=== PATIENT | male | born 1960 | race Caucasian/White ===

== ENCOUNTER → 2017-09-10 14:00 | Outpatient (CLI) | payer OTHER, SELFPAY ==
--- NOTE | 2017-09-10 14:20 | VDLE_ITS ---
Reason For Study: LEG PAIN Procedure LEFT Exam performed in department. GSV is normal. A preliminary report was called and/or faxed CFV is compressible, spontaneous, phasic, to Dr. Frey. competent, and demonstrates normal augmentation. FV is compressible, spontaneous, phasic, competent and demonstrates normal augmentation. POP V is compressible, spontaneous, phasic, competent and demonstrates normal augmentation. T/P Trunk is compressible. PTV is compressible. LT PerV is compressible. Interpretation Summary Deep veins of the left lower extremity are patent and compressible segmentally. There is no evidence of left lower extremity deep vein thrombosis. Valvular competence appears intact within the proximal deep venous system on the left . The left greater saphenous vein appears patent and compressible segmentally. Ordering Physician: Bernard Frey Referring Physician: Bernard Frey Performed By: Suzanna Chen RVT
== END ==
PROVIDERS: Family Provider Family Medicine; PCP Family Medicine; Visit Provider Family Medicine
DX: R25.2 Cramp and spasm (principal)
CPT/HCPCS: 93971

== ENCOUNTER 2017-12-22 08:32 | Emergency (ER) | payer OTHER, SELFPAY ==
[2017-12-22 08:32] VITALS: BP 167/99; PULSE 91; RESP 15; TEMP 36.6; O2SAT 96; BMI 44.9
--- NOTE | 2017-12-22 08:46 | ED.VISSUMM ---
- ER Visit Summary Date of Service: 12/22/17 Chief Complaint: Abdominal pain History of Present Illness: The patient is a 57 M presenting with abdominal pain. He states his abdominal pain has been ongoing for awhile. He states it has been progressively worsening. He now also complains of left flank pain. He has had diarrhea for the past 4 days. He denies blood in his stool. He denies nausea or vomiting. He has urinary frequency. Denies hematuria or dysuria. Denies fever. Denies chest pain or shortness of breath. Physical Examination: Vitals are stable. Patient is afebrile. Alert no acute distress. HEENT exam is unremarkable. Neck is supple. Lungs are clear and equal bilaterally. Heart is regular rate and rhythm. Abdomen is soft right upper quadrant epigastric tenderness with no rebound or guarding Back is nontender Extremities are unremarkable. Skin is warm and dry. Psoriasis Remainder of exam is unremarkable. Emergency Department Course and Treatment: Patient is given morphine, Zofran IV. CBC chemistries unremarkable other than glucose 264. Liver lipase normal. Urinalysis shows glucose, no infection. CT abdomen/pelvis shows hepatic steatosis with hepatomegaly. There appears to be a small amount of layering hyperdense sludge within the gallbladder without acute inflammatory features of the gallbladder wall and without biliary ductal dilatation. No other acute intra-abdominal process is evident. On reevaluation patient is resting comfortably. He is given a prescription for Bentyl. He is advised to follow-up with his primary care physician. Advised return to ED for any worsening complaints. Disposition: Discharge home Impression: Abdominal pain This note was generated with [employer] dictation software. It may contain incorrect words, spelling, and punctuation that were not noted in review of the chart prior to signing ED Disposition - Plan for ED Patient: Chief Complaint: Abd Pain Referrals: Bernard Frey MD [Primary Care Provider] -
[2017-12-22 08:58] LABS: Absolute Lymphocyte Count 1.01 X10^3/ul (0.83-4.51); Absolute Neutrophil Count 4.8 X10^3/uL (2.0-7.7); Basophil# 0.01 X10^3/uL; Basophil% 0.2 % (0-1); Hematocrit 43.2 % (40-54); Hemoglobin 14.9 g/dl (13.0-16.5); Lymphocyte # 1.01 X10^3/ul (4.0); Lymphocyte % 15.7 % (19-41); Mean Corp Hgb Conc 34.5 g/gl (32-36); Mean Corpuscular Hgb 29.4 pg (27.0-32.0); Mean Corpuscular Volume 85.4 fL (80-94); Mean Platelet Vol. 9.1 fl (6.2-12.0); Monocyte# 0.57 X10^3/uL; Monocyte% 8.9 % (0-10); Neutrophil # 4.82 X10^3/uL (2.7-7.7); POSITIVE COUNT NO; POSITIVE DIFFERENTIAL NO; POSITIVE MORPHOLOGY NO; Platelet Count 228 K/mm3 (150-450); RBC Distribution Width CV 13.1 % (11.6-14.6); RBC Distribution Width SD 40.7 fl (35.1-43.9); Red Blood Count 5.06 M/mm3 (4.6-6.2); White Blood Count 6.4 K/mm3 (4.4-11.0)
[2017-12-22 09:11] LABS: ALB/GLOB Ratio 0.9 RATIO (0.9-2.4); AST(SGOT) 15 U/L (15-37); Alanine Aminotransfer ALT/SGPT 29 U/L (16-61); Albumin, Serum 3.7 g/dL (3.2-5.0); Alkaline Phosphatase 78 U/L (45-117); Anion Gap 13 (5-15); BUN 15 mg/dL (7-18); BUN/Creat Ratio 17.2 RATIO (10-20); Calcium,Total 9.2 mg/dL (8.5-10.1); Chloride 101 mmol/L (98-107); Creatinine, Serum 0.87 mg/dL (0.70-1.30); EST Glomerular Filtration Rate 96 mL/min (>60); Est Glom Filt Rate - Afr Amer 116 mL/min (>60); Estimated Creatinine Clearance 94.81 ml/min; Glucose 264 mg/dL (74-106); Lipase 346 U/L (73-393); Protein, Total 7.7 g/dL (6.4-8.2); Sodium Level 138 mmol/L (136-145)
[2017-12-22 09:18] LABS: Bacteria 0 SEEN /hpf (None Seen); Mucous, Urine 0 SEEN /hpf (<or=2+); Red Blood Cells-Urine 0 SEEN /hpf (0-5); Squamous Epithelial Cells - UA 0 SEEN /hpf (0-5); White Blood Cells 0 SEEN /hpf (0-5)
[2017-12-22 09:21] LABS: Color, Urine Yellow (Yellow); Glucose, Dipstick 250 mg/dl (Normal); Ketone-Dipstick Negative (Negative); Leukocyte Esterase-Dipstick Negative /ul (Negative); Nitrite-Dipstick Negative (Negative); Occult Blood-Urine Negative /ul (Negative); Protein-Dipstick Negative (Negative); Urine Bilirubin Dipstick Negative (Negative); Urine Clarity Clear (Clear); Urine Urobilinogen Normal (Normal)
[2017-12-22] MEDS: Morphine 4 MG/ML Syringe IV (09:24)
[2017-12-22] MEDS: Ondansetron 4 MG/2 ML Vial IV (09:24)
--- NOTE | 2017-12-22 11:58 | ED.DEP ---
ED Disposition - Plan for ED Patient: Chief Complaint: Abd Pain Instructions: ED Abdominal Pain Unkn Cause Prescriptions: Dicyclomine HCl [Bentyl] 20 mg PO TIDAC #20 capsule Referrals: Bernard Frey MD [Primary Care Provider] -
[2017-12-22 12:07] VITALS: BP 149/78; PULSE 80; RESP 16
== END 2017-12-22 12:08 | disposition home or self-care (01) ==
PROVIDERS: Emergency Provider Emergency Medicine; Family Provider Family Medicine; PCP Family Medicine
DX: R10.13 Epigastric pain (principal); R10.11 Right upper quadrant pain; I10 Essential (primary) hypertension; E11.9 Type 2 diabetes mellitus without complications; Z79.84 Long term (current) use of oral hypoglycemic drugs; Z79.899 Other long term (current) drug therapy
CPT/HCPCS: 74177; 80053; 81001; 83690; 85025; 96374; 96375; 99283; Q9967; A4216; J2405

== ENCOUNTER → 2017-12-25 15:26 | Outpatient (CLI) | payer OTHER, SELFPAY | PROVIDERS: Family Provider Family Medicine; PCP Family Medicine; Visit Provider Family Medicine | DX: R10.11 Right upper quadrant pain (principal) | CPT/HCPCS: 76705 ==

== ENCOUNTER → 2017-12-26 11:41 | Outpatient (CLI) | payer OTHER, SELFPAY | PROVIDERS: Family Provider Family Medicine; PCP Family Medicine; Visit Provider Surgery | DX: R10.9 Unspecified abdominal pain (principal) | CPT/HCPCS: 78227; A9537 ==

== ENCOUNTER → 2018-03-19 09:50 | Outpatient (CLI) | payer OTHER, SELFPAY ==
[2018-03-19 12:42] LABS: Absolute Lymphocyte Count 1.23 X10^3/ul (0.83-4.51); Absolute Neutrophil Count 4.9 X10^3/uL (2.0-7.7); Basophil# 0.04 X10^3/uL; Basophil% 0.6 % (0-1); Eosinophil# 0.13 X10^3/uL; Eosinophils% 1.9 % (0-5); Hematocrit 42.8 % (40-54); Hemoglobin 14.8 g/dl (13.0-16.5); Lymphocyte # 1.23 X10^3/ul (4.0); Lymphocyte % 17.7 % (19-41); Mean Corp Hgb Conc 34.6 g/gl (32-36); Mean Corpuscular Hgb 29.5 pg (27.0-32.0); Mean Corpuscular Volume 85.4 fL (80-94); Mean Platelet Vol. 10.3 fl (6.2-12.0); Monocyte# 0.58 X10^3/uL; Monocyte% 8.4 % (0-10); Neutrophil # 4.87 X10^3/uL (2.7-7.7); Neutrophil % 70.1 % (47-70); Platelet Count 274 K/mm3 (150-450); RBC Distribution Width CV 13.1 % (11.6-14.6); RBC Distribution Width SD 39.9 fl (35.1-43.9); Red Blood Count 5.01 M/mm3 (4.6-6.2); White Blood Count 6.9 K/mm3 (4.4-11.0)
[2018-03-19 12:43] LABS: POSITIVE COUNT NO; POSITIVE DIFFERENTIAL NO; POSITIVE MORPHOLOGY NO
[2018-03-19 13:38] LABS: AST(SGOT) 11 U/L (15-37); Alanine Aminotransfer ALT/SGPT 32 U/L (16-61); Albumin, Serum 3.5 g/dL (3.2-5.0); Alkaline Phosphatase 85 U/L (45-117); Anion Gap 12 (5-15); BUN 16 mg/dL (7-18); BUN/Creat Ratio 20.1 RATIO (10-20); Bilirubin, Direct < 0.05 mg/dL (0.00-0.30); Calcium,Total 9.4 mg/dL (8.5-10.1); Chloride 101 mmol/L (98-107); EST Glomerular Filtration Rate 106 mL/min (>60); Est Glom Filt Rate - Afr Amer 129 mL/min (>60); Globulin 3.9 g/dL (2.2-4.2); Glucose 241 mg/dL (74-106); Potassium 3.8 mmol/L (3.5-5.1); Protein, Total 7.4 g/dL (6.4-8.2); Sodium Level 138 mmol/L (136-145)
[2018-03-20 06:07] LABS: HEPATITIS B SURFACE AG Negative (Negative)
[2018-03-20 10:29] LABS: Hep B Surface Antibodies Non Reactive (.); Hep C Antibodies 0.1 s/co ratio (0.0-0.9); Hepatitis B Core Ab Total Negative (Negative)
== END ==
PROVIDERS: Family Provider Family Medicine; PCP Family Medicine; Referring Provider Nurse Practitioner Family; Visit Provider Nurse Practitioner Family
DX: L40.0 Psoriasis vulgaris (principal)
CPT/HCPCS: 36415; 80048; 80076; 85025; 86704; 86706; 86803; 87340

== ENCOUNTER 2018-07-14 10:32 | Emergency (ER) | payer OTHER, SELFPAY ==
[2018-07-14 10:34] VITALS: BP 176/85; PULSE 106; RESP 18; TEMP 35.7; O2SAT 96; BMI 45.3
--- NOTE | 2018-07-14 10:54 | EKG12_ITS ---
Test Reason : CP Blood Pressure : / mmHG Vent. Rate : 104 BPM Atrial Rate : 104 BPM P-R Int : 166 ms QRS Dur : 092 ms QT Int : 344 ms P-R-T Axes : 033 033 065 degrees QTc Int : 452 ms Sinus tachycardia Nonspecific T wave abnormality Abnormal ECG Confirmed by NICOLA SHEARER ([id number]), newspaper or periodical editor MIL AJ ([id number]) on 07/17/2018 1:15:37 PM Referred By: SANCHO Confirmed By:NICOLA SHEARER
--- NOTE | 2018-07-14 10:54 | RAD_ITS ---
STUDY: X-RAY CHEST REASON FOR EXAM: Male, 58 years old. 4 day history of chest pain. TECHNIQUE: PA and lateral views of the chest. COMPARISON: None. FINDINGS: EKG electrodes are seen. Minimal degree of increasing markings in the lingular segment of the left upper lobe suggestive of linear atelectasis. There is no demonstrated pleural abnormality. Normal size heart. Normal mediastinum and jeanie. Normal visualized pulmonary arteries. There is atherosclerotic tortuosity of the aortic arch and descending thoracic aorta. There are degenerative changes of the visualized thoracic spine. Normal visualized ribs, clavicles, and shoulders. There is no demonstrated abnormality of the visualized soft tissue structures of the upper abdomen. RAD/Chest PA and Lateral IMPRESSION: Findings suggestive of lingular linear atelectasis. Electronically Signed: Tristin Knowles, at 11:59 EST , Service support ,
[2018-07-14 11:13] VITALS: BP 172/86; PULSE 104; RESP 18; O2SAT 94
[2018-07-14 11:17] LABS: Absolute Lymphocyte Count 1.13 X10^3/ul (0.83-4.51); Absolute Neutrophil Count 4.9 X10^3/uL (2.0-7.7); Basophil# 0.02 X10^3/uL; Basophil% 0.3 % (0-1); Eosinophil# 0.04 X10^3/uL; Eosinophils% 0.6 % (0-5); Hematocrit 43.4 % (40-54); Hemoglobin 14.9 g/dl (13.0-16.5); Lymphocyte # 1.13 X10^3/ul (4.0); Lymphocyte % 16.9 % (19-41); Mean Corp Hgb Conc 34.3 g/gl (32-36); Mean Corpuscular Hgb 29.4 pg (27.0-32.0); Mean Corpuscular Volume 85.6 fL (80-94); Mean Platelet Vol. 9.5 fl (6.2-12.0); Monocyte# 0.56 X10^3/uL; Monocyte% 8.4 % (0-10); Neutrophil # 4.86 X10^3/uL (2.7-7.7); Neutrophil % 72.9 % (47-70); Platelet Count 232 K/mm3 (150-450); RBC Distribution Width CV 13.2 % (11.6-14.6); RBC Distribution Width SD 40.4 fl (35.1-43.9); Red Blood Count 5.07 M/mm3 (4.6-6.2); White Blood Count 6.7 K/mm3 (4.4-11.0)
[2018-07-14 11:18] LABS: POSITIVE COUNT NO; POSITIVE DIFFERENTIAL NO; POSITIVE MORPHOLOGY NO
[2018-07-14 11:42] LABS: Anion Gap 10 (5-15); BUN 18 mg/dL (7-18); BUN/Creat Ratio 16.7 RATIO (10-20); Calcium,Total 8.7 mg/dL (8.5-10.1); Chloride 103 mmol/L (98-107); Creatinine, Serum 1.08 mg/dL (0.70-1.30); EST Glomerular Filtration Rate 75 mL/min (>60); Est Glom Filt Rate - Afr Amer 91 mL/min (>60); Estimated Creatinine Clearance 75.46 ml/min; Glucose 292 mg/dL (74-106); Potassium 3.8 mmol/L (3.5-5.1); Sodium Level 135 mmol/L (136-145)
--- NOTE | 2018-07-14 11:55 | US_ITS ---
STUDY: ABDOMINAL ULTRASOUND - RIGHT UPPER QUADRANT REASON FOR VISIT: Male, 58 years old. Abdominal pain. TECHNIQUE: Ultrasound evaluation of the right upper quadrant was performed with real-time and static brandon-scale imaging. TECHNICAL QUALITY: Adequate. COMPARISON: None. FINDINGS: Liver: The liver is mildly enlarged and measures 18.3 cm. There is increased echogenicity consistent with fatty infiltration. The bile ducts are within normal limits. There is hepatic color flow. The direction of portal flow is hepatopetal. There is no demonstrated mass lesion. Gallbladder: Normal distended gallbladder. The gallbladder wall measures 2.6 mm. There is a negative sonographic Donnelly's sign. There is no pericholecystic fluid. There are no gallstones. Common Bile Duct (C.B.D.): The common bile duct measures 5.4 mm. Pancreas: There is nonvisualization of the pancreas due to overlying bowel gas. Right Kidney: Normal size of the right kidney. The right kidney measures 13.7 cm x 6.0 cm x 6.2 cm. Normal renal cortex. The right cortex measures 2.1 cm. 2 renal cysts are seen. The larger measures 2.2 cm x 1.9 cm x 1.9 cm. There is no right hydronephrosis. US/Gallbladder IMPRESSION: Mildly enlarged liver with fatty infiltration of the liver. Electronically Signed: Tristin Knowles, at 13:44 EST , Service support ,
--- NOTE | 2018-07-14 11:57 | ED.DCSUM_ITS ---
- ER Visit Summary Date of Service: 07/14/18 Chief Complaint: Abnormal EKG History of Present Illness: The patient is a 58 M who has a history of diabetes and hypertension and obesity. Patient states he has noticed for the past 4 days increasing belching and a epigastrium pressure. It is worse with eating. He started some Prilosec and has not helped. He is otherwise asymptomatic here in the emergency department. He went to his primary care physician today was noted on EKG to have nonspecific T wave abnormalities. His last EKG here at the emergency department is from April 2015. He denies any chest pain or shortness of breath. He notes some pain in his epigastrium with deep palpation. Physical Examination: Afebrile vital signs are stable Gen: Well-nourished well-developed obese Head: Normocephalic atraumatic Eyes: Perrl EOMI ENT: TMs clear no rhinorrhea moist mucous membranes Neck: Supple no lymphadenopathy no JVD nontender CVS: Regular rate rhythm no murmurs normal S1-S2 Respiratory: No distress clear to auscultation bilaterally chest nontender Abdomen: Soft mild midline abdominal wall tenderness nondistended normal bowel sounds no masses Back: Nontender Extremity: Nontender no edema Skin: Normal color no rash Neuro: alert orientated ?3 CN II-XII intact normal strength sensation reflexes gait cerebellar Psych: Normal affect normal mood Test Results: EKG demonstrates a sinus tachycardia rate of 104 with nonspecific T wave abnormalities. CBC and a CMP showed a glucose of 292. Troponin negative. Gallbladder ultrasound negative. Chest x-ray negative. Emergency Department Course and Treatment: I think the patient most likely has gastritis versus peptic ulcer disease. I spoke with Dr. Smith who saw him at the office. Placed him on Pepcid and Carafate. Return if worsening or co ncerns. Impression: 1. Gastritis This note was generated with [employer] dictation software. It may contain incorrect words, spelling, and punctuation that were not noted in review of the chart prior to signing ED Disposition - Plan for ED Patient: Disposition: Home or Assisted Living Instructions: ED PUD Vs Gastritis Prescriptions: Famotidine [Pepcid] 20 mg PO BID #28 tab Sucralfate [Carafate] 1 gm PO 4X/DAY #56 tab Referrals: Bernard Frey [Primary Care Provider] - 1 Week
[2018-07-14 13:09] VITALS: BP 120/73; PULSE 95; RESP 28; O2SAT 97
[2018-07-14 14:40] VITALS: BP 164/78; PULSE 94; RESP 12; O2SAT 95
== END 2018-07-14 14:48 | disposition home or self-care (01) ==
PROVIDERS: Emergency Provider Emergency Medicine; Family Provider Family Medicine; PCP Family Medicine
DX: K29.70 Gastritis, unspecified, without bleeding (principal); E66.9 Obesity, unspecified
CPT/HCPCS: 71046; 76705; 80048; 84484; 85025; 93005; 99284; A4216

== ENCOUNTER 2018-07-20 07:06 | Observation (INO) | payer OTHER, SELFPAY ==
[2018-07-20] VITALS (10 sets, daily range): BP systolic 120–185; BP diastolic 73–98; PULSE 83–106; RESP 14–16; TEMP 36.1–36.8; O2SAT 94–96; BMI 45.3; BMI 44.9
--- NOTE | 2018-07-20 07:28 | EKG12_ITS ---
Test Reason : PALPS Blood Pressure : / mmHG Vent. Rate : 090 BPM Atrial Rate : 090 BPM P-R Int : 158 ms QRS Dur : 072 ms QT Int : 372 ms P-R-T Axes : 019 017 040 degrees QTc Int : 455 ms Normal sinus rhythm Normal ECG Confirmed by SHAHAB LENTZ, CAROLINE ([id number]), online content editor JUANI PEREZ ([id number]) on 07/24/2018 9:08:39 AM Referred By: MARCO Confirmed By:CAROLINE GUDINO MD
--- NOTE | 2018-07-20 07:30 | RAD_ITS ---
STUDY: X-RAY CHEST REASON FOR EXAM: Male, 58 years old. Chest pain and palpitations. TECHNIQUE: Single AP portable view of the chest. COMPARISON: CT of the chest dated September 26, 2013. FINDINGS: The lungs are clear and expanded. There is no demonstrated pleural abnormality. Normal size heart. Normal mediastinum and jeanie. Normal visualized pulmonary arteries. Normal visualized aortic arch and descending thoracic aorta. Normal visualized thoracic spine. Normal visualized ribs, clavicles, and shoulders. There is no demonstrated abnormality of the visualized soft tissue structures of the upper abdomen. RAD/Chest 1 View (Portable) IMPRESSION: No radiographic evidence of acute cardiopulmonary disease. Electronically Signed: Kristyn Hardy MD at 8:18 EDT , Service support ,
[2018-07-20] MEDS: 0.9% Normal Saline 1,000 ML 150 ML IV (08:03)
[2018-07-20] MEDS: Aspirin 81 MG TAB.CHEW 324 MG PO (08:03)
[2018-07-20 08:10] LABS: Absolute Lymphocyte Count 1.13 X10^3/ul (0.83-4.51); Absolute Neutrophil Count 5.1 X10^3/uL (2.0-7.7); Basophil# 0.02 X10^3/uL; Basophil% 0.3 % (0-1); Eosinophil# 0.12 X10^3/uL; Eosinophils% 1.7 % (0-5); Hematocrit 44.7 % (40-54); Hemoglobin 15.3 g/dl (13.0-16.5); Lymphocyte # 1.13 X10^3/ul (4.0); Lymphocyte % 16.1 % (19-41); Mean Corp Hgb Conc 34.2 g/gl (32-36); Mean Corpuscular Volume 84.7 fL (80-94); Mean Platelet Vol. 9.6 fl (6.2-12.0); Monocyte# 0.58 X10^3/uL; Monocyte% 8.3 % (0-10); Neutrophil # 5.08 X10^3/uL (2.7-7.7); Neutrophil % 72.5 % (47-70); Platelet Count 260 K/mm3 (150-450); RBC Distribution Width CV 13.1 % (11.6-14.6); RBC Distribution Width SD 40.4 fl (35.1-43.9); Red Blood Count 5.28 M/mm3 (4.6-6.2)
[2018-07-20 08:11] LABS: POSITIVE COUNT NO; POSITIVE DIFFERENTIAL NO; POSITIVE MORPHOLOGY NO
[2018-07-20 08:22] LABS: D-Dimer Quantitative (DVT/PE) 0.28 FEU/ug/m (0.27-0.49)
[2018-07-20 08:30] LABS: AST(SGOT) 16 U/L (15-37); Alanine Aminotransfer ALT/SGPT 30 U/L (16-61); Albumin, Serum 3.7 g/dL (3.2-5.0); Alkaline Phosphatase 83 U/L (45-117); Bilirubin, Direct 0.08 mg/dL (0.00-0.30); Globulin 3.5 g/dL (2.2-4.2); Protein, Total 7.2 g/dL (6.4-8.2)
[2018-07-20 08:36] LABS: Anion Gap 10 (5-15); BUN 14 mg/dL (7-18); BUN/Creat Ratio 15.9 RATIO (10-20); Calcium,Total 8.7 mg/dL (8.5-10.1); Chloride 99 mmol/L (98-107); Creatinine, Serum 0.88 mg/dL (0.70-1.30); EST Glomerular Filtration Rate 95 mL/min (>60); Est Glom Filt Rate - Afr Amer 115 mL/min (>60); Estimated Creatinine Clearance 92.62 ml/min; Glucose 257 mg/dL (74-106); Lipase 232 U/L (73-393); Potassium 3.9 mmol/L (3.5-5.1); Sodium Level 133 mmol/L (136-145)
--- NOTE | 2018-07-20 08:52 | HP.PCM_ITS ---
History of Present Illness Date of Admission: 07/20/18 Chief Complaint: chest tightness, palpitations The patient is a 58 year old M who was admitted with complaint of palpitations which started in the middle of the night. He was woken up by these palpitations and states he noted that his heart rate was initially 104 and then subsequently 106. He had no chest pain or shortness of breath at this time. Patient however states that a few days ago he did have some epigastric pain and came into the ED where he was told it was not due to heart attack was likely due to an ulcer. He still has had persistent discomfort in the epigastric region going into his back. He also admitted to excessive diaphoresis for which she could not find a reason. He denied any fever or chills, diarrhea vomiting. Review of systems otherwise negative. Of note, patient does not have any cardiac history and states he last had a heart cath about 25 years ago and a stress test about 2 years ago but could not see the exact reason why. Initial troponin in the ED was negative and EKG showed no acute ST changes and was in sinus rhythm with ventricular rate of 90. He has been admitted to rule out ACS. [] Past Medical History Past Medical History (Chronic Problems): Chronic Problems (Last Reviewed 01/01/18 @ 08:15 by Minerva Lynch) Hypertension (Chronic) Diabetes mellitus (Chronic) Medical History: Medical History (Last Reviewed 01/01/18 @ 08:15 by Minerva Lynch) Hypertension (Chronic) I10 Diabetes mellitus (Chronic) E11.9 Allergies No Known Allergies Allergy (Verified 07/20/18 07:07) Home Medications: Ambulatory Orders Medication Instructions Recorded Glimepiride [Amaryl] 4 mg PO DAILY 05/25/13 Metformin HCl [Glucophage] 1,000 mg PO BIDCM 05/25/13 linagliptin 5 mg tablet 5 mg PO QAM 01/01/18 valsartan 320 0.5 tab PO BID 01/01/18 mg-hydrochlorothiazide 25 mg tablet Albuterol Sulfate [Proair 90 mcg IH Q4H PRN PRN 07/20/18 Respiclick] Famotidine 20 mg PO BID 07/20/18 Liraglutide [Victoza] 1.8 mg SQ DAILY 07/20/18 Sucralfate 1 gm PO 4X/DAY 07/20/18 Surgical History: Surgical History (Last Updated 01/01/18 @ 08:16 by Minerva Lynch) History of hernia surgery Z98.890, Z87.19 Lives: With Family Smoking Status: Never smoker - *Family History Paternal Family History: Family History (Last Updated 01/01/18 @ 08:16 by Minerva Lynch) Mother Diabetes Father Hypertension History Items: Diabetes Review of Systems Constitutional: Denies: Chills, Fever, Weight Change Eyes: Denies: Blurred vision HEENT: Denies: Head Aches, Sinus Congestion, Sinus Drainage Cardiovascular: Reports: Palpitations. Denies: Chest Pain, Chest Pressure, Chest Tightness, Edema, Heaviness, Light Headedness, Orthopnea, Paroxysmal Noc. Dyspnea, Syncope Respiratory: Denies: Cough, Shortness of Breath, Shortness of breath at rest, Sputum production Gastrointestinal: Denies: Abdominal Pain, Nausea, Vomiting Genitourinary: Denies: Dysuria Musculoskeletal: Denies: Joint Pain, Joint Tenderness Skin: Denies: Rash, Wounds Neurological: Denies: Numbness, Tingling, Focal weakness Psychiatric: Denies: Anxiety, Depression, Homicidal Ideations, Suicidal Ideations Hematologic/ Lymphatic: Denies: Easy Bruising, Easy Bleeding VTE Information - Inpt Only VTE Present on Admission: No VTE Pharm Prophylaxis ordered?: Yes - Physical Exam General: Alert, Oriented x3, Cooperative, No apparent distress HEENT: Atraumatic, PERRLA, EOMI, Normocephalic Oral: Moist Mucosa Neck: Supple, No JVD, Negative Carotid Bruits Lungs: Clear to auscultation, Normal air movement, No rhonchi, No wheeze, No rales Cardiovascular: Regular rate, Regular Rhythm, Normal S1, Normal S2, No murmurs Abdomen: Bowel Sounds Present, Soft, Non Tender, Non-Distended, No Hepato-sp lenomegaly Extremities: No clubbing, No cyanosis, No edema, Capillary Refill Less than 3 Seconds Skin: No rashes, No breakdown Musculoskeletal: No Tenderness to Palpation of Joints or Extremities Lymphatic: No Cervical, Supraclavicular, or Inguinal Adenopathy Neurological: Cranial nerves II-XII grossly intact, Neuro grossly intact, Motor Exam 5/5 strength throughout Psych/Mental Status: Normal Affect, Appropriate, Alert and oriented to time, place, person, mood and affect Vital Signs Temp Pulse Resp BP Pulse Ox 96.9 F L 106 H 15 134/81 H 94 07/20/18 07:09 07/20/18 08:45 07/20/18 08:45 07/20/18 08:45 07/20/18 08:45 Oxygen Delivery Method Room Air Weight: 307 lb 1.663 oz Body Mass Index (BMI) 45.3 Laboratory Tests Past 24 Hrs 07/20/18 07/20/18 07/20/18 07:58 07:58 07:58 WBC 7.0 RBC 5.28 Hgb 15.3 Hct 44.7 MCV 84.7 MCH 29.0 MCHC 34.2 RDW 13.1 RDW Differential 40.4 Plt Count 260 MPV 9.6 Immature Gran % (Auto) 1.100 H Neut % (Auto) 72.5 H Lymph % (Auto) 16.1 L [place] % (Auto) 8.3 Eos % (Auto) 1.7 Baso % (Auto) 0.3 Absolute Neuts (auto) 5.1 Absolute Lymphs (auto) 1.13 Total Counted Not Reportable D-Dimer Quant (PE/DVT) 0.28 Sodium Potassium Chloride Carbon Dioxide Anion Gap BUN Creatinine Estim Creat Clear Calc Est GFR (MDRD) Af Amer Est GFR (MDRD) Non-Af BUN/Creatinine Ratio Glucose Calcium Total Bilirubin 0.40 Direct Bilirubin 0.08 AST 16 ALT 30 Alkaline Phosphatase 83 Troponin I Total Protein 7.2 Albumin 3.7 Globulin 3.5 Lipase 07/20/18 07:58 WBC RBC Hgb Hct MCV MCH MCHC RDW RDW Differential Plt Count MPV Immature Gran % (Auto) Neut % (Auto) Lymph % (Auto) [place] % (Auto) Eos % (Auto) Baso % (Auto) Absolute Neuts (auto) Absolute Lymphs (auto) Total Counted D-Dimer Quant (PE/DVT) Sodium 133 L Potassium 3.9 Chloride 99 Carbon Dioxide 24.0 Anion Gap 10 BUN 14 Creatinine 0.88 Estim Creat Clear Calc 92.62 Est GFR (MDRD) Af Amer 115 Est GFR (MDRD) Non-Af 95 BUN/Creatinine Ratio 15.9 Glucose 257 H Calcium 8.7 Total Bilirubin Direct Bilirubin AST ALT Alkaline Phosphatase Troponin I < 0.015 Total Protein Albumin Globulin Lipase 232 Diagnostic Data Chest X-Ray 07/20/18 07:30 IMPRESSION: No radiographic evidence of acute cardiopulmonary disease. Electronically Signed: Kristyn Hardy MD at 8:18 EDT , Service support , Assessment/Plan All Active Problems (Last Reviewed 01/01/18 @ 08:15 by Minerva Lynch) Abdominal pain (Acute) Diarrhea (Acute) 58-year-old male presenting with rapid heart rate and some antecedent chest pain and chest discomfort. 1. Chest tightness, to rule out ACS * had chest pain and ACS was ruled out a few days ago after he came to the ED * has had persistent mild chest discomfort and tightness, which was associated with palpitations and increased sweating * initial troponin was negative. EKG showed no acute ST changes * admit to PCU with telemetry * cycle troponins * aspirin 81mg daily, SL nitroglycerin prn * for stress test tomorrow if troponins are negative. * 2. Diabetes mellitus: * on glimepiride, linagliptin and metformin. * We will hold metformin. Linagliptin held as it is not on formulary. * Insulin sliding scale. Accu-Cheks AC at bedtime. * 3. Hypertension: on hydrochlorthiazide 12.5mg daily. and losartan 50mg bid. DVT prophylaxis: Lovenox Code Visit OBSV E&M: [id number] Initial observation care L3
--- NOTE | 2018-07-20 09:00 | ED.DCSUM_ITS ---
- ER Visit Summary Date of Service: 07/20/18 Chief Complaint: [Tachycardia] History of Present Illness: The patient is a 58 M [presents the emergency department with complaint of racing heart at started middle night last night x2. Patient woke up feeling like his heart was racing and noted that his heart r ate was about 104 and then a second time was 106. Patient denies any chest pain with that. Patient states that incidentally he was seen in the emergency department about 6 days ago and evaluated for some epigastric discomfort he been having. Patient had initially been seen by his primary care physician who did an EKG in the office that they thought may be abnormal so he was sent to the ER. In the ER he had workup and ultimately was diagnosed with possible gastritis or ulcer and was treated for that. Patient states he still has some mild discomfort in the epigastric region and also some mild discomfort into his back that he rates about a 4 out of 10. Patient had no nausea or vomiting. Is had no fever. He denies any exertional dyspnea. Patient also states that yesterday he was having episodes intermittently of diaphoresis for no reason. He has no cardiac history. His last heart cath was about 25 years ago and his last stress test he believes was approximately 1/2-2 years ago.] Physical Examination: [HEENT-PERRLA, EOMI. Cranial nerves II through XII grossly intact. TMs clear. Mucous membranes moist. No adenopathy. Cardiovascular-regular rate and rhythm without murmur or ectopy Lungs-clear to auscultation, chest wall stable without crepitus or subcu emphysema Abdomen-normoactive bowel sounds, soft, nontender, no rebound or rigidity, no peritoneal signs. Extremities-intact ?4, normal range of motion, normal pulses, atraumatic] Test Results: [EKG obtained arrival shows sinus rhythm with a ventricular rate of 90 bpm with no acute I segment changes. CBC with differential is normal. Chemistries were normal. LFTs were normal. Lipase was 232. D-dimer was normal at 0.28. Troponin was less than 0.015. Chest x-ray is normal.] Emergency Department Course and Treatment: [Patient was given aspirin in the emergency department] Treatment Plan: [Admit for further workup and evaluation as I am concerned symptoms may be related to anginal equivalent.] Disposition: [ admit] Impression: [Anginal equivalent Tachycardia] This note was generated with [employer] dictation software. It may contain incorrect words, spelling, and punctuation that were not noted in review of the chart prior to signing ED Disposition - Plan for ED Patient: Referrals: Bernard Frey MD [Primary Care Provider] -
[2018-07-20 11:21] LABS: Bedside Glucose 209 mg/dL (70-110)
[2018-07-20] MEDS: Insulin Lispro 100 UNIT/ML INSULN.PEN SQ ×3 (11:24→22:03)
--- NOTE | 2018-07-20 11:36 | EKG12_ITS ---
Test Reason : AM EKG Blood Pressure : / mmHG Vent. Rate : 083 BPM Atrial Rate : 083 BPM P-R Int : 158 ms QRS Dur : 098 ms QT Int : 374 ms P-R-T Axes : 034 028 031 degrees QTc Int : 439 ms Normal sinus rhythm Nonspecific T wave abnormality Abnormal ECG When compared with ECG of 20-JUL-2018 11:37, MANUAL COMPARISON REQUIRED, DATA IS UNCONFIRMED Confirmed by SHAHAB LENTZ, CAROLINE ([id number]), school photograph editor JUANI PEREZ ([id number]) on 07/24/2018 9:33:20 AM Referred By: ELIA Confirmed By:CAORLINE GUDINO MD
[2018-07-20 16:26] LABS: Bedside Glucose 215 mg/dL (70-110)
[2018-07-20] MEDS: Losartan Potassium 50 MG Tablet PO (22:02)
[2018-07-20] MEDS: hydroCHLOROthiazide 12.5mg 12.5 MG PO (22:03)
[2018-07-20 22:31] LABS: Bedside Glucose 226 mg/dL (70-110)
[2018-07-21 02:51] VITALS: PULSE 78
[2018-07-21 03:17] VITALS: BP 154/88; PULSE 83; RESP 10; TEMP 36.5; O2SAT 95
[2018-07-21 05:23] VITALS: BP 132/83; PULSE 87; RESP 16; TEMP 36.4; O2SAT 92
[2018-07-21] MEDS: Aspirin 81 MG TAB.CHEW PO (05:29)
--- NOTE | 2018-07-21 05:55 | EKG12_ITS ---
Test Reason : CP ADMIT Blood Pressure : / mmHG Vent. Rate : 087 BPM Atrial Rate : 087 BPM P-R Int : 156 ms QRS Dur : 096 ms QT Int : 364 ms P-R-T Axes : 019 024 043 degrees QTc Int : 438 ms Normal sinus rhythm Nonspecific T wave abnormality Abnormal ECG When compared with ECG of 27-APR-2015 17:18, Nonspecific T wave abnormality, worse in Inferior leads Nonspecific T wave abnormality now evident in Lateral leads Confirmed by SHAHAB LENTZ, CAROLINE ([id number]), fan mail editor JUANI PEREZ ([id number]) on 07/24/2018 9:40:32 AM Referred By: ELIA Confirmed By:CAROLINE GUDINO MD
[2018-07-21 06:04] LABS: Absolute Neutrophil Count 4.2 X10^3/uL (2.0-7.7); Basophil# 0.02 X10^3/uL; Basophil% 0.3 % (0-1); Eosinophil# 0.16 X10^3/uL; Eosinophils% 2.6 % (0-5); Hematocrit 45.1 % (40-54); Hemoglobin 15.5 g/dl (13.0-16.5); Lymphocyte % 19.4 % (19-41); Mean Corp Hgb Conc 34.4 g/gl (32-36); Mean Corpuscular Hgb 29.2 pg (27.0-32.0); Mean Corpuscular Volume 85.1 fL (80-94); Mean Platelet Vol. 9.6 fl (6.2-12.0); Monocyte# 0.55 X10^3/uL; Monocyte% 8.9 % (0-10); Neutrophil # 4.21 X10^3/uL (2.7-7.7); Neutrophil % 67.8 % (47-70); Platelet Count 267 K/mm3 (150-450); RBC Distribution Width CV 13.1 % (11.6-14.6); RBC Distribution Width SD 40.6 fl (35.1-43.9); White Blood Count 6.2 K/mm3 (4.4-11.0)
[2018-07-21 06:29] LABS: Prothrombin Time (Protime)PT. 13.4 SECONDS (11.7-14.9)
[2018-07-21 06:30] LABS: Partial Thromboplast Time 24.4 Seconds (24.1-36.2)
[2018-07-21 06:33] LABS: Anion Gap 12 (5-15); BUN 12 mg/dL (7-18); BUN/Creat Ratio 14.7 RATIO (10-20); Calcium,Total 8.6 mg/dL (8.5-10.1); Chloride 102 mmol/L (98-107); Creatinine, Serum 0.82 mg/dL (0.70-1.30); EST Glomerular Filtration Rate 103 mL/min (>60); Est Glom Filt Rate - Afr Amer 125 mL/min (>60); Estimated Creatinine Clearance 99.39 ml/min; Glucose 263 mg/dL (74-106); Potassium 3.6 mmol/L (3.5-5.1); Sodium Level 138 mmol/L (136-145)
[2018-07-21 06:45] LABS: POSITIVE COUNT NO; POSITIVE DIFFERENTIAL NO; POSITIVE MORPHOLOGY NO
[2018-07-21 09:02] VITALS: PULSE 94
--- NOTE | 2018-07-21 09:02 | STRESSREP ---
Stress Test Report Exercise myocardial perfusion stress test. 58-year-old man with a history of chest pain. Medications: Aspirin, hydrochlorthiazide, Cozaar. Stress protocol: Resting EKG demonstrates normal sinus rhythm with a rate of 82 bpm normal intervals are noted resting blood pressure 146/78 mmHg. The patient exercised according to regular Sandeep protocol for a total duration of 6 minutes and 15 seconds the maximum heart rate attained was 142 bpm which was 87% of maximum predicted heart rate the maximum workload was 7.3 metabolic equivalents. At rest there were no ST or T wave changes noted suggest ischemia peak exercise nonspecific ST-T wave changes were noted with no meet the criteria for ischemia. Resting blood pressure is 146/78 with a peak blood pressure of 220/82 mmHg rate pressure product was 31,000. No clinical angina was noted the test was terminated due to leg fatigue. Myocardial perfusion protocol. 14.9 mCi of technetium 99m sestamibi was injected at rest. The patient exercised according to regular Sandeep protocol for total duration of 6 minutes and 15 seconds. At peak exercise 44.8 mCi of technetium 99m sestamibi was injected stress images were obtained stress and rest images were reconstructed and compared in the short axis vertical long horizontal long axis. Gated images were also obtained Perfusion SPECT analysis: Review of the stress images demonstrate normal uptake of tracer noted in all areas of myocardium except for the inferior wall with reduced perfusion. There is significant GI attenuation artifact and noted no obvious areas of reversibility however are noted to suggest ischemia. No previous infarct is noted. Gated SPECT analysis: The gated ejection fraction is noted to be 76%. Conclusion: Normal exercise myocardial perfusion stress test at a moderate workload. Preserved ejection fraction. Good functional capacity.
[2018-07-21 09:05] VITALS: BP 130/71; PULSE 93; RESP 14; TEMP 36.7; O2SAT 95
[2018-07-21] MEDS: Insulin Lispro 100 UNIT/ML INSULN.PEN SQ (09:06)
[2018-07-21] MEDS: hydroCHLOROthiazide 12.5mg 12.5 MG PO (09:06)
[2018-07-21] MEDS: Glimepiride 4 MG Tablet PO (09:06)
[2018-07-21] MEDS: LINAGLIPTIN 5 MG TABLET PO (09:06)
[2018-07-21] MEDS: Losartan Potassium 50 MG Tablet PO (09:06)
--- NOTE | 2018-07-21 11:08 | DCINST_ITS ---
You will use the following diet at home:: Cardiac Your food should be the consistency of: Regular Your liquids should be the consistency of: Regular/Thin Discharge Activity: Return to Normal Activity Weight Bearing Status: Weight bearing as tolerated Call your doctor if you observe: Shortness of breath, Dizziness, Chest pain, Increased palpitations (irregular heartbeat) Instructions: What Is Angina?, Discharge Instructions: Taking Fast-Acting Nitroglycerin Allergies/Adverse Reactions: Allergies No Known Allergies Allergy (Verified 07/20/18 07:07) Medications to take at Discharge Glimepiride [Amaryl] 4 mg PO DAILY 05/25/13 Metformin HCl [Glucophage] 1,000 mg PO BIDCM 05/25/13 linagliptin 5 mg tablet 5 mg PO QAM 01/01/18 valsartan 320 mg-hydrochlorothiazide 25 mg tablet 0.5 tab PO BID 01/01/18 Albuterol Sulfate [Proair Respiclick] 90 mcg IH Q4H PRN PRN 07/20/18 Famotidine 20 mg PO BID 07/20/18 Liraglutide [Victoza] 1.8 mg SQ DAILY 07/20/18 Sucralfate 1 gm PO 4X/DAY 07/20/18 Aspirin [Aspirin, Baby] 81 mg PO DAILY@0800 #30 tab.chew 07/21/18 Nitroglycerin [Nitrostat] 0.4 mg SUBLINGUAL Q5M PRN #30 tablet 07/21/18 The following prescriptions were given: Aspirin [Aspirin, Baby] 81 mg PO DAILY@0800 #30 tab.chew Nitroglycerin [Nitrostat] 0.4 mg SUBLINGUAL Q5M PRN #30 tablet PRN Reason: Cardiac/Chest Pain Primary Care Physician: Bernard Frey MD [Primary Care Provider] - Please follow up with your Primary Care Physician in: one week Test Results: Test results from this visit will be discussed in further detail at your follow- up appointment, if applicable. 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
--- NOTE | 2018-07-21 11:09 | PCM.DC.SUM ---
Discharge Date and Diagnosis Date of Admission: 07/20/18 Date of Discharge: 07/21/18 - Primary Discharge Diagnosis chest pain - Secondary Discharge Diagnosis Chronic Problems (Last Reviewed 01/01/18 @ 08:15 by Minerva Lynch) Hypertension (Chronic) Diabetes mellitus (Chronic) Hospital Course and Treatment Imaging Results: 07/21/18 05:55 Nuclear Stress Test - Treadmil [NM] AM (NON MEDS) Operations: None Procedures: None Summary of Care Provided: The patient is a 58 year old M who was admitted with complaint of palpitations which started in the middle of the night. He was woken up by these palpitations and states he noted that his heart rate was initially 104 and then subsequently 106. He had no chest pain or shortness of breath at this time. Patient however states that a few days ago he did have some epigastric pain and came into the ED where he was told it was not due to heart attack was likely due to an ulcer. He still has had persistent discomfort in the epigastric region going into his back. He also admitted to excessive diaphoresis for which she could not find a reason. He denied any fever or chills, diarrhea vomiting. Review of systems otherwise negative. Of note, patient had a heart cath about 25 years ago and a stress test about 2 years ago but could not say the exact reason why. Initial troponin in the ED was negative and EKG showed no acute ST changes and was in sinus rhythm with ventricular rate of 90. Was admitted for chest pain and tightness rule out ACS. Troponins x3 were negative. He had a stress test on 07/21/2018 which was negative. Patient remained stable and was discharged home on 07/21/2018. 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 Seen and examined prior to discharge. He had no complaints and felt well. Review of systems otherwise negative. Labs and vitals reviewed. o/e: Vital Signs Height 5 ft 9 in Weight: 303 lb 12.752 oz Weight in Pounds 303.8 lbs Pulse Ox 95 Temperature 98.0 F Pulse Rate 93 Respiratory Rate 14 Blood Pressure 130/71 Blood Pressure Position Sitting General: Alert, Oriented x3, Cooperative, No apparent distress HEENT: Atraumatic, PERRLA, EOMI, Normocephalic Oral: Moist Mucosa Neck: Supple, No JVD, Negative Carotid Bruits Lungs: Clear to auscultation, Normal air movement, No rhonchi, No wheeze, No rales Cardiovascular: Regular rate, Regular Rhythm, Normal S1, Normal S2, No murmurs Abdomen: Bowel Sounds Present, Soft, Non Tender, Non-Distended, No Hepato-splenomegaly Extremities: No clubbing, No cyanosis, No edema, Capillary Refill Less than 3 Seconds Skin: No rashes, No breakdown Musculoskeletal: No Tenderness to Palpation of Joints or Extremities Lymphatic: No Cervical, Supraclavicular, or Inguinal Adenopathy Neurological: Cranial nerves II-XII grossly intact, Neuro grossly intact, Motor Exam 5/5 strength throughout Psych/Mental Status: Normal Affect, Appropriate, Alert and oriented to time, place, person, mood and affect Plan as above. - Physical Exam Vital Signs Temp Pulse Resp BP Pulse Ox 98.0 F 93 14 130/71 H 95 07/21/18 09:05 07/21/18 09:05 07/21/18 09:05 07/21/18 09:05 07/21/18 09:05 Oxygen Delivery Method Room Air Weight: 303 lb 12.752 oz Body Mass Index (BMI) 44.9 Intake and Output for Last 24 Hours 07/19/18 07/20/18 07/21/18 23:59 23:59 23:59 Intake Total 1585 / 1585 30 / 30 Output Total 2 / 2 Balance 1585 / 1585 28 / 28 Laboratory Tests Past 24 Hrs 07/20/18 07/20/18 07/21/18 10:55 14:00 05:25 WBC 6.2 RBC 5.30 Hgb 15.5 Hct 45.1 MCV 85.1 MCH 29.2 MCHC 34.4 RDW 13.1 RDW Differential 40.6 Plt Count 267 MPV 9.6 Immature Gran % (Auto) 1.000 H Neut % (Auto) 67.8 Lymph % (Auto) 19.4 [place] % (Auto) 8.9 Eos % (Auto) 2.6 Baso % (Auto) 0.3 Absolute Neuts (auto) 4.2 Absolute Lymphs (auto) 1.20 Total Counted Not Reportable PT INR APTT Sodium Potassium Chloride Carbon Dioxide Anion Gap BUN Creatinine Estim Creat Clear Calc Est GFR (MDRD) Af Amer Est GFR (MDRD) Non-Af BUN/Creatinine Ratio Glucose Calcium Troponin I < 0.015 < 0.015 07/21/18 07/21/18 05:25 05:25 WBC RBC Hgb Hct MCV MCH MCHC RDW RDW Differential Plt Count MPV Immature Gran % (Auto) Neut % (Auto) Lymph % (Auto) [place] % (Auto) Eos % (Auto) Baso % (Auto) Absolute Neuts (auto) Absolute Lymphs (auto) Total Counted PT 13.4 INR 1.0 APTT 24.4 Sodium 138 Potassium 3.6 Chloride 102 Carbon Dioxide 24.0 Anion Gap 12 BUN 12 Creatinine 0.82 Estim Creat Clear Calc 99.39 Est GFR (MDRD) Af Amer 125 Est GFR (MDRD) Non-Af 103 BUN/Creatinine Ratio 14.7 Glucose 263 H Calcium 8.6 Troponin I POC Glucose 07/20/18 07/20/18 07/20/18 22:00 16:06 11:16 POC Glucose 226 H 215 H 209 H Discharge Diet: Low fat/ Low Cholesterol Discharge Activity: Return to Normal Activity Weight Bearing Status: Weight bearing as tolerated Call your doctor if you observe: Shortness of breath, Dizziness, Chest pain, Increased palpitations (irregular heartbeat) Home Medications: Medications to take at Discharge Glimepiride [Amaryl] 4 mg PO DAILY 05/25/13 Metformin HCl [Glucophage] 1,000 mg PO BIDCM 05/25/13 linagliptin 5 mg tablet 5 mg PO QAM 01/01/18 valsartan 320 mg-hydrochlorothiazide 25 mg tablet 0.5 tab PO BID 01/01/18 Albuterol Sulfate [Proair Respiclick] 90 mcg IH Q4H PRN PRN 07/20/18 Famotidine 20 mg PO BID 07/20/18 Liraglutide [Victoza] 1.8 mg SQ DAILY 07/20/18 Sucralfate 1 gm PO 4X/DAY 07/20/18 Aspirin [Aspirin, Baby] 81 mg PO DAILY@0800 #30 tab.chew 07/21/18 Nitroglycerin [Nitrostat] 0.4 mg SUBLINGUAL Q5M PRN #30 tablet 07/21/18 Following Prescrptions Were Given to Patient: Aspirin [Aspirin, Baby] 81 mg PO DAILY@0800 #30 tab.chew Nitroglycerin [Nitrostat] 0.4 mg SUBLINGUAL Q5M PRN #30 tablet PRN Reason: Cardiac/Chest Pain Primary Care Physician: Bernard Frey MD [Primary Care Provider] - Please follow up with your Primary Care Physician in: one week When: 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
[2018-07-21 15:55] LABS: Bedside Glucose 308 mg/dL (70-110)
== END 2018-07-21 11:08 | disposition home or self-care (01) ==
LOC: ED 08:09 → PCU 09:06
PROVIDERS: Admitting Provider Student in an Organized Health Care Education/Training Program; Emergency Provider Emergency Medicine; Family Provider Family Medicine; PCP Family Medicine; Visit Provider Student in an Organized Health Care Education/Training Program
DX: R07.89 Other chest pain (principal); R00.2 Palpitations; I10 Essential (primary) hypertension; R19.7 Diarrhea, unspecified; E11.9 Type 2 diabetes mellitus without complications; Z79.899 Other long term (current) drug therapy; Z79.84 Long term (current) use of oral hypoglycemic drugs
CPT/HCPCS: 36415; 71045; 78452; 80048; 80076; 82962; 83690; 84484; 85025; 85379; 85610; 85730; 93005; 93017; 96360; 96361; 99218; 99283; A9500; J7030; A4216; G0378

== ENCOUNTER 2018-09-06 23:33 | Emergency (ER) | payer OTHER, SELFPAY ==
[2018-09-06 23:33] VITALS: BMI 45.3
[2018-09-06 23:34] VITALS: BP 170/86; PULSE 95; RESP 18; TEMP 36.9; O2SAT 97; BMI 47.0
[2018-09-06 23:58] VITALS: BP 172/79; PULSE 88; RESP 13; O2SAT 94
--- NOTE | 2018-09-07 00:10 | ED.DCSUM_ITS ---
- ER Visit Summary Date of Service: 09/07/18 Chief Complaint: Vertigo History of Present Illness: The patient is a 58 M who presents with dizziness. He complains of a sensation of the room spinning. This is worse after lying flat when lifting his head. He had a recent URI like illness with congestion and rhinorrhea which has since resolved. No speech difficulty no weakness no paresthesias. He saw his primary care physician looked in his ear and the patient was told he could not really see anything but he was still put on amoxicillin. Patient has no other symptoms such as fevers chest pain shortness of breath. Physical Examination: Blood pressure 172/79 vitals otherwise unremarkable Moist mucous membranes Heart regular rate and rhythm Lungs are clear Abdomen soft Alert and oriented with no focal or lateralizing neurological deficits Tympanic membranes are clear Test Results: Not indicated Emergency Department Course and Treatment: Patient's presentation is consistent with peripheral vertigo. He does not have signs or symptoms to suggest central etiology. He was advised to discontinue the amoxicillin. He was given a dose of meclizine here as well as a prescription for the same and was discharged home. He was advised to follow-up as an outpatient as needed or to return for new or worsening symptoms. Treatment Plan: [] Disposition: Discharge Impression: Peripheral vertigo This note was generated with [employer] dictation software. It may contain incorrect words, spelling, and punctuation that were not noted in review of the chart prior to signing ED Disposition - Plan for ED Patient: Referrals: Bernard Frey MD [Primary Care Provider] -
--- NOTE | 2018-09-07 00:10 | ED.DEP ---
ED Disposition - Plan for ED Patient: Instructions: ED Vertigo Unspecified Prescriptions: Meclizine HCl [Antivert] 25 mg PO 4X/DAY PRN PRN #20 tab PRN Reason: Dizziness Referrals: Bernard Frey MD [Primary Care Provider] -
[2018-09-07] MEDS: Meclizine HCl 25 MG Tablet PO (00:14)
[2018-09-07 00:17] VITALS: BP 162/89; PULSE 78; RESP 16; O2SAT 97
== END 2018-09-07 00:17 | disposition home or self-care (01) ==
PROVIDERS: Emergency Provider Emergency Medicine; Family Provider Family Medicine; PCP Family Medicine
DX: H81.399 Other peripheral vertigo, unspecified ear (principal); E11.9 Type 2 diabetes mellitus without complications; I10 Essential (primary) hypertension; Z79.84 Long term (current) use of oral hypoglycemic drugs; Z79.899 Other long term (current) drug therapy
CPT/HCPCS: 99283

== ENCOUNTER → 2018-11-02 | Outpatient (CLI) | payer OTHER, SELFPAY ==
--- NOTE | 2018-11-02 10:24 | RAD_ITS ---
STUDY: X-RAY - RIGHT SHOULDER REASON FOR EXAM: Male, 58 years old. Right shoulder pain TECHNIQUE: 4 view(s) of the shoulder. COMPARISON: None. FINDINGS: There is mild degenerative arthrosis of the glenohumeral articulation. There is degenerative arthrosis of the acromioclavicular joint without inferior osseous spur formation. Normal acromion. Normal humeral head and visualized proximal humerus. The soft tissue structures are unremarkable. Normal visualized pulmonary apex. RAD/Shoulder min 2 Views IMPRESSION: Degenerative changes without acute findings Electronically Signed: Shon Arredondo DO at 11:27 EDT Tel , Service support ,
--- NOTE | 2018-11-02 10:24 | RAD_ITS ---
STUDY: X-RAY - SOFT TISSUE NECK REASON FOR EXAM: Male, 58 years old. Pain TECHNIQUE: 2 view(s) of the neck were obtained. COMPARISON: None. FINDINGS: Normal visualized nasopharynx, oropharynx, hypopharynx. Normal epiglottis. Normal visualized subglottic tracheal air column. Normal prevertebral soft tissue structures. There are degenerative changes of the cervical spine with cervical spondylosis. The soft tissue structures are unremarkable. RAD/Neck for Soft Tissue IMPRESSION: No acute findings Electronically Signed: Shon Arredondo DO at 11:26 EDT Tel , Service support ,
== END | disposition home or self-care (01) ==
LOC: MTRAD 10:21
PROVIDERS: Family Provider Family Medicine; PCP Family Medicine; Referring Provider Nurse Practitioner Family; Visit Provider Nurse Practitioner Family
DX: M54.2 Cervicalgia (principal); M25.511 Pain in right shoulder
CPT/HCPCS: 70360; 73030

== ENCOUNTER 2019-03-05 23:08 | Emergency (ER) | payer OTHER, SELFPAY ==
[2019-03-05 23:09] VITALS: BP 165/94; PULSE 95; RESP 18; TEMP 36.8; O2SAT 92; BMI 44.3
--- NOTE | 2019-03-05 23:41 | EKG12_ITS ---
Test Reason : BACK PAIN Blood Pressure : / mmHG Vent. Rate : 089 BPM Atrial Rate : 089 BPM P-R Int : 154 ms QRS Dur : 076 ms QT Int : 378 ms P-R-T Axes : 018 019 042 degrees QTc Int : 459 ms Normal sinus rhythm Nonspecific T wave abnormality Abnormal ECG Confirmed by SHAHAB LENTZ, CAROLINE ([id number]), newspaper or periodical editor JUANI PEREZ ([id number]) on 03/09/2019 10:46:06 AM Referred By: IVAN Confirmed By:CAROLINE GUDINO MD
--- NOTE | 2019-03-05 23:41 | ED.VIS.GEN ---
History of Present Illness Chief Complaint: Back Narrative: Patient is a 58-year-old male who presents with back pain. He does have a prior history of some lower back pain but now is complaining of pain radiating up to his upper back and base of his neck. This is all midline. It is worse when changing from a sitting to standing position. 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 No fall no injury. He denies any chest pain or shortness of breath. Symptoms just began today. He is concerned this may be his heart. No lightheadedness or dizziness. Past Medical History - Allergies and Home Meds Allergies/Adverse Reactions: Allergies No Known Allergies Allergy (Verified 03/05/19 23:09) Primary Care Physician: Bernard Frey MD [Primary Care Provider] - Past Medical History: - - Diabetes, hypertension Smoking Status: Former smoker - Family History Paternal Family History: Family History (This Medical Record has been edited. Action required.) Mother Diabetes Father Hypertension Family History: Reports: Diabetes Review of Systems All systems negative except as indicated General: Denies: Fever Cardiovascular: Denies: Chest pain Respiratory: Denies: Dyspnea Gastrointestinal: Denies: Abdominal pain Musculoskeletal: Reports: Neck pain, Back pain Physical Exam Vital Signs/Narrative: Vital Signs Temp Pulse Resp BP Pulse Ox 03/05/19 23:09 98.2 F 95 18 165/94 H 92 Inital Vital Signs reviewed: Yes General: Well nourished, Obese Head: Normocephalic Eyes: EOMI ENT: Moist mucous membranes Neck: Supple Cardiovascular: Regular rate, Regular rhythm, - - 2+ symmetric radial pulses Respiratory: No distress, CTA bilaterally Abdomen: Soft, Nontender, Nondistended Back: - - Reproducible paraspinal lumbar and thoracic tenderness no neck tenderness Extremities: Nontender Skin: Normal color Neurological: Alert Psychological: Normal affect Diagnostic/Tx/Re-eval - Medical Decision Making Patient's history examination is consistent with musculoskeletal back pain. He did request an EKG although I do not believe this is cardiac given lack of chest pain shortness of breath lightheadedness and the fact that his pain is reproducible and positional. EKG shows normal sinus rhythm at a rate of 89 with nonspecific T wave changes, lateral precordial T wave flattening, inversion in V5 V6, unchanged from prior. Patient was advised on signs and symptoms to monitor for although I do believe this is musculoskeletal. He was given a prescription for naproxen and advised on supportive care. All questions answered bedside. Patient discharged. ED Disposition - Plan for ED Patient: Disposition: Home or Assisted Living Diagnosis: Back pain Instructions: BACK AND NECK PAIN, General Prescriptions: Naproxen [Naprosyn] 500 mg PO BID PRN #20 tab Prescription Printed Referrals: Bernard Frey MD [Primary Care Provider] -
[2019-03-06] MEDS: Naproxen 500 MG Tablet PO (00:04)
== END 2019-03-06 00:06 | disposition home or self-care (01) ==
PROVIDERS: Emergency Provider Emergency Medicine; Family Provider Family Medicine; PCP Family Medicine
DX: M54.5 Low back pain (principal); M54.6 Pain in thoracic spine; E11.9 Type 2 diabetes mellitus without complications; I10 Essential (primary) hypertension; E66.9 Obesity, unspecified
CPT/HCPCS: 93005; 99282

== ENCOUNTER 2019-03-21 02:14 | Emergency (ER) | payer OTHER, SELFPAY ==
[2019-03-21 02:15] VITALS: BP 191/83; PULSE 90; RESP 20; TEMP 36.4; O2SAT 98; BMI 44.9
--- NOTE | 2019-03-21 02:26 | CT_ITS ---
STUDY: CT BRAIN WITHOUT CONTRAST REASON FOR EXAM: Male, 58 years old. Neural deficit. RADIATION DOSAGE (If Supplied By Facility): CTDIvol = ( 44.99 ) mGy, DLP = ( 846.73 ) mGycm TECHNIQUE: Transaxial CT imaging of the brain was performed without administration of intravenous contrast material. Individualized dose optimization techniques were used for this CT. COMPARISON: No relevant priors. FINDINGS: Normal soft tissue structures. Normal calvarium. Normal size ventricles and extra-axial spaces for the patient's age. Normal white matter tracts of the cerebral hemispheres. Normal basal ganglia and thalami. Normal brainstem. Normal cerebellum. There is no intracranial hemorrhage. There are no findings of an acute ischemic infarction. Normal visualized paranasal sinuses. CT/Brain/Head without Contrast IMPRESSION: Mild generalized brain atrophy otherwise normal unenhanced CT scan of the brain. Electronically Signed: Rachana Miramontes MD at 3:24 EST , Service support ,
--- NOTE | 2019-03-21 02:26 | EKG12_ITS ---
Test Reason : Blood Pressure : / mmHG Vent. Rate : 090 BPM Atrial Rate : 090 BPM P-R Int : 152 ms QRS Dur : 084 ms QT Int : 380 ms P-R-T Axes : 033 033 056 degrees QTc Int : 464 ms Normal sinus rhythm Nonspecific T wave abnormality Prolonged QT Abnormal ECG Confirmed by SHAHAB LENTZ, CAROLINE ([id number]), medical transcription editor JUANI PEREZ ([id number]) on 03/23/2019 2:13:10 PM Referred By: MR Confirmed By:CAROLINE GUDINO MD
--- NOTE | 2019-03-21 02:26 | RAD_ITS ---
STUDY: X-RAY CHEST REASON FOR EXAM: Male, 58 years old. Dizziness. TECHNIQUE: Single AP portable view of the chest. COMPARISON: 07/20/2018. FINDINGS: The lungs are underexpanded with vascular crowding, otherwise clear. There is no demonstrated pleural abnormality. Normal size heart. Normal mediastinum and jeanie. Normal visualized pulmonary arteries. Normal visualized aortic arch and descending thoracic aorta. There are diffuse degenerative changes of the visualized thoracic spine. There is degenerative osteoarthritis of the bilateral shoulders. There is no demonstrated abnormality of the visualized soft tissue structures of the upper abdomen. RAD/Chest 1 View IMPRESSION: Decreased inspiration with vascular crowding, otherwise no acute process identified. Electronically Signed: Rachana Miramontes MD at 3:12 EST , Service support ,
[2019-03-21 02:40] VITALS: O2SAT 94
[2019-03-21 02:40] LABS: Absolute Lymphocyte Count 1.42 X10^3/uL (0.83-4.51); Absolute Neutrophil Count 4.1 X10^3/uL (2.0-7.7); Basophil# 0.03 X10^3/uL; Basophil% 0.5 % (0-1); Eosinophil# 0.18 X10^3/uL; Eosinophils% 2.9 % (0-5); Hematocrit 42.7 % (40-54); Hemoglobin 14.9 g/dL (13.0-16.5); Lymphocyte # 1.42 X10^3/ul (4.0); Lymphocyte % 22.6 % (19-41); Mean Corp Hgb Conc 34.9 g/dL (32-36); Mean Corpuscular Hgb 29.6 pg (27.0-32.0); Mean Corpuscular Volume 84.9 fL (80-94); Mean Platelet Vol. 9.9 fl (6.2-12.0); Monocyte# 0.51 X10^3/uL; Monocyte% 8.1 % (0-10); NRBC Flagged by Analyzer 0 % (0-5); Neutrophil # 4.07 X10^3/uL (2.7-7.7); Neutrophil % 64.9 % (47-70); POSITIVE MORPHOLOGY YES; Platelet Count 236 K/mm3 (150-450); RBC Distribution Width CV 12.9 % (11.6-14.6); RBC Distribution Width SD 39.3 fl (35.1-43.9); Red Blood Count 5.03 M/mm3 (4.6-6.2); White Blood Count 6.3 K/mm3 (4.4-11.0)
[2019-03-21 02:43] VITALS: BP 175/93; PULSE 87; RESP 16; O2SAT 97
--- NOTE | 2019-03-21 02:44 | ED.RN ---
per dr. lagunas NIH scale to be done Q1H. RN will continue to monitor.
[2019-03-21 02:46] LABS: Differential Indicated SCAN CRITERIA MET
[2019-03-21 02:50] LABS: Partial Thromboplast Time 24.1 Seconds (24.1-36.2); Prothrombin Time (Protime)PT. 12.6 SECONDS (11.7-14.9)
[2019-03-21 02:51] LABS: Bedside Glucose 347 mg/dL (70-110)
[2019-03-21 03:04] LABS: Anion Gap 10 (5-15); BUN 16 mg/dL (7-18); BUN/Creat Ratio 16.2 RATIO (10-20); Calcium,Total 9.1 mg/dL (8.5-10.1); Chloride 102 mmol/L (98-107); Creatinine, Serum 0.99 mg/dL (0.70-1.30); EST Glomerular Filtration Rate 83 mL/min (>60); Est Glom Filt Rate - Afr Amer 100 mL/min (>60); Estimated Creatinine Clearance 82.32 ml/min; Glucose 348 mg/dL (74-106); Potassium 3.6 mmol/L (3.5-5.1); Sodium Level 137 mmol/L (136-145)
[2019-03-21 03:07] VITALS: BP 168/65; PULSE 85; RESP 16; O2SAT 96
--- NOTE | 2019-03-21 03:15 | ED.DCSUM_ITS ---
History of Present Illness Chief Complaint: Dizziness Narrative: Patient presenting for evaluation secondary to dizziness. Patient states that about 2 hours prior to arrival he had a sudden onset of dizziness. He reports that he got up to get out of bed to go to the bathroom and had a sudden onset that the room was spinning in circles. He does state that this sensation is worse with turning his head or change in position, but he also states that it was associated with feelings of a mild headache and tingling in his arms bilaterally. Patient denies any visual changes, or weakness associated with his arms or legs. No speech difficulty. Patient does have an underlying history of hypertension diabetes hyperlipidemia. He denies any prior history of stroke. He does report that he had a prior history of vertigo, but states that this does not really feel consistent with that. He denies any recent head injuries. Review of systems otherwise negative. Past Medical History - Allergies and Home Meds Allergies/Adverse Reactions: Allergies No Known Allergies Allergy (Verified 03/21/19 02:23) Past Medical History: - - Hypertension and diabetes Smoking Status: Never smoker - Family History Paternal Family History: Family History (This Medical Record has been edited. Action required.) Mother Diabetes Father Hypertension Family History: Reports: Diabetes Review of Systems General: Denies: Chills, Fever, Sweats Eyes: Denies: Visual changes - bilaterally ENT: Denies: Rhinorrhea, Sore throat Cardiovascular: Denies: Chest pain Respiratory: Denies: Dyspnea Gastrointestinal: Denies: Abdominal pain, Nausea, Vomiting, Diarrhea, Melena, Hematochezia Genitourinary: Denies: Dysuria, Hematuria, Frequency Musculoskeletal: Denies: Back pain, Extremity Pain Skin: Denies: Rash, Wounds Neurological: Reports: Headache, Numbness - Bilateral arms, - - Vertigo Psych: Denies: Depression Endocrine: Denies: Polyuria Hematologic: Denies: Easy bruising Allergy: Denies: Uticaria Physical Exam Vital Signs/Narrative: Vital Signs Temp Pulse Resp BP Pulse Ox 03/21/19 03:07 85 16 168/65 H 96 03/21/19 02:43 87 16 175/93 H 97 03/21/19 02:40 94 03/21/19 02:15 97.5 F L 90 20 H 191/83 H 98 Inital Vital Signs reviewed: Yes General: Well nourished, Well developed, No Acute Distress Head: Normocephalic, Atraumatic. Negative for: Tenderness - No temporal artery tenderness Eyes: Perrl, EOMI, - - Patient has a disconjugate gaze of the right eye with some mild deviation laterally which she states is at baseline. No inducible nystagmus. Normal cardinal gazes. ENT: Moist mucous membranes, No rhinorrhea, - - No carotid bruits noted Neck: Supple, Nontender Cardiovascular: Regular rate, Regular rhythm, No murmurs Respiratory: No distress, CTA bilaterally, Chest nontender Abdomen: Soft, Nontender, Nondistended, Normal bowel sounds Back: Nontender, Normal Inspection Extremities: Nontender, No edema Skin: Normal color, No rash Neurological: Alert, Oriented x3, Cranial nerves II-XII grossly intact, Normal Strength, Normal Sensation, - - Normal cerebellar testing. Patient has a NIH stroke scale of 0. Dizziness is reproducible with change in position and Washington- Hallpike maneuver, but does not induce nystagmus. Psychological: Normal affect, Normal Mood Diagnostic/Tx/Re-eval Chest X-Ray - ED: 1 View, Read by ED Physician, Read by Radiologist, Normal - EKG Initial EKG Interpretation: - - Sinus rhythm of [address] segments. Nonspecific T wave flattening noted throughout the leads. No evidence of acute ischemia or arrhythmia. - Medical Decision Making Patient presented secondary to dizziness and numbness in his arms bilaterally. Patient's NIH stroke scale was actually 0 upon arrival. His dizziness was reproducible with position change, but was not associated with any sort of reproducible nystagmus. Given that the inability to reproduce any sort of nystagmus with Washington-Hallpike maneuver and the associated numbness in the arms a stroke work-up was obtained. CBC, chemistry, troponin unremarkable. EKG unremarkable. Chest x-ray and CT brain unremarkable by my personal review as well as radiology. Patient has a history of hypertension and diabetes, and abnormal findings I do believe that he requires admission for rule out stroke. Patient will be discussed with the hospitalist. After discussion with the hospitalist they informed me that as we do not have neurology coverage for the next 20 hours, they are unable to admit this patient for rule out stroke work-up at this facility. They requested that I transfer the patient. The patient will be transferred to [place]. ED Disposition - Plan for ED Patient: Disposition: [facility] Diagnosis: Vertigo
[2019-03-21 03:41] VITALS: BP 154/68; PULSE 85; RESP 16; O2SAT 92
--- NOTE | 2019-03-21 03:44 | HP.PCM_ITS ---
History of Present Illness The patient is a 58 year old M [] Past Medical History Past Medical History (Chronic Problems): Chronic Problems (This Medical Record has been edited. Action required.) Hypertension (Chronic) Diabetes mellitus (Chronic) Medical History: Medical History (This Medical Record has been edited. Action required.) Hypertension (Chronic) I10 Diabetes mellitus (Chronic) E11.9 Allergies No Known Allergies Allergy (Verified 03/21/19 02:23) Home Medications: Ambulatory Orders Medication Instructions Recorded Glimepiride [Amaryl] 4 mg PO DAILY 05/25/13 metFORMIN HCl [Glucophage] 1,000 mg PO BIDCM 05/25/13 linagliptin 5 mg tablet 5 mg PO QAM 01/01/18 valsartan 320 0.5 tab PO BID 01/01/18 mg-hydrochlorothiazide 25 mg tablet Liraglutide [Victoza] 1.8 mg SQ DAILY 07/20/18 Naproxen [Naprosyn] 500 mg PO BID PRN #20 tab 03/05/19 Surgical History: Surgical History (This Medical Record has been edited. Action required.) History of hernia surgery Z98.890, Z87.19 Smoking Status: Never smoker - *Family History Paternal Family History: Family History (This Medical Record has been edited. Action required.) Mother Diabetes Father Hypertension History Items: Diabetes - Physical Exam Vitals/I&O's: Vital Signs Temp Pulse Resp BP Pulse Ox 97.5 F L 85 16 154/68 H 92 03/21/19 02:15 03/21/19 03:41 03/21/19 03:41 03/21/19 03:41 03/21/19 03:41 Oxygen Flow Rate (L/min) 2 Oxygen Delivery Method Nasal Cannula Weight: 137.8 kg Body Mass Index (BMI) 44.9 Finger Stick Blood Glucose 347 Laboratory Results 03/21/19 02:03: WBC 6.3, RBC 5.03, Hgb 14.9, Hct 42.7, MCV 84.9, MCH 29.6, MCHC 34.9, RDW Std Deviation 39.3, RDW Coeff of Niko 12.9, Plt Count 236, MPV 9.9, Immature Gran % (Auto) 1.000 H, Neut % (Auto) 64.9, Lymph % (Auto) 22.6, [place] % (Auto) 8.1, Eos % (Auto) 2.9, Baso % (Auto) 0.5, Absolute Neuts (auto) 4.1, Absolute Lymphs (auto) 1.42, Nucleated RBC % 0 03/21/19 02:03: PT 12.6, INR 1.0, APTT 24.1 03/21/19 02:03: Sodium 137, Potassium 3.6, Chloride 102, Carbon Dioxide 25.0, Anion Gap 10, BUN 16, Creatinine 0.99, Estim Creat Clear Calc 82.32, Est GFR (MDRD) Af Amer 100, Est GFR (MDRD) Non-Af 83, BUN/Creatinine Ratio 16.2, Glucose 348 H, Calcium 9.1, Troponin I < 0.015 03/21/19 02:47: POC Glucose 347 H Assessment/Plan All Active Problems (This Medical Record has been edited. Action required.) Abdominal pain (Acute) Diarrhea (Acute)
[2019-03-21 04:14] VITALS: BP 180/81; PULSE 81; RESP 15; O2SAT 97
== END 2019-03-21 05:00 | disposition short-term general hospital (02) ==
PROVIDERS: Emergency Provider Emergency Medicine; Family Provider Family Medicine; PCP Family Medicine
DX: R42 Dizziness and giddiness (principal); I10 Essential (primary) hypertension; E11.9 Type 2 diabetes mellitus without complications; Z79.84 Long term (current) use of oral hypoglycemic drugs; Z79.899 Other long term (current) drug therapy
CPT/HCPCS: 70450; 71045; 80048; 82962; 84484; 85025; 85610; 85730; 93005; 99284; A4216

== ENCOUNTER → 2019-04-12 09:21 | Outpatient (CLI) | payer OTHER, SELFPAY ==
[2019-03-21 02:15] VITALS: BMI 44.9
[2019-04-12 12:49] LABS: Anion Gap 11 (5-15); BUN 22 mg/dL (7-18); BUN/Creat Ratio 15.8 RATIO (10-20); Calcium,Total 9.2 mg/dL (8.5-10.1); Chloride 99 mmol/L (98-107); Cholesterol 196 mg/dL (200); Creatinine, Serum 1.39 mg/dL (0.70-1.30); EST Glomerular Filtration Rate 56 mL/min (>60); Est Glom Filt Rate - Afr Amer 68 mL/min (>60); Glucose 268 mg/dL (74-106); High Density Lipoprotein 29 mg/dL; Potassium 3.4 mmol/L (3.5-5.1); Sodium Level 134 mmol/L (136-145); Triglycerides 682 mg/dL
== END ==
PROVIDERS: Family Provider Family Medicine; PCP Family Medicine; Referring Provider Family Medicine; Visit Provider Family Medicine
DX: E11.65 Type 2 diabetes mellitus with hyperglycemia (principal)
CPT/HCPCS: 36415; 80048; 80061

== ENCOUNTER 2019-06-22 02:48 | Emergency (ER) | payer OTHER, SELFPAY ==
[2019-06-22 02:49] VITALS: BP 151/66; PULSE 106; RESP 18; TEMP 36.4; O2SAT 94; BMI 41.8
--- NOTE | 2019-06-22 03:07 | CT_ITS ---
STUDY: CT ABDOMEN AND PELVIS WITHOUT CONTRAST REASON FOR EXAM: Male, 59 years old. ABD PAIN AND BACK PAIN THAT WOKE HIM FROM SLEEP, HX UMBILICAL HERNIA REPAIR, DIAB, HTN RADIATION DOSAGE (If Supplied By Facility): CTDIvol = ( 23.72 ) mGy, DLP = ( 1829.20 ) mGycm TECHNIQUE: Transaxial images were obtained from the dome of the diaphragm to the symphysis pubis without oral contrast, and without intravenous contrast. Sagittal and coronal images were reconstructed. Individualized dose optimization techniques were used for this CT. COMPARISON: None. FINDINGS: The visualized lung bases are unremarkable. The visualized portions of the heart are within normal limits. Normal liver. Normal gallbladder and extrahepatic biliary system. Normal spleen. Normal pancreas. Normal bilateral adrenal glands. Normal right kidney. Normal left kidney. Normal visualized stomach. Normal small intestine. Normal colon. The appendix is visualized and appears normal. Normal abdominal aorta. Normal inferior vena cava. Normal retroperitoneum. Normal urinary bladder. Normal abdominal wall. There are diffuse degenerative changes of the visualized lumbar spine. CT/Abdomen/Pelvis without Cont IMPRESSION: No acute abnormality of the abdomen and pelvis. Electronically Signed: Danial Perry, at 4:45 EST Tel , Service support ,
--- NOTE | 2019-06-22 03:07 | ED.VIS.GEN ---
History of Present Illness Chief Complaint: Abd Pain Narrative: This patient is a 59-year-old male who presents with abdominal pain. He describes his pain as sharp and rates it as 9 out of 10. His pain initially began about 4 hours ago. It is steady and constant, it does not wax and wane. It does radiate straight through to the back. No fevers. He developed vomiting about 2 to 3 hours ago and has had multiple episodes of nonbloody nonbilious emesis. No diarrhea. He did have a normal bowel movement tonight. He has a history of 2 umbilical hernia repairs. He otherwise is recently recovering from a bronchitis. He last ate about 8 hours ago and ate at a [employer] restaurant. Past Medical History - Allergies and Home Meds Allergies/Adverse Reactions: Allergies No Known Allergies Allergy (Verified 03/21/19 02:23) Primary Care Physician: Bernard Frey MD [Primary Care Provider] - Past Medical History: - - Diabetes, hypertension, hyperlipidemia Smoking Status: Former smoker - Family History Paternal Family History: Family History (This Medical Record has been edited. Action required.) Mother Diabetes Father Hypertension Family History: Reports: Diabetes Review of Systems All systems negative except as indicated General: Denies: Fever Cardiovascular: Denies: Chest pain Respiratory: Denies: Dyspnea Gastrointestinal: Reports: Abdominal pain, Nausea, Vomiting. Denies: Diarrhea Genitourinary: Denies: Dysuria Musculoskeletal: Reports: Back pain Skin: Denies: Rash Neurological: Denies: Headache Hematologic: Denies: Easy bruising Allergy: Denies: Uticaria Physical Exam Vital Signs/Narrative: Vital Signs Temp Pulse Resp BP Pulse Ox 06/22/19 02:49 97.5 F L 106 H 18 151/66 H 94 Inital Vital Signs reviewed: Yes General: Well nourished, Obese Head: Normocephalic Eyes: EOMI ENT: Moist mucous membranes Neck: Supple Cardiovascular: - - Heart is regular tachycardia Respiratory: No distress, CTA bilaterally Abdomen: Soft, Tender, - - Patient has mid epigastric abdominal tenderness, no focal right upper quadrant tenderness, no guarding, no rebound. Negative for: Guarding, Rebound tenderness Extremities: Nontender Skin: Normal color Neurological: Alert Psychological: Normal affect Diagnostic/Tx/Re-eval Impressions Abdomen/Pelvis CT 06/22/19 03:07 IMPRESSION: No acute abnormality of the abdomen and pelvis. Electronically Signed: Danial Perry, at 4:45 EST Tel , Service support , 06/22/19 03:07 Abdomen/Pelvis without Cont [CT] Stat 06/22/19 04:50 Abdomen Limited [US] Stat Laboratory Results 06/22/19 06/22/19 02:55 02:55 WBC 12.9 H RBC 5.55 Hgb 16.2 Hct 47.2 MCV 85.0 MCH 29.2 MCHC 34.3 RDW Std Deviation 39.6 RDW Coeff of Niko 12.9 Plt Count 282 MPV 9.7 Immature Gran % (Auto) 0.700 Neut % (Auto) 88.9 H Lymph % (Auto) 4.6 L [place] % (Auto) 4.4 Eos % (Auto) 1.2 Baso % (Auto) 0.2 Absolute Neuts (auto) 11.5 H Absolute Lymphs (auto) 0.60 L Nucleated RBC % 0 Differential Comment COMMENT Platelet Estimate ADEQUATE RBC Morphology NORM C+C Sodium 135 L Potassium 4.1 Chloride 100 Carbon Dioxide 27.0 Anion Gap 8 BUN 20 H Creatinine 1.06 Estim Creat Clear Calc 80.90 Est GFR (MDRD) Af Amer 92 Est GFR (MDRD) Non-Af 76 BUN/Creatinine Ratio 18.9 Glucose 381 H Calcium 9.1 Total Bilirubin 0.50 AST 17 ALT 38 Alkaline Phosphatase 92 Total Protein 7.6 Albumin 3.7 Globulin 3.9 Albumin/Globulin Ratio 0.9 Lipase 254 - Medical Decision Making Labs notable for glucose 381, white blood cell count 12.9. Normal hepatic function and lipase. EKG shows sinus tachycardia at a rate of 104 with nonspecific T wave abnormalities unchanged from prior. CT of the abdomen and pelvis shows no acute abnormalities. Patient was initially given morphine and Zofran. He continued to vomit. He was then given IV Phenergan. On reevaluation he has had no further vomiting but continued to complain of significant pain. Patient has been reevaluated multiple times. His abdomen has remained soft. On most recent evaluation his abdomen is soft without reproducible tenderness although he continues to complain of pain which he now rates as 7 out of 10. Right upper quadrant ultrasound radiology read pending however on my review the gallbladder wall is normal I did not see pericholecystic fluid. I discussed with the patient on multiple occasions that if he is still having significant pain we should consider hospitalization for further evaluation. The patient is adamant he does not want to be hospitalized stating I will be fine. He states that if symptoms worsen or he develops any new symptoms he will return for reevaluation. I encouraged him to follow-up as an outpatient and advised specific signs and symptoms that should prompt immediate return for reevaluation. Oncoming physician will check the radiology report but unless this shows any acute surgical pathology plan is discharge with outpatient follow-up. ED Disposition - Plan for ED Patient: Disposition: Home or Assisted Living Diagnosis: Abdominal pain Instructions: ABDOMINAL PAIN, Unkown Cause, (Male) Referrals: Bernard Frey MD [Primary Care Provider] -
[2019-06-22] MEDS: 0.9% Normal Saline 1,000 ML 1000 ML IV (03:14)
[2019-06-22] MEDS: Morphine 4 MG/ML Syringe IV (03:15)
[2019-06-22] MEDS: Ondansetron 4 MG/2 ML Vial IV (03:15)
[2019-06-22 03:29] LABS: Absolute Neutrophil Count 11.5 X10^3/uL (2.0-7.7); Basophil# 0.03 X10^3/uL; Basophil% 0.2 % (0-1); Eosinophil# 0.15 X10^3/uL; Eosinophils% 1.2 % (0-5); Hematocrit 47.2 % (40-54); Hemoglobin 16.2 g/dL (13.0-16.5); Lymphocyte % 4.6 % (19-41); Mean Corp Hgb Conc 34.3 g/dL (32-36); Mean Corpuscular Hgb 29.2 pg (27.0-32.0); Mean Platelet Vol. 9.7 fl (6.2-12.0); Monocyte# 0.57 X10^3/uL; Monocyte% 4.4 % (0-10); NRBC Flagged by Analyzer 0 % (0-5); Neutrophil # 11.48 X10^3/uL (2.7-7.7); Neutrophil % 88.9 % (47-70); POSITIVE DIFFERENTIAL YES; Platelet Count 282 K/mm3 (150-450); RBC Distribution Width CV 12.9 % (11.6-14.6); RBC Distribution Width SD 39.6 fl (35.1-43.9); Red Blood Count 5.55 M/mm3 (4.6-6.2); White Blood Count 12.9 K/mm3 (4.4-11.0)
[2019-06-22 03:31] LABS: Differential Indicated SCAN CRITERIA MET
[2019-06-22 03:41] LABS: ALB/GLOB Ratio 0.9 RATIO (0.9-2.4); AST(SGOT) 17 U/L (15-37); Alanine Aminotransfer ALT/SGPT 38 U/L (16-61); Albumin, Serum 3.7 g/dL (3.2-5.0); Alkaline Phosphatase 92 U/L (45-117); Anion Gap 8 (5-15); BUN 20 mg/dL (7-18); BUN/Creat Ratio 18.9 RATIO (10-20); Calcium,Total 9.1 mg/dL (8.5-10.1); Chloride 100 mmol/L (98-107); Creatinine, Serum 1.06 mg/dL (0.70-1.30); EST Glomerular Filtration Rate 76 mL/min (>60); Est Glom Filt Rate - Afr Amer 92 mL/min (>60); Globulin 3.9 g/dL (2.2-4.2); Glucose 381 mg/dL (74-106); Lipase 254 U/L (73-393); Potassium 4.1 mmol/L (3.5-5.1); Protein, Total 7.6 g/dL (6.4-8.2); Sodium Level 135 mmol/L (136-145)
[2019-06-22 03:49] LABS: Platelet Estimate ADEQUATE (ADEQ); Red Cell Morphology NORM C+C NORMAL (NORM C&C)
[2019-06-22] MEDS: proMETHazine 25 MG/ML Syringe 12.5 MG IV (04:22)
[2019-06-22 04:49] VITALS: BP 145/86; PULSE 102; RESP 17; O2SAT 94
--- NOTE | 2019-06-22 04:49 | EKG12_ITS ---
Test Reason : DYSRHYTHMIA Blood Pressure : / mmHG Vent. Rate : 104 BPM Atrial Rate : 104 BPM P-R Int : 154 ms QRS Dur : 076 ms QT Int : 350 ms P-R-T Axes : 025 030 083 degrees QTc Int : 460 ms Sinus tachycardia Nonspecific T wave abnormality Abnormal ECG When compared with ECG of 21-MAR-2019 02:38, Nonspecific T wave abnormality, worse in Lateral leads Confirmed by SERGEI LENTZ, ABDULKADIR ([id number]), video editor JUANI PEREZ ([id number]) on 07/05/2019 2:48:46 PM Referred By: CROW Confirmed By:VASU MAI MD
--- NOTE | 2019-06-22 04:50 | US_ITS ---
STUDY: ABDOMINAL ULTRASOUND - RIGHT UPPER QUADRANT REASON FOR VISIT: Male, 59 years old mid abd pain x 1 day TECHNIQUE: Ultrasound evaluation of the right upper quadrant was performed with real-time and static brandon-scale imaging. TECHNICAL QUALITY: Adequate. COMPARISON: 12/25/2017, CT earlier today FINDINGS: Liver: The liver measures 23.6 cm. There is increased echogenicity consistent with fatty infiltration. The bile ducts are within normal limits. There is hepatic color flow. The direction of portal flow is hepatopetal. 1.2 cm cyst in left lobe of the liver. Gallbladder: Normal distended gallbladder. The gallbladder wall measures 2 mm. There is a negative sonographic Donnelly''s sign. There is no pericholecystic fluid. There is biliary sludge dependent within the gallbladder. Common Bile Duct (C.B.D.): The common bile duct measures 5 mm. Pancreas: Normal size of the head, body and tail of the pancreas. There is normal echogenicity of the pancreas. There is no demonstrated pancreatic mass or cyst. Right Kidney: Normal size of the right kidney. The right kidney measures 13.6 cm. Normal renal cortex. The right cortex measures 2.1 cm. 2 cm cyst lower pole right kidney. There is no right hydronephrosis. US/Abdomen Limited IMPRESSION: 1. Gallbladder sludge. 2. Fatty infiltration of the liver. Electronically Signed: Ritchie Serra MD at 8:26 EST Tel , Service support ,
[2019-06-22 06:00] VITALS: BP 148/86; PULSE 96; RESP 18; O2SAT 95
--- NOTE | 2019-06-22 07:35 | ED.DEP ---
ED Disposition - Plan for ED Patient: Disposition: Home or Assisted Living Diagnosis: Abdominal pain Instructions: ABDOMINAL PAIN, Unkown Cause, (Male) Referrals: Bernard Frey MD [Primary Care Provider] - Claudia Brown MD [STAFF PHYSICIAN] -
[2019-06-22 08:34] VITALS: BP 138/78; PULSE 84; RESP 18; O2SAT 99
== END 2019-06-22 08:35 | disposition home or self-care (01) ==
PROVIDERS: Emergency Medicine; Emergency Provider Emergency Medicine; PCP Family Medicine
DX: R10.9 Unspecified abdominal pain (principal); I10 Essential (primary) hypertension; E11.9 Type 2 diabetes mellitus without complications; E78.5 Hyperlipidemia, unspecified; E66.9 Obesity, unspecified; Z79.4 Long term (current) use of insulin; Z87.891 Personal history of nicotine dependence; Z79.899 Other long term (current) drug therapy
CPT/HCPCS: 74176; 76705; 80053; 83690; 85025; 93005; 96361; 96374; 96375; 99283; J7030; A4216; J2405

== ENCOUNTER → 2019-06-24 07:53 | Outpatient (CLI) | payer OTHER, SELFPAY ==
[2019-06-24 07:51] VITALS: BMI 41.8
== END ==
PROVIDERS: PCP Family Medicine; Referring Provider Surgery; Visit Provider Surgery
DX: E11.9 Type 2 diabetes mellitus without complications (principal)
CPT/HCPCS: 36415; 83036

== ENCOUNTER → 2019-09-03 08:31 | Outpatient (CLI) | payer OTHER, SELFPAY ==
[2019-06-24 07:51] VITALS: BMI 41.8
[2019-09-03 09:56] LABS: Hematocrit 45.4 % (40-54); Hemoglobin 15.2 g/dL (13.0-16.5); Mean Corp Hgb Conc 33.5 g/dL (32-36); Mean Corpuscular Hgb 28.5 pg (27.0-32.0); Mean Platelet Vol. 9.6 fl (6.2-12.0); Platelet Count 282 K/mm3 (150-450); RBC Distribution Width CV 12.8 % (11.6-14.6); RBC Distribution Width SD 39.4 fl (35.1-43.9); Red Blood Count 5.34 M/mm3 (4.6-6.2); White Blood Count 8.1 K/mm3 (4.4-11.0)
[2019-09-03 10:30] LABS: AST(SGOT) 16 U/L (15-37); Alanine Aminotransfer ALT/SGPT 44 U/L (16-61); Alkaline Phosphatase 94 U/L (45-117); Anion Gap 7 (5-15); BUN 15 mg/dL (7-18); BUN/Creat Ratio 18.5 RATIO (10-20); Calcium,Total 9.5 mg/dL (8.5-10.1); Chloride 101 mmol/L (98-107); Creatinine, Serum 0.81 mg/dL (0.70-1.30); EST Glomerular Filtration Rate 104 mL/min (>60); Est Glom Filt Rate - Afr Amer 126 mL/min (>60); Glucose 208 mg/dL (74-106); Potassium 3.9 mmol/L (3.5-5.1); Sodium Level 135 mmol/L (136-145)
[2019-09-06 03:06] LABS: HEPATITIS B SURFACE AG Negative (Negative); Hepatitis A AB, Total Negative (Negative); Hepatitis A IgM Antibody Negative (Negative); Hepatitis B Core AB IgM Negative (Negative); Hepatitis B Core Ab Total Negative (Negative); Hepatitis C Ab <0.1 s/co ratio (0.0-0.9); QNTFERON TB Mitogen Value > 10.00 IU/mL (.); QNTFERON TB Nil Value 0.01 IU/mL (.); QNTFERON TB1+ Ag Value 0.01 IU/mL (.); QNTFERON TB2+ Ag Value 0.01 IU/mL (.)
[2019-09-06 14:02] LABS: Hep B Surface Antibodies Non Reactive (.); QNTIFERON TB Positive Criteria Negative (Negative)
== END ==
PROVIDERS: PCP Family Medicine; Referring Provider Physician Assistant; Visit Provider Physician Assistant
DX: L40.0 Psoriasis vulgaris (principal); Z79.899 Other long term (current) drug therapy
CPT/HCPCS: 36415; 80053; 85027; 86480; 86704; 86705; 86706; 86708; 86709; 86803; 87340

== ENCOUNTER → 2019-09-24 10:41 | Outpatient (CLI) | payer OTHER, SELFPAY ==
[2019-09-24 09:55] VITALS: BMI 43.0
--- NOTE | 2019-09-24 11:12 | RAD_ITS ---
STUDY: X-RAY - ABDOMEN/PELVIS REASON FOR EXAM: Male, 59 years old. PRE-OP, EVALUATION OF MESH TECHNIQUE: AP supine and upright views of the abdomen and pelvis. COMPARISON: None. FINDINGS: Normal visualized lung bases. There is a moderate amount of colonic fecal material. There is no demonstrated free abdominal air. The visualized liver, spleen and kidneys are grossly normal in size and morphology. Metallic sutures from placement of a mesh are seen in the mid abdomen. Calcified right-sided phleboliths. Moderate amount of fecal material is seen in the colon. There are degenerative changes of the visualized lumbar spine. RAD/Abd Inc Decub and/or Erect IMPRESSION: Status post mesh repair involving the mid abdomen. Electronically Signed: Tristin Knowles, at 12:45 EDT , Service support ,
== END ==
PROVIDERS: PCP Family Medicine; Referring Provider Surgery; Visit Provider Surgery
DX: Z01.818 Encounter for other preprocedural examination (principal)
CPT/HCPCS: 74019

== ENCOUNTER 2019-10-11 07:16 | Day surgery (SDC) | payer OTHER, SELFPAY ==
[2019-06-24 07:51] VITALS: BMI 41.8
[2019-09-24 09:55] VITALS: BMI 43.0
--- NOTE | 2019-09-24 10:47 | HP_ITS ---
Intake Vital Signs 09/24/19 Height 5 ft 9 in 09/24/19 Weight: 291 lb 09/24/19 BMI 43.0 09/24/19 BP 147/77 H 09/24/19 Blood Pressure Location Rt brachial 09/24/19 Position Sitting 09/24/19 Respiration 18 09/24/19 Pulse 85 09/24/19 Pulse Source Monitor 09/24/19 Temp 98.9 F 09/24/19 Temp Source Temporal 09/24/19 Pulse Oximetry (%) 97 09/24/19 Oxygen Delivery Method room air 09/24/19 BMI 41.8 Intake Visit Reasons: update h&p lap brian 09-29 Chief Complaint: brian Allergies No Known Allergies Allergy (Verified 09/24/19 09:59) Medications Glimepiride [Amaryl] 4 mg PO DAILY 05/25/13 [History Confirmed 09/24/19] metFORMIN HCl [Glucophage] 1,000 mg PO BIDCM 05/25/13 [History Confirmed 09/24/19] linagliptin 5 mg tablet 5 mg PO QAM 01/01/18 [History Confirmed 09/24/19] Liraglutide [Victoza] 1.8 mg SQ DAILY 07/20/18 [History Confirmed 09/24/19] Naproxen [Naprosyn] 500 mg PO BID PRN #20 tab 03/05/19 [Rx Confirmed 09/24/19] Insulin Glargine,Hum.rec.anlog [Lantus] 24 unit SQ QHS 06/22/19 [History Confirmed 09/24/19] rosuvastatin 10 mg tablet 10 mg PO DAILY 06/24/19 [History Confirmed 09/24/19] Amlodipine [Norvasc] 10 mg PO DAILY 09/23/19 [History Confirmed 09/24/19] Hydrochlorothiazide [Hctz] 12.5 mg PO BID 09/23/19 [History Confirmed 09/24/19] Omeprazole [Prilosec] 20 mg PO DAILY 09/23/19 [History Confirmed 09/24/19] Ustekinumab [Stelara] 90 mg SQ UD 09/23/19 [History Confirmed 09/24/19] Valsartan [Diovan] 160 mg PO BID 09/23/19 [History Confirmed 09/24/19] PFS Medical History (Updated 06/24/19 @ 09:05 by Marisabel Martinez) Psoriasis (Acute) Chronic cholecystitis (Chronic) Hyperlipidemia (Acute) Biliary dyskinesia (Acute) Sleep apnea (Acute) Hypertension (Chronic) Diabetes mellitus (Chronic) Surgical History (Updated 06/24/19 @ 07:33 by Marisabel Martinez) History of nasal septoplasty (Acute) History of colonoscopy (Acute) History of umbilical hernia (Acute) History of hernia surgery (Acute) Family History Mother Diabetes Father Hypertension Social History (Updated 09/24/19 @ 10:[address] Siva Armijo MD) Smoking Status: Former smoker alcohol intake: never substance use type: does not use HPI HPI HPI: ADRIENNE XIE, is a 59 M who presents to the office today for HPI HPI Surgical H&P: Yes HPI: ADRIENNE XIE, is a 59 M who presents to the office today for ongoing surgical consultation regarding repetitive problems with epigastric right upper quadrant pain and suspected gallbladder dysfunction. My previous notes reflect the following. It is of additional note that the patient was seen at the [facility] emergency room June 2019. He was complaining of right upper quadrant pain. The pain improved with IV morphine. However he was in sinus tachycardia and had an abnormal EKG. The ER note suggested referral to cardiology but the patient claims he was never instructed upon that. The patient has been seen by his primary care physician Dr. Bernard Frey on September 03, 2019. The patient had lost a slight amount of weight though his BMI is currently 44.76 with a body weight of 294 pounds. His hemoglobin A1c had improved to 9.1. It was felt that from those aspects he was cleared from surgery. He claims that approximately 3 weeks ago he had his Stelara injection for his psoriasis. He is skin at the belt line suprapubic area has improved. He is also using a topical lotion. HPI: ADRIENNE XIE, is a 59 M who presents to the office today for surgical consultation regarding episode of abdominal pain and suspected gallbladder disease. The patient is referred from the emergency room [facility] where he was seen on June 22, 2019. The patient is referred by Dr. Villatoro a written copy of my surgical consult recommendations will return to Dr. Villatoro. Patient presented there with acute dispute severe right upper quadrant pain. Gallbladder also showed gallbladder sludge and fatty liver. A CT scan showed no acute problems. Patient's white blood cell count was 12.9 with a hemoglobin 16 hematocrit 47 and a platelet count of 282,000 with 88% neutrophils. BUN 20 creatinine 1.06. Glucose was elevated at 381. Liver panel was normal. The patient states the pain currently is resolved. He had had Ethiopian food prior to the episode. He states that he had a cardiac stress test within the past year. Previously July 14, 2018 again through the emergency room he had a gallbladder ultrasound showing a fatty liver at that time. It is of note that I obtained on him December 26, 2017 a hepatobiliary scan. His ejection fraction at that point was 19%. Because of his medical comorbidities at that point we elected not to proceed with surgery. Unfortunately patient is morbidly obese with a body weight of 300 pounds. He is diabetic and to his knowledge his most recent hemoglobin A1c was 11. By his report Dr. Bernard Frey just recently initiated him on insulin therapy 2 months ago. As noted he is glucose in the emergency room was 381. The patient has had an umbilical hernia repair followed up by a much more extensive laparoscopic ventral incisional hernia repair. I assisted him with this. We do not currently have records of that report. The patient has significant psoriasis particularly in the low abdomen at the waist level that appears very aggravated and irritated. I now have records of a exercise myocardial perfusion stress test that was performed for the patient on July 21, [address] Galileo Garcia. There were no signs of ischemia. Ejection fraction 76%. Moderate workload. March 21, 2019 twelve-lead EKG performed at the [facility] showed normal sinus rhythm with nonspecific T wave abnormality prolonged QT and was interpreted by Dr. Galileo Garcia as an abnormal EKG. We will recommend review. I now have records from October 06, 2008. I performed a laparoscopic ventral incisional herniorrhaphy with a 15 x 19 cm piece of DualMesh. At that time he was 48 and had a symptomatic incisional hernia at the site of previous repaired umbilical hernia. Parachuting corner sutures of 2-0 Prolene were placed. A helical tacker was used at 1 cm intervals to secure the mesh. A drain had been left as well. He had no postoperative complication. Could consider abdominal x-ray or fluoroscopy to guide port placement if felt to be indicated. I would anticipate likely initial access right upper quadrant utilizing a Visiport technique Siva Armijo M.D., F.A.C.S 59-year-old gentleman. I believe that his episode presentation emergency room is consistent with biliary colic, chronic cholecystitis, the possibility of small gallstones within the sludge cannot be excluded. I do believe that he otherwise would be a candidate for a laparoscopic cholecystectomy however there are many challenges currently. The patient states that within the past year and [facility] he had a cardiac stress test. We need to obtain records of that test. On the patient's emergency room visit his glucose was 381 and he states that his most recent hemoglobin A1c was 11. That would preclude us from proceeding. The patient is morbidly obese. He has had a previous laparoscopic ventral hernia repair. This was performed by myself. I would like to obtain operative records from that event. The patient has active aggravated psoriasis of his low abdominal wall. I have recommended to him that that be addressed by dermatology as it is placing him at increased risk for operative wound infection. I have mostly stressed to him that glucose management at the moment is absolutely critical and mandatory. I believe that although he is at 6 higher operative risk that clearly he would be at lesser risk electively then emergently. I have suggested to him that if he were to present with an acute cholecystitis that he might otherwise at that point be a candidate for percutaneous drainage rather than attempt at resection. He has had an opportunity to ask and have questions answered. We will try to arrange appointments with Dr. Frey and Dr. Rascon as soon as possible to maximize his medical care. We will obtain records regarding his stress test and surgery. He will then return for further discussion. CC Dr. Bernard Frey and Dr. Laura Rascon and Dr. Thomas Armijo M.D., F.A.C.S. Exam Const General: cooperative, comfortable, no acute distress Nutritional Appearance: obese morbidly obese Orientation: alert, awake, oriented x3 HENMT Head: normal to inspection Eyes General: appearance normal, both eyes and all related structures Resp Effort & Inspection: normal respiratory effort Auscultation: clear to auscultation bilaterally Cardio Rate: regular rate Rhythm: regular rhythm GI Palpation: soft, no hepatosplenomegaly Auscultation: normal bowel sounds Other: Notably overweight, I am not able to detect the puncture sites to identify where the mesh is secured. No focal tenderness. Erythema noted suprapubically but improved from previous visit Musc Cervical Spine: normal cervical lordosis Neuro Cognition: normal cognition Extrem Other: Nonpitting bilateral extremity edema Psych Affect: normal affect Assessment & Plan Problems 1. Chronic cholecystitis K81.1 Plan I plan to get abdominal x-ray to see where the securing tacks are regarding his abdominal DualMesh. In great detail I discussed with him technique, benefit, risk of alternatives for laparoscopic cholecystectomy. No guarantees of success been offered. He is aware that additional port sites that may be required. He is aware that conversion to an open technique may be required. He is aware that lysis of adhesions may be required. He is aware of the increased risk with the COVID pandemic and I explained to him that the [facility] administration have suggested a low current incidence. There is some question as to whether he is actually cleared for cardiology to proceed with general anesthesia. He does have an abnormal EKG in the. We will confirm with Dr. Galileo Garcia. He is aware that we will make all attempts to achieve this as an outpatient. I anticipate scheduling morning procedure. He is encouraged to continue to proceed with glucose management and weight loss. Having him just slightly further out will further facilitate the fact that he had his Stelara injection which was given on September 02, [address] Abiodun garcia, Debbie Muñoz PA-C I am anticipating port site access high in the right upper quadrant. I am anticipating possible additional port sites. I will utilize abdominal x-ray to help guide selection. Lysis of adhesions may be required. I appreciate the ongoing opportunity of assisting with her surgical care Cc: Dr. Bernard Frey and Dr. Galileo Armijo M.D., F.A.C.S. Coding Level of Care Code Off vis,est,level 3 Diagnoses Chronic cholecystitis K81.1 09/24/19 1047 <Electronically signed by Siva remy MD> Date _ Siva Armijo MD
[2019-10-11] VITALS (9 sets, daily range): BP systolic 103–145; BP diastolic 42–77; PULSE 68–88; RESP 16–18; TEMP 36.1–36.5; O2SAT 88–98; BMI 42.7
--- NOTE | 2019-10-11 07:26 | HP.PCM_ITS ---
Problem List (1) Biliary dyskinesia Status: Acute History and Physical Date of Admission: 10/11/19 Intake Visit Reasons: update h&p lap brian 5- Chief Complaint: brian Allergies No Known Allergies Allergy (Verified 09/24/19 09:59) Medications Glimepiride [Amaryl] 4 mg PO DAILY 05/25/13 [History Confirmed 09/24/19] metFORMIN HCl [Glucophage] 1,000 mg PO BIDCM 05/25/13 [History Confirmed 09/24/19] linagliptin 5 mg tablet 5 mg PO QAM 01/01/18 [History Confirmed 09/24/19] Liraglutide [Victoza] 1.8 mg SQ DAILY 07/20/18 [History Confirmed 09/24/19] Naproxen [Naprosyn] 500 mg PO BID PRN #20 tab 03/05/19 [Rx Confirmed 09/24/19] Insulin Glargine,Hum.rec.anlog [Lantus] 24 unit SQ QHS 06/22/19 [History Confirmed 09/24/19] rosuvastatin 10 mg tablet 10 mg PO DAILY 06/24/19 [History Confirmed 09/24/19] Amlodipine [Norvasc] 10 mg PO DAILY 09/23/19 [History Confirmed 09/24/19] Hydrochlorothiazide [Hctz] 12.5 mg PO BID 09/23/19 [History Confirmed 09/24/19] Omeprazole [Prilosec] 20 mg PO DAILY 09/23/19 [History Confirmed 09/24/19] Ustekinumab [Stelara] 90 mg SQ UD 09/23/19 [History Confirmed 09/24/19] Valsartan [Diovan] 160 mg PO BID 09/23/19 [History Confirmed 09/24/19] [facility] Medical History (Updated 06/24/19 @ 09:05 by Marisabel Martinez) Psoriasis (Acute) Chronic cholecystitis (Chronic) Hyperlipidemia (Acute) Biliary dyskinesia (Acute) Sleep apnea (Acute) Hypertension (Chronic) Diabetes mellitus (Chronic) Surgical History (Updated 06/24/19 @ 07:33 by Marisabel Martinez) History of nasal septoplasty (Acute) History of colonoscopy (Acute) History of umbilical hernia (Acute) History of hernia surgery (Acute) Family History Mother Diabetes Father Hypertension Social History (Updated 09/24/19 @ 10:[address] Siva Armijo MD) Smoking Status: Former smoker alcohol intake: never substance use type: does not use HPI HPI HPI: ADRIENNE XIE is a 59 M who presents to the office today for HPI HPI Surgical H&P: Yes HPI: ADRIENNE XIE is a 59 M who presents to the office today for ongoing surgical consultation regarding repetitive problems with epigastric right upper quadrant pain and suspected gallbladder dysfunction. My previous notes reflect the following. It is of additional note that the patient was seen at the [facility] emergency room June 2019. He was complaining of right upper quadrant pain. The pain improved with IV morphine. However he was in sinus tachycardia and had an abnormal EKG. The ER note suggested referral to cardiology but the patient claims he was never instructed upon that. The patient has been seen by his primary care physician Dr. Bernard Frey on September 03, 2019. The patient had lost a slight amount of weight though his BMI is currently 44.76 with a body weight of 294 pounds. His hemoglobin A1c had improved to 9.1. It was felt that from those aspects he was cleared from surgery. He claims that approximately 3 weeks ago he had his Stelara injection for his psoriasis. He is skin at the belt line suprapubic area has improved. He is also using a topical lotion. HPI: ADRIENNE XIE, is a 59 M who presents to the office today for surgical consultation regarding episode of abdominal pain and suspected gallbladder disease. The patient is referred from the emergency room [facility] where he was seen on June 22, 2019. The patient is referred by Dr. Villatoro a written copy of my surgical consult recommendations will return to Dr. Villatoro. Patient presented there with acute dispute severe right upper quadrant pain. Gallbladder also showed gallbladder sludge and fatty liver. A CT scan showed no acute problems. Patient's white blood cell count was 12.9 with a hemoglobin 16 hematocrit 47 and a platelet count of 282,000 with 88% neutrophils. BUN 20 creatinine 1.06. Glucose was elevated at 381. Liver panel was normal. The patient states the pain currently is resolved. He had had Lebanese food prior to the episode. He states that he had a cardiac stress test within the past year. Previously July 14, 2018 again through the emergency room he had a gallbladder ultrasound showing a fatty liver at that time. It is of note that I obtained on him December 26, 2017 a hepatobiliary scan. His ejection fraction at that point was 19%. Because of his medical comorbidities at that point we elected not to proceed with surgery. Unfortunately patient is morbidly obese with a body weight of 300 pounds. He is diabetic and to his knowledge his most recent hemoglobin A1c was 11. By his report Dr. Bernard Frey just recently initiated him on insulin therapy 2 months ago. As noted he is glucose in the emergency room was 381. The patient has had an umbilical hernia repair followed up by a much more extensive laparoscopic ventral incisional hernia repair. I assisted him with this. We do not currently have records of that report. The patient has significant psoriasis particularly in the low abdomen at the waist level that appears very aggravated and irritated. I now have records of a exercise myocardial perfusion stress test that was performed for the patient on July 21, [address] Galileo Garcia. There were no signs of ischemia. Ejection fraction 76%. Moderate workload. March 21, 2019 twelve-lead EKG performed at the [facility] showed normal sinus rhythm with nonspecific T wave abnormality prolonged QT and was interpreted by Dr. Galileo Garcia as an abnormal EKG. We will recommend review. I now have records from October 06, 2008. I performed a laparoscopic ventral incisional herniorrhaphy with a 15 x 19 cm piece of DualMesh. At that time he was 48 and had a symptomatic incisional hernia at the site of previous repaired umbilical hernia. Parachuting corner sutures of 2-0 Prolene were placed. A helical tacker was used at 1 cm intervals to secure the mesh. A drain had been left as well. He had no postoperative complication. Could consider abdominal x-ray or fluoroscopy to guide port placement if felt to be indicated. I would anticipate likely initial access right upper quadrant utilizing a Visiport technique Siva Armijo M.D., F.A.C.S 59-year-old gentleman. I believe that his episode presentation emergency room is consistent with biliary colic, chronic cholecystitis, the possibility of small gallstones within the sludge cannot be excluded. I do believe that he otherwise would be a candidate for a laparoscopic cholecystectomy however there are many challenges currently. The patient states that within the past year and [facility] he had a cardiac stress test. We need to obtain records of that test. On the patient's emergency room visit his glucose was 381 and he states that his most recent hemoglobin A1c was 11. That would preclude us from proceeding. The patient is morbidly obese. He has had a previous laparoscopic ventral hernia repair. This was performed by myself. I would like to obtain operative records from that event. The patient has active aggravated psoriasis of his low abdominal wall. I have r ecommended to him that that be addressed by dermatology as it is placing him at increased risk for operative wound infection. I have mostly stressed to him that glucose management at the moment is ab solutely critical and mandatory. I believe that although he is at 6 higher operative risk that clearly he would be at lesser risk electively then emergently. I have suggested to him that if he were to present with an acute cholecystitis that he might otherwise at that point be a candidate for percutaneous drainage rather than attempt at resection. He has had an opportunity to ask and have questions answered. We will try to arrange appointments with Dr. Frey and Dr. Rascon as soon as possible to maximize his medical care. We will obtain records regarding his stress test and surgery. He will then return for further discussion. CC Dr. Bernard Frey and Dr. Laura Rascon and Dr. Thomas Armijo M.D., F.A.C.S. Exam Const General: cooperative, comfortable, no acute distress Nutritional Appearance: obese morbidly obese Orientation: alert, awake, oriented x3 HENMT Head: normal to inspection Eyes General: appearance normal, both eyes and all related structures Resp Effort & Inspection: normal respiratory effort Auscultation: clear to auscultation bilaterally Cardio Rate: regular rate Rhythm: regular rhythm GI Palpation: soft, no hepatosplenomegaly Auscultation: normal bowel sounds Other: Notably overweight, I am not able to detect the puncture sites to identify where the mesh is secured. No focal tenderness. Erythema noted suprapubically but improved from previous visit Musc Cervical Spine: normal cervical lordosis Neuro Cognition: normal cognition Extrem Other: Nonpitting bilateral extremity edema Psych Affect: normal affect Assessment & Plan Problems 1. Chronic cholecystitis K81.1 Plan I plan to get abdominal x-ray to see where the securing tacks are regarding his abdominal DualMesh. In great detail I discussed with him technique, benefit, risk of alternatives for laparoscopic cholecystectomy. No guarantees of success been offered. He is aware that additional port sites that may be required. He is aware that conversion to an open technique may be required. He is aware that lysis of adhesions may be required. He is aware of the increased risk with the COVID pandemic and I explained to him that [facility] have suggested a low current incidence. There is some question as to whether he is actually cleared for cardiology to proceed with general anesthesia. He does have an abnormal EKG in the. We will confirm with Dr. Galileo Garcia. He is aware that we will make all attempts to achieve this as an outpatient. I anticipate scheduling morning procedure. He is encouraged to continue to proceed with glucose management and weight loss. Having him just slightly further out will further facilitate the fact that he had his Stelara injection which was given on September 02, [address] Abiodun garcia, Debbie Muñoz PA-C I am anticipating port site access high in the right upper quadrant. I am anticipating possible additional port sites. I will utilize abdominal x-ray to help guide selection. Lysis of adhesions may be required. I appreciate the ongoing opportunity of assisting with her surgical care Cc: Dr. Bernard Frey and Dr. Galileo Armijo M.D., F.A.C.S. Coding Level of Care Code Off vis,est,level 3 Diagnoses Chronic cholecystitis K81.1 09/24/19 1047 <Electronically signed by Siva remy MD> Date _ Siva rAmijo MD I have re-examined the patient. There are no clinical changes since date of exam. Procedure Criteria Procedure Type: Elective COVID Risk Discussion: The surgeon/proceduralist and patient have discussed in detail the risk of exposure to and/or potential harm posed by the COVID-19 virus with having a surgery/procedure at this time versus the risk of delaying the surgery/procedure. It is not possible to know either the risk of delaying the surgery or procedure or chance of getting an infection with perfect accuracy, but a joint decision was made between the patient and the surgeon/proceduralist to proceed at this time with the scheduled surgery/procedure as indicated on the consent form.
--- NOTE | 2019-10-11 07:27 | DCINST_ITS ---
Discharge Diet: Light diet - advance as tolerated - if you have questions about your diet instructions, please talk to you doctor. Discharge Activity: May Not Drive - for 3-5 days or while taking narcotic pain medicine. May shower in (days): 1 Lifting Restrictions: 10 pounds Call your doctor if your incision/area has: Continuous Slow Oozing, Sudden Increased Bleeding, Increased Pain/ Swelling, Increased Redness, Foul Smelling Discharge Call your doctor if you observe: Fever of 101 or Higher Suture Line Care: Avoid Pulling/Pushing, Avoid Pinching/Bending Additional Dressing/Incision Instructions:: Change or remove dressing in 4 days. Leave steri-strips in place for 1 week. Allergies/Adverse Reactions: Allergies meloxicam Allergy (Intermediate, Verified 10/01/19 13:15) Unknown moxifloxacin [From Avelox] Allergy (Intermediate, Verified 10/01/19 13:15) dizziness prednisone Allergy (Intermediate, Verified 10/01/19 13:15) fast heart rate sitagliptin [From Januvia] Allergy (Intermediate, Verified 10/01/19 13:15) lightheadedness Medications to take at Discharge Glimepiride [Amaryl] 4 mg PO DAILY 05/25/13 metFORMIN HCl [Glucophage] 1,000 mg PO BIDCM 05/25/13 linagliptin 5 mg tablet 5 mg PO QAM 01/01/18 Liraglutide [Victoza] 1.8 mg SQ DAILY 07/20/18 Naproxen [Naprosyn] 500 mg PO BID PRN #20 tab 03/05/19 Insulin Glargine,Hum.rec.anlog [Lantus] 24 unit SQ QHS 06/22/19 rosuvastatin 10 mg tablet 10 mg PO DAILY 06/24/19 Amlodipine [Norvasc] 10 mg PO DAILY 09/23/19 Hydrochlorothiazide [Hctz] 12.5 mg PO BID 09/23/19 Omeprazole [Prilosec] 20 mg PO DAILY 09/23/19 Ustekinumab [Stelara] 90 mg SQ UD 09/23/19 Valsartan [Diovan] 160 mg PO BID 09/23/19 Primary Care Physician: Bernard Frey MD [Primary Care Provider] - Test Results: Test results from this visit will be discussed in further detail at your follow- up appointment, if applicable. Please Follow Up With: Siva Armijo MD - [phone] When: Call to make an appointment to be seen in about 10 days.
--- NOTE | 2019-10-11 07:43 | EKG12_ITS ---
Test Reason : PREOP Blood Pressure : / mmHG Vent. Rate : 081 BPM Atrial Rate : 081 BPM P-R Int : 156 ms QRS Dur : 096 ms QT Int : 390 ms P-R-T Axes : 019 030 039 degrees QTc Int : 453 ms Normal sinus rhythm Nonspecific T wave abnormality Abnormal ECG When compared with ECG of 22-JUN-2019 05:13, Nonspecific T wave abnormality, improved in Anterolateral leads Confirmed by SHAHAB LENTZ, CAROLINE ([id number]), greeting card editor GAVIOTA SAENZ ([id number]) on 10/12/2019 2:01:04 PM Referred By: Siva Armijo Confirmed By:CAROLINE GUDINO MD
[2019-10-11] MEDS: Lactated Ringers 1,000 ML 100 ML IV ×2 (08:05→11:05)
--- NOTE | 2019-10-11 09:35 | GALL_PTH ---
PATIENT: ADRIENNE XIE LOC: [facility] [place] U#:[id number] AGE/SX: 59/M ROOM: RE10/11/[address]: Dr. Siva Armijo MD : 1960 BED: DIS: 10/11/2019 SPEC #: [id number] RECD: 10/11/19 13:18 STATUS: SHERLEY REGin #: [id number] BEBETO: 10/11/19 09:[address]: Siva Armijo DEPT: SURGICAL PATHOLOGY RECD BY: Ervin Murray ENTERED: 10/12/19 09:34 SP TYPE: RAY LAMBERT DR: Dr. Bernard Frey MD Tissues: Gallbladder, NOS Procedures: Surgery Specimen Level III HEADER OPERATION: Laparoscopic cholecystectomy with IOC PRE-OP DIAGNOSIS: Chronic cholecystitis TISSUE SUBMITTED: Gallbladder MICROSCOPIC DIAGNOSIS Gallbladder, cholecystectomy: Chronic cholecystitis. AM:aspen 10/13/19 MICROSCOPIC DESCRIPTION Slides are reviewed. GROSS DESCRIPTION Received is one container labeled with the patient's name and designated gallbladder. The specimen consists of a gallbladder measuring 9.5 x 4 x 3 cm. The external surface is smooth and glistening. Focally, it is granular, hemorrhagic and contains cautery artifact. The lumen of the gallbladder contains yellow-green mucoid bile. No stones are identified in the container or in the gallbladder. The mucosa is bile-stained and without any mass lesions. The gallbladder wall averages 0.2 cm in thickness and is free of mass lesions. Hand Almond Blancher sections of the gallbladder and the cystic duct at margin of resection are submitted in one cassette. / AM:aspen 10/12/19 TC:3 CPT: 36444
--- NOTE | 2019-10-11 09:35 | RAD_ITS ---
STUDY: INTRAOPERATIVE CHOLANGIOGRAM. REASON FOR EXAM: Male, 59 years old. Lap brian w/oic FLUOROSCOPY TIME (if supplied): ( 31.3 seconds ) minutes/seconds. A single loop consisting of 223 images was obtained. TECHNIQUE: Intraoperative Cholangiogram was performed by the surgeon. Imaging was submitted. COMPARISON: None. FINDINGS: The intrahepatic biliary ducts are unremarkable. The common bile duct is not dilated. No intraluminal filling defect is seen. There is free flow of contrast into the duodenum. RAD/Cholangiogram/ O R,Initial IMPRESSION: Unremarkable intraoperative cholangiogram. Electronically Signed: Tristin Knowles, at 12:33 EDT , Service support ,
[2019-10-11 10:00] LABS: Bedside Glucose 203 mg/dL (70-110)
--- NOTE | 2019-10-11 10:47 | OP.PCM_ITS ---
Problem List (1) Biliary dyskinesia Status: Acute Report of Operation Date of Procedure: 10/11/19 Pre-Operative Diagnosis: Biliary dyskinesia Post-Operative Diagnosis: Same Surgery/Procedure Performed:: Laparoscopic cholecystectomy with cholangiograms Description of Surgical Findings:: Timeout and informed consent was obtained. 59-year-old gentleman was taken to the operating place upon the table underwent general endotracheal intubation and anesthesia. Ancef 3 g were given intravenously preoperatively. The abdomen sterilely prepped and draped. 0.5% Marcaine was used as a local anesthetic. Throughout the procedure total 30 cc was used. Skin sites were pre- anesthetized. I selected a space midclavicular line right subcostal and used a 5 mm Visiport technique to gain clean access. The abdomen was insufflated with CO2 to a pressure of 12 mmHg pressure. The 5 Hardy trocar was nicely inserted inspection revealed adhesions of omentum to the mesh in the periumbilical area. I did not grossly see any evidence of bowel involvement. With direct visualization I placed a 10 mm port superior to that adhesion location another 5 mm port in the epigastric area and additional 1 I placed right upper quadrant laterally. Patient severely obese. Fatty liver. The gallbladder was extraordinarily fatty. We utilized the Gallbladder as leverage lifted up and then tediously performed blunt dissection at the infundibular area. This was challenging secondary to the amount of fibrofatty tissue encasing the gallbladder. Eventually this was dissected free secured the cystic artery with a hemo-lock clip prior to transecting it. Was able to get that critical view. Then placed a hemo-lock clip on the cystic duct and made a small incision and inserted the cholangiogram catheter through a 14-gauge Angiocath. Fluoroscopic control cholangiograms were obtained demonstrating normal ductal anatomy with a long cystic duct free flow into the small bowel. The cholangiogram cath was removed and 2 hemo-lock clips were placed on the cystic duct stump prior to transecting it. The gallbladder was then tediously dissected free from the liver bed with electrocautery. Complete hemostasis was intact and further assured with hemo-lock clips were needed. Gallbladder was placed in a retrieval bag. The liver bed area was inspected this was somewhat challenging as the liver could now not be efficiently we lifted due to its enlargement and weight and steatosis. Did not see any evidence of bleeding. There was no evidence of any bile leakage. The right upper quadrant was irrigated and aspirated free. The abdomen was allowed to deflate through an antiviral valve. Trochars were removed. The fascia for the 10 mm port was closed in 2 layers with simple sutures of 0 Nurolon. Skin edges approximated with interrupted 4 Monocryl subdermal stitches. Steri-Strips Telfa OpSite dressings applied. Sponge and instrument and needle counts were reported to the surgeon to be correct. Blood loss minimal. Specimens gallbladder. Drains none. Blood loss minimal. Siva Armijo M.D., F.A.C.S. Type of Anesthesia:: General Anesthesiologist: Will Rodriguez
[2019-10-11] MEDS: Bupivacaine Mpf 0.5% 30 ML VIAL (10:52)
== END 2019-10-11 13:43 | disposition home or self-care (01) ==
LOC: SDC 07:18 → AC 07:18
PROVIDERS: PCP Family Medicine; Referring Provider Surgery; Visit Provider Surgery
PROC: (CPT 47610; principal; 2019-10-11 09:15)
DX: K81.1 Chronic cholecystitis (principal); E78.5 Hyperlipidemia, unspecified; L40.9 Psoriasis, unspecified; I10 Essential (primary) hypertension; G47.30 Sleep apnea, unspecified; E11.9 Type 2 diabetes mellitus without complications; Z79.4 Long term (current) use of insulin; Z79.1 Long term (current) use of non-steroidal anti-inflammatories (NSAID); Z79.899 Other long term (current) drug therapy; Z87.891 Personal history of nicotine dependence; E66.01 Morbid (severe) obesity due to excess calories; Z68.41 Body mass index [BMI] 40.0-44.9, adult; K76.0 Fatty (change of) liver, not elsewhere classified; R94.31 Abnormal electrocardiogram [ECG] [EKG]; Z11.59 Encounter for screening for other viral diseases
CPT/HCPCS: 47563; 74300; 76000; 82962; 87635; 88304; 93005; G2023; J7120; J2405; U0004

== ENCOUNTER 2020-04-17 07:06 | Emergency (ER) | payer OTHER, SELFPAY ==
[2019-10-20 13:35] VITALS: BMI 44.9
[2020-04-17 07:07] VITALS: BP 172/92; PULSE 97; RESP 20; TEMP 36.4; O2SAT 98; BMI 43.9
--- NOTE | 2020-04-17 07:16 | RAD_ITS ---
STUDY: X-RAY CHEST REASON FOR EXAM: Male, 59 years old. COUGH, BODY ACHES, CHILLS ,DIARRHEA TECHNIQUE: AP COMPARISON: None. FINDINGS: EKG leads project over the chest. The lungs are clear and expanded. There is no demonstrated pleural abnormality. Normal size heart. Normal mediastinum and jeanie. Normal visualized pulmonary arteries. Normal visualized aortic arch and descending thoracic aorta. No acute bony process. There is no demonstrated abnormality of the visualized soft tissue structures of the upper abdomen. RAD/Chest 1 View (Portable) IMPRESSION: Stable, nonacute portable x-ray examination of the chest. Electronically Signed: Chepe Gilman MD (Brooks) at 8:04 EST , Service support ,
--- NOTE | 2020-04-17 07:17 | ED.VIS.GEN ---
History of Present Illness Chief Complaint: Cough Informant: Patient Onset: Days Context: Gradual Onset Timing: Continuous Current Severity: Moderate Maximum Severity: Moderate Narrative: Patient is a 59-year-old male with medical history significant for insulin-dependent diabetes and hypertension who presents to the emergency department with Covid type symptoms. Patient states his symptoms began on Friday. He states he had some chills and generalized malaise. He states he has had profuse watery diarrhea. He is not noticed any blood. He had a scant cough, but denies any shortness of breath. He has not had a documented fever. 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 He states that there is been a high rate of Covid infections and they do not wear masks. He denies any specific pain. He denies orthopnea. He states he is otherwise been in his normal state of health. Prior similar symptoms: No Recent Illness/Hospitalization: No Past Medical History - Allergies and Home Meds Allergies/Adverse Reactions: Allergies meloxicam Allergy (Intermediate, Verified 04/17/20 07:10) Unknown moxifloxacin [From Avelox] Allergy (Intermediate, Verified 04/17/20 07:10) dizziness prednisone Allergy (Intermediate, Verified 04/17/20 07:10) fast heart rate sitagliptin [From Januvia] Allergy (Intermediate, Verified 04/17/20 07:10) lightheadedness Primary Care Physician: Bernard Frey MD [Primary Care Provider] - Prior records reviewed: Yes Past Medical History: - - Insulin-dependent diabetes, hypertension Surgical History: noncontributory Smoking Status: Never smoker - Family History Paternal Family History: Family History (Last Reviewed 10/20/19 @ 13:36 by Marisabel Martinez) Father Hypertension Family History: Reports: Diabetes Review of Systems General: Denies: Chills, Fever, Sweats Eyes: Denies: Visual changes - bilaterally, Diplopia ENT: Denies: Rhinorrhea, Sore throat Cardiovascular: Denies: Chest pain, Palpitations Respiratory: Reports: Cough. Denies: Dyspnea, Dyspnea on exertion Gastrointestinal: Reports: Diarrhea. Denies: Abdominal pain, Nausea, Vomiting, Melena, Hematochezia Genitourinary: Denies: Dysuria, Hematuria, Frequency Musculoskeletal: Denies: Back pain, Extremity Pain Skin: Denies: Rash, Wounds Neurological: Denies: Headache, Weakness, Numbness Physical Exam Vital Signs/Narrative: Vital Signs Temp Pulse Resp BP Pulse Ox 04/17/20 07:07 97.6 F L 97 20 H 172/92 H 98 Inital Vital Signs reviewed: Yes General: Well nourished, Well developed, No Acute Distress Head: Normocephalic, Atraumatic Eyes: Perrl, EOMI ENT: Moist mucous membranes, No rhinorrhea Neck: Supple, Nontender Cardiovascular: Regular rate, Regular rhythm, No murmurs Respiratory: No distress, CTA bilaterally, Chest nontender Abdomen: Soft, Nontender, Nondistended, Normal bowel sounds Back: Nontender, Normal Inspection Extremities: Nontender, No edema Skin: Normal color, No rash Neurological: Alert, Oriented x3, Cranial nerves II-XII grossly intact, Normal Strength, Normal Sensation Psychological: Normal affect, Normal Mood Diagnostic/Tx/Re-eval Clinical Impression(s) from Imaging Studies Chest X-Ray 04/17/20 07:16 IMPRESSION: Stable, nonacute portable x-ray examination of the chest. Electronically Signed: Chepe Gilman MD (Brooks) at 8:04 EST , Service support , Abnormal Lab Results 04/17/20 04/17/20 07:32 07:32 WBC 7.2 RBC 5.28 Hgb 15.4 Hct 44.8 MCV 84.8 MCH 29.2 MCHC 34.4 RDW Std Deviation 39.4 RDW Coeff of Niko 12.9 Plt Count 232 MPV 9.3 Immature Gran % (Auto) 0.800 Neut % (Auto) 75.8 H Lymph % (Auto) 14.6 L Mcdonald % (Auto) 7.8 Eos % (Auto) 0.6 Baso % (Auto) 0.4 Absolute Neuts (auto) 5.4 Absolute Lymphs (auto) 1.05 Nucleated RBC % 0 Sodium 138 Potassium 3.9 Chloride 104 Carbon Dioxide 27.0 Anion Gap 7 BUN 13 Creatinine 0.85 Estim Creat Clear Calc 94.73 Est GFR (MDRD) Af Amer 119 Est GFR (MDRD) Non-Af 98 BUN/Creatinine Ratio 15.3 Glucose 227 H Calcium 9.4 - Medical Decision Making The patient presents with symptoms of COVID-19 with questionable exposure. He is not hypoxic, tachycardic, or tachypneic. He has had no significant shortness of breath. Metabolic work-up was pursued as he is an insulin-dependent diabetic. Labs are relatively unremarkable. Patient was given small amount of fluids. His x-ray shows no significant infiltrative process. Covid antigen was obtained was negative. At this point, the patient was reassured. I do not suspect a dangerous process. His symptoms are very mild, even if this is a false negative. I do feel that he is safe for outpatient follow-up. Impression 1. Viral illness ED Disposition - Plan for ED Patient: Instructions: ED Viral Syndrome (Adult) Referrals: Bernard Frey MD [Primary Care Provider] -
[2020-04-17 07:38] LABS: Absolute Lymphocyte Count 1.05 X10^3/uL (0.83-4.51); Absolute Neutrophil Count 5.4 X10^3/uL (2.0-7.7); Basophil# 0.03 X10^3/uL; Basophil% 0.4 % (0-1); Eosinophil# 0.04 X10^3/uL; Eosinophils% 0.6 % (0-5); Hematocrit 44.8 % (40-54); Hemoglobin 15.4 g/dL (13.0-16.5); Lymphocyte # 1.05 X10^3/ul (4.0); Lymphocyte % 14.6 % (19-41); Mean Corp Hgb Conc 34.4 g/dL (32-36); Mean Corpuscular Hgb 29.2 pg (27.0-32.0); Mean Corpuscular Volume 84.8 fL (80-94); Mean Platelet Vol. 9.3 fl (6.2-12.0); Monocyte# 0.56 X10^3/uL; Monocyte% 7.8 % (0-10); NRBC Flagged by Analyzer 0 % (0-5); Neutrophil # 5.43 X10^3/uL (2.7-7.7); Neutrophil % 75.8 % (47-70); Platelet Count 232 K/mm3 (150-450); RBC Distribution Width CV 12.9 % (11.6-14.6); RBC Distribution Width SD 39.4 fl (35.1-43.9); Red Blood Count 5.28 M/mm3 (4.6-6.2); White Blood Count 7.2 K/mm3 (4.4-11.0)
[2020-04-17 07:44] VITALS: O2SAT 97
[2020-04-17 07:50] LABS: Anion Gap 7 (5-15); BUN 13 mg/dL (7-18); BUN/Creat Ratio 15.3 RATIO (10-20); Calcium,Total 9.4 mg/dL (8.5-10.1); Chloride 104 mmol/L (98-107); Creatinine, Serum 0.85 mg/dL (0.70-1.30); EST Glomerular Filtration Rate 98 mL/min (>60); Est Glom Filt Rate - Afr Amer 119 mL/min (>60); Estimated Creatinine Clearance 94.73 ml/min; Glucose 227 mg/dL (74-106); Potassium 3.9 mmol/L (3.5-5.1); Sodium Level 138 mmol/L (136-145)
[2020-04-17 08:23] VITALS: BP 150/80; PULSE 85; RESP 11; O2SAT 95
== END 2020-04-17 08:28 | disposition home or self-care (01) ==
LOC: ED 08:21
PROVIDERS: Emergency Provider Emergency Medicine; PCP Family Medicine
DX: B34.9 Viral infection, unspecified (principal); E11.9 Type 2 diabetes mellitus without complications; I10 Essential (primary) hypertension; Z79.4 Long term (current) use of insulin
CPT/HCPCS: 71045; 80048; 85025; 87426; 99284; J7030

== ENCOUNTER 2020-05-05 17:00 | Emergency (ER) | payer OTHER, SELFPAY ==
[2020-05-05 17:01] VITALS: BP 152/71; PULSE 114; RESP 16; TEMP 36.3; O2SAT 98; BMI 44.6
--- NOTE | 2020-05-05 17:15 | EKG12_ITS ---
Test Reason : Blood Pressure : / mmHG Vent. Rate : 084 BPM Atrial Rate : 084 BPM P-R Int : 158 ms QRS Dur : 084 ms QT Int : 370 ms P-R-T Axes : 022 021 037 degrees QTc Int : 437 ms Normal sinus rhythm Nonspecific T wave abnormality Abnormal ECG Confirmed by SERGEI LENTZ, ABDULKADIR ([id number]), online content editor JUANI PEREZ ([id number]) on 05/11/2020 10:02:54 AM Referred By: GUDELIA Confirmed By:VASU MAI MD
--- NOTE | 2020-05-05 17:19 | RAD_ITS ---
STUDY: X-RAY CHEST REASON FOR EXAM: Male, 59 years old. Chest pain TECHNIQUE: AP portable upright view of the chest on 2 images. COMPARISON: Portable AP upright chest x-ray on 2 [id number]/17/2020 FINDINGS: The lungs are incompletely expanded, with mild crowding in the lung bases. There is no demonstrated pleural abnormality. Normal size heart. Normal mediastinum and jeanie. Normal visualized pulmonary arteries. Normal visualized aortic arch and descending thoracic aorta. There are grossly stable degenerative changes of the visualized thoracic spine. Normal visualized ribs, clavicles, and shoulders. There is no demonstrated abnormality of the visualized soft tissue structures of the upper abdomen. RAD/Chest 1 View (Portable) IMPRESSION: No acute cardiopulmonary disease. Electronically Signed: Alfonso Groves MD at 17:56 EST , Service support ,
--- NOTE | 2020-05-05 17:19 | ED.DCSUM_ITS ---
History of Present Illness Chief Complaint: Back Informant: Patient Onset: Yesterday Current Severity: Mild Maximum Severity: Moderate Narrative: She presents with neck and upper back pain. Patient states he has developed neck pain yesterday. He thought he could take some [id number] medications and sent in a hot tub for a while but has not had improvement. Today the pain moved down into the upper back as well. Has been using some pain patches without improvement. He noted some slight tingling in the fingertips of his left hand. He denies anterior chest pain. He states he recently followed up with his cardiology office in [place] and they noted a change in his EKG. He is scheduled for a stress test in early May. He was advised if he develops any pain he should seek treatment immediately. - Past Medical History (1) Diabetes mellitus Status: Chronic (2) Essential hypertension Status: Chronic (3) Hyperlipidemia Status: Chronic Past Medical History - Allergies and Home Meds Allergies/Adverse Reactions: Allergies meloxicam Allergy (Intermediate, Verified 05/05/20 17:01) Unknown moxifloxacin [From Avelox] Allergy (Intermediate, Verified 05/05/20 17:01) dizziness prednisone Allergy (Intermediate, Verified 05/05/20 17:01) fast heart rate sitagliptin [From Januvia] Allergy (Intermediate, Verified 05/05/20 17:01) lightheadedness Primary Care Physician: Bernard Frey MD [Primary Care Provider] - Surgical History: noncontributory Smoking Status: Former smoker - Family History Paternal Family History: Family History (Last Reviewed 10/20/19 @ 13:36 by Marisabel Martinez) Father Hypertension Family History: Reports: Diabetes Review of Systems General: Denies: Chills, Fever Eyes: Denies: Visual changes - bilaterally ENT: Denies: Bilateral ear pain Cardiovascular: Denies: Chest pain Respiratory: Denies: Dyspnea, Cough Gastrointestinal: Denies: Abdominal pain, Vomiting, Diarrhea Musculoskeletal: Reports: Neck pain, Back pain Neurological: Reports: Parasthesia. Denies: Headache, Weakness Hematologic: Denies: Easy bruising, Easy bleeding Allergy: Denies: Uticaria Physical Exam Vital Signs/Narrative: Vital Signs Temp Pulse Resp BP Pulse Ox 05/05/20 17:01 97.4 F L 114 H 16 152/71 H 98 Inital Vital Signs reviewed: Yes General: Well nourished, Well developed Head: Normocephalic ENT: Moist mucous membranes Neck: Supple Cardiovascular: Regular rate, Regular rhythm Respiratory: No distress, CTA bilaterally Abdomen: Soft, Nontender Back: - - Tenderness in the cervical and upper thoracic paraspinal muscles. No overlying skin changes. Extremities: Nontender Skin: Normal color Neurological: Alert, Oriented x3, Normal Strength, Normal Sensation Psychological: Normal affect Diagnostic/Tx/Re-eval Impressions Chest X-Ray 05/05/20 17:19 IMPRESSION: No acute cardiopulmonary disease. Electronically Signed: Alfonso Groves MD at 17:56 EST , Service support , 05/05/20 17:19 Chest 1 View (Portable) [RAD] Stat Laboratory Results 05/05/20 05/05/20 17:39 17:39 WBC 6.7 RBC 4.99 Hgb 14.3 Hct 41.9 MCV 84.0 MCH 28.7 MCHC 34.1 RDW Std Deviation 38.5 RDW Coeff of Niko 12.6 Plt Count 230 MPV 9.3 Immature Gran % (Auto) 1.100 H Neut % (Auto) 67.4 Lymph % (Auto) 21.9 [place] % (Auto) 8.6 Eos % (Auto) 0.5 Baso % (Auto) 0.5 Absolute Neuts (auto) 4.5 Absolute Lymphs (auto) 1.46 Nucleated RBC % 0 Sodium 138 Potassium 3.8 Chloride 106 Carbon Dioxide 26.0 Anion Gap 6 BUN 21 H Creatinine 0.87 Estim Creat Clear Calc 92.55 Est GFR (MDRD) Af Amer 116 Est GFR (MDRD) Non-Af 96 BUN/Creatinine Ratio 24.2 H Glucose 187 H Calcium 8.8 Troponin I < 0.015 - EKG Initial EKG Interpretation: Sinus Rhythm - Sinus at 84. Nonspecific lateral T wave flattening. No acute ST change. - Medical Decision Making Patient was given 1 tab of [place] and a dose of Flexeril as I suspect he has musculoskeletal pain in his neck and back. In light of his recent reported EKG changes cardiac work-up is pursued. EKG only shows nonspecific lateral ST flattening. No ST change. Troponin is less than 0.015. Portable chest x-ray per my interpretation reveals chronic changes with no focal infiltrate. ED Disposition - Plan for ED Patient: Disposition: Home or Assisted Living Diagnosis: Musculoskeletal neck pain Instructions: ED Neck Pain Prescriptions: cycloBENZAPRine HCl [Flexeril] 10 mg PO BID PRN PRN #10 tablet PRN Reason: Muscle Spasm Hydrocodone Bitart/Apap 5-325 [[place] 5MG-325MG] 1 tablet PO Q6H PRN PRN 3 Days #10 tablet PRN Reason: Pain Referrals: Bernard Frey MD [Primary Care Provider] - 5-7 Days
[2020-05-05] MEDS: cycloBENZAPRine HCl 10 MG Tablet PO (17:36)
[2020-05-05] MEDS: HYDROcodone Bitartrate/Apap 5/325 Tablet PO (17:36)
[2020-05-05 17:47] LABS: Absolute Lymphocyte Count 1.46 X10^3/uL (0.83-4.51); Absolute Neutrophil Count 4.5 X10^3/uL (2.0-7.7); Basophil# 0.03 X10^3/uL; Basophil% 0.5 % (0-1); Eosinophil# 0.03 X10^3/uL; Eosinophils% 0.5 % (0-5); Hematocrit 41.9 % (40-54); Hemoglobin 14.3 g/dL (13.0-16.5); Lymphocyte # 1.46 X10^3/ul (4.0); Lymphocyte % 21.9 % (19-41); Mean Corp Hgb Conc 34.1 g/dL (32-36); Mean Corpuscular Hgb 28.7 pg (27.0-32.0); Mean Platelet Vol. 9.3 fl (6.2-12.0); Monocyte# 0.57 X10^3/uL; Monocyte% 8.6 % (0-10); NRBC Flagged by Analyzer 0 % (0-5); Neutrophil % 67.4 % (47-70); Platelet Count 230 K/mm3 (150-450); RBC Distribution Width CV 12.6 % (11.6-14.6); RBC Distribution Width SD 38.5 fl (35.1-43.9); Red Blood Count 4.99 M/mm3 (4.6-6.2); White Blood Count 6.7 K/mm3 (4.4-11.0)
[2020-05-05 18:05] LABS: Anion Gap 6 (5-15); BUN 21 mg/dL (7-18); BUN/Creat Ratio 24.2 RATIO (10-20); Calcium,Total 8.8 mg/dL (8.5-10.1); Chloride 106 mmol/L (98-107); Creatinine, Serum 0.87 mg/dL (0.70-1.30); EST Glomerular Filtration Rate 96 mL/min (>60); Est Glom Filt Rate - Afr Amer 116 mL/min (>60); Estimated Creatinine Clearance 92.55 ml/min; Glucose 187 mg/dL (74-106); Potassium 3.8 mmol/L (3.5-5.1); Sodium Level 138 mmol/L (136-145)
[2020-05-05 19:06] VITALS: BP 146/76; PULSE 78; RESP 18; O2SAT 98
== END 2020-05-05 19:06 | disposition home or self-care (01) ==
PROVIDERS: Emergency Provider Emergency Medicine; PCP Family Medicine
DX: M54.2 Cervicalgia (principal); Z87.891 Personal history of nicotine dependence
CPT/HCPCS: 71045; 80048; 84484; 85025; 93005; 99283; A4216

== ENCOUNTER 2020-07-16 22:12 | Emergency (ER) | payer OTHER, SELFPAY ==
[2020-07-16 22:12] VITALS: BP 138/76; PULSE 98; RESP 15; TEMP 36.4; O2SAT 95; BMI 46.5
--- NOTE | 2020-07-16 22:31 | ED.VISSUMM ---
- ER Visit Summary Date of Service: 07/16/20 Chief Complaint: Nausea, vomiting and diarrhea. History of Present Illness: The patient is a 60 M history of diabetes and hypertension. Prior cholecystectomy. Patient states for the last 3 days since Friday has had nausea, vomiting diarrhea along with body aches. He denies any fever or chills. He denies any shortness of breath or cough. He denies any dysuria. Only mild abdominal cramping. Physical Examination: Middle-aged male no acute distress vital signs stable afebrile. H EENT exam unremarkable. Moist mucous membranes. Neck nontender. Lungs clear to auscultation. Heart regular rhythm no murmur rate about 95. Abdomen obese but nontender. Normal bowel sounds no peritoneal signs. No localizing tenderness. Right upper and right lower quadrants are unremarkable. No hernia or mass. No obstruction. Patient moving all 4 extremities. Neurovascular intact. Back nontender. Neurologically is awake and alert with no focal motor deficits. Test Results: CBC normal white count of 7. Hemoglobin 14. No bands. Chemistries unremarkable gap at 9. Normal BUN and creatinine. Glucose is elevated to 37. Liver enzymes normal. COVID-19 rapid antigen test was negative. Repeat exam patient is doing well. IV fluids are almost finished. Patient requested I do a rectal exam to check for blood. There was loose limited brown stool. No melena. No gross blood. No masses. Nontender. He and I discussed all his test results. His exam, history and tests are consistent with a viral gastroenteritis. Emergency Department Course and Treatment: Patient with what appears to be a viral syndrome very well could be viral gastroenteritis. He will be Covid tested and IV fluids along with screening labs. Currently did need anything for nausea. Treatment Plan: Imodium and/or Kaopectate for his diarrhea. Zofran as needed for nausea. Plenty of fluids and rest. Follow-up if not improving. Disposition: Discharge Impression: Acute nausea, vomiting and diarrhea secondary to viral gastroenteritis This note was generated with [employer] dictation software. It may contain incorrect words, spelling, and punctuation that were not noted in review of the chart prior to signing ED Disposition - Plan for ED Patient: Disposition: Home or Assisted Living Instructions: ED Gastroenteritis, Viral (Adult) Prescriptions: Ondansetron [Zofran Odt] 4 mg PO Q8H PRN PRN #7 tab PRN Reason: Nausea Prescription Printed Referrals: Bernard Frey MD [Primary Care Provider] - 3-5 Days if not improving Additional Instructions: Plenty of fluids and rest. Kaopectate and/or Imodium for the diarrhea. Zofran as needed for the nausea. If should improve over the next 48 hours if not follow-up with your doctor for repeat evaluation.
[2020-07-16] MEDS: 0.9% Normal Saline 1,000 ML 1000 ML IV (22:45)
[2020-07-16 22:47] LABS: Absolute Lymphocyte Count 0.92 X10^3/uL (0.83-4.51); Absolute Neutrophil Count 5.4 X10^3/uL (2.0-7.7); Basophil# 0.02 X10^3/uL; Basophil% 0.3 % (0-1); Eosinophil# 0.01 X10^3/uL; Eosinophils% 0.1 % (0-5); Hematocrit 44.6 % (40-54); Hemoglobin 14.9 g/dL (13.0-16.5); Lymphocyte # 0.92 X10^3/ul (4.0); Lymphocyte % 12.8 % (19-41); Mean Corp Hgb Conc 33.4 g/dL (32-36); Mean Corpuscular Hgb 28.3 pg (27.0-32.0); Mean Corpuscular Volume 84.8 fL (80-94); Mean Platelet Vol. 9.2 fl (6.2-12.0); Monocyte# 0.81 X10^3/uL; Monocyte% 11.3 % (0-10); NRBC Flagged by Analyzer 0 % (0-5); Neutrophil # 5.39 X10^3/uL (2.7-7.7); Neutrophil % 74.9 % (47-70); Platelet Count 249 K/mm3 (150-450); RBC Distribution Width CV 12.9 % (11.6-14.6); RBC Distribution Width SD 39.8 fl (35.1-43.9); Red Blood Count 5.26 M/mm3 (4.6-6.2); White Blood Count 7.2 K/mm3 (4.4-11.0)
[2020-07-16 23:06] LABS: AST(SGOT) 15 U/L (15-37); Alanine Aminotransfer ALT/SGPT 37 U/L (16-61); Albumin, Serum 3.5 g/dL (3.2-5.0); Alkaline Phosphatase 103 U/L (45-117); Anion Gap 9 (5-15); BUN 15 mg/dL (7-18); BUN/Creat Ratio 16.1 RATIO (10-20); Calcium,Total 8.7 mg/dL (8.5-10.1); Chloride 103 mmol/L (98-107); Creatinine, Serum 0.93 mg/dL (0.70-1.30); EST Glomerular Filtration Rate 88 mL/min (>60); Est Glom Filt Rate - Afr Amer 107 mL/min (>60); Estimated Creatinine Clearance 85.52 ml/min; Globulin 3.5 g/dL (2.2-4.2); Glucose 237 mg/dL (74-106); Potassium 3.7 mmol/L (3.5-5.1); Sodium Level 138 mmol/L (136-145)
--- NOTE | 2020-07-16 23:50 | ED.DEP ---
ED Disposition - Plan for ED Patient: Disposition: Home or Assisted Living Instructions: ED Gastroenteritis, Viral (Adult) Prescriptions: Ondansetron [Zofran Odt] 4 mg PO Q8H PRN PRN #7 tab PRN Reason: Nausea Prescription Printed Referrals: Bernard Frey MD [Primary Care Provider] - 3-5 Days if not improving Additional Instructions: Plenty of fluids and rest. Kaopectate and/or Imodium for the diarrhea. Zofran as needed for the nausea. If should improve over the next 48 hours if not follow-up with your doctor for repeat evaluation.
[2020-07-17 00:10] VITALS: BP 146/67; PULSE 95; RESP 16; O2SAT 95
== END 2020-07-17 00:11 | disposition home or self-care (01) ==
PROVIDERS: Emergency Provider Emergency Medicine; PCP Family Medicine
DX: A08.4 Viral intestinal infection, unspecified (principal); Z90.49 Acquired absence of other specified parts of digestive tract
CPT/HCPCS: 80053; 85025; 87426; 99283; J7030; A4216

== ENCOUNTER 2020-07-18 14:32 | Emergency (ER) | payer OTHER, SELFPAY ==
[2020-07-18 14:33] VITALS: BP 152/87; PULSE 92; RESP 16; TEMP 36.7; O2SAT 95; BMI 46.5
--- NOTE | 2020-07-18 15:11 | ED.VISSUMM ---
- ER Visit Summary Date of Service: 07/18/20 Chief Complaint: Dark stool History of Present Illness: The patient is a 60 M history of prior GI bleeds x2 prior polypectomy but not recently. Prior diabetes and hypertension. Patient was actually seen here on Friday night for gastroenteritis. He said his nausea vomiting and diarrhea since resolved but he is concerned because he thinks his stool is a little darker. He says not black. He is on no blood thinners. He denies any other complaints and says he is actually feeling better. Physical Examination: Older male no acute distress vital signs stable afebrile. H EENT exam unremarkable. Lungs clear to auscultation bilaterally. Heart regular rhythm no murmur. Abdomen obese but soft nontender normal bowel sounds no peritoneal signs. Patient moving all 4 extremities. No edema. Neurologically awake and alert with no focal motor deficits. Rectal exam brown stool no gross blood. No mass. Normal tone. No melena. Test Results: H&H was 14.5 and 42 and his baseline hemoglobin is around 14. Emergency Department Course and Treatment: Per patient request he wants me to check his blood count. Treatment Plan: Exam patient is doing well at 5:14 PM. He is comfortable being discharged home with outpatient follow-up. Disposition: Discharge Impression: Dark stool rule out GI bleed Stool change most likely secondary to use of Kaopectate Status Post recent gastroenteritis This note was generated with [employer] dictation software. It may contain incorrect words, spelling, and punctuation that were not noted in review of the chart prior to signing ED Disposition - Plan for ED Patient: Referrals: Bernard Frey MD [Primary Care Provider] -
[2020-07-18 15:41] LABS: Hematocrit 42.3 % (40-54); Hemoglobin 14.5 g/dL (13.0-16.5)
--- NOTE | 2020-07-18 17:19 | ED.DEP ---
ED Disposition - Plan for ED Patient: Disposition: Home or Assisted Living Referrals: Bernard Frey MD [Primary Care Provider] - 1 Week if not improving Additional Instructions: Your labs today were unremarkable as was your exam. Most likely the stool changes from the Kaopectate. Follow-up with his doctor if not improving they can do Hemoccult studies of your stool to rule out bleeding and/or recheck your blood count.
[2020-07-18 17:27] VITALS: BP 138/79; PULSE 84; RESP 20; O2SAT 97
--- NOTE | 2020-07-18 17:27 | ED.RN ---
THIS NURSE REVIEWED D/C INSTRUCTIONS WITH PT. PT VERBALIZED UNDERSTANDING OF INSTRUCTIONS. IV D/C. IV CATHETER INTACT. PT TOLERATED WELL. PT DENIES FURTHER NEEDS OR QUESTIONS AT THIS TIME
== END 2020-07-18 17:28 | disposition home or self-care (01) ==
PROVIDERS: Emergency Provider Emergency Medicine; PCP Family Medicine
DX: K52.9 Noninfective gastroenteritis and colitis, unspecified (principal)
CPT/HCPCS: 85014; 85018; 99283

== ENCOUNTER → 2020-11-23 15:10 | Outpatient (CLI) | payer OTHER, SELFPAY ==
[2020-11-23 12:20] VITALS: BMI 44.9
== END ==
PROVIDERS: PCP Family Medicine; Referring Provider Physician Assistant; Visit Provider Physician Assistant
DX: L03.312 Cellulitis of back [any part except buttock and flank] (principal)
CPT/HCPCS: 87070; 87205

== ENCOUNTER 2020-12-14 22:51 | Emergency (ER) | payer OTHER, SELFPAY ==
[2020-11-23 12:20] VITALS: BMI 44.9
[2020-12-14 22:53] VITALS: BP 170/92; PULSE 97; RESP 16; TEMP 36.6; O2SAT 96; BMI 45.8
--- NOTE | 2020-12-14 23:12 | EKG12_ITS ---
Test Reason : DYSRHYTHMIA Blood Pressure : / mmHG Vent. Rate : 091 BPM Atrial Rate : 091 BPM P-R Int : 154 ms QRS Dur : 086 ms QT Int : 358 ms P-R-T Axes : 034 029 054 degrees QTc Int : 440 ms Normal sinus rhythm Nonspecific T wave abnormality Abnormal ECG Confirmed by PATRICIA LENTZ, RIVAS ([id number]), desk editor JUANI PEREZ ([id number]) on 12/18/2020 10:05:20 AM Referred By: Confirmed By:RIVAS GOMEZ MD
--- NOTE | 2020-12-14 23:12 | RAD_ITS ---
STUDY: X-RAY - CERVICAL SPINE REASON FOR EXAM: Male, 60 years old. neck pain TECHNIQUE: 5 view(s) of the cervical spine were obtained. COMPARISON: None FINDINGS: Normal anterior atlantoaxial articulation. Normal odontoid process. Normal cervical lordosis. Normal vertebral bodies and endplates. Normal disc space heights. Normal visualized intervertebral neuroforamina. The soft tissue structures are unremarkable. RAD/Cerv Spine 2 or 3 Views IMPRESSION: Normal x-ray examination of the visualized cervical spine. Electronically Signed: Shon Arredondo DO at 0:19 EDT Tel , Service support ,
--- NOTE | 2020-12-14 23:13 | EDS_ITS ---
HPI History of Present Illness Chief Complaint: Other, Pain/Inj Informant: patient Narrative Narrative: 60-year-old male presents with left-sided neck and shoulder pain. Symptoms been present for the past week. He notes it radiates down the arm and causes tingling in the fingers. 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 He states that rubbing the arm seems to make the pain worse. He went to a chiropractor had some soft tissue done. He states that that would help for about 6 to 8 hours but then come back. Tonight he was laying in bed and began to hurt more he started to sweat. Denies any chest pain with this. No jaw pain. No headache. No recent trauma or injury. No pain with movement of the neck [facility] Medical History Abnormal EKG Biliary dyskinesia Cellulitis of lower back Chronic cholecystitis Diabetes mellitus Essential hypertension Hyperlipidemia Preop cardiovascular exam Psoriasis Sleep apnea Home Medications glimepiride 4 mg PO DAILY 05/25/13 [History Last Taken 04/15/16 06:30] metformin 1,000 mg PO BIDCM 05/25/13 [History Last Taken 04/15/16 17:30] linagliptin 5 mg tablet 5 mg PO QAM 01/01/18 [History Last Taken Unknown] liraglutide 1.8 mg SQ DAILY 07/20/18 [History Last Taken Unknown] naproxen 500 mg PO BID PRN #20 tab 03/05/19 [Rx Last Taken Unknown] insulin glargine 35 unit SQ QHS 06/22/19 [History Last Taken 10/10/19 22:00] rosuvastatin 10 mg tablet 10 mg PO DAILY 06/24/19 [History Last Taken Unknown] amlodipine 10 mg PO DAILY 09/23/19 [History Last Taken 10/10/19 22:00] hydrochlorothiazide 12.5 mg PO BID 09/23/19 [History Last Taken Unknown] omeprazole 20 mg PO DAILY 09/23/19 [History Last Taken 10/10/19 22:00] ustekinumab 90 mg SQ UD 09/23/19 [History Last Taken 09/03/19] valsartan 160 mg PO BID 09/23/19 [History Last Taken 10/10/19 22:00] Allergy/AdvReac Type Severity Reaction Status Date / Time meloxicam Allergy Intermediate Unknown Verified 12/14/20 22:53 moxifloxacin [From Avelox] Allergy Intermediate dizziness Verified 12/14/20 22:53 prednisone Allergy Intermediate fast heart Verified 12/14/20 22:53 rate sitagliptin [From Januvia] Allergy Intermediate lightheaded Verified 12/14/20 22:53 ness Family History Father Hypertension Surgical History History of cholecystectomy (~10/2019) History of colonoscopy History of hernia surgery History of nasal septoplasty History of umbilical hernia Social History Smoking Status: Never smoker Smokeless tobacco user: snuff alcohol intake: never substance use type: does not use caffeine: Yes Type: carbonated beverages ROS ROS ED Constitutional Constitutional ED: Denies chills or weight loss Eyes Eyes: Denies change in vision or diplopia ENT ENT ED: Denies ear pain, rhinorrhea or sore throat Cardiovascular Cardiovascular: Denies chest pain, orthopnea, palpitations or racing heartbeat Respiratory/Chest Respiratory/Chest: Denies cough, dyspnea or orthopnea Gastrointestinal Gastrointestinal: Denies abdominal pain, diarrhea, nausea or vomiting Genitourinary Genitourinary ED: Denies dysuria, hematuria or urinary frequency Musculoskeletal Musculoskeletal: Reports neck pain and other Details: See history of present illness ; Denies arthralgias or myalgias Integumentary Denies abscess or rash Neurologic Neurologic: Reports paresthesias; Denies headache(s) or weakness Psychiatric Psychiatric: Denies anxiety, depression, suicidal ideation or suicidal thoughts Endocrine Endocrinology: Denies polydipsia, polyphagia or polyuria Allergic/Immunologic Allergic/Immunologic ED: Denies mouth swelling, tongue swelling or urticaria EXAM Physical Exam Const Vital Signs: 12/14/20 22:53 12/14/20 23:21 Temperature 98 F Temperature Source Temporal Pulse Rate 97 Respiratory Rate 16 Respiratory Effort Normal Non-Labored Respiratory Pattern Normal Blood Pressure 170/92 H Blood Pressure Mean 118 Pulse Ox 96 Oxygen Delivery Method Room Air Positive well nourished, well developed and obese General Appearance ED: well developed Nutritional Appearance: obese HEENT Reports normocephalic, head/scalp atraumatic and moist mucous membranes Eyes PERRL and EOMs intact bilaterally Neck no lymphadenopathy, supple and no JVD Resp normal respiratory effort and clear to auscultation bilaterally Cardio regular rate, regular rhythm and no murmurs GI normal to inspection, nondistended, normoactive bowel sounds and non-tender Palpation: soft Back/Spine no CVA tenderness and normal ROM Extremity normal to inspection General Extremety ED: Negative for edema General Extremity: Negative for edema Neuro oriented x3, CN's II-XII intact bilaterally and no sensory deficits noted Sensorium / Orientation: alert Motor Exam: strength 5/5 throughout Psych mental status grossly normal Mood & Affect: Negative for depressed or tearful Skin no rashes or lesions noted and no wounds MDM MDM MDM Narrative Medical decision making narrative: EKG is a normal sinus rhythm. Troponin negative. BNP negative. White count 7.9 hemoglobin 14. Cervical spine x-rays are negative. I do not think that this is cardiac in nature. I think that this is most likely to be a cervical radiculopathy. Would recommend follow-up with primary care for possible MRI. Lab Data Attestation: I reviewed the patient's lab results. Labs: Laboratory Results - last 24 hr 12/14/20 12/14/20 23:20 23:20 WBC 7.9 RBC 4.87 Hgb 14.0 Hct 41.9 MCV 86.0 MCH 28.7 MCHC 33.4 RDW Std Deviation 41.0 RDW Coeff of Niko 13.2 Plt Count 266 MPV 9.4 Immature Gran % (Auto) 1.800 H Neut % (Auto) 73.0 H Lymph % (Auto) 17.0 L Summers % (Auto) 7.9 Eos % (Auto) 0.0 Baso % (Auto) 0.3 Absolute Neuts (auto) 5.8 Absolute Lymphs (auto) 1.34 Nucleated RBC % 0 Sodium 137 Potassium 4.0 Chloride 102 Carbon Dioxide 26.0 Anion Gap 9 BUN 22 H Creatinine 1.03 Estim Creat Clear Calc 77.22 Est GFR (MDRD) Af Amer 95 Est GFR (MDRD) Non-Af 78 BUN/Creatinine Ratio 21.4 H Glucose 368 H Calcium 9.1 Troponin I High Sens 4.4 Radiography Diagnostic Testing: Radiology Impression Cervical Spine X-Ray 12/14/20 23:12 IMPRESSION: Normal x-ray examination of the visualized cervical spine. Electronically Signed: Shon Arredondo DO at 0:19 EDT Tel , Service support , EKG Initial EKG: Attestation: I personally reviewed and interpreted this EKG as follows: Comments: EKG shows a normal sinus rhythm at a rate of 91 without concerning features of ACS or ectopy. Discharge Plan Triage Chief Complaint: Other, Pain/Inj ED Provider: Marcel Carolina Dx/Rx/DC Orders Clinical Impression: Cervical radiculopathy Instructions: Radiculopathy Cervical Prescriptions: No Action linagliptin [Tradjenta] 5 mg tablet 5 mg PO QAM RF: 0 rosuvastatin 10 mg tablet 10 mg PO DAILY RF: 0 metformin 1,000 MG tablet 1,000 mg PO BIDCM RF: 0 glimepiride 4 MG tablet 4 mg PO DAILY RF: 0 liraglutide 0.6 MG/0.1 ML pen injector 1.8 mg SQ DAILY RF: 0 naproxen 500 MG tablet 500 mg PO BID PRN Qty: 20 RF: 0 insulin glargine 100 UNIT/ML solution 35 unit SQ QHS RF: 0 amlodipine 10 MG tablet 10 mg PO DAILY RF: 0 omeprazole 20 MG capsule 20 mg PO DAILY RF: 0 hydrochlorothiazide 25 MG tablet 12.5 mg PO BID RF: 0 valsartan 160 MG tablet 160 mg PO BID RF: 0 ustekinumab 90 MG/ML syringe 90 mg SQ UD RF: 0 Primary Care Provider: Bernard Frey Referrals: Bernard Frey MD [Primary Care Provider] - As soon as possible Disposition Disposition: Home, Self Care
[2020-12-14 23:53] LABS: Anion Gap 9 (5-15); BUN 22 mg/dL (7-18); BUN/Creat Ratio 21.4 RATIO (10-20); Calcium,Total 9.1 mg/dL (8.5-10.1); Chloride 102 mmol/L (98-107); Creatinine, Serum 1.03 mg/dL (0.70-1.30); EST Glomerular Filtration Rate 78 mL/min (>60); Est Glom Filt Rate - Afr Amer 95 mL/min (>60); Estimated Creatinine Clearance 77.22 ml/min; Glucose 368 mg/dL (74-106); Sodium Level 137 mmol/L (136-145); Troponin-I HS 4.4 pg/mL (3.0-78.5)
[2020-12-14 23:58] LABS: Absolute Lymphocyte Count 1.34 X10^3/uL (0.83-4.51); Absolute Neutrophil Count 5.8 X10^3/uL (2.0-7.7); Basophil# 0.02 X10^3/uL; Basophil% 0.3 % (0-1); Hematocrit 41.9 % (40-54); Lymphocyte # 1.34 X10^3/ul (0.83-4.51); Mean Corp Hgb Conc 33.4 g/dL (32-36); Mean Corpuscular Hgb 28.7 pg (27.0-32.0); Mean Platelet Vol. 9.4 fl (6.2-12.0); Monocyte# 0.62 X10^3/uL; Monocyte% 7.9 % (0-10); NRBC Flagged by Analyzer 0 % (0-5); Neutrophil # 5.77 X10^3/uL (2.7-7.7); Platelet Count 266 K/mm3 (150-450); RBC Distribution Width CV 13.2 % (11.6-14.6); Red Blood Count 4.87 M/mm3 (4.6-6.2); White Blood Count 7.9 K/mm3 (4.4-11.0)
[2020-12-15 00:55] VITALS: BP 148/81; PULSE 75; RESP 18; O2SAT 99
== END 2020-12-15 00:55 | disposition home or self-care (01) ==
PROVIDERS: Emergency Provider Emergency Medicine; PCP Family Medicine
DX: M54.12 Radiculopathy, cervical region (principal); E66.9 Obesity, unspecified; I10 Essential (primary) hypertension; E11.9 Type 2 diabetes mellitus without complications; E78.5 Hyperlipidemia, unspecified; Z79.4 Long term (current) use of insulin; Z79.899 Other long term (current) drug therapy
CPT/HCPCS: 72040; 80048; 84484; 85025; 93005; 99285; A4216

== ENCOUNTER 2021-01-09 17:51 | Emergency (ER) | payer OTHER, SELFPAY ==
[2021-01-09 17:52] VITALS: BP 166/84; PULSE 80; RESP 18; TEMP 36.1; O2SAT 97; BMI 45.8
--- NOTE | 2021-01-09 18:56 | EX.ED.DYSGE1 ---
HPI History of Present Illness Chief Complaint: General Illness Narrative Narrative: Patient presenting with mild body aches and chills. He states he has a minor cough. He denies chest pain or shortness of breath. Patient has not had fever, change in taste or smell. He was vaccinated for COVID-19 previously. 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 Patient states he is leaving for out of town in the next couple of days and wants to be tested to make sure he does not have Covid before he sees his family. [facility] Medical History Abnormal EKG Biliary dyskinesia Cellulitis of lower back Chronic cholecystitis Diabetes mellitus Essential hypertension Hyperlipidemia Preop cardiovascular exam Psoriasis Sleep apnea Home Medications glimepiride 4 mg PO DAILY 05/25/13 [History Last Taken 04/15/16 06:30] metformin 1,000 mg PO BIDCM 05/25/13 [History Last Taken 04/15/16 17:30] linagliptin 5 mg tablet 5 mg PO QAM 01/01/18 [History Last Taken Unknown] liraglutide 1.8 mg SQ DAILY 07/20/18 [History Last Taken Unknown] naproxen 500 mg PO BID PRN #20 tab 03/05/19 [Rx Last Taken Unknown] insulin glargine 35 unit SQ QHS 06/22/19 [History Last Taken 10/10/19 22:00] rosuvastatin 10 mg tablet 10 mg PO DAILY 06/24/19 [History Last Taken Unknown] amlodipine 10 mg PO DAILY 09/23/19 [History Last Taken 10/10/19 22:00] hydrochlorothiazide 12.5 mg PO BID 09/23/19 [History Last Taken Unknown] omeprazole 20 mg PO DAILY 09/23/19 [History Last Taken 10/10/19 22:00] ustekinumab 90 mg SQ UD 09/23/19 [History Last Taken 09/03/19] valsartan 160 mg PO BID 09/23/19 [History Last Taken 10/10/19 22:00] Allergy/AdvReac Type Severity Reaction Status Date / Time meloxicam Allergy Intermediate Unknown Verified 01/09/21 17:51 moxifloxacin [From Avelox] Allergy Intermediate dizziness Verified 01/09/21 17:51 prednisone Allergy Intermediate fast heart Verified 01/09/21 17:51 rate sitagliptin [From Januvia] Allergy Intermediate lightheaded Verified 01/09/21 17:51 ness Family History Father Hypertension Surgical History History of cholecystectomy (~10/2019) History of colonoscopy History of hernia surgery History of nasal septoplasty History of umbilical hernia Social History Smoking Status: Never smoker Smokeless tobacco user: snuff alcohol intake: never substance use type: does not use caffeine: Yes Type: carbonated beverages ROS ROS ED Constitutional Constitutional ED: Denies chills or fever(s) Eyes Eyes: Denies blurry vision or diplopia ENT ENT ED: Denies rhinorrhea or sore throat Cardiovascular Cardiovascular: Denies chest pain, palpitations or racing heartbeat Respiratory/Chest Respiratory/Chest: Reports cough; Denies dyspnea, dyspnea on exertion or sputum Gastrointestinal Gastrointestinal: Denies abdominal pain, constipation, diarrhea, nausea or vomiting Genitourinary Genitourinary ED: Denies dysuria or hematuria Musculoskeletal Musculoskeletal: Reports myalgias; Denies arthralgias Integumentary Denies Abrasions or rash Neurologic Neurologic: Denies headache(s) or weakness EXAM Physical Exam Const Vital Signs: 01/09/21 17:52 01/09/21 18:03 01/09/21 19:51 Temperature 96.9 F L Temperature Source Temporal Pulse Rate 80 80 Respiratory Rate 18 18 Respiratory Effort Normal Respiratory Pattern Normal Blood Pressure 166/84 H 177/83 H Blood Pressure Mean 111 114 Pulse Ox 97 94 Oxygen Delivery Method Room Air Room Air Positive well nourished General Appearance ED: NAD HEENT Reports moist mucous membranes Negative for trauma Eyes PERRL and EOMs intact bilaterally Resp normal respiratory effort and clear to auscultation bilaterally Cardio regular rate and regular rhythm Extremity normal to inspection Neuro oriented x3, CN's II-XII intact bilaterally and no sensory deficits noted Sensorium / Orientation: alert Motor Exam: strength 5/5 throughout Psych mental status grossly normal Skin no rashes or lesions noted and no wounds MDM MDM MDM Narrative Medical decision making narrative: Patient presenting with mild body aches and a mild cough concern for COVID-19 although he has been vaccinated. He has not been exposed anybody that is ill that he knows of. I obtained a chest x-ray which shows no acute cardiopulmonary process. Covid 19 testing is negative. Patient does not have any symptoms of shortness of breath or chest pain I do not believe he needs lab work or further imaging. He is given return precautions. Patient is discharged home in stable condition. Impression: 1. Viral syndrome Lab Data Attestation: I reviewed the patient's lab results. Labs: Laboratory Results - last 24 hr 01/09/21 19:03 COVID-19 ([facility]) Negative Radiography Diagnostic Testing: Radiology Impression Chest X-Ray 01/09/21 19:08 IMPRESSION: No acute cardiopulmonary disease or interval change Electronically Signed: Janes Crandall DO at 19:52 EDT Tel [phone], Service support , Discharge Plan Triage Chief Complaint: General Illness ED Provider: Kris Allen Dx/Rx/DC Orders Instructions: ED Viral Syndrome (Adult) Prescriptions: No Action linagliptin [Tradjenta] 5 mg tablet 5 mg PO QAM RF: 0 rosuvastatin 10 mg tablet 10 mg PO DAILY RF: 0 metformin 1,000 MG tablet 1,000 mg PO BIDCM RF: 0 glimepiride 4 MG tablet 4 mg PO DAILY RF: 0 liraglutide 0.6 MG/0.1 ML pen injector 1.8 mg SQ DAILY RF: 0 naproxen 500 MG tablet 500 mg PO BID PRN Qty: 20 RF: 0 insulin glargine 100 UNIT/ML solution 35 unit SQ QHS RF: 0 amlodipine 10 MG tablet 10 mg PO DAILY RF: 0 omeprazole 20 MG capsule 20 mg PO DAILY RF: 0 hydrochlorothiazide 25 MG tablet 12.5 mg PO BID RF: 0 valsartan 160 MG tablet 160 mg PO BID RF: 0 ustekinumab 90 MG/ML syringe 90 mg SQ UD RF: 0 Primary Care Provider: Bernard Frey Referrals: Bernard Frey MD [Primary Care Provider] - Disposition Disposition: Home, Self Care Discharge Date/Time: 01/09/21 20:27
--- NOTE | 2021-01-09 19:08 | RAD_ITS ---
STUDY: X-RAY CHEST REASON FOR EXAM: Male, 60 years old. Cough. TECHNIQUE: Single AP portable view of the chest. COMPARISON: 04/30/2020 FINDINGS: Underexpanded. There is chronic interstitial changes without new infiltrate or mass. There is no demonstrated pleural abnormality. Normal size heart. Normal mediastinum and jeanie. Normal visualized pulmonary arteries. Normal visualized aortic arch and descending thoracic aorta. There is a levoscoliosis of the thoracic spine. Normal visualized ribs, clavicles, and shoulders. There is no demonstrated abnormality of the visualized soft tissue structures of the upper abdomen. RAD/Chest 1 View (Portable) IMPRESSION: No acute cardiopulmonary disease or interval change Electronically Signed: Janes Crandall DO at 19:52 EDT Tel [phone], Service support ,
[2021-01-09 19:51] VITALS: BP 177/83; PULSE 80; RESP 18; O2SAT 94
[2021-01-09 20:12] LABS: Probe Check PASS; Specimen Processing Control PASS
== END 2021-01-09 20:27 | disposition home or self-care (01) ==
PROVIDERS: Emergency Provider Student in an Organized Health Care Education/Training Program; PCP Family Medicine
DX: B34.9 Viral infection, unspecified (principal); I10 Essential (primary) hypertension; E78.5 Hyperlipidemia, unspecified; E11.9 Type 2 diabetes mellitus without complications; Z79.4 Long term (current) use of insulin; Z79.899 Other long term (current) drug therapy
CPT/HCPCS: 71045; 87635; 99282; U0005; U0003

== ENCOUNTER → 2021-02-13 08:25 | Outpatient (CLI) | payer OTHER, SELFPAY ==
[2021-02-13 08:33] LABS: Bacteria 0 SEEN /hpf (None Seen); Mucous, Urine 0 SEEN /hpf (<or=2+); Red Blood Cells-Urine 0 SEEN /hpf (0-5); Squamous Epithelial Cells - UA 0 SEEN /hpf (0-5); White Blood Cells 0 SEEN /hpf (0-5)
[2021-02-13 09:56] LABS: Color, Urine Yellow (Yellow); Glucose, Dipstick Normal (Normal); Ketone-Dipstick Negative (Negative); Leukocyte Esterase-Dipstick Negative /ul (Negative); Nitrite-Dipstick Negative (Negative); Occult Blood-Urine Negative /ul (Negative); Protein-Dipstick 30 mg/dl (Negative); Urine Bilirubin Dipstick Negative (Negative); Urine Clarity Clear (Clear); Urine Urobilinogen Normal (Normal)
[2021-02-13 10:39] LABS: Anion Gap 10 (5-15); BUN 15 mg/dL (7-18); BUN/Creat Ratio 18.3 RATIO (10-20); Calcium,Total 9.7 mg/dL (8.5-10.1); Chloride 101 mmol/L (98-107); Cholesterol 103 mg/dL (200); Creatinine, Serum 0.82 mg/dL (0.70-1.30); EST Glomerular Filtration Rate 102 mL/min (>60); Est Glom Filt Rate - Afr Amer 123 mL/min (>60); Glucose 187 mg/dL (74-106); High Density Lipoprotein 33 mg/dL; Potassium 3.8 mmol/L (3.5-5.1); Sodium Level 138 mmol/L (136-145); Triglycerides 188 mg/dL; Very Low Density Lipoprotein 38 mg/dL (5-40)
[2021-02-13 10:40] LABS: Hemoglobin A1c 9.2 % (3.8-5.6)
== END ==
PROVIDERS: PCP Family Medicine; Referring Provider Family Medicine; Visit Provider Family Medicine
DX: I10 Essential (primary) hypertension (principal); E11.9 Type 2 diabetes mellitus without complications
CPT/HCPCS: 36415; 80048; 80061; 81001; 83036

== ENCOUNTER 2021-08-02 20:37 | Emergency (ER) | payer OTHER, SELFPAY ==
[2021-08-02 20:38] VITALS: BP 177/86; PULSE 88; RESP 14; TEMP 35.7; O2SAT 96; BMI 45.3
--- NOTE | 2021-08-02 20:43 | EKG12_ITS ---
Test Reason : WEAKNESS Blood Pressure : / mmHG Vent. Rate : 085 BPM Atrial Rate : 085 BPM P-R Int : 160 ms QRS Dur : 084 ms QT Int : 388 ms P-R-T Axes : 036 048 065 degrees QTc Int : 461 ms Normal sinus rhythm Nonspecific T wave abnormality Prolonged QT Abnormal ECG Confirmed by SHAHAB LENTZ, CAROLINE ([id number]), book or script editor JUANI PEREZ ([id number]) on 08/06/2021 10:38:13 AM Referred By: Confirmed By:CAROLINE GUDINO MD
--- NOTE | 2021-08-02 20:50 | EX.ED.DYSGE1 ---
HPI History of Present Illness Chief Complaint: General Illness Informant: patient Onset/Context/Timing Onset: Days Context: Gradual Onset Timing: Continuous Current Severity: Mild Maximum Severity: Mild Narrative Narrative: 61-year-old male history of diabetes, hypertension, sleep apnea. States Friday night he was wearing his CPAP when he woke up and had anxiety. He said since that time he just felt fatigued. He has had some intermittent diarrhea which is not uncommon. He denies any melena. He denies any headache. He denies any fever or chills. No chest pain. No shortness of breath. No dysuria. States his blood sugar today rate 139. Just states he does not feel well. Prior similar symptoms: No Recent Illness/Hospitalization: No PFSH PFSH Medical History Abnormal EKG Biliary dyskinesia Cellulitis of lower back Chronic cholecystitis Diabetes mellitus Essential hypertension Hyperlipidemia Preop cardiovascular exam Psoriasis Sleep apnea Home Medications glimepiride 4 mg PO DAILY 05/25/13 [History Last Taken 04/15/16 06:30] metformin 1,000 mg PO BIDCM 05/25/13 [History Last Taken 04/15/16 17:30] linagliptin 5 mg tablet 5 mg PO QAM 01/01/18 [History Last Taken Unknown] liraglutide 1.8 mg SQ DAILY 07/20/18 [History Last Taken Unknown] insulin glargine 35 unit SQ QHS 06/22/19 [History Last Taken 10/10/19 22:00] rosuvastatin 10 mg tablet 10 mg PO DAILY 06/24/19 [History Last Taken Unknown] amlodipine 10 mg PO DAILY 09/23/19 [History Last Taken 10/10/19 22:00] hydrochlorothiazide 12.5 mg PO BID 09/23/19 [History Last Taken Unknown] omeprazole 20 mg PO DAILY 09/23/19 [History Last Taken 10/10/19 22:00] ustekinumab 90 mg SQ UD 09/23/19 [History Last Taken 09/03/19] valsartan 160 mg PO BID 09/23/19 [History Last Taken 10/10/19 22:00] Allergy/AdvReac Type Severity Reaction Status Date / Time meloxicam Allergy Intermediate Unknown Verified 08/02/21 20:38 moxifloxacin [From Avelox] Allergy Intermediate dizziness Verified 08/02/21 20:38 prednisone Allergy Intermediate fast heart Verified 08/02/21 20:38 rate sitagliptin [From Januvia] Allergy Intermediate lightheaded Verified 08/02/21 20:38 ness Family History Father Hypertension Surgical History History of cholecystectomy (~10/2019) History of colonoscopy History of hernia surgery History of nasal septoplasty History of umbilical hernia Social History Smoking Status: Never smoker Smokeless tobacco user: snuff alcohol intake: never substance use type: does not use caffeine: Yes Type: carbonated beverages ROS ROS ED ROS Narrative Fatigue. Review of Systems ROS Unobtainable: Denies due to encephalopathy Constitutional Constitutional ED: Denies fever(s) Eyes Eyes: Denies change in vision ENT ENT ED: Denies ear pain Cardiovascular Cardiovascular: Denies chest pain Respiratory/Chest Respiratory/Chest: Denies cough, dyspnea or sputum Gastrointestinal Gastrointestinal: Reports diarrhea; Denies abdominal pain, constipation, melena, nausea or vomiting Genitourinary Genitourinary ED: Denies dysuria Musculoskeletal Musculoskeletal: Denies myalgias Integumentary Denies rash Neurologic Neurologic: Denies headache(s) Psychiatric Psychiatric: Denies depression Endocrine Endocrinology: Denies polyuria Allergic/Immunologic Allergic/Immunologic ED: Denies urticaria EXAM Physical Exam Narrative Exam Narrative: 61-year-old male no acute distress. Vital signs stable afebrile. Pulse ox 96% on room air no signs hypoxia. He does not look septic or toxic. He walked to the bathroom and back without any difficulty. HEENT exam unremarkable. Posterior pharynx normal. No erythema or exudate. Moist mucous membranes. Neck nontender no lymphadenopathy. Lungs clear to auscultation bilaterally. Heart regular rate and rhythm rate about 90 no murmur. Abdomen morbidly obese but soft nontender normal bowel sounds no peritoneal signs. Moving all 4 extremities. 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 Dorsi plantarflexion intact. Fingertip to nose within normal limits. He can lift either leg without difficulty. He walked without any difficulty. Neurologic exam normal.. No gross focal motor deficits. No facial droop. Normal speech. Exam benign. Const Vital Signs: 08/02/21 20:38 Temperature 96.2 F L Temperature Source Temporal Pulse Rate 88 Respiratory Rate 14 Blood Pressure 177/86 H Blood Pressure Mean 116 Pulse Ox 96 Oxygen Delivery Method Room Air Positive well nourished, well developed and obese; Negative for cachectic, contractures or unkempt General Appearance ED: well developed and NAD; Negative for unkempt, cachectic, contractures, cyanotic or diaphoretic Nutritional Appearance: obese; Negative for cachectic HEENT Reports moist mucous membranes tenderness; Negative for trauma Eyes PERRL and EOMs intact bilaterally General Eye ED: Negative for pale conjunctiva or scleral icterus Neck no lymphadenopathy, supple and no JVD General: Negative for tenderness Chest Wall inspection of chest normal Resp normal respiratory effort and clear to auscultation bilaterally Auscultation: Negative for rales, rhonchi or wheezes Cardio regular rate, regular rhythm, S1 normal heart sound, S2 normal heart sound and no murmurs GI normal to inspection, nondistended, normoactive bowel sounds, non-tender, non-distended and no masses Auscultation: normoactive bowel sounds Palpation: soft; Negative for tender, guarding or rebound tenderness present Back/Spine no CVA tenderness General Back: Negative for CVA tenderness Cervical Spine: Negative for cervical spine tenderness Thoracic Spine / Upper Back: Negative for thoracic spinal tenderness Extremity normal to inspection General Extremety ED: Negative for edema or tenderness General Extremity: Negative for edema Neuro oriented x3 Sensorium / Orientation: alert; Negative for orientation impaired, lethargic or stuporous Motor Exam: strength 5/5 throughout Psych mental status grossly normal Appearance: Negative for unkempt Attitude: No agitated Mood & Affect: Negative for depressed or tearful Skin no rashes or lesions noted and no wounds MDM MDM MDM Narrative Medical decision making narrative: 61-year-old male history of diabetes hypertension and sleep apnea. Just feeling generally fatigued. Exam benign. Vital signs are stable. Screening labs are being obtained. Clinically looks well. 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 Clinically I do not think so but I did order a mono test for him. Lab Data Attestation: I reviewed the patient's lab results. Rhythm Strip Rhythm Strip: Sinus Rhythm Rate: 85 Ectopy: None EKG Initial EKG: Attestation: I personally reviewed and interpreted this EKG as follows: Interpretation: Sinus Rhythm and No Acute Injury Pattern Comments: Normal sinus rhythm rate of 85. No acute signs of MN nor ischemia. Discharge Plan Triage Chief Complaint: General Illness ED Provider: Migue Luna Dx/Rx/DC Orders Prescriptions: No Action linagliptin [Tradjenta] 5 mg tablet 5 mg PO QAM RF: 0 rosuvastatin 10 mg tablet 10 mg PO DAILY RF: 0 metformin 1,000 MG tablet 1,000 mg PO BIDCM RF: 0 glimepiride 4 MG tablet 4 mg PO DAILY RF: 0 liraglutide 0.6 MG/0.1 ML pen injector 1.8 mg SQ DAILY RF: 0 insulin glargine 100 UNIT/ML solution 35 unit SQ QHS RF: 0 amlodipine 10 MG tablet 10 mg PO DAILY RF: 0 omeprazole 20 MG capsule 20 mg PO DAILY RF: 0 hydrochlorothiazide 25 MG tablet 12.5 mg PO BID RF: 0 valsartan 160 MG tablet 160 mg PO BID RF: 0 ustekinumab 90 MG/ML syringe 90 mg SQ UD RF: 0 Primary Care Provider: Bernard Frey
[2021-08-02 21:02] VITALS: RESP 16
[2021-08-02 21:04] LABS: Bacteria 0 SEEN /hpf (None Seen); Mucous, Urine 0 SEEN /hpf (<or=2+); Red Blood Cells-Urine 0 SEEN /hpf (0-5); White Blood Cells 0 SEEN /hpf (0-5)
[2021-08-02 21:05] LABS: Absolute Neutrophil Count 5.6 X10^3/uL (2.0-7.7); Basophil# 0.03 X10^3/uL; Basophil% 0.4 % (0-1); Eosinophil# 0.02 X10^3/uL; Eosinophils% 0.3 % (0-5); Hemoglobin 14.6 g/dL (13.0-16.5); Lymphocyte % 20.3 % (19-41); Mean Corp Hgb Conc 35.6 g/dL (32-36); Mean Corpuscular Hgb 29.7 pg (27.0-32.0); Mean Corpuscular Volume 83.3 fL (80-94); Mean Platelet Vol. 9.3 fl (6.2-12.0); Monocyte# 0.63 X10^3/uL; NRBC Flagged by Analyzer 0 % (0-5); Neutrophil # 5.57 X10^3/uL (2.7-7.7); Neutrophil % 70.4 % (47-70); Platelet Count 258 K/mm3 (150-450); RBC Distribution Width CV 13.2 % (11.6-14.6); RBC Distribution Width SD 39.5 fl (35.1-43.9); Red Blood Count 4.92 M/mm3 (4.6-6.2); White Blood Count 7.9 K/mm3 (4.4-11.0)
[2021-08-02 21:06] LABS: Color, Urine Yellow (Yellow); Glucose, Dipstick 100 mg/dl (Normal); Ketone-Dipstick Negative (Negative); Leukocyte Esterase-Dipstick Negative /ul (Negative); Nitrite-Dipstick Negative (Negative); Occult Blood-Urine Negative /ul (Negative); Protein-Dipstick 15 mg/dl (Negative); Specific Gravity, Urine 1.015 (1.002-1.030); Urine Bilirubin Dipstick Negative (Negative); Urine Clarity Sl. Cloudy (Clear); Urine Urobilinogen Normal (Normal)
[2021-08-02 21:18] LABS: Anion Gap 6 (5-15); BUN 13 mg/dL (7-18); BUN/Creat Ratio 13.6 RATIO (10-20); Calcium,Total 9.4 mg/dL (8.5-10.1); Chloride 102 mmol/L (98-107); Creatinine, Serum 0.96 mg/dL (0.70-1.30); EST Glomerular Filtration Rate 85 mL/min (>60); Est Glom Filt Rate - Afr Amer 103 mL/min (>60); Estimated Creatinine Clearance 81.83 ml/min; Glucose 234 mg/dL (74-106); Potassium 3.9 mmol/L (3.5-5.1); Sodium Level 137 mmol/L (136-145)
[2021-08-02 21:24] LABS: Squamous Epithelial Cells - UA 0-5 SEEN /hpf (0-5)
[2021-08-02 21:29] LABS: Internal QC Validated? YES +Cl - CLEAR BKGD; Monotest Negative (Negative)
--- NOTE | 2021-08-02 21:30 | EX.ED.DYSGE1 ---
HPI History of Present Illness Chief Complaint: General Illness Informant: patient [facility] Medical History Abnormal EKG Biliary dyskinesia Cellulitis of lower back Chronic cholecystitis Diabetes mellitus Essential hypertension Hyperlipidemia Preop cardiovascular exam Psoriasis Sleep apnea Home Medications glimepiride 4 mg PO DAILY 05/25/13 [History Last Taken 04/15/16 06:30] metformin 1,000 mg PO BIDCM 05/25/13 [History Last Taken 04/15/16 17:30] linagliptin 5 mg tablet 5 mg PO QAM 01/01/18 [History Last Taken Unknown] liraglutide 1.8 mg SQ DAILY 07/20/18 [History Last Taken Unknown] insulin glargine 35 unit SQ QHS 06/22/19 [History Last Taken 10/10/19 22:00] rosuvastatin 10 mg tablet 10 mg PO DAILY 06/24/19 [History Last Taken Unknown] amlodipine 10 mg PO DAILY 09/23/19 [History Last Taken 10/10/19 22:00] hydrochlorothiazide 12.5 mg PO BID 09/23/19 [History Last Taken Unknown] omeprazole 20 mg PO DAILY 09/23/19 [History Last Taken 10/10/19 22:00] ustekinumab 90 mg SQ UD 09/23/19 [History Last Taken 09/03/19] valsartan 160 mg PO BID 09/23/19 [History Last Taken 10/10/19 22:00] Allergy/AdvReac Type Severity Reaction Status Date / Time meloxicam Allergy Intermediate Unknown Verified 08/02/21 20:38 moxifloxacin [From Avelox] Allergy Intermediate dizziness Verified 08/02/21 20:38 prednisone Allergy Intermediate fast heart Verified 08/02/21 20:38 rate sitagliptin [From Januvia] Allergy Intermediate lightheaded Verified 08/02/21 20:38 ness Family History Father Hypertension Surgical History History of cholecystectomy (~10/2019) History of colonoscopy History of hernia surgery History of nasal septoplasty History of umbilical hernia Social History Smoking Status: Never smoker Smokeless tobacco user: snuff alcohol intake: never substance use type: does not use caffeine: Yes Type: carbonated beverages EXAM Physical Exam Const Vital Signs: 08/02/21 20:38 08/02/21 21:02 Temperature 96.2 F L Temperature Source Temporal Pulse Rate 88 Respiratory Rate 14 16 Blood Pressure 177/86 H Blood Pressure Mean 116 Pulse Ox 96 Oxygen Delivery Method Room Air [facility] Lab Data Labs: Laboratory Results - last 24 hr 08/02/21 08/02/21 08/02/21 20:52 21:00 21:00 WBC 7.9 RBC 4.92 Hgb 14.6 Hct 41.0 MCV 83.3 MCH 29.7 MCHC 35.6 RDW Std Deviation 39.5 RDW Coeff of Niko 13.2 Plt Count 258 MPV 9.3 Immature Gran % (Auto) 0.600 Neut % (Auto) 70.4 H Lymph % (Auto) 20.3 [place] % (Auto) 8.0 Eos % (Auto) 0.3 Baso % (Auto) 0.4 Absolute Neuts (auto) 5.6 Absolute Lymphs (auto) 1.60 Nucleated RBC % 0 Sodium 137 Potassium 3.9 Chloride 102 Carbon Dioxide 29.0 Anion Gap 6 BUN 13 Creatinine 0.96 Estim Creat Clear Calc 81.83 Est GFR (MDRD) Af Amer 103 Est GFR (MDRD) Non-Af 85 BUN/Creatinine Ratio 13.6 Glucose 234 H Calcium 9.4 Urine Color Yellow Urine Clarity Sl. Cloudy Urine pH 6.0 Ur Specific [place] 1.015 Urine Protein 15 H Urine Glucose (UA) 100 H Urine Ketones Negative Urine Occult Blood Negative Urine Nitrite Negative Urine Bilirubin Negative Urine Urobilinogen Normal Ur Leukocyte Esterase Negative Urine RBC 0 SEEN Urine WBC 0 SEEN Ur Squamous Epith Cells 0-5 SEEN Urine Bacteria 0 SEEN Urine Mucus 0 SEEN Monoscreen 08/02/21 21:00 WBC RBC Hgb Hct MCV MCH MCHC RDW Std Deviation RDW Coeff of Niko Plt Count MPV Immature Gran % (Auto) Neut % (Auto) Lymph % (Auto) [place] % (Auto) Eos % (Auto) Baso % (Auto) Absolute Neuts (auto) Absolute Lymphs (auto) Nucleated RBC % Sodium Potassium Chloride Carbon Dioxide Anion Gap BUN Creatinine Estim Creat Clear Calc Est GFR (MDRD) Af Amer Est GFR (MDRD) Non-Af BUN/Creatinine Ratio Glucose Calcium Urine Color Urine Clarity Urine pH Ur Specific [place] Urine Protein Urine Glucose (UA) Urine Ketones Urine Occult Blood Urine Nitrite Urine Bilirubin Urine Urobilinogen Ur Leukocyte Esterase Urine RBC Urine WBC Ur Squamous Epith Cells Urine Bacteria Urine Mucus Monoscreen Negative Rhythm Strip Rhythm Strip: Sinus Rhythm Rate: 85 Ectopy: None Discharge Plan Triage Chief Complaint: General Illness ED Provider: Migue Luna Dx/Rx/DC Orders Prescriptions: No Action linagliptin [Tradjenta] 5 mg tablet 5 mg PO QAM RF: 0 rosuvastatin 10 mg tablet 10 mg PO DAILY RF: 0 metformin 1,000 MG tablet 1,000 mg PO BIDCM RF: 0 glimepiride 4 MG tablet 4 mg PO DAILY RF: 0 liraglutide 0.6 MG/0.1 ML pen injector 1.8 mg SQ DAILY RF: 0 insulin glargine 100 UNIT/ML solution 35 unit SQ QHS RF: 0 amlodipine 10 MG tablet 10 mg PO DAILY RF: 0 omeprazole 20 MG capsule 20 mg PO DAILY RF: 0 hydrochlorothiazide 25 MG tablet 12.5 mg PO BID RF: 0 valsartan 160 MG tablet 160 mg PO BID RF: 0 ustekinumab 90 MG/ML syringe 90 mg SQ UD RF: 0 Primary Care Provider: Bernard Frey
[2021-08-02 21:53] VITALS: BP 141/70; PULSE 79; RESP 16
== END 2021-08-02 21:53 | disposition home or self-care (01) ==
PROVIDERS: Emergency Provider Emergency Medicine; PCP Family Medicine; Visit Provider Emergency Medicine
DX: R53.83 Other fatigue (principal); E11.9 Type 2 diabetes mellitus without complications; Z79.4 Long term (current) use of insulin; E78.5 Hyperlipidemia, unspecified; I10 Essential (primary) hypertension; G47.30 Sleep apnea, unspecified; E66.9 Obesity, unspecified; Z99.89 Dependence on other enabling machines and devices; Z79.899 Other long term (current) drug therapy
CPT/HCPCS: 80048; 81001; 85025; 86308; 93005; 99282; A4216

== ENCOUNTER 2021-08-06 10:36 | Outpatient (CLI) | payer OTHER, SELFPAY ==
[2021-08-06 15:38] LABS: Vitamin D,25 Hydroxy 22.4 ng/mL
[2021-08-06 15:44] LABS: Thyroid Stim Hormone (TSH) 1.26 uIU/mL (0.358-3.74)
== END 2021-08-06 23:59 | disposition home or self-care (01) ==
LOC: MTLAB 10:37
PROVIDERS: PCP Family Medicine; Referring Provider Family Medicine; Visit Provider Family Medicine
DX: R53.83 Other fatigue (principal)
CPT/HCPCS: 36415; 82306; 84403; 84443

== ENCOUNTER 2021-08-22 11:21 | Outpatient (CLI) | payer OTHER, SELFPAY | END 2021-08-22 23:59 | disposition home or self-care (01) | PROVIDERS: PCP Family Medicine; Referring Provider Family Medicine; Visit Provider Family Medicine | DX: R79.89 Other specified abnormal findings of blood chemistry (principal) | CPT/HCPCS: 84403 ==

== ENCOUNTER → 2021-12-31 | Outpatient (CLI) | payer OTHER, SELFPAY ==
[2021-12-31 15:06] LABS: Absolute Lymphocyte Count 1.13 X10^3/uL (0.83-4.51); Absolute Neutrophil Count 4.8 X10^3/uL (2.0-7.7); Basophil# 0.04 X10^3/uL; Basophil% 0.6 % (0-1); Eosinophil# 0.18 X10^3/uL; Eosinophils% 2.7 % (0-5); Hematocrit 43.6 % (40-54); Hemoglobin 14.9 g/dL (13.0-16.5); Lymphocyte # 1.13 X10^3/ul (0.83-4.51); Lymphocyte % 16.7 % (19-41); Mean Corp Hgb Conc 34.2 g/dL (32-36); Mean Corpuscular Hgb 28.6 pg (27.0-32.0); Mean Corpuscular Volume 83.7 fL (80-94); Mean Platelet Vol. 10.3 fl (6.2-12.0); Monocyte# 0.56 X10^3/uL; Monocyte% 8.3 % (0-10); NRBC Flagged by Analyzer 0 % (0-5); Neutrophil # 4.78 X10^3/uL (2.7-7.7); Neutrophil % 70.8 % (47-70); Platelet Count 258 K/mm3 (150-450); RBC Distribution Width CV 13.4 % (11.6-14.6); RBC Distribution Width SD 40.6 fl (35.1-43.9); Red Blood Count 5.21 M/mm3 (4.6-6.2); White Blood Count 6.8 K/mm3 (4.4-11.0)
[2021-12-31 15:26] LABS: AST(SGOT) 22 U/L (15-37); Alanine Aminotransfer ALT/SGPT 48 U/L (16-61); Albumin, Serum 3.6 g/dL (3.2-5.0); Alkaline Phosphatase 91 U/L (45-117); Anion Gap 8 (5-15); BUN 20 mg/dL (7-18); BUN/Creat Ratio 20.9 RATIO (10-20); Calcium,Total 9.6 mg/dL (8.5-10.1); Chloride 100 mmol/L (98-107); Creatinine, Serum 0.96 mg/dL (0.70-1.30); EST Glomerular Filtration Rate 85 mL/min (>60); Est Glom Filt Rate - Afr Amer 103 mL/min (>60); Globulin 3.6 g/dL (2.2-4.2); Glucose 274 mg/dL (74-106); Potassium 3.5 mmol/L (3.5-5.1); Protein, Total 7.2 g/dL (6.4-8.2); Sodium Level 136 mmol/L (136-145)
[2022-01-01 09:52] LABS: Hepatitis B Surface Antibody Non-Reactive; Hepatitis B Surface Antigen Non-Reactive (Nonreactive); Hepatitis C Antibody Non-Reactive (Nonreactive)
[2022-01-03 19:06] LABS: QNTFERON TB Mitogen Value > 10.00 IU/mL (.); QNTFERON TB Nil Value 0 IU/mL (.); QNTFERON TB1+ Ag Value 0.02 IU/mL (.); QNTFERON TB2+ Ag Value 0.01 IU/mL (.)
[2022-01-04 17:53] LABS: Hepatitis B Core Ab Total Negative (Negative); QNTIFERON TB Positive Criteria Negative (Negative)
== END | disposition home or self-care (01) ==
PROVIDERS: PCP Family Medicine; Referring Provider Physician Assistant Medical; Visit Provider Physician Assistant Medical
DX: L40.0 Psoriasis vulgaris (principal); E11.9 Type 2 diabetes mellitus without complications; Z79.899 Other long term (current) drug therapy
CPT/HCPCS: 36415; 80048; 80076; 85025; 86480; 86704; 86706; 86803; 87340

== ENCOUNTER → 2022-01-10 | Outpatient (CLI) | payer OTHER, SELFPAY ==
[2022-01-19 17:07] LABS: Testosterone, Free 8.59 ng/dL (5.00-21.00)
[2022-01-20 11:45] LABS: Testosterone, % Free 4.05 % (1.50-4.20); Testosterone, Total 212 ng/dL (264-916)
== END | disposition home or self-care (01) ==
LOC: MTLAB 09:17
PROVIDERS: PCP Family Medicine; Referring Provider Family Medicine; Visit Provider Family Medicine
DX: E29.1 Testicular hypofunction (principal)
CPT/HCPCS: 36415; 84402; 84403

== ENCOUNTER → 2022-01-30 | Outpatient (CLI) | payer OTHER, SELFPAY ==
--- NOTE | 2022-01-30 12:46 | RAD_ITS ---
EXAM: XR PELVIS, 1 OR 2 VIEWS CLINICAL INDICATION: FALL WITH INJURY TECHNIQUE: Frontal view of the pelvis. This report was created using [employer] report generation technology. COMPARISON: None. FINDINGS: BONES/JOINTS: Mild degenerative changes of the hips. No displaced fracture. No destructive or sclerotic lesions. Note that overlapping bowel shadows may however obscure fine detail. Sacroiliac joints are unremarkable. No widening of the pubic symphysis. SOFT TISSUES: Unremarkable. No soft tissue swelling or gas. RAD/Pelvis 1 or 2 Views IMPRESSION: No acute findings in the pelvis. Electronically Signed: Aravind Smith MD at 23:13 EDT ,
--- NOTE | 2022-01-30 12:55 | RAD_ITS ---
EXAM: XR SACRUM AND COCCYX, 2 OR MORE VIEWS CLINICAL INDICATION: FALL WITH INJURY TECHNIQUE: Frontal and lateral views of the sacrum and coccyx. This report was created using [employer] report generation technology. COMPARISON: None. FINDINGS: SACRUM/COCCYX: Unremarkable. No displaced fracture. No destructive or sclerotic lesions. Note that overlapping bowel shadows may however obscure fine detail in the frontal view. Sacroiliac joints are unremarkable. SOFT TISSUES: Unremarkable. No soft tissue swelling or gas. RAD/Sacrum-Coccyx min 2 Views IMPRESSION: Unremarkable sacro-coccygeal spine. Electronically Signed: Aravind Smith MD at 23:03 EDT ,
== END | disposition home or self-care (01) ==
LOC: MTRAD 12:45
PROVIDERS: PCP Family Medicine; Referring Provider Family Medicine; Visit Provider Family Medicine
DX: M16.0 Bilateral primary osteoarthritis of hip (principal)
CPT/HCPCS: 72170; 72220

== ENCOUNTER → 2022-02-21 | Outpatient (CLI) | payer OTHER, SELFPAY ==
--- NOTE | 2022-02-21 08:52 | CDU_ITS ---
Reason For Study: AMAUROSIS FUGAX Rt. Velocities/BP Lt. Velocities/BP Prox CCA 107.2/20.0 cm/sec. Prox CCA 116.2/21.2 cm/sec. Mid CCA 92.5/17.6 cm/sec. Mid CCA 108.9/19.4 cm/sec. Dist CCA 97.4/17.6 cm/sec. Dist CCA 86.9/15.7 cm/sec. Prox ICA 63.4/11.8 cm/sec. Prox ICA 81.5/13.9 cm/sec. Mid ICA 69.5/23.2 cm/sec. Mid ICA 76.5/22.6 cm/sec. Dist ICA 65.8/19.5 cm/sec. Dist ICA 61.1/19.1 cm/sec. Rt. ICA/CCA = 0.8. Lt. ICA/CCA = 0.7. Prox ECA 94.1/9.3 cm/sec. Prox ECA 119.8/17.5 cm/sec. Rt. Vert. 35.6/6.9 cm/sec. Lt. Vert. 55.6/13.8 cm/sec. Right Extracranial There is intimal thickening but no significant atherosclerotic plaque noted in the right common carotid artery. There is heterogeneous, irregular atherosclerotic plaque noted in the right internal carotid artery. There is intimal thickening but no significant atherosclerotic plaque noted in the right external carotid artery. Antegrade flow is noted in the right vertebral artery. Left Extracranial There is intimal thickening but no significant atherosclerotic plaque noted in the left common carotid artery. There is heterogeneous, irregular atherosclerotic plaque noted in the left internal carotid artery. There is intimal thickening but no significant atherosclerotic plaque noted in the left external carotid artery. Antegrade flow is noted in the left vertebral artery. Procedure Carotid Duplex 15150. This is a Carotid Duplex examination using B-mode, color flow and specral Doppler. The exam was diagnostic. VL/Carotid Duplex Ultrasound Interpretation Summary Mild (<50%) stenosis right extracranial internal carotid. Mild (<50%) stenosis left extracranial internal carotid. Patent and antegrade vertebrals bilaterally. Ordering Physician: Ervin Miller Referring Physician: Bernard Frey Performed By: Ismael Barahona RVT
== END | disposition home or self-care (01) ==
LOC: CVS 08:42
PROVIDERS: PCP Family Medicine; Visit Provider Ophthalmology
DX: G45.3 Amaurosis fugax (principal)
CPT/HCPCS: 93880

== ENCOUNTER → 2022-08-07 | Outpatient (CLI) | payer OTHER, SELFPAY ==
[2022-08-07 11:06] LABS: Hemoglobin A1c 9.3 % (3.8-5.6)
[2022-08-07 11:27] LABS: Anion Gap 5 (5-15); BUN 18 mg/dL (7-18); BUN/Creat Ratio 22.1 RATIO (10-20); Calcium,Total 9.4 mg/dL (8.5-10.1); Chloride 104 mmol/L (98-107); Cholesterol 107 mg/dL (200); Creatinine, Serum 0.81 mg/dL (0.70-1.30); EST Glomerular Filtration Rate 102 mL/min (>60); Est Glom Filt Rate - Afr Amer 124 mL/min (>60); Glucose 206 mg/dL (74-106); High Density Lipoprotein 33 mg/dL; Potassium 3.8 mmol/L (3.5-5.1); Sodium Level 137 mmol/L (136-145); Triglycerides 152 mg/dL; Very Low Density Lipoprotein 30 mg/dL (5-40)
== END | disposition home or self-care (01) ==
PROVIDERS: PCP Family Medicine; Referring Provider Family Medicine; Visit Provider Family Medicine
DX: E29.1 Testicular hypofunction (principal); E11.9 Type 2 diabetes mellitus without complications
CPT/HCPCS: 36415; 80048; 80061; 83036; 84403

== ENCOUNTER 2022-08-12 10:56 | Emergency (ER) | payer OTHER, SELFPAY ==
[2022-08-12 10:56] VITALS: BP 185/77; PULSE 80; RESP 18; TEMP 36.6; O2SAT 97; BMI 42.5
--- NOTE | 2022-08-12 11:13 | EX.ED.DYSGE1 ---
HPI History of Present Illness Chief Complaint: Abd Pain Informant: patient Narrative Narrative: Patient presents secondary to right lower quadrant abdominal pain. He states that his skin is sensitive with light touch. He gives himself 4 insulin shots a day. He does not believe he broke a needle off in the skin but that is a concern of his. He saw his PCP last week who did not know anything but did give him a topical anti-inflammatory cream. He states he has had no improvement in his symptoms since starting that. [facility] Medical History Abnormal EKG Biliary dyskinesia Cellulitis of lower back Chronic cholecystitis Diabetes mellitus Essential hypertension Hyperlipidemia Preop cardiovascular exam Psoriasis Sleep apnea Home Medications glimepiride 4 mg tablet 4 mg PO DAILY DIABETES 05/25/13 [History Last Taken 04/15/16 06:30] metformin 1,000 mg tablet 1,000 mg PO BIDCM 05/25/13 [History Last Taken 04/15/16 17:30] linagliptin 5 mg tablet (Tradjenta) 5 mg PO QAM DIABETES 01/01/18 [History Last Taken Unknown] liraglutide 0.6 mg/0.1 mL (18 mg/3 mL) subcutaneous pen injector 1.8 mg SQ DAILY DIABETES 07/20/18 [History Last Taken Unknown] insulin glargine 100 unit/mL subcutaneous solution 35 unit SQ QHS 06/22/19 [History Last Taken 10/10/19 22:00] rosuvastatin 10 mg tablet 10 mg PO DAILY 06/24/19 [History Last Taken Unknown] amlodipine 10 mg tablet 10 mg PO DAILY 09/23/19 [History Last Taken 10/10/19 22:00] hydrochlorothiazide 25 mg tablet 12.5 mg PO BID 09/23/19 [History Last Taken Unknown] omeprazole 20 mg capsule,delayed release 20 mg PO DAILY 09/23/19 [History Last Taken 10/10/19 22:00] ustekinumab 90 mg/mL subcutaneous syringe 90 mg SQ UD 09/23/19 [History Last Taken 09/03/19] valsartan 160 mg tablet 160 mg PO BID 09/23/19 [History Last Taken 10/10/19 22:00] Allergy/AdvReac Type Severity Reaction Status Date / Time meloxicam Allergy Intermediate Unknown Verified 08/12/22 10:58 moxifloxacin [From Avelox] Allergy Intermediate dizziness Verified 08/12/22 10:58 prednisone Allergy Intermediate fast heart Verified 08/12/22 10:58 rate sitagliptin [From Januvia] Allergy Intermediate lightheaded Verified 08/12/22 10:58 ness Family History Father Hypertension Surgical History History of cholecystectomy (~10/2019) History of colonoscopy History of hernia surgery History of nasal septoplasty History of umbilical hernia Social History Smoking Status: Never smoker Smokeless tobacco user: snuff alcohol intake: never substance use type: does not use caffeine: Yes Type: carbonated beverages ROS ROS ED Constitutional Constitutional ED: Denies chills or fever(s) Eyes Eyes: Denies change in vision or discharge from eye(s) ENT ENT ED: Denies discharge from eye(s), rhinorrhea or sore throat Cardiovascular Cardiovascular: Denies chest pain or palpitations Respiratory/Chest Respiratory/Chest: Denies cough or dyspnea Gastrointestinal Gastrointestinal: Reports abdominal pain; Denies diarrhea, nausea or vomiting Genitourinary Genitourinary ED: Denies dysuria Musculoskeletal Musculoskeletal: Denies back pain or extremity pain Integumentary Denies Abrasions or rash Neurologic Neurologic: Denies headache(s) or weakness Allergic/Immunologic Allergic/Immunologic ED: Denies lip swelling or urticaria EXAM Physical Exam Const Vital Signs: 08/12/22 10:56 Temperature 97.8 F Temperature Source Temporal Pulse Rate 80 Respiratory Rate 18 Blood Pressure 185/77 H Blood Pressure Mean 113 Pulse Ox 97 Oxygen Delivery Method Room Air Positive well nourished and well developed General Appearance ED: well developed HEENT Reports normocephalic and head/scalp atraumatic Eyes PERRL and EOMs intact bilaterally Neck supple Chest Wall inspection of chest normal and palpation of chest normal Resp normal respiratory effort and clear to auscultation bilaterally Cardio regular rate and regular rhythm GI GI Narrative: Old appearing ecchymosis noted to the right lower quadrant that is very faint. No palpable masses or hernias. No tenderness with deep palpation. Palpation: soft Extremity normal to inspection Neuro oriented x3 and no sensory deficits noted Sensorium / Orientation: alert Motor Exam: strength 5/5 throughout Psych mental status grossly normal MDM MDM MDM Narrative Medical decision making narrative: Abdominal x-ray obtained as patient was concern for possible retained insulin needle. He does not remember breaking off any needles. Radiography Diagnostic Testing: Clinical Impression(s) from Imaging Studies KUB X-Ray 08/12/22 11:30 IMPRESSION: No acute abnormality. No abnormal radiopaque foreign body. Electronically Signed: Carlos Luong, at 11:51 EDT , Treatment and Re-Evaluation :: Abdominal x-ray per my interpretation was chronic changes with no radiopaque foreign body noted. Test results are discussed with the patient. He is reassured with this. My suspicion is that he has a degree of neuropathy given his diabetes and frequent injections to this area. He states he has not injected to the right lower quadrant in the last week. He will continue anti-inflammatories. If not improved over the next couple weeks I suggested follow-up with his PCP for possible gabapentin or Lyrica if that would be appropriate. Discharge Plan Triage Chief Complaint: Abd Pain ED Provider: Cinthya Salter Dx/Rx/DC Orders Clinical Impression: Abdominal wall pain, Neuropathy Instructions: Diabetic Neuropathy Prescriptions: No Action linagliptin [Tradjenta] 5 mg tablet 5 mg PO QAM rosuvastatin 10 mg tablet 10 mg PO DAILY metformin 1,000 MG tablet 1,000 mg PO BIDCM Label Comments: Diabetes glimepiride 4 MG tablet 4 mg PO DAILY Label Comments: Diabetes liraglutide 0.6 MG/0.1 ML pen injector 1.8 mg SQ DAILY Label Comments: INJECT 1.8MG SUBCUTANEOUSLY DAILY FOR DIABETES insulin glargine 100 UNIT/ML solution 35 unit SQ QHS amlodipine 10 MG tablet 10 mg PO DAILY omeprazole 20 MG capsule 20 mg PO DAILY hydrochlorothiazide 25 MG tablet 12.5 mg PO BID valsartan 160 MG tablet 160 mg PO BID ustekinumab 90 MG/ML syringe 90 mg SQ UD Primary Care Provider: Bernard Frey Referrals: Frey,Bernard, MD [Primary Care Provider] - 10-14 Days if not better Disposition Disposition: Home, Self Care
--- NOTE | 2022-08-12 11:30 | RAD_ITS ---
STUDY: X-RAY - ABDOMEN/PELVIS REASON FOR EXAM: Male, 62 years old. Right lower quadrant pain. Broken insulin needle. TECHNIQUE: Single AP view of the abdomen / pelvis on 3 images. COMPARISON: None. FINDINGS: Normal visualized lung bases. Normal bowel gas pattern. There is no demonstrated free abdominal air. The visualized liver, spleen and kidneys are grossly normal in size and morphology. Phleboliths. Postsurgical changes in the abdomen. Normal visualized osseous structures. RAD/Abdomen Single View IMPRESSION: No acute abnormality. No abnormal radiopaque foreign body. Electronically Signed: Carlos Luong, at 11:51 EDT ,
== END 2022-08-12 12:51 | disposition home or self-care (01) ==
PROVIDERS: Emergency Provider Emergency Medicine; PCP Family Medicine; Visit Provider Emergency Medicine
DX: R10.31 Right lower quadrant pain (principal); E11.40 Type 2 diabetes mellitus with diabetic neuropathy, unspecified
CPT/HCPCS: 74018; 99282

== ENCOUNTER 2022-08-22 17:01 | Emergency (ER) | payer OTHER, SELFPAY ==
[2022-08-22 17:02] VITALS: BP 166/91; PULSE 83; RESP 18; TEMP 36; O2SAT 96; BMI 42.3
--- NOTE | 2022-08-22 17:25 | CT_ITS ---
STUDY: CT ABDOMEN AND PELVIS WITH CONTRAST REASON FOR EXAM: Male, 62 years old. RLQ pain RADIATION DOSAGE (If Supplied By Facility): CTDIvol = ( 26.55 ) mGy, DLP = ( 1470.97 ) mGycm TECHNIQUE: Transaxial images were obtained from the dome of the diaphragm to the symphysis pubis without oral contrast. IV 100mL Isovue-370 was administered. Sagittal and coronal images were reconstructed. Individualized dose optimization techniques were used for this CT. COMPARISON: June 22, 2019. FINDINGS: The visualized lung bases are unremarkable. The visualized portions of the heart are within normal limits. Up to 11 mm cysts in the liver. Nonvisualization of the gallbladder. No significant dilatation of the extrahepatic biliary system. Normal spleen. Normal pancreas. Normal bilateral adrenal glands. 2.2 cm cyst in the right kidney. Up to 1.1 cm cysts in the left kidney. Normal visualized stomach. Normal small intestine. Normal colon. The appendix is visualized and appears normal. Calcified abdominal aorta. Normal inferior vena cava. Normal retroperitoneum. Normal urinary bladder. Fatty density in the inguinal canals. Prior hernia surgery of the abdominal wall. Degenerative vertebral changes. CT/Abdomen/Pelvis W IV Cont ONLY IMPRESSION: Bilateral renal cysts. Hepatic cysts. Fatty density in the inguinal canals. Electronically Signed: Faustino Hopkins DO at 18:55 EDT ,
--- NOTE | 2022-08-22 17:25 | ED.VIS.GI ---
HPI HPI - GI History of Present Illness Chief Complaint: Abd Pain Informant: patient Narrative Narrative: 4 weeks persistent right lower quadrant burning sensation however symptoms worse here in the last few days. Seen a week ago had x-rays to rule out foreign body due to injections there. However since then more intense pain deeper. History of ventral hernia repair x2 cholecystectomy by Dr. Armijo in the past. Intermittent diarrhea no recent antibiotics. Denies fever chills or sweats. He started insulin 3 months ago. He seen dermatology 2 weeks ago started Humira injections due to psoriasis. Denies urinary symptoms. Denies nausea or vomiting. Prior similar symptoms: No PFSH PFSH Medical History Abnormal EKG Biliary dyskinesia Cellulitis of lower back Chronic cholecystitis Diabetes mellitus Essential hypertension Hyperlipidemia Preop cardiovascular exam Psoriasis Sleep apnea Home Medications glimepiride 4 mg tablet 4 mg PO DAILY DIABETES 05/25/13 [History Last Taken 04/15/16 06:30] metformin 1,000 mg tablet 1,000 mg PO BIDCM 05/25/13 [History Last Taken 04/15/16 17:30] linagliptin 5 mg tablet (Tradjenta) 5 mg PO QAM DIABETES 01/01/18 [History Last Taken Unknown] liraglutide 0.6 mg/0.1 mL (18 mg/3 mL) subcutaneous pen injector 1.8 mg SQ DAILY DIABETES 07/20/18 [History Last Taken Unknown] insulin glargine 100 unit/mL subcutaneous solution 35 unit SQ QHS 06/22/19 [History Last Taken 10/10/19 22:00] rosuvastatin 10 mg tablet 10 mg PO DAILY 06/24/19 [History Last Taken Unknown] amlodipine 10 mg tablet 10 mg PO DAILY 09/23/19 [History Last Taken 10/10/19 22:00] hydrochlorothiazide 25 mg tablet 12.5 mg PO BID 09/23/19 [History Last Taken Unknown] omeprazole 20 mg capsule,delayed release 20 mg PO DAILY 09/23/19 [History Last Taken 10/10/19 22:00] ustekinumab 90 mg/mL subcutaneous syringe 90 mg SQ UD 09/23/19 [History Last Taken 09/03/19] valsartan 160 mg tablet 160 mg PO BID 09/23/19 [History Last Taken 10/10/19 22:00] Allergy/AdvReac Type Severity Reaction Status Date / Time meloxicam Allergy Intermediate Unknown Verified 08/22/22 17:02 moxifloxacin [From Avelox] Allergy Intermediate dizziness Verified 08/22/22 17:02 prednisone Allergy Intermediate fast heart Verified 08/22/22 17:02 rate sitagliptin [From Januvia] Allergy Intermediate lightheaded Verified 08/22/22 17:02 ness Family History Father Hypertension Surgical History History of cholecystectomy (~10/2019) History of colonoscopy History of hernia surgery History of nasal septoplasty History of umbilical hernia Social History Smoking Status: Never smoker Smokeless tobacco user: snuff alcohol intake: never substance use type: does not use caffeine: Yes Type: carbonated beverages ROS ROS ED Constitutional Constitutional ED: Denies chills, fever(s) or sweats Eyes Eyes: Denies change in vision ENT ENT ED: Denies dysphagia or sore throat Cardiovascular Cardiovascular: Denies chest pain, leg edema, palpitations or racing heartbeat Respiratory/Chest Respiratory/Chest: Denies cough, dyspnea or dyspnea on exertion Gastrointestinal Gastrointestinal: Reports abdominal pain and diarrhea; Denies nausea or vomiting Genitourinary Genitourinary ED: Denies dysuria, hematuria or urinary frequency Musculoskeletal Musculoskeletal: Denies back pain, extremity pain or neck pain Integumentary Denies rash or wounds Neurologic Neurologic: Denies headache(s), paresthesias or weakness EXAM Physical Exam Const Vital Signs: 08/22/22 17:02 Temperature 96.8 F L Temperature Source Temporal Pulse Rate 83 Respiratory Rate 18 Blood Pressure 166/91 H Blood Pressure Mean 116 Pulse Ox 96 Oxygen Delivery Method Room Air Positive well nourished and well developed General Appearance ED: well developed and NAD HEENT Reports moist mucous membranes normocephalic and atraumatic Eyes PERRL, EOMs intact bilaterally and conjunctivae normal General Eye ED: Yes normal appearance of both eyes Neck no lymphadenopathy and supple General: Negative for tenderness Chest Wall Chest: Negative for tenderness Resp normal respiratory effort and normal air movement Effort and Inspection: symmetric chest movement; Negative for respiratory distress Cardio regular rate, regular rhythm and no murmurs Peripheral Pulses: pulses 2+ throughout GI normal to inspection, nondistended, normoactive bowel sounds GI Narrative: Tender deep palpation right lower quadrant, negative Rovsing's. Palpation: Negative for guarding or rebound tenderness present Back/Spine no CVA tenderness and no thoracic nor lumbar tenderness Extremity normal to inspection General Extremety ED: Negative for edema or tenderness General Extremity: Negative for edema Neuro oriented x3 and no sensory deficits noted Sensorium / Orientation: awake and alert Skin no rashes or lesions noted and no wounds MDM MDM MDM Narrative Medical decision making narrative: Interventions / MDM: Differential diagnosis: appendicitis, abscess, colitis Diagnosis considered but do not suspect: C. difficile however no recent antibiotics. My EKG interpretation: N/A Imaging independently reviewed and interpreted by myself: CT abdomen pelvis IV contrast: Normal appendix, per radiology incidental liver cyst, renal cysts. Absent gallbladder. External documents reviewed: N/A Test considered but not ordered:N/A ED course: Patient tender deep palpation there is no rash. Pain in right lower quadrant. He declines pain medicines given fluids abdominal labs able no known lipase of 113 slight elevated however denies any recent vomiting. He has had diarrhea, clinically consistent with panic-itis. He had no risk factors. There urine negative. CT scan negative for any acute findings for his symptoms. He states he has known renal cysts, discussed liver cyst with the patient. He will continue fluids with his diarrhea. Use Tylenol as needed he will follow-up with his PCP. Additional reported colonoscopy 7 weeks ago with polypectomy. Re-evaluation: stable Disposition discussed with patient/family/significant other: Patient Case discussed with consulting clinician: N/A Lab Data Attestation: I reviewed the patient's lab results. Labs: Laboratory Results - last 24 hr 08/22/22 08/22/22 08/22/22 17:36 17:40 17:40 WBC 7.3 RBC 5.20 Hgb 14.9 Hct 43.8 MCV 84.2 MCH 28.7 MCHC 34.0 RDW Std Deviation 39.3 RDW Coeff of Niko 12.9 Plt Count 242 MPV 9.4 Neut % (Auto) Not Reportable Absolute Neuts (auto) 5.3 Absolute Lymphs (auto) 1.17 Total Counted 100 Neutrophils % (Manual) 72 H Lymphocytes % (Manual) 16 L Monocytes % (Manual) 5 Eosinophils % (Manual) 6 H Basophils % (Manual) 1 Platelet Estimate ADEQUATE RBC Morphology NORM C+C Sodium 138 Potassium 3.6 Chloride 106 Carbon Dioxide 27.0 Anion Gap 5 BUN 19 H Creatinine 0.81 Estim Creat Clear Calc 95.77 Est GFR (MDRD) Af Amer 125 Est GFR (MDRD) Non-Af 103 BUN/Creatinine Ratio 23.5 H Glucose 158 H Calcium 9.4 Total Bilirubin 0.40 AST 18 ALT 45 Alkaline Phosphatase 81 Total Protein 7.1 Albumin 3.5 Globulin 3.6 Albumin/Globulin Ratio 1.0 Lipase 113 H Urine Color Yellow Urine Clarity Clear Urine pH 5.0 Ur Specific [place] 1.020 Urine Protein 100 H Urine Glucose (UA) 250 H Urine Ketones Negative Urine Occult Blood Negative Urine Nitrite Negative Urine Bilirubin Negative Urine Urobilinogen Normal Ur Leukocyte Esterase Negative Urine RBC 0 SEEN Urine WBC 0 SEEN Ur Squamous Epith Cells 0 SEEN Urine Bacteria 0 SEEN Urine Mucus 0 SEEN Radiography Diagnostic Testing: Clinical Impression(s) from Imaging Studies Abdomen/Pelvis CT 08/22/22 17:25 IMPRESSION: Bilateral renal cysts. Hepatic cysts. Fatty density in the inguinal canals. Electronically Signed: Faustino Hopkins DO at 18:55 EDT Reading Location ID and State: [facility] / [place] Tel [phone], Service support , Discharge Plan Triage Chief Complaint: Abd Pain Other Complaint: Diarrhea ED Provider: Sandip Paulino Dx/Rx/DC Orders Clinical Impression: Abdominal pain, Diarrhea, Renal cyst, Liver cyst Instructions: Abdominal Pain Prescriptions: No Action linagliptin [Tradjenta] 5 mg tablet 5 mg PO QAM rosuvastatin 10 mg tablet 10 mg PO DAILY metformin 1,000 MG tablet 1,000 mg PO BIDCM Label Comments: Diabetes glimepiride 4 MG tablet 4 mg PO DAILY Label Comments: Diabetes liraglutide 0.6 MG/0.1 ML pen injector 1.8 mg SQ DAILY Label Comments: INJECT 1.8MG SUBCUTANEOUSLY DAILY FOR DIABETES insulin glargine 100 UNIT/ML solution 35 unit SQ QHS amlodipine 10 MG tablet 10 mg PO DAILY omeprazole 20 MG capsule 20 mg PO DAILY hydrochlorothiazide 25 MG tablet 12.5 mg PO BID valsartan 160 MG tablet 160 mg PO BID ustekinumab 90 MG/ML syringe 90 mg SQ UD Primary Care Provider: Bernard Frey Referrals: Bernard Frey MD [Primary Care Provider] - 3-5 Days if not improving Activity Restrictions/Additional Instructions: CT scan normal appendix no abscess. Incidental liver cyst incidental renal cyst. Continue oral fluids for hydration. Follow-up with your doctor. Return if worsening symptoms. Disposition Disposition: Home, Self Care Discharge Date/Time: 08/22/22 20:30
[2022-08-22] MEDS: 0.9% Normal Saline 1,000 ML 1000 ML IV (17:37)
[2022-08-22 17:46] LABS: Bacteria 0 SEEN /hpf (None Seen); Mucous, Urine 0 SEEN /hpf (<or=2+); Red Blood Cells-Urine 0 SEEN /hpf (0-5); Squamous Epithelial Cells - UA 0 SEEN /hpf (0-5); White Blood Cells 0 SEEN /hpf (0-5)
[2022-08-22 17:47] LABS: Hematocrit 43.8 % (40-54); Hemoglobin 14.9 g/dL (13.0-16.5); Mean Corpuscular Hgb 28.7 pg (27.0-32.0); Mean Corpuscular Volume 84.2 fL (80-94); Mean Platelet Vol. 9.4 fl (6.2-12.0); POSITIVE MORPHOLOGY YES; Platelet Count 242 K/mm3 (150-450); RBC Distribution Width CV 12.9 % (11.6-14.6); RBC Distribution Width SD 39.3 fl (35.1-43.9); White Blood Count 7.3 K/mm3 (4.4-11.0)
[2022-08-22 17:53] LABS: Color, Urine Yellow (Yellow); Glucose, Dipstick 250 mg/dl (Normal); Ketone-Dipstick Negative (Negative); Leukocyte Esterase-Dipstick Negative /ul (Negative); Nitrite-Dipstick Negative (Negative); Occult Blood-Urine Negative /ul (Negative); Protein-Dipstick 100 mg/dl (Negative); Urine Bilirubin Dipstick Negative (Negative); Urine Clarity Clear (Clear); Urine Urobilinogen Normal (Normal)
[2022-08-22 18:12] LABS: Differential Indicated MANUAL DIFF
[2022-08-22 18:16] LABS: AST(SGOT) 18 U/L (15-37); Alanine Aminotransfer ALT/SGPT 45 U/L (16-61); Albumin, Serum 3.5 g/dL (3.2-5.0); Alkaline Phosphatase 81 U/L (45-117); Anion Gap 5 (5-15); BUN 19 mg/dL (7-18); BUN/Creat Ratio 23.5 RATIO (10-20); Basophil 1 % (0-1); Calcium,Total 9.4 mg/dL (8.5-10.1); Chloride 106 mmol/L (98-107); Creatinine, Serum 0.81 mg/dL (0.70-1.30); EST Glomerular Filtration Rate 103 mL/min (>60); Eosinophil 6 % (0-5); Est Glom Filt Rate - Afr Amer 125 mL/min (>60); Estimated Creatinine Clearance 95.77 ml/min; Globulin 3.6 g/dL (2.2-4.2); Glucose 158 mg/dL (74-106); Lipase 113 U/L (13-75); Lymphocyte 16 % (19-41); Monocyte 5 % (0-10); Neutrophil-Segmented 72 % (47-70); Potassium 3.6 mmol/L (3.5-5.1); Protein, Total 7.1 g/dL (6.4-8.2); Sodium Level 138 mmol/L (136-145); Total Cells Counted 100 (MANUAL DIFF)
[2022-08-22 18:17] LABS: Absolute Lymphocyte Count 1.17 X10^3/uL (0.83-4.51); Absolute Neutrophil Count 5.3 X10^3/uL (2.0-7.7); Lymphocyte # 5.28 X10^3/ul (0.83-4.51); Monocyte# 1.17 X10^3/uL
[2022-08-22 18:18] LABS: Platelet Estimate ADEQUATE (ADEQ); Red Cell Morphology NORM C+C NORMAL (NORM C&C)
== END 2022-08-22 20:30 | disposition home or self-care (01) ==
PROVIDERS: Emergency Provider Emergency Medicine; PCP Family Medicine; Visit Provider Emergency Medicine
DX: R10.31 Right lower quadrant pain (principal); E11.9 Type 2 diabetes mellitus without complications; Z79.4 Long term (current) use of insulin; R19.7 Diarrhea, unspecified; K76.89 Other specified diseases of liver; N28.1 Cyst of kidney, acquired; I10 Essential (primary) hypertension; E78.5 Hyperlipidemia, unspecified; G47.30 Sleep apnea, unspecified; Z79.899 Other long term (current) drug therapy; Z79.84 Long term (current) use of oral hypoglycemic drugs
CPT/HCPCS: 74177; 80053; 81001; 83690; 85025; 96360; 96361; 99283; J7030; Q9967; A4216

== ENCOUNTER 2022-09-07 16:29 | Emergency (ER) | payer OTHER, SELFPAY ==
[2022-09-07 16:30] VITALS: BP 180/78; PULSE 83; RESP 17; TEMP 36.5; O2SAT 99; BMI 42.9
--- NOTE | 2022-09-07 16:54 | EDS_ITS ---
[facility] <NICHOLAS Johnston - Last Filed: 09/07/22 17:03> History of Present Illness Chief Complaint: Abd Pain Narrative Narrative: Patient is a 62-year-old male with history of obesity, atrial fibrillation, diabetes, psoriasis who is on a biologic medication presents emergency department for ongoing issues with burning to the right lower quadrant of his abdomen is now radiating to his back. Patient has been seen by the emergency department 2 other times as well as dermatology as well as PCP. He has tried cream, other medications in the emergency department have not helped. He states that the pain is now from his umbilicus all the way to his back. He denies any bowel changes, denies any fever or chills. Denies any rash. Denies any other injury. [facility] <NICHOLAS Johnston - Last Filed: 09/07/22 17:03> [facility] Medical History Abnormal EKG Biliary dyskinesia Cellulitis of lower back Chronic cholecystitis Diabetes mellitus Essential hypertension Hyperlipidemia Preop cardiovascular exam Psoriasis Sleep apnea Home Medications glimepiride 4 mg tablet 4 mg PO DAILY DIABETES 05/25/13 [History Last Taken 04/15/16 06:30] metformin 1,000 mg tablet 1,000 mg PO BIDCM 05/25/13 [History Last Taken 04/15/16 17:30] linagliptin 5 mg tablet (Tradjenta) 5 mg PO QAM DIABETES 01/01/18 [History Last Taken Unknown] liraglutide 0.6 mg/0.1 mL (18 mg/3 mL) subcutaneous pen injector 1.8 mg SQ DAILY DIABETES 07/20/18 [History Last Taken Unknown] insulin glargine 100 unit/mL subcutaneous solution 35 unit SQ QHS 06/22/19 [History Last Taken 10/10/19 22:00] rosuvastatin 10 mg tablet 10 mg PO DAILY 06/24/19 [History Last Taken Unknown] amlodipine 10 mg tablet 10 mg PO DAILY 09/23/19 [History Last Taken 10/10/19 22:00] hydrochlorothiazide 25 mg tablet 12.5 mg PO BID 09/23/19 [History Last Taken Unknown] omeprazole 20 mg capsule,delayed release 20 mg PO DAILY 09/23/19 [History Last Taken 10/10/19 22:00] ustekinumab 90 mg/mL subcutaneous syringe 90 mg SQ UD 09/23/19 [History Last Taken 09/03/19] valsartan 160 mg tablet 160 mg PO BID 09/23/19 [History Last Taken 10/10/19 22:00] gabapentin 300 mg capsule 300 mg PO TID 30 days #89 caps 09/07/22 [Rx Last Taken Unknown] Allergy/AdvReac Type Severity Reaction Status Date / Time meloxicam Allergy Intermediate Unknown Verified 09/07/22 16:31 moxifloxacin [From Avelox] Allergy Intermediate dizziness Verified 09/07/22 16:31 prednisone Allergy Intermediate fast heart Verified 09/07/22 16:31 rate sitagliptin [From Januvia] Allergy Intermediate lightheaded Verified 09/07/22 16:31 ness Family History Father Hypertension Surgical History History of cholecystectomy (~10/2019) History of colonoscopy History of hernia surgery History of nasal septoplasty History of umbilical hernia Social History Smoking Status: Never smoker Smokeless tobacco user: snuff alcohol intake: never substance use type: does not use caffeine: Yes Type: carbonated beverages ROS <NICHOLAS Johnston - Last Filed: 09/07/22 17:03> ZACK DIXON Narrative Constitutional: Negative for fever, chills, weight loss, weakness Eyes: Negative for vision loss, vision change, double vision ENT: Negative for any sore throat, ear pain, congestion Cardiovascular: Negative for any chest pain, tightness, palpitations Respiratory: Negative for any cough, sputum production, hemoptysis, dyspnea, dyspnea on exertion, orthopnea Gastrointestinal: Negative for any nausea, vomiting, diarrhea, constipation, blood in stool, blood in vomit. Positive for abdominal burning on the umbilicus around to the back. : Negative for any urinary frequency, dysuria, retention, blood in urine Muscle skeletal: Negative for any muscle joint pain, stiffness, myalgias, arthralgias, neck pain, back pain Neurological: Negative for any headache, syncope, numbness or tingling, dizziness Skin: Negative for any rashes, lumps, itching, abrasions, lacerations Psychiatric: Negative for any depression, anxiety, stress, suicidal ideation, homicidal ideation Hematologic: Negative for any easy bruising, excessive bruising, easy bleeding Allergies: Negative for any eczema, hives, rash EXAM <NICHOLAS Johnston - Last Filed: 09/07/22 17:03> Physical Exam Narrative Exam Narrative: Vital signs reviewed. HEET: Head normocephalic atraumatic, TMs clear bilaterally. Posterior pharynx is clear, moist mucous membranes. Nares clear bilaterally. Neck: Supple with no lymphadenopathy or tenderness. No signs of meningismus, negative jolt sign. Cardiac: Regular rate and rhythm no murmurs gallops or rubs, equal peripheral pulses bilaterally. Respiratory: Lungs clear to auscultation bilaterally. No chest tenderness. Abdomen: Soft, nondistended. No abdominal bruit or pulsatile masses. No hepatosplenomegaly. Patient has tenderness on the umbilicus to the right flank. His lungs are in line. There is no discoloration, no rash. Patient does have 2 chronic hernias. Active bowel sounds in all quadrants. Patient has pain which is gentle touch, does not change with an deep palpation. Extremities: No peripheral edema, no signs of gross trauma or deformity. Active full range of motion of all extremities. Neuro: Cranial nerves II through XII intact, no focal neurological deficits. Skin: Clean dry and intact with no rash, purpura, petechiae, vesicles or pustules. Backs/flank: No CVA tenderness, no midline spinal tenderness, no deformity. Psych: Normal mood and affect. No SI, HI or acute psychosis. Const Vital Signs: 09/07/22 16:30 Temperature 97.7 F L Temperature Source Temporal Pulse Rate 83 Respiratory Rate 17 Blood Pressure 180/78 H Blood Pressure Mean 112 Pulse Ox 99 Oxygen Delivery Method Room Air <Dr. Jhon Barton MD - Last Filed: 09/07/22 17:31> Physical Exam Const Vital Signs: 09/07/22 16:30 Temperature 97.7 F L Temperature Source Temporal Pulse Rate 83 Respiratory Rate 17 Blood Pressure 180/78 H Blood Pressure Mean 112 Pulse Ox 99 Oxygen Delivery Method Room Air MDM <NICHOLAS Johnston - Last Filed: 09/07/22 17:03> [facility] Treatment and Re-Evaluation :: Patient appears generally well, patient appears nontoxic, vital signs are stable. Patient presents to the emergency department with ongoing pain to the right lower quadrant with abdominal wall the last 5 weeks. Patient's physical examination is not consistent with any appendicitis, bowel obstruction, shingles. Patient's physical examination was grossly unremarkable. Patient does state to have burning sensation with touch. After looking at the multiple visits, from the ER, PCP. Patient could possibly have radicular pain coming from his thoracic spine. Specifically T10. This does wrap around to the umbilicus. This does explain the burning sensation. At this time, the patient is already had blood work, CT scans, you believe that any of that is necessary to repeat. The patient be placed on gabapentin, he will be given one 300 mg tab today, he will then be given 2 tabs tomorrow, and then he will start 3 times a day. He is happy with the plan of care, he was told to return for any worsening belly pain, fever chills nausea vomiting. Patient also follow-up with his PCP. All questions answered, patient stable for discharge. <Dr. Jhon Barton MD - Last Filed: 09/07/22 17:31> [facility] Treatment and Re-Evaluation Comments:: Seen and evaluated independently and in conjunction with nurse practitioner. Agree with notes above unless documented otherwise. This patient has had significant work-up for intra-abdominal pathology that has been negative, his counts were normal and I do not think he needs to have repeated blood work. He complains of burning sensation in a dermatomal distribution of T10 on the right only, and states to me it hurts to touch my T- shirt to this area. The reason is unknown but this is consistent with a right T10 radiculopathy. His exam is consistent with this as well, with burning sensation with superficial palpation of the skin in this distribution, without any midline bony tenderness in his back, or rash, nor symptoms or findings on the contralateral side. An MRI would be the next reasonable imaging test since he has had symptoms for over a month. Furthermore, it appears the patient has a history of a cervical radiculopathy, making it more likely to have issues in other levels. As above I do not think we need radiography emergently today because he had a CT scan that included this area and there were no fractures or signs of metastases/cancer, etc. in the bones. Close a patient follow-up advised along with gabapentin to try to see if that helps his pain. I also advised topical capsaicin if he wants quicker relief but I do not think narcotics are the answer and he is in agreement. Discharge Plan Triage Chief Complaint: Abd Pain ED Midlevel Provider: Bernard Argueta ED Provider: Jhon Barton Dx/Rx/DC Orders Clinical Impression: Thoracic radiculopathy Prescriptions: New gabapentin 300 mg capsule 300 mg PO TID 30 Days Qty: 89 0RF Rx Instructions: 1 cap po BID on day #1, then 1 cap po TID No Action linagliptin [Tradjenta] 5 mg tablet 5 mg PO QAM rosuvastatin 10 mg tablet 10 mg PO DAILY metformin 1,000 MG tablet 1,000 mg PO BIDCM Label Comments: Diabetes glimepiride 4 MG tablet 4 mg PO DAILY Label Comments: Diabetes liraglutide 0.6 MG/0.1 ML pen injector 1.8 mg SQ DAILY Label Comments: INJECT 1.8MG SUBCUTANEOUSLY DAILY FOR DIABETES insulin glargine 100 UNIT/ML solution 35 unit SQ QHS amlodipine 10 MG tablet 10 mg PO DAILY omeprazole 20 MG capsule 20 mg PO DAILY hydrochlorothiazide 25 MG tablet 12.5 mg PO BID valsartan 160 MG tablet 160 mg PO BID ustekinumab 90 MG/ML syringe 90 mg SQ UD Primary Care Provider: Bernard Frey Referrals: Bernard Frey MD [Primary Care Provider] - (next week - call for appt) Disposition Disposition: Home, Self Care
[2022-09-07] MEDS: Gabapentin 600 MG Tablet 300 MG PO (17:32)
== END 2022-09-07 17:36 | disposition home or self-care (01) ==
PROVIDERS: Emergency Provider Emergency Medicine; PCP Family Medicine; Visit Provider Emergency Medicine
DX: M54.14 Radiculopathy, thoracic region (principal); G47.30 Sleep apnea, unspecified
CPT/HCPCS: 99283

== ENCOUNTER → 2022-09-21 | Outpatient (CLI) | payer OTHER, SELFPAY ==
--- NOTE | 2022-09-21 07:01 | MRI_ITS ---
HISTORY: RLQ and umbilicus pain radiating to back. TECHNIQUE: Multiplanar and multisequence MR images of the thoracic spine were obtained without intravenous contrast. 177 images. COMPARISON: CTA chest 09/27/2013. FINDINGS: VERTEBRAE: Chronic mild T4 compression fracture. Other vertebral body heights maintained. Mild degenerative bone marrow endplate changes. ALIGNMENT: No significant anterior or posterior subluxation. SPINAL CORD: Thoracic cord within normal limits in signal and morphology. Conus medullaris within normal limits in morphology and position at T12. No gross epidural collection or intradural extramedullary mass. INTERVERTEBRAL DISCS: Minimal disc bulges and facet arthropathy without significant central canal stenosis or foraminal narrowing. Degenerative osteophytes at multiple levels. SOFT TISSUES: No paraspinal fluid collection. MRI/Spine Thoracic (Routine) IMPRESSION: Unchanged height of chronic mild T4 compression fracture. Very mild degenerative changes without significant thoracic spinal canal stenosis. Electronically Signed: Elke Gutierrez MD at 9:16 EDT ,
== END | disposition home or self-care (01) ==
LOC: MRI 07:00
PROVIDERS: PCP Family Medicine; Referring Provider Family Medicine; Visit Provider Family Medicine
DX: M54.10 Radiculopathy, site unspecified (principal)
CPT/HCPCS: 72146

== ENCOUNTER → 2022-11-19 | Outpatient (CLI) | payer OTHER, SELFPAY ==
[2022-11-21 12:09] LABS: Hepatitis B Core Ab Total Negative (Negative); QNTFERON TB Mitogen Value > 10.00 IU/mL (.); QNTFERON TB Nil Value 0 IU/mL (.); QNTFERON TB1+ Ag Value 0 IU/mL (.); QNTFERON TB2+ Ag Value 0 IU/mL (.); QNTIFERON TB Positive Criteria Negative (Negative)
== END | disposition home or self-care (01) ==
LOC: MTLAB 08:33
PROVIDERS: PCP Family Medicine; Referring Provider Physician Assistant Medical; Visit Provider Physician Assistant Medical
DX: L40.0 Psoriasis vulgaris (principal); L81.4 Other melanin hyperpigmentation; Z79.899 Other long term (current) drug therapy
CPT/HCPCS: 36415; 86480; 86704

== ENCOUNTER → 2022-11-25 | Outpatient (CLI) | payer OTHER, SELFPAY ==
[2022-11-25 10:28] LABS: Hemoglobin A1c 8.3 % (3.8-5.6)
[2022-11-25 10:40] LABS: Vitamin B12 318 pg/mL (211-911); Vitamin D,25 Hydroxy 39.2 ng/mL
[2022-11-25 10:47] LABS: T4 Total, Thyroxin 8.7 ug/dL (4.5-12.1)
[2022-11-25 19:45] LABS: Microalbumin:Creatinine Ratio 223.7 mg/g CRE (<30 mg/g CRE)
[2022-11-25 20:06] LABS: AST(SGOT) 13 U/L (15-37); Alanine Aminotransfer ALT/SGPT 36 U/L (16-61); Albumin, Serum 3.6 g/dL (3.2-5.0); Alkaline Phosphatase 88 U/L (45-117); Anion Gap 8 (5-15); BUN 17 mg/dL (7-18); Calcium,Total 9.3 mg/dL (8.5-10.1); Chloride 107 mmol/L (98-107); EST Glomerular Filtration Rate 92 mL/min (>60); Est Glom Filt Rate - Afr Amer 111 mL/min (>60); Globulin 3.5 g/dL (2.2-4.2); Glucose 176 mg/dL (74-106); Potassium 4.2 mmol/L (3.5-5.1); Protein, Total 7.1 g/dL (6.4-8.2); Sodium Level 141 mmol/L (136-145); T4 Free Direct 0.88 ng/dL (0.76-1.46); Thyroid Stim Hormone (TSH) 1.36 uIU/mL (0.358-3.74)
== END | disposition home or self-care (01) ==
LOC: MTLAB 07:00
PROVIDERS: PCP Family Medicine; Referring Provider Internal Medicine Endocrinology, Diabetes & Metabolism; Visit Provider Internal Medicine Endocrinology, Diabetes & Metabolism
DX: E11.65 Type 2 diabetes mellitus with hyperglycemia (principal); I10 Essential (primary) hypertension; E78.2 Mixed hyperlipidemia; Z79.899 Other long term (current) drug therapy
CPT/HCPCS: 36415; 80053; 82043; 82306; 82570; 82607; 83036; 84156; 84436; 84439; 84443

== ENCOUNTER 2023-02-16 17:14 | Emergency (ER) | payer OTHER, SELFPAY ==
[2023-02-16 17:15] VITALS: BP 189/76; PULSE 80; RESP 14; TEMP 36.1; O2SAT 98; BMI 42.8
--- NOTE | 2023-02-16 17:25 | EDS_ITS ---
HPI History of Present Illness Chief Complaint: Back Narrative Narrative: Patient presents with right thoracic back pain for 3 days. Unknown mechanism of injury. Worse when he moves and turns. No chest pain or shortness of breath. He has no radicular symptoms [facility] Medical History Abnormal EKG Biliary dyskinesia Cellulitis of lower back Chronic cholecystitis Diabetes mellitus Essential hypertension Hyperlipidemia Preop cardiovascular exam Psoriasis Sleep apnea Home Medications glimepiride 4 mg tablet 4 mg PO DAILY DIABETES 05/25/13 [History Last Taken 04/15/16 06:30] metformin 1,000 mg tablet 1,000 mg PO BIDCM 05/25/13 [History Last Taken 04/15/16 17:30] linagliptin 5 mg tablet (Tradjenta) 5 mg PO QAM DIABETES 01/01/18 [History Last Taken Unknown] liraglutide 0.6 mg/0.1 mL (18 mg/3 mL) subcutaneous pen injector 1.8 mg SQ DAILY DIABETES 07/20/18 [History Last Taken Unknown] insulin glargine 100 unit/mL subcutaneous solution 35 unit SQ QHS 06/22/19 [History Last Taken 10/10/19 22:00] rosuvastatin 10 mg tablet 10 mg PO DAILY 06/24/19 [History Last Taken Unknown] amlodipine 10 mg tablet 10 mg PO DAILY 09/23/19 [History Last Taken 10/10/19 22:00] hydrochlorothiazide 25 mg tablet 12.5 mg PO BID 09/23/19 [History Last Taken Unknown] omeprazole 20 mg capsule,delayed release 20 mg PO DAILY 09/23/19 [History Last Taken 10/10/19 22:00] ustekinumab 90 mg/mL subcutaneous syringe 90 mg SQ UD 09/23/19 [History Last Taken 09/03/19] valsartan 160 mg tablet 160 mg PO BID 09/23/19 [History Last Taken 10/10/19 22:00] gabapentin 300 mg capsule 300 mg PO TID 30 days #89 caps 09/07/22 [Rx Last Taken Unknown] naproxen 500 mg tablet (Naprosyn) 500 mg PO BID PRN pain #20 tabs 02/16/23 [Rx Last Taken Unknown] tizanidine 4 mg tablet 4 mg PO BID PRN muscle spasticity #10 tabs 02/16/23 [Rx Last Taken Unknown] Allergy/AdvReac Type Severity Reaction Status Date / Time meloxicam Allergy Intermediate Unknown Verified 02/16/23 17:16 moxifloxacin [From Avelox] Allergy Intermediate dizziness Verified 02/16/23 17:16 prednisone Allergy Intermediate fast heart Verified 02/16/23 17:16 rate sitagliptin [From Januvia] Allergy Intermediate lightheaded Verified 02/16/23 17:16 ness Family History Father Hypertension Surgical History History of cholecystectomy (~10/2019) History of colonoscopy History of hernia surgery History of nasal septoplasty History of umbilical hernia Social History Smoking Status: Never smoker Smokeless tobacco user: snuff alcohol intake: never substance use type: does not use caffeine: Yes Type: carbonated beverages ROS ROS ED ROS Narrative General: No fever Neck: No neck pain Cardiovascular: No chest pain Respiratory: No shortness of breath or cough Gastrointestinal: No abdominal pain, nausea vomiting or diarrhea Musculoskeletal: Back pain as in HPI Skin: No rash Neurological: Ocular symptoms, no weakness or paresthesia EXAM Physical Exam Narrative Exam Narrative: Physical exam General: Appears relatively comfortable. Head: Normocephalic, Atraumatic ENT: Moist mucous membranes Neck: Supple, Nontender, No lymphadenopathy Cardiovascular: Regular rate, Regular rhythm Respiratory: No distress, CTA bilaterally Abdomen: Soft, Nontender, Nondistended Back: Patient has trapezius tenderness on the right, mid thoracic region. There is 1 large trigger point and muscle spasm in that region. As I press on that region he feels the pain, although when I have him stretch and quick massage seems to somewhat improved the pain only transiently. Extremities: Nontender, No edema Skin: Normal color, No rash, no vesicular rash Const Vital Signs: 02/16/23 17:15 Temperature 97.0 F L Temperature Source Temporal Pulse Rate 80 Respiratory Rate 14 Blood Pressure 189/76 H Blood Pressure Mean 113 Pulse Ox 98 Oxygen Delivery Method Room Air MDM MDM MDM Narrative Medical decision making narrative: Is a thoracic strain, level his pain is reproducible and I feel a trigger point. I do believe an x-ray is needed. There is no radicular symptoms. There is no fever chills chest pain or shortness of breath. Patient be treated with muscle accidents, NSAIDs. Otherwise I will discharge him with reassurance. I spent some time teaching him some exercises. Discharge Plan Triage Chief Complaint: Back ED Provider: Bernard Pandey Dx/Rx/DC Orders Clinical Impression: Acute thoracic myofascial strain Instructions: Treating?Strains and Sprains, ED Thoracic Spine Strain Prescriptions: New tizanidine 4 mg tablet 4 mg PO BID PRN (Reason: muscle spasticity) Qty: 10 0RF naproxen [Naprosyn] 500 mg tablet 500 mg PO BID PRN (Reason: pain) Qty: 20 0RF No Action linagliptin [Tradjenta] 5 mg tablet 5 mg PO QAM rosuvastatin 10 mg tablet 10 mg PO DAILY metformin 1,000 MG tablet 1,000 mg PO BIDCM Patient Comments: Diabetes glimepiride 4 MG tablet 4 mg PO DAILY Patient Comments: Diabetes liraglutide 0.6 MG/0.1 ML pen injector 1.8 mg SQ DAILY Patient Comments: INJECT 1.8MG SUBCUTANEOUSLY DAILY FOR DIABETES insulin glargine 100 UNIT/ML solution 35 unit SQ QHS amlodipine 10 MG tablet 10 mg PO DAILY omeprazole 20 MG capsule 20 mg PO DAILY hydrochlorothiazide 25 MG tablet 12.5 mg PO BID valsartan 160 MG tablet 160 mg PO BID ustekinumab 90 MG/ML syringe 90 mg SQ UD gabapentin 300 mg capsule 300 mg PO TID 30 Days Qty: 89 0RF Rx Instructions: 1 cap po BID on day #1, then 1 cap po TID Primary Care Provider: Bernard Frey Referrals: Bernard Frey MD [Primary Care Provider] - 3-5 Days Disposition Disposition: Home, Self Care
[2023-02-16 17:30] VITALS: PULSE 80; RESP 14
== END 2023-02-16 18:08 | disposition home or self-care (01) ==
PROVIDERS: Emergency Provider Emergency Medicine; PCP Family Medicine; Visit Provider Emergency Medicine
DX: S29.019A Strain of muscle and tendon of unspecified wall of thorax, initial encounter (principal); G47.30 Sleep apnea, unspecified; X58.XXXA Exposure to other specified factors, initial encounter
CPT/HCPCS: 99282

== ENCOUNTER 2023-03-05 11:00 | Outpatient (RCR) | payer OTHER, SELFPAY ==
--- NOTE | 2023-01-20 08:58 | HP.PTEVAL_ITS ---
Patient's Visit Information Visit Information Visit Information: ADRIENNE XIE is a 62 year old M referred to Physical Therapy by Dr. Bernard Frey MD with a diagnosis of Left Leg Weakness and Balance. Date of Evaluation: 01/20/23 Physical Therapist: Inessa Hui DPT Visit Plan Frequency: 2x /Week Duration: 4 Weeks Plan: Focus on LE and core strength/stabilization and proprioception- functional mobility of recip stairs and ambulation HEP Given IE: Standing Knee Flexion Stretch, Hamstring Stretch, SLS, Mini Squat, Hip Extn, Hip Abd Subjective Subjective: Patient reports that he is tired of walking like a duck and has no strength in his legs. He has pain on the inside of his legs from walking and if he walks to far he has pain in the hips. His daughter got two weekends ago and he watched the video and it was a give away that it was time for him to get in and get something started. The left leg bothers him the most. 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 Left leg has poor flexibility- If he does any walking to try to get exercise in- more than 1/2 lap on the track he has pain in the belt line on the left side- as soon as he stops walking the pain stops. Its more a dull and achy throbbing pain. He is not able to do stairs without feeling like he is going to fall- he does the stairs one at a time. Balance- does not use an AD. The last fall was close to a year ago- he fell getting up into the house- now he has a rail to get into the house. He is a diabetic but just had his apt and he has good circulation. He does have neuropathy which is more twitching. There are times when he has no pain at all. 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 Not as much of an issue on uneven surfaces but he is more cautious on slopes and stairs. Had an MRI on his thoracic spine which showed OA but none on his lumbar/hip/knees. He has had injections left knee- but its been a few years since his last one. PMHx/Meds: no change since ED visit in August 2022 Objective Objective: Posture: FH, RS- can correct but does not maintain- pt is overweight Stairs: asc- non recip with bilateral HR- can do recip but has increase use of UE- desc sideways non recip due to decreased flexion in the left knee. HR/TR: able but reports increased difficulty with TR on the left Balance: 3 sec on right- unable to SLS on left without UE A Reflex: WFL to patellar reflex Palpation: not tender to touch throughout knee or hip ROM: Left knee: 15-85 degrees Strength: Core: poor, Left: Hip: 4-/5 throughout, Knee: Left Ext: 43 Left Flexion: 26, Ankle: 4+/5 Right: Hip: 4/5, Knee: Right Extn: 75 Right Flexion: 39, Ankle: 4+/5 Flex: HS: severe, Gastroc: severe Edema: none noted Balance/Special Test Scores CATSIB Score (Max score 120 seconds): 50 Lower Extremity Functional Score: 27 Goals Goal 1:: Patient will be I with HEP and progression Goal Time Frame: 4-6 Weeks Goal 2:: Patient will asc/desc 8 stairs recip with 2 HR Goal Time Frame: 4-6 Weeks Goal 3:: Patient will ambulate >300 feet with a normalized gait pattern Goal Time Frame: 4-6 Weeks Goal 4:: Patient will report 80% improvement Goal Time Frame: 4-6 Weeks Rehabilitation Potential Physical Therapy Diagnosis: Patient presents with hypomobility- he has decreased LE and core strength/stabilization, flex, proprioception and muscular endurance leading to abnormal gait pattern and decreased ability to perform ADL's. Rehabilitation Potential: Good Anticipated Interventions Patient/Client Instruction: Educate patient on: Benefits of Fitness Program Therapeutic Exercise to Include: Strength training, Endurance training, Balance training, Coordination, Agility training, Body mechanics, Postural training, Flexibilty training, Gait and locomotor training, Neuromotor development, Dynamic Lumbar Stabilization and Scapular Strength/Stabilization For the Purpose of:: To improve muscle performance and motor function Text: Thank you for the opportunity to evaluate your patient. For Medicare and Medicare HMO plans, please review the plan of care and approve it. It will need to be FAXED BACK to us at [phone] for Medicare purposes. For Medicare only, by signing this I certify the plan of care. Please let me know if there are questions or concerns regarding this plan of care. Physician Signature: Date:
--- NOTE | 2023-05-08 08:42 | HP.PT.NRP ---
Patient Information Patient Information: ADRIENNE XIE was seen in my office for initial evaluation on 01/20/23. The following Plan of Care was established for this patient: POC Established Initial Frequency: 2x /Week Initial Duration: 4 Weeks Anticipated Interventions Patient/Client Instruction: Educate patient on: Benefits of Fitness Program Therapeutic Exercise to Include: Strength training, Endurance training, Balance training, Coordination, Agility training, Body mechanics, Postural training, Flexibilty training, Gait and locomotor training, Neuromotor development, Dynamic Lumbar Stabilization and Scapular Strength/Stabilization For the Purpose of:: To improve muscle performance and motor function Last Seen Last Seen: This patient was last seen in our office . Pertinent comments regarding their Physical therapy will appear below: Patient has completed his POC and is appropriate to be d/c At this point I will be discontinuing this patient from physical therapy. I would be happy to see this patient again in the future if found appropriate by the physician. Thank you! Inessa Hui, DPT Balance/Gait/Functional tests Balance/Special Test Scores CATSIB Score (Max score 120 seconds): 50 Lower Extremity Functional Score: 27
== END 2023-03-05 19:00 | disposition home or self-care (01) ==
LOC: PT 11:00
PROVIDERS: PCP Family Medicine; Referring Provider Family Medicine; Visit Provider Family Medicine
DX: R29.898 Other symptoms and signs involving the musculoskeletal system (principal)
CPT/HCPCS: 97110; 97162; 97530

== ENCOUNTER 2023-03-17 10:59 | Emergency (ER) | payer OTHER, SELFPAY ==
[2023-03-17 11:00] VITALS: BP 174/77; PULSE 79; RESP 14; TEMP 36.4; O2SAT 97; BMI 46.3
--- NOTE | 2023-03-17 11:30 | RAD_ITS ---
STUDY: X-RAY - LUMBAR SPINE REASON FOR EXAM: Male, 62 years old. BACK PAIN TECHNIQUE: 3 view(s) of the lumbar spine were obtained. COMPARISON: Comparison is made with prior study of June 06, 2015. FINDINGS: Normal lumbar lordosis. There is no substantial scoliosis. There is a normal alignment of the vertebrae. There is multilevel endplate spondylosis of the lumbar vertebrae. Mild disc space narrowing at the L5-S1 level. Facet joint osteoarthritis. There is a mild degree of atherosclerotic calcification of the abdominal aorta without a demonstrated aneurysm. RAD/Lumbar Spine 2 or 3 Views IMPRESSION: Degenerative changes of the spine, as detailed above. Electronically Signed: Tristin Knowles MD at 12:22 EST ,
--- NOTE | 2023-03-17 11:30 | RAD_ITS ---
STUDY: X-RAY - THORACIC SPINE REASON FOR EXAM: Male, 62 years old. BACK PAIN TECHNIQUE: 3 view(s) of the thoracic spine were obtained. COMPARISON: None. FINDINGS: Normal kyphosis of the thoracic spine. There is no substantial scoliosis. There is multilevel endplate spondylosis of the thoracic vertebrae. There is multilevel disc space narrowing of the thoracic spine. The soft tissue structures are unremarkable. RAD/Thoracic Spine 3 Views IMPRESSION: Multilevel disc space narrowing and spondylosis. Electronically Signed: Tristin Knowles MD at 12:22 EST ,
[2023-03-17 11:31] LABS: Erythrocyte Sedimentation Rate 17 mm/hr (0-20)
[2023-03-17 11:35] LABS: Absolute Lymphocyte Count 1.37 X10^3/uL (0.83-4.51); Absolute Neutrophil Count 5.1 X10^3/uL (2.0-7.7); Basophil# 0.05 X10^3/uL; Basophil% 0.7 % (0-1); Eosinophil# 0.01 X10^3/uL; Eosinophils% 0.1 % (0-5); Hematocrit 41.3 % (40-54); Hemoglobin 13.7 g/dL (13.0-16.5); Lymphocyte # 1.37 X10^3/ul (0.83-4.51); Lymphocyte % 19.3 % (19-41); Mean Corp Hgb Conc 33.2 g/dL (32-36); Mean Corpuscular Hgb 28.4 pg (27.0-32.0); Mean Corpuscular Volume 85.5 fL (80-94); Mean Platelet Vol. 9.5 fl (6.2-12.0); Monocyte# 0.55 X10^3/uL; Monocyte% 7.8 % (0-10); NRBC Flagged by Analyzer 0 % (0-5); Neutrophil # 5.07 X10^3/uL (2.7-7.7); Neutrophil % 71.5 % (47-70); Platelet Count 265 K/mm3 (150-450); RBC Distribution Width CV 13.3 % (11.6-14.6); RBC Distribution Width SD 41.1 fl (35.1-43.9); Red Blood Count 4.83 M/mm3 (4.6-6.2); White Blood Count 7.1 K/mm3 (4.4-11.0)
[2023-03-17 11:39] LABS: Anion Gap 8 (5-15); BUN 20 mg/dL (7-18); BUN/Creat Ratio 21.6 RATIO (10-20); Calcium,Total 8.9 mg/dL (8.5-10.1); Chloride 104 mmol/L (98-107); Creatinine, Serum 0.93 mg/dL (0.70-1.30); EST Glomerular Filtration Rate 88 mL/min (>60); Est Glom Filt Rate - Afr Amer 106 mL/min (>60); Estimated Creatinine Clearance 83.41 ml/min; Glucose 255 mg/dL (74-106); Potassium 3.9 mmol/L (3.5-5.1); Sodium Level 138 mmol/L (136-145)
--- NOTE | 2023-03-17 12:25 | EX.ED.GENINJ ---
HPI <MICHAEL Slater - Last Filed: 03/17/23 13:08> History of Present Illness Chief Complaint: Back Narrative Narrative: Today due to right-sided mid to lower back pain that he has had for the past month. 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 He denies any injury to his back, bowel/bladder incontinence, saddle paresthesia, and urinary symptoms. He reports that he was evaluated here in the emergency department a few weeks ago and was given naproxen with no relief of his symptoms. He has not seen his PCP for this. He did go to the chiropractor once with minimal relief of his symptoms. [facility] <MICHAEL Slater - Last Filed: 03/17/23 13:08> [facility] Medical History Abnormal EKG Biliary dyskinesia Cellulitis of lower back Chronic cholecystitis Diabetes mellitus Essential hypertension Hyperlipidemia Preop cardiovascular exam Psoriasis Sleep apnea Home Medications glimepiride 4 mg tablet 4 mg PO DAILY DIABETES 05/25/13 [History Last Taken 04/15/16 06:30] metformin 1,000 mg tablet 1,000 mg PO BIDCM 05/25/13 [History Last Taken 04/15/16 17:30] linagliptin 5 mg tablet (Tradjenta) 5 mg PO QAM DIABETES 01/01/18 [History Last Taken Unknown] liraglutide 0.6 mg/0.1 mL (18 mg/3 mL) subcutaneous pen injector 1.8 mg SQ DAILY DIABETES 07/20/18 [History Last Taken Unknown] insulin glargine 100 unit/mL subcutaneous solution 35 unit SQ QHS 06/22/19 [History Last Taken 10/10/19 22:00] rosuvastatin 10 mg tablet 10 mg PO DAILY 06/24/19 [History Last Taken Unknown] amlodipine 10 mg tablet 10 mg PO DAILY 09/23/19 [History Last Taken 10/10/19 22:00] hydrochlorothiazide 25 mg tablet 12.5 mg PO BID 09/23/19 [History Last Taken Unknown] omeprazole 20 mg capsule,delayed release 20 mg PO DAILY 09/23/19 [History Last Taken 10/10/19 22:00] ustekinumab 90 mg/mL subcutaneous syringe 90 mg SQ UD 09/23/19 [History Last Taken 09/03/19] valsartan 160 mg tablet 160 mg PO BID 09/23/19 [History Last Taken 10/10/19 22:00] gabapentin 300 mg capsule 300 mg PO TID 30 days #89 caps 09/07/22 [Rx Last Taken Unknown] naproxen 500 mg tablet (Naprosyn) 500 mg PO BID PRN pain #20 tabs 02/16/23 [Rx Last Taken Unknown] tizanidine 4 mg tablet 4 mg PO BID PRN muscle spasticity #10 tabs 02/16/23 [Rx Last Taken Unknown] Allergy/AdvReac Type Severity Reaction Status Date / Time meloxicam Allergy Intermediate Unknown Verified 03/17/23 11:01 moxifloxacin [From Avelox] Allergy Intermediate dizziness Verified 03/17/23 11:01 prednisone Allergy Intermediate fast heart Verified 03/17/23 11:01 rate sitagliptin [From Januvia] Allergy Intermediate lightheaded Verified 03/17/23 11:01 ness Family History Father Hypertension Surgical History History of cholecystectomy (~10/2019) History of colonoscopy History of hernia surgery History of nasal septoplasty History of umbilical hernia Social History Smoking Status: Never smoker Smokeless tobacco user: snuff alcohol intake: never substance use type: does not use caffeine: Yes Type: carbonated beverages ROS <MICHAEL Slater - Last Filed: 03/17/23 13:08> ROS ED Constitutional Constitutional ED: Denies chills or fever(s) Cardiovascular Cardiovascular: Denies chest pain Respiratory/Chest Respiratory/Chest: Denies cough or dyspnea Gastrointestinal Gastrointestinal: Denies abdominal pain, nausea or vomiting Genitourinary Genitourinary ED: Denies dysuria, hematuria or urinary urgency Musculoskeletal Musculoskeletal: Reports back pain Integumentary Denies rash Neurologic Neurologic: Denies paresthesias or weakness EXAM <MICHAEL Slater - Last Filed: 03/17/23 13:08> Physical Exam Const Vital Signs: 03/17/23 11:00 Temperature 97.5 F L Temperature Source Temporal Pulse Rate 79 Respiratory Rate 14 Blood Pressure 174/77 H Blood Pressure Mean 109 Pulse Ox 97 Oxygen Delivery Method Room Air Positive well nourished, well developed and no apparent distress General Appearance ED: well developed HEENT Reports normocephalic and head/scalp atraumatic Mouth ED: Yes moist mucous membranes normal Eyes PERRL and EOMs intact bilaterally Neck full ROM and supple Chest Wall inspection of chest normal Resp normal respiratory effort and clear to auscultation bilaterally Cardio regular rate and regular rhythm GI soft to palpation, non-tender, non-distended and no masses Back/Spine normal ROM and normal to inspection Extremity normal to inspection and full ROM Neuro oriented x3, CN's II-XII intact bilaterally, moves all extremities, no focal motor deficits and no sensory deficits noted Neuro Narrative: Intact L2- S1 sensation. Patient is able to walk on heels and toes. Strength 5 out of 5 upper and lower extremities. Sensorium / Orientation: awake and alert Motor Exam: strength 5/5 throughout Deep Tendon Reflexes: Rt Patellar (L4): 2+, Lt Patellar (L4): 2+, Rt Ankle (S1): 2+ and Lt Ankle (S1): 2+ Deep Tendon Reflexes Back: Rt Patellar (L4): 2+, Lt Patellar (L4): 2+, Rt Ankle (S1): 2+ and Lt Ankle (S1): 2+ Psych mental status grossly normal and thought process normal Skin no rashes or lesions noted and no wounds <Dr. Galo Rodriguez MD - Last Filed: 03/17/23 16:53> Physical Exam Const Vital Signs: 03/17/23 11:00 Temperature 97.5 F L Temperature Source Temporal Pulse Rate 79 Respiratory Rate 14 Blood Pressure 174/77 H Blood Pressure Mean 109 Pulse Ox 97 Oxygen Delivery Method Room Air [facility] <MICHAEL Slater - Last Filed: 03/17/23 13:08> [facility] Narrative Medical decision making narrative: Patient presenting today with pain that is generalized to his right mid and lower back that he has had for the past month. He was seen here on 02/16/2023 and was discharged with naproxen which she reports gave him very little relief. He denies any injury to his back, there are no symptoms of cauda equina syndrome or spinal abscess. Patient's pain does appear to be muscular in nature and is reproducible with palpation to the right paraspinal muscles in the thoracic and lumbar spine. Patient is requesting x-rays of his back, these will be obtained. Given the duration of his symptoms, labs were obtained as well as inflammatory markers. Labs overall are unremarkable aside from being hyperglycemic, BUN 20. X-rays do show degenerative changes to the thoracic and lumbar spine. I have encouraged him to follow-up with his PCP and to continue taking Tylenol and ibuprofen for his pain as needed. He will be discharged home in stable condition and is comfortable with plan. Lab Data Attestation: I reviewed the patient's lab results. Labs: Laboratory Results - last 24 hr 03/17/23 11:20 WBC 7.1 RBC 4.83 Hgb 13.7 Hct 41.3 MCV 85.5 MCH 28.4 MCHC 33.2 RDW Std Deviation 41.1 RDW Coeff of Niko 13.3 Plt Count 265 MPV 9.5 Immature Gran % (Auto) 0.600 Neut % (Auto) 71.5 H Lymph % (Auto) 19.3 Archer % (Auto) 7.8 Eos % (Auto) 0.1 Baso % (Auto) 0.7 Absolute Neuts (auto) 5.1 Absolute Lymphs (auto) 1.37 Nucleated RBC % 0 ESR 17 Sodium 138 Potassium 3.9 Chloride 104 Carbon Dioxide 26.0 Anion Gap 8 BUN 20 H Creatinine 0.93 Estim Creat Clear Calc 83.41 Est GFR (MDRD) Af Amer 106 Est GFR (MDRD) Non-Af 88 BUN/Creatinine Ratio 21.6 H Glucose 255 H Calcium 8.9 Radiography X-Ray: Read by ED Physician and Read by Radiologist Diagnostic Testing: Clinical Impression(s) from Imaging Studies Lumbar Spine X-Ray 03/17/23 11:30 IMPRESSION: Degenerative changes of the spine, as detailed above. Electronically Signed: Tristin Knowles MD at 12:22 EST , Thoracic Spine X-Ray 03/17/23 11:30 IMPRESSION: Multilevel disc space narrowing and spondylosis. Electronically Signed: Tristin Knowles MD at 12:22 EST , <Dr. Galo Rodriguez MD - Last Filed: 03/17/23 16:53> [facility] Narrative Medical decision making narrative: Patient presenting today with pain that is generalized to his right mid and lower back that he has had for the past month. He was seen here on 02/16/2023 and was discharged with naproxen which she reports gave him very little relief. He denies any injury to his back, there are no symptoms of cauda equina syndrome or spinal abscess. Patient's pain does appear to be muscular in nature and is reproducible with palpation to the right paraspinal muscles in the thoracic and lumbar spine. Patient is requesting x-rays of his back, these will be obtained. Given the duration of his symptoms, labs were obtained as well as inflammatory markers. Labs overall are unremarkable aside from being hyperglycemic, BUN 20. X-rays do show degenerative changes to the thoracic and lumbar spine. I have encouraged him to follow-up with his PCP and to continue taking Tylenol and ibuprofen for his pain as needed. He will be discharged home in stable condition and is comfortable with plan. I have personally performed a face to face assessment of the patient and have reviewed the DEON Note. I performed a substantive portion of the visit including all aspects of the following. My vines findings include: History is remarkable for greater than 1 month of atraumatic low back pain. Patient has no history of cancer, weight loss. He denies night sweats. There is no history of trauma. He denies bowel bladder dysfunction. No saddle paresthesia or anesthesia. Denies radicular pain. Nuys foot drop. Denies buckling of his knees going up or down steps. He did denies any recent dental procedure or any type of procedure. He has not noted any skin lesions. Exam is remarkable for the patient being uncomfortable. He does not have central tenderness to percussion or palpation. His pain is mainly on the left paralumbar region. Movement does exacerbate his pain i.e. flexion, extension or bending to the right or left. Gait was observed and normal. He is able to walk on heels and toes. He is able to perform 1 legged squat. EHLs intact. L3-S1 dermatome is intact. Patella and ankle reflex are 2+. DP and PT pulse are palpable. Medical Decision Making since people were waiting in the waiting room triage nurse asked if any blood work could be done. Since patient had atraumatic pain greater than age of 51 x-ray was obtained to evaluate for any lytic or or blastic lesions or degenerative changes. Also to rule out pathologic fracture. Blood work was obtained to assess for anemia, elevated alkaline phosphatase, elevated calcium, elevated sed rate. Other additions or changes: Patient's work-up is negative. His history and physical is consistent with muscular low back pain. Was discharged with pain medicine. Lab Data Lab results narrative: Documented in the narrative. See CT is normal. ESR is no more and BMP is remarkable glucose of 255 with a normal CO2 and anion gap. Labs: Laboratory Results - last 24 hr 03/17/23 11:20 WBC 7.1 RBC 4.83 Hgb 13.7 Hct 41.3 MCV 85.5 MCH 28.4 MCHC 33.2 RDW Std Deviation 41.1 RDW Coeff of Niko 13.3 Plt Count 265 MPV 9.5 Immature Gran % (Auto) 0.600 Neut % (Auto) 71.5 H Lymph % (Auto) 19.3 Archer % (Auto) 7.8 Eos % (Auto) 0.1 Baso % (Auto) 0.7 Absolute Neuts (auto) 5.1 Absolute Lymphs (auto) 1.37 Nucleated RBC % 0 ESR 17 Sodium 138 Potassium 3.9 Chloride 104 Carbon Dioxide 26.0 Anion Gap 8 BUN 20 H Creatinine 0.93 Estim Creat Clear Calc 83.41 Est GFR (MDRD) Af Amer 106 Est GFR (MDRD) Non-Af 88 BUN/Creatinine Ratio 21.6 H Glucose 255 H Calcium 8.9 Radiography Diagnostic Testing: Clinical Impression(s) from Imaging Studies Lumbar Spine X-Ray 03/17/23 11:30 IMPRESSION: Degenerative changes of the spine, as detailed above. Electronically Signed: Tristin Knowles MD at 12:22 EST , Thoracic Spine X-Ray 03/17/23 11:30 IMPRESSION: Multilevel disc space narrowing and spondylosis. Electronically Signed: Tristin Knowles MD at 12:22 EST , Discharge Plan Triage Chief Complaint: Back ED Midlevel Provider: Malini Fatima ED Provider: Galo Rodriguez Dx/Rx/DC Orders Clinical Impression: Thoracic back pain, Lumbar back pain Instructions: Back Exercises: Arm Reach, ED Back Care Tips Prescriptions: No Action linagliptin [Tradjenta] 5 mg tablet 5 mg PO QAM rosuvastatin 10 mg tablet 10 mg PO DAILY metformin 1,000 MG tablet 1,000 mg PO BIDCM Patient Comments: Diabetes glimepiride 4 MG tablet 4 mg PO DAILY Patient Comments: Diabetes liraglutide 0.6 MG/0.1 ML pen injector 1.8 mg SQ DAILY Patient Comments: INJECT 1.8MG SUBCUTANEOUSLY DAILY FOR DIABETES insulin glargine 100 UNIT/ML solution 35 unit SQ QHS amlodipine 10 MG tablet 10 mg PO DAILY omeprazole 20 MG capsule 20 mg PO DAILY hydrochlorothiazide 25 MG tablet 12.5 mg PO BID valsartan 160 MG tablet 160 mg PO BID ustekinumab 90 MG/ML syringe 90 mg SQ UD gabapentin 300 mg capsule 300 mg PO TID 30 Days Qty: 89 0RF Rx Instructions: 1 cap po BID on day #1, then 1 cap po TID tizanidine 4 mg tablet 4 mg PO BID PRN (Reason: muscle spasticity) Qty: 10 0RF naproxen [Naprosyn] 500 mg tablet 500 mg PO BID PRN (Reason: pain) Qty: 20 0RF Primary Care Provider: Bernard Frey Referrals: Bernard Frey MD [Primary Care Provider] - 5-7 Days Activity Restrictions/Additional Instructions: Please follow-up with your PCP and return for any worsening of your symptoms. Disposition Disposition: Home, Self Care Discharge Date/Time: 03/17/23 12:15
== END 2023-03-17 12:15 | disposition home or self-care (01) ==
PROVIDERS: Emergency Provider Emergency Medicine; PCP Family Medicine; Visit Provider Emergency Medicine
DX: M54.6 Pain in thoracic spine (principal); M54.50 Low back pain, unspecified; G47.30 Sleep apnea, unspecified
CPT/HCPCS: 72072; 72100; 80048; 85025; 85652; 99282; A4216

== ENCOUNTER 2023-03-21 06:32 | Emergency (ER) | payer OTHER, SELFPAY ==
[2023-03-21 06:33] VITALS: BP 185/72; PULSE 87; RESP 16; TEMP 36.6; O2SAT 99; BMI 46.2
--- NOTE | 2023-03-21 07:00 | EDS_ITS ---
HPI History of Present Illness Chief Complaint: Lower Extremity Injury Informant: patient Narrative Narrative: Patient presents for pain in his left knee, anterior-medial aspect. Denies any injury. He states it is been bothering him for 2 to 3 days and getting worse. Denies any fevers, chills, systemic symptoms. States he has had pains/problems with the left knee in the past, never the right when always the left he has had several cortisone shots in the past but it has been a year or 2. He states he is concerned about a blood clot but he does not have pain anywhere else including the calf, thigh, no new swelling although he does have some chronic edema in his ankles that is unchanged. No chest pain or shortness of breath or history of blood clots. 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 Putting weight on his left lower extremity significantly makes the left knee pain worse, as does bending it. [facility] Medical History Abnormal EKG Biliary dyskinesia Cellulitis of lower back Chronic cholecystitis Diabetes mellitus Essential hypertension Hyperlipidemia Preop cardiovascular exam Psoriasis Sleep apnea Home Medications metformin 1,000 mg tablet 500 mg PO BIDCM 05/25/13 [History Last Taken 04/15/16 17:30] linagliptin 5 mg tablet (Tradjenta) 5 mg PO QAM DIABETES 01/01/18 [History Last Taken Unknown] rosuvastatin 10 mg tablet 10 mg PO DAILY 06/24/19 [History Last Taken Unknown] amlodipine 10 mg tablet 10 mg PO DAILY 09/23/19 [History Last Taken 10/10/19 22:00] hydrochlorothiazide 25 mg tablet 12.5 mg PO BID 09/23/19 [History Last Taken Unknown] valsartan 160 mg tablet 160 mg PO BID 09/23/19 [History Last Taken 10/10/19 22:00] gabapentin 300 mg capsule 300 mg PO TID 30 days #89 caps 09/07/22 [Rx Last Taken Unknown] naproxen 500 mg tablet (Naprosyn) 500 mg PO BID PRN pain #20 tabs 02/16/23 [Rx Last Taken Unknown] carvedilol 6.25 mg tablet 6.25 mg PO Q12H 03/21/23 [History Last Taken Unknown] dulaglutide 0.75 mg/0.5 mL subcutaneous pen injector (Trulicity) 0.75 mg subcut .WEEKLY 03/21/23 [History Last Taken Unknown] insulin glargine 100 unit/mL (3 mL) subcutaneous pen (Lantus Solostar U-100 Insulin) 45 unit subcut QHS 03/21/23 [History Last Taken Unknown] insulin lispro 100 unit/mL subcutaneous pen (Humalog KwikPen (U-100) Insulin) 25 unit subcut TID 03/21/23 [History Last Taken Unknown] latanoprost 0.005 % eye drops 1 drp ophthalmic (eye) QHS 03/21/23 [History Last Taken Unknown] prednisone 20 mg tablet 20 mg PO DAILY #7 TABLETS 03/21/23 [Rx Last Taken Unknown] testosterone cypionate 200 mg/mL intramuscular oil (Depo-Testosterone) 200 mg IM .EVERY 2 WEEKS 03/21/23 [History Last Taken Unknown] timolol maleate 0.5 % eye drops 1 drp ophthalmic (eye) Q12H 03/21/23 [History Last Taken Unknown] Allergy/AdvReac Type Severity Reaction Status Date / Time meloxicam Allergy Intermediate Unknown Verified 03/21/23 06:36 moxifloxacin [From Avelox] Allergy Intermediate dizziness Verified 03/21/23 06:36 prednisone Allergy Intermediate fast heart Verified 03/21/23 06:36 rate sitagliptin [From Januvia] Allergy Intermediate lightheaded Verified 03/21/23 06:36 ness Family History Father Hypertension Surgical History History of cholecystectomy (~10/2019) History of colonoscopy History of hernia surgery History of nasal septoplasty History of umbilical hernia Social History Smoking Status: Never smoker Smokeless tobacco user: snuff alcohol intake: never substance use type: does not use caffeine: Yes Type: carbonated beverages ROS ROS ED Constitutional Constitutional ED: Denies chills or fever(s) Musculoskeletal Musculoskeletal: Reports extremity pain; Denies neck pain Integumentary Denies Abrasions, rash or wounds Neurologic Neurologic: Denies paresthesias or weakness EXAM Physical Exam Const Vital Signs: 03/21/23 06:33 03/21/23 06:33 Temperature 97.8 F 97.8 F Temperature Source Temporal Temporal Pulse Rate 87 87 Respiratory Rate 16 16 Blood Pressure 185/72 H 185/72 H Blood Pressure Mean 109 109 Pulse Ox 99 99 Oxygen Delivery Method Room Air Room Air Positive well nourished, well developed and obese General Appearance ED: well developed and NAD Nutritional Appearance: obese Neck full ROM and supple Back/Spine normal ROM and normal to inspection Extremity Extremity Narrative: Mild edema both ankles fairly symmetric. No bilateral calf tenderness. Left knee: Can straighten without issue. No palpable effusion, no excessive warmth, no erythema, no swelling compared with the contralateral knee. He is tender mainly at the joint line on the right side. He indicates some pain anteromedially just superior to the patella, but he does not have a particularly tender plica band nor patella ligament or tendon. There is no other areas of bony tenderness. All ligaments are intact and stable with short endpoints on stressing, when attempting to stress the lateral collateral ligament, he complains of significant pain at the medial aspect. Anterior and posterior drawer signs are negative, within the limits of the exam is when he bends he is limited due to pain. He does have excellent short arc range of motion without any apparent discomfort. Neuro oriented x3, no focal motor deficits and no sensory deficits noted Sensorium / Orientation: alert Psych mental status grossly normal and thought process normal Skin no wounds Rashes: no rashes MDM MDM MDM Narrative Medical decision making narrative: I reassured the patient I do not think this is DVT. I think this is pain in the joint of the medial compartment of his left knee. I obtained x-rays of the left knee 4 views of my interpretation negative for anything acute, but it does show significant medial compartment arthritis, which I think explains his pain. I do recommend following up with [facility]. In the meantime we discussed options. He opted for an Castro wrap, and I offered a prescription for prednisone, he said that if he cannot get in to orthopedics in a reasonable amount of time then he would fill and take the prednisone. I will prescribe him lower dose seen for a week so that he is less likely to develop side effects and he was comfortable with that plan. Discharge Plan Triage Chief Complaint: Lower Extremity Injury ED Provider: Jhon Batron Dx/Rx/DC Orders Clinical Impression: Osteoarthritis of left knee Instructions: ED Osteoarthritis Prescriptions: New prednisone 20 mg tablet 20 mg PO DAILY Qty: 7 0RF No Action linagliptin [Tradjenta] 5 mg tablet 5 mg PO QAM rosuvastatin 10 mg tablet 10 mg PO DAILY metformin 1,000 MG tablet 500 mg PO BIDCM Patient Comments: Diabetes amlodipine 10 MG tablet 10 mg PO DAILY hydrochlorothiazide 25 MG tablet 12.5 mg PO BID valsartan 160 MG tablet 160 mg PO BID gabapentin 300 mg capsule 300 mg PO TID 30 Days Qty: 89 0RF Rx Instructions: 1 cap po BID on day #1, then 1 cap po TID naproxen [Naprosyn] 500 mg tablet 500 mg PO BID PRN (Reason: pain) Qty: 20 0RF Trulicity 0.75 mg/0.5 mL pen injector 0.75 mg SUBCUT .WEEKLY Patient Comments: INJECCT 0.75MG (0.5ML)CSUBCUTANEOUSLY ONCE ATWEEK insulin glargine [Lantus Solostar U-100 Insulin] 100 unit/mL (3 mL) insulin pen 45 unit SUBCUT QHS Patient Comments: INJECT 44 UNITSYSUBCUTANEOUSLY ONCE DAILY carvedilol 6.25 mg tablet 6.25 mg PO Q12H Patient Comments: TAKE 1 AND 1/2 TABLETS BYCMOUTH 2 TIMES A DAY latanoprost 0.005 % drops 1 drp ophthalmic (eye) QHS Patient Comments: Instill 1 drop into bothCeyes once a day testosterone cypionate [Depo-Testosterone] 200 mg/mL oil 200 mg IM .EVERY 2 WEEKS Patient Comments: inject 1 milliliter intramuscularly every 2 weeks timolol maleate 0.5 % drops 1 drp ophthalmic (eye) Q12H Patient Comments: Instill 1 drop in righteeye twice a day insulin lispro [Humalog KwikPen Insulin] 100 unit/mL insulin pen 25 unit subcut TID Primary Care Provider: Bernard Frey Referrals: Eladio Smyth DO [Med Staff - Active Staff] - As soon as possible (Or other available [facility] provider) Bernard Frey MD [Primary Care Provider] - Activity Restrictions/Additional Instructions: If you can get by without using the prednisone, tried to do so because it would likely increase your blood sugars as well. If you do use the prednisone, be aware of higher blood sugars, so check them more often than usual quick acting insulin to compensate. Disposition Disposition: Home, Self Care
--- NOTE | 2023-03-21 07:00 | RAD_ITS ---
STUDY: X-RAY - LEFT KNEE REASON FOR EXAM: Male, 62 years old. Medial left knee pain. No evidence of trauma. TECHNIQUE: 4 view(s) of the knee. COMPARISON: None. FINDINGS: Normal visualized distal femur. Normal visualized proximal tibia and fibula. Normal proximal tibiofibular articulation. There is severe degenerative arthrosis of the medial femorotibial compartment with severe joint space narrowing. Normal lateral femorotibial compartment. There is severe degenerative arthrosis of the patellofemoral articulation. Bipartite patella. Small joint effusion. RAD/Knee 4 or More Views IMPRESSION: Degenerative arthrosis. Small joint effusion. Bipartite patella. Electronically Signed: Tristin Knowles MD at 8:11 EST ,
== END 2023-03-21 08:08 | disposition home or self-care (01) ==
PROVIDERS: Emergency Provider Emergency Medicine; PCP Family Medicine; Visit Provider Emergency Medicine
DX: M17.12 Unilateral primary osteoarthritis, left knee (principal); E11.9 Type 2 diabetes mellitus without complications; Z79.4 Long term (current) use of insulin; I10 Essential (primary) hypertension; E78.5 Hyperlipidemia, unspecified; G47.30 Sleep apnea, unspecified; E66.9 Obesity, unspecified; Z79.899 Other long term (current) drug therapy; Z79.84 Long term (current) use of oral hypoglycemic drugs
CPT/HCPCS: 73564; 99282

== ENCOUNTER → 2023-05-30 | Outpatient (CLI) | payer OTHER, SELFPAY ==
--- OUTSIDE RECORDS SUMMARY | 2023-05-30 08:35 | XMS RPT_ITS | CCD ---
Author Name Unknown Address [address] [place] [address] [address] [place] [address] Organization [facility] Care Team Providers Care Supervisor [employer] [place] Name Role Phone VITA, LAUREL Savage Attending Unavailable VITA, LAUREL Savage Primary Care Unavailable VITA, LAUREL Savage Admitting Unavailable VITA, LAUREL Savage Attending Unavailable VITA, LAUREL Savage Primary Care Unavailable VITA, LAUREL Savage Admitting Unavailable MIRELLA LENTZ, DR RIVAS Shane Primary Care Physician MIRELLA, RIVAS Shane Primary Care Unavailable VIJAYA HARTLEY Attending Ania QIU MD, DR ADAMSON Attending Lorrie VU MD, DR RIVAS Shane Primary Care Lorrie BARKLEY MD, LAUREL Rajput Attending Ania VU MD, DR RIVAS Shane Primary Care Lorrie GUAJARDO MD, SOHAN Savage Attending Unavail akhil VU MD, DR RIVAS Shane Primary Care Lorrie SANTANA MD, CHESTER Liomn Attending Ania VU MD, DR RIVAS Shane Primary Care Unavailtatyana MITCHELL APRN-GUT SNATCHER, JOVON Attending Ezra Waldrop MD, DR RIVAS Shane Primary Care Lorrie savage Allergies Allergy Classification Reported Allergen(s) Allergy Type Date of Onset Reaction(s) Facility (1 source) moxifloxacin; Translations: [MOXIFLOXACIN] Drug Allergy 08-21-2012 [facility] Rep[facility] Medications Current Medications Medication Drug Class(es) Dates Sig (Normalized) Sig (Original) 3 ML insulin glargine-yfgn 100 UNT/ML Pen Injector [Semglee] (5 sources) Start: 03-26-2022 Semglee (Prefilled Pen) 100 units/mL subcutaneous solution 0 Refill(s) Start Date: 03/26/22 Status: Ordered amLODIPine 10 mg oral tablet (6 sources) Dihydropyridine Calcium Channel Chayo Start: 04-27-2020 amLODIPine 10 mg oral tablet Dose : 10 mg = 1 tab(s), Oral, qDay, 0 Refill(s) Start Date: 04/27/20 Status: Ordered carvedilol 25 mg oral tablet (6 sources) alpha-Adrenergic Chayo, beta-Adrenergic Chayo Start: 05-08-2023 carvedilol 25 mg oral tablet Dose : 25 mg = 1 tab(s), Oral, BID, Please disregard 12.5 dose, # 180 tab(s), 1 Refill(s), Pharmacy: [facility], 175.3, cm, 04/22/23 20:15:00 EST, Height, kg, 04/22/23 20:15:00 EST, Dosing Weight Start Date: 05/08/23 Status: Ordered Problems Active Problems Problem Classification Problem Date Documented Date Episodic/Chronic Diabetes mellitus without complication (6 sources) Diabetes mellitus 01-06-2015 Chronic Disorders of lipid metabolism (6 sources) Mixed hyperlipidemia 04-27-2020 Chronic Essential hypertension (6 sources) Hypertensive disorder 01-06-2015 Chronic Residual codes; unclassified (6 sources) Obstructive sleep apnea syndrome 04-27-2020 Chronic Residual codes; unclassified (6 sources) History of repair of umbilical hernia 01-06-2015 Episodic Spondylosis; intervertebral disc disorders; other back problems (2 sources) Low back pain; Translations: [Low back pain, unspecified] Onset: 04-03-2023 Episodic Past or Other Problems Problem Classification Problem Date Documented Da te Episodic/Chronic Other screening for suspected conditions (not mental disorders or infectious disease) (2 sources) Encounter for screening for malignant neoplasm of colon; Translations: [Encounter for screening for malignant neoplasm of colon] Onset: 07-22-2022 Episodic Results Test Name Value Interpretation Reference Range Facil ity Vital Signs Date Time Vital Sign Value Performing Clinician Janei deepak 05-25-2023 10:00-0500 Diastolic Blood Pressure Non-Invasive 74 mm[Hg] LAUREL BARKLEY MD [facility] 05-25-2023 10:00-0500 Heart rate 74 /min LAUREL BARKLEY MD [facility] 05-25-2023 10:00-0500 Systolic Blood Pressure Non-Invasive 168 mm[Hg] LAUREL BARKLEY MD [facility] 05-25-2023 08:35-0500 Body temperature 98.42 [degF] LAUREL BARKLEY MD [facility] 05-25-2023 08:35-0500 Body weight 136.4 kg LAUREL BARKLEY MD [facility] 05-25-2023 08:35-0500 Diastolic Blood Pressure Non-Invasive 79 mm[Hg] LAUREL BARKLEY MD [facility] 05-25-2023 08:35-0500 Heart rate 77 /min LAUREL BARKLEY MD [facility] 05-25-2023 08:35-0500 Respiratory rate 18 /min LAUREL BARKLEY MD [facility] 05-25-2023 08:35-0500 Systolic Blood Pressure Non-Invasive 173 mm[Hg] LAUREL BARKLEY MD [facility] 04-22-2023 20:15-0500 Blood Pressure Location CHESTER SANTANA MD [facility] 04-22-2023 20:15-0500 Blood Pressure Method CHESTER SANTANA MD [facility] 04-22-2023 20:15-0500 Body height 175.3 cm CHESTER SANTANA MD [facility] 04-22-2023 20:15-0500 Body temperature 97.88 [degF] CHESTER SANTANA MD [facility] 04-22-2023 20:15-0500 Body weight 136.4 kg CHESTER SANTANA MD [facility] 04-22-2023 20:15-0500 Diastolic Blood Pressure Non-Invasive 73 mm[Hg] CHESTER SANTANA MD [facility] 04-22-2023 20:15-0500 Heart rate 83 /min CHESTER SANTANA MD [facility] 04-22-2023 20:15-0500 Respiratory rate 16 /min CHESTER SANTANA MD [facility] 04-22-2023 20:15-0500 Systolic Blood Pressure Non-Invasive 147 mm[Hg] CHESTER SANTANA MD [facility] 04-03-2023 10:04-0500 Body temperature 98.06 [degF] SOHAN GUAJARDO MD [facility] 04-03-2023 10:04-0500 Body weight 143.7 kg SOHAN GUAJARDO MD [facility] 04-03-2023 10:04-0500 Diastolic Blood Pressure Non-Invasive 76 mm[Hg] SOHAN GUAJARDO MD [facility] 04-03-2023 10:04-0500 Heart rate 77 /min SOHAN GUAJARDO MD [facility] 04-03-2023 10:04-0500 Respiratory rate 18 /min SOHAN GUAJARDO MD [facility] 04-03-2023 10:04-0500 Systolic Blood Pressure Non-Invasive 169 mm[Hg] SOHAN GUAJARDO MD [facility] 07-22-2022 10:53-0400 Diastolic Blood Pressure Non-Invasive [address] SNOW QIU MD [facility] 07-22-2022 10:53-0400 Heart rate 67 /min DR SNOW QIU MD [facility] 07-22-2022 10:53-0400 Systolic Blood Pressure Non-Invasive [address] SNOW QIU MD [facility] 07-22-2022 10:43-0400 Diastolic Blood Pressure Non-Invasive [address] SNOW QIU MD [facility] 07-22-2022 10:43-0400 Heart rate 82 /min DR SNOW QIU MD [facility] 07-22-2022 10:43-0400 Systolic Blood Pressure Non-Invasive [address] SNOW QIU MD [facility] 07-22-2022 10:38-0400 Diastolic Blood Pressure Non-Invasive [address] SNOW QIU MD [facility] 07-22-2022 10:38-0400 Heart rate 67 /min DR SNOW QIU MD [facility] 07-22-2022 10:38-0400 Systolic Blood Pressure Non-Invasive [address] SNOW QIU MD [facility] 07-22-2022 10:31-0400 Body temperature 97.52 [degF] DR SNOW QIU MD [facility] 07-22-2022 10:31-0400 Respiratory rate 16 /min DR SNOW QIU MD [facility] 07-22-2022 10:25-0400 Respiratory Rate - Anes 13 br/min DR SNOW QIU MD [facility] 07-22-2022 10:20-0400 Respiratory Rate - Anes 12 br/min DR SNOW QIU MD [facility] 07-22-2022 10:15-0400 Respiratory Rate - Anes 13 br/min DR SNOW QIU MD [facility] 07-22-2022 08:10-0400 Body height 175.[address] SNOW QIU MD [facility] 07-22-2022 08:10-0400 Body weight 127.[address] SNOW QIU MD [facility] 07-22-2022 08:10-0400 Heart rate 73 /min DR SNOW QIU MD [facility] 07-22-2022 08:10-0400 Respiratory rate 16 /min DR SNOW QIU MD [facility] Encounters Encounter Date Encounter Type Care Provider Facility Start: 05-25-2023 End: 05-25-2023 Emergency department patient visit LAUREL BARKLEY MD Facility:[facility] Start: 05-25-2023 End: 05-25-2023 Emergency department patient visit LAUREL BARKLEY MD [facility] Start: 04-22-2023 End: 04-22-2023 Emergency department patient visit CHESTER SANTANA MD Facility:[facility] Start: 04-22-2023 End: 04-22-2023 Emergency department patient visit CHESTER SANTANA MD [facility] Start: 04-03-2023 End: 04-03-2023 Emergency department patient visit SOHAN GUAJARDO MD Facility:[facility] Start: 04-03-2023 End: 04-03-2023 Emergency department patient visit SOHAN GUAJARDO MD [facility] Start: 07-22-2022 End: 07-22-[address] SNOW QIU MD Facility:[facility] Start: 07-22-2022 End: 07-22-[address] SNOW QIU MD [facility] Start: 06-13-2022 End: 06-14-2022 ambulatory JOVON MITCHELL RECRUITER MANAGER-GUT SNATCHER Facility:[facility] Start: 06-13-2022 End: 06-13-2022 Patient encounter procedure JOVON MITCHELL RECRUITER MANAGER-GUT SNATCHER [facility] Start: 05-22-2022 End: 05-22-2022 ambulatory RIVAS VU Facility:[facility] Start: 12-19-2021 End: 12-19-2021 Patient encounter procedure JOVON MITCHELL RECRUITER MANAGER-GUT SNATCHER [facility] Start: 08-14-2020 End: 08-14-2020 Patient encounter procedure [facility] Start: 07-24-2020 End: 07-24-2020 Patient encounter procedure [facility] Procedures Date Procedure Procedure Detail Performing Clinician Cholecystectomy DR SNOW JONES MD Colonoscopy DR SNOW CRUMP MD Hernia of abdominal cavity (disorder) JOVON MITCHELL RECRUITER MANAGER-GUT SNATCHER Nose - repair or plastic operation JOVON MITCHELL RECRUITER MANAGER-GUT SNATCHER Immunizations Immunization Date Immunization Notes Care Provider Fa cili 03-22-2019 influenza, injectabl e, quadrivalent, preservative free JOVON MITCHELL RECRUITER MANAGER-GUT SNATCHER [facility] Payers Date Payer Category Payer Unknown [id number] 2022 Private Health Insurance [id number] 1960 Unknown [id number] 2.16.84 [id number] 1960 Unknown [id number] 2.16.84 [id number] 1960 Unknown [id number] 2.16.8 [id number] 1960 Unknown [id number] 2.16.8 [id number] 1961 Unknown [id number] 2.16.8 [id number] 1961 Unknown [id number] 2.16.8 [id number] 1960 Unknown [id number] 2.16.8 [id number] Unknown [id number] Social History Date Type Detail Facility Start: 03-21-2019 End: 05-25-2023 Tobacco smoking status Never smoked tobacco (finding) [facility] Sex Assigned At Sex [facility] Functional Status Date Assessment Result Facility 05-25-2023 Functional Status Standard Safet y ID band on, Call device within reach, Bed in low position, Wheels locked, Upper/Half-Length side-rails up, Bedside Cart Locked, Safety level maintained [facility] 04-22-2023 Functional Status Assistive Device None A [facility] 04-03-2023 Functional Status Independent [facility] 04-03-2023 Functional Status Standard Safet y ID band on, Call device within reach, Bed in low position, Wheels locked, Phone within reach [facility] 07-22-2022 Functional Status Sleeping [facility] 07-22-2022 Functional Status Maintained [facility] Mental Status Date Assessment Result Facility 05-25-2023 Mental Status Orientation Oriented x 4 [facility] 04-22-2023 Mental Status Orientation Oriented x 4 [facility] 04-03-2023 Mental Status Orientation Oriented x 4 [facility] 04-03-2023 Mental Status [facility] 07-22-2022 Mental Status Oriented x 4 [facility] 07-22-2022 Mental Status [facility] Clinical Notes 05-22-2022 to 05-25-2023 Note Date & Type Note Facility 05-25-2023 Hospital Discharg e instructions Patient Education 05/25/2023 10:19:59 Abdominal Pain Abdominal Pain Abdominal pain is pain in the stomach or belly area. Everyone has this pain from time to time. In many cases it goes away on its own. But abdominal pain can sometimes be due to a serious problem, such as appendicitis. So it s important to know when to get help. Causes of abdominal pain There are many possible causes of abdominal pain. Common causes in adults include: Constipation, diarrhea, or gas Stomach acid flowing back up into the esophagus (acid reflux or heartburn) Severe acid reflux, called GERD (gastroesophageal reflux disease) A sore in the lining of the stomach or small intestine (peptic ulcer) Inflammation of the gallbladder, liver, or pancreas Gallstones or kidney stones Appendicitis Intestinal blockage An internal organ pushing through a muscle or other tissue (hernia) Urinary tract infections In women, menstrual cramps, fibroids, ovarian cysts, pelvic inflammatory disease, or endometriosis Inflammation or infection of the intestines, including Crohn's disease and ulcerative colitis Irritable bowel syndrome Diagnosing the cause of abdominal pain Your healthcare provider will give you a physical exam help find the cause of your pain. If needed, you will have tests. Belly pain has many possible causes. So it can be hard to find the reason for your pain. Giving details about your pain can help. Tell your provider where and when you feel the pain, and what makes it better or worse. Also let your provider know if you have other symptoms such as: Fever Tiredness Upset stomach (nausea) Vomiting Changes in bathroom habits Blood in the stool or black, tarry stool Weight loss that you can't explain (involuntary weight loss?) Also report any family history of stomach or intestinal problems, or cancers. Tell your provider about all your alcohol use and drug use. Tell your provider about all medicines you use, including herbs, vitamins, and supplements. Treating abdominal pain Some causes of pain need emergency medical treatment right away. These include appendicitis or a bowel blockage. Other problems can be treated with rest, fluids, or medicines. Your healthcare provider can give you specific instructions for treatment or self-care based on what is causing your pain. If you have vomiting or diarrhea, sip water or other clear fluids. When you are ready to eat solid foods again, start with small amounts of oxzv-ds-dbbkjl, low-fat foods. These include apple sauce, toast, or crackers. When to get medical care Call 911 or go to the hospital right away if you: Can t pass stool and are vomiting Are vomiting blood or have bloody diarrhea or black, tarry diarrhea Have chest, neck, or shoulder pain Feel like you might pass out Have pain in your shoulder blades with nausea Have sudden, severe belly pain Have new, severe pain unlike any you have felt before Have a belly that is rigid, hard, and hurts to touch Call your healthcare provider if you have: Pain for more than 5 days Bloating for more than 2 days Diarrhea for more than 5 days A fever of 100.4 F (38 C) or higher, or as directed by your healthcare provider Pain that gets worse Weight loss for no reason Continued lack of appetite Blood in your stool How to prevent abdominal pain Here are some tips to help prevent abdominal pain: Eat smaller amounts of food at each meal. Don't eat greasy, fried, or other high-fat foods. Don't eat foods that give you gas. Exercise regularly. Drink plenty of fluids. To help prevent GERD symptoms: Quit smoking. Reduce alcohol and foods that increase stomach acid. Don't use aspirin or twka-ejb-iqagxrt pain and fever medicines, if possible. This includes nonsteroidal anti-inflammatory drugs (NSAIDs). Lose excess weight. Finish eating at least 2 hours before you go to bed or lie down. Raise the head of your bed. [id number] [employer] [address] [place] [address], [place] [address]. All rights reserved. This information is not intended as a substitute for professional medical care. Always follow your healthcare professional's instructions. Follow Up Care 05/25/2023 08:33:55 With:RIVAS VU MD Address: [address] [place] [address] [place] [phone] When:2-4 days [facility] 05[facility]25[facility]2023 Emergency department Discharge summary Discharge Instructions Thank you for allowing [facility] to assist you with your healthcare needs. The following is important discharge information regarding your hospital visit. Diagnosis from Today's Visit Groin pain What to Do Next Instructions from Your Care Team No qualifying data available. Post Acute Orders No qualifying data available. You Need to Schedule the Following Appointments Follow Up with RIVAS VU MD When Within 2-4 days Where: [address] [place] [address] [phone] Allergies NKA Medications Please ask your primary doctor or pharmacist before taking any other medication not listed, including over the counter drugs, herbal medications, vitamins and or supplements as they may interact with your home medications. What How Much When Instructions Last Dose New dicyclomine (Bentyl use dicyclomine ) 20 Milligram by mouth Four (4) times a day Printed Prescription Unchanged amLODIPine (amLODIPine 10 mg oral tablet) 1 tab(s) by mouth Once a day Unchanged carvedilol (carvedilol 25 mg oral tablet) 1 tab(s) by mouth Two (2) times a day Please disregard 12.5 dose Unchanged hydrochlorothiazide-valsartan (hydrochlorothiazide-valsartan 12.5 mg-160 mg oral tablet) 1 tab(s) by mouth Two (2) times a day Unchanged insulin glargine (Lantus) Subcutaneous Once a day Unchanged insulin glargine (Semglee (Prefilled Pen) 100 units/ mL subcutaneous solution) Unchanged insulin lispro (HumaLOG) (HumaLOG 100 units/ mL injectable solution VIAL) Subcutaneous Unchanged metFORMIN (MetFORMIN (Eqv-Glucophage XR) 500 mg oral tablet, EXTENDED RELEASE) 1 tab(s) by mouth Once a day Unchanged rosuvastatin (rosuvastatin 10 mg oral capsule) 1 cap by mouth Once a day Please take this list to your next doctor s visit. Bring all medications you take, including over the counter medications, herbals and other supplements with you to your doctor s visit. Patients and families are reminded to discard old lists and to update any records with all medication providers or retail pharmacies. Education Materials Abdominal Pain Abdominal pain is pain in the stomach or belly area. Everyone has this pain from time to time. In many cases it goes away on its own. But abdominal pain can sometimes be due to a serious problem, such as appendicitis. So it s important to know when to get help. Causes of abdominal pain There are many possible causes of abdominal pain. Common causes in adults include: Constipation, diarrhea, or gas Stomach acid flowing back up into the esophagus (acid reflux or heartburn) Severe acid reflux, called GERD (gastroesophageal reflux disease) A sore in the lining of the stomach or small intestine (peptic ulcer) Inflammation of the gallbladder, liver, or pancreas Gallstones or kidney stones Appendicitis Intestinal blockage An internal organ pushing through a muscle or other tissue (hernia) Urinary tract infections In women, menstrual cramps, fibroids, ovarian cysts, pelvic inflammatory disease, or endometriosis Inflammation or infection of the intestines, including Crohn's disease and ulcerative colitis Irritable bowel syndrome Diagnosing the cause of abdominal pain Your healthcare provider will give you a physical exam help find the cause of your pain. If needed, you will have tests. Belly pain has many possible causes. So it can be hard to find the reason for your pain. Giving details about your pain can help. Tell your provider where and when you feel the pain, and what makes it better or worse. Also let your provider know if you have other symptoms such as: Fever Tiredness Upset stomach (nausea) Vomiting Changes in bathroom habits Blood in the stool or black, tarry stool Weight loss that you can't explain (involuntary weight loss?) Also report any family history of stomach or intestinal problems, or cancers. Tell your provider about all your alcohol use and drug use. Tell your provider about all medicines you use, including herbs, vitamins, and supplements. Treating abdominal pain Some causes of pain need emergency medical treatment right away. These include appendicitis or a bowel blockage. Other problems can be treated with rest, fluids, or medicines. Your healthcare provider can give you specific instructions for treatment or self-care based on what is causing your pain. If you have vomiting or diarrhea, sip water or other clear fluids. When you are ready to eat solid foods again, start with small amounts of lqdu-vy-grfivp, low-fat foods. These include apple sauce, toast, or crackers. When to get medical care Call 911 or go to the hospital right away if you: Can t pass stool and are vomiting Are vomiting blood or have bloody diarrhea or black, tarry diarrhea Have chest, neck, or shoulder pain Feel like you might pass out Have pain in your shoulder blades with nausea Have sudden, severe belly pain Have new, severe pain unlike any you have felt before Have a belly that is rigid, hard, and hurts to touch Call your healthcare provider if you have: Pain for more than 5 days Bloating for more than 2 days Diarrhea for more than 5 days A fever of 100.4 F (38 C) or higher, or as directed by your healthcare provider Pain that gets worse Weight loss for no reason Continued lack of appetite Blood in your stool How to prevent abdominal pain Here are some tips to help prevent abdominal pain: Eat smaller amounts of food at each meal. Don't eat greasy, fried, or other high-fat foods. Don't eat foods that give you gas. Exercise regularly. Drink plenty of fluids. To help prevent GERD symptoms: Quit smoking. Reduce alcohol and foods that increase stomach acid. Don't use aspirin or ogpc-sbh-vmxsats pain and fever medicines, if possible. This includes nonsteroidal anti-inflammatory drugs (NSAIDs). Lose excess weight. Finish eating at least 2 hours before you go to bed or lie down. Raise the head of your bed. [id number] [employer] [address] [place] [address], [place] [address]. All rights reserved. This information is not intended as a substitute for professional medical care. Always follow your healthcare professional's instructions. Additional Information VACCINATE! IT SAVES LIVES! Members of the community who have not yet received the COVID-19 vaccine and would like to receive it can visit one of [facility] vaccine clinics. There are many vaccine clinic locations within the [facility]. For locations and available times, please visit [email or web address] It is important to note that some COVID mobile vaccine clinics are held outdoors and may be canceled in rainy or stormy conditions. To learn more about pediatric vaccinations (ages 5-11), we invite you to visit the [facility] webpage. [email or web address] [email or web address]-[email or web address] [email or web address] To learn more about the COVID-19 vaccine, we invite you to visit the CDC website for a list of frequently asked questions. https://www.cdc.gov/coronavirus/ 2019-ncov/vaccines/faq.html [facility] Patient Portal Access Instructions: Stay connected with your healthcare team and access your personal medical information anytime with the [facility] Patient Portal. If you would like a full copy of your medical records please contact the [facility] Medical Records Department Friday through Friday between 8a.m. and 4:30p.m. Please follow the directions below to access the portal: 1.Access the email account you provided upon registration to the [facility].2.Look for an invitation email from [facility].3.Open the email and access the invitation link: Accept Invitation to [facility]4.Fill in the required lee to create your account. Sign into [email or web address] with your username and password that you created in the above steps to stay up to date. You can then view a summary of results, a summary of your visits, and the ability to download your summaries to your computer or send the information securely to a physician. Remember that your healthcare information is confidential, so carefully consider who you will allow to register on the [facility] Patient Portal for access to your information. You can also access the [facility] Patient Portal on the [employer]. Simply click on Health Records under Health Data and then click on the [employer] logo. HOW TO SAFELY DISPOSE OF PRESCRIPTION MEDICATIONS Please use one of the following methods to safely dispose of your unused medications. 1.Use a drug disposal kit: the drug disposal pouch allows you to safely discard your old and unused drugs. Ask your nurse to give you one when you are discharged.2.Visit a local take-back location: Many local pharmacies and police departments have programs that collect old and unwanted prescription drugs. Call your local pharmacy or go to http://bit.FreeCharge/1P2Nr1z to find one close to you.3.Make use of household items: Use cat litter or old coffee grounds to dispose medications if other options are not available. Mix your drugs with these household products, seal them in an airtight container and throw it into the garbage. Call [facility]: [phone] to be sure your drugs can be disposed of in this way. Some medicines may require a different approach.4.Never flush your medications down the toilet. IF YOU HAVE BEEN PRESCRIBED AN OPIOIDS FOR PAIN If you have been prescribed an opioid (such as hydrocodone, oxycodone or morphine), it is critical to understand the possible side effects and risks of opioid pain medications. Even when taken as directed, opioids can have several side effects including: Tolerance, meaning you might need to take more of a medication for the same pain relief. Nausea, vomiting and/or constipation. Sleepiness, dizziness, dry mouth, confusion, depression or itching. Physical dependence, meaning you have withdrawal symptoms when a medication is stopped ? this can develop within a few days. KNOW YOUR RESPONSIBILITIES It is important to know exactly how much and how often to take the opioid pain medications you are prescribed. Never take opioids in higher amounts or more often than prescribed. Do not combine opioids with alcohol or other drugs that cause drowsiness, such as benzodiazepines, also known as benzos, including diazepam and alprazolam, muscle relaxants or sleep aids. Never sell or share prescription opioids. This is illegal. Store opioids in a secure place and out of reach of others (including children, family, friends and visitors). The last page(s) of this document has been signed and retained as a CHART COPY Signatures Patient Education Materials Abdominal Pain Medication Leaflets My discharge plan and instructions have been reviewed and explained to me and IFINA MITCHELL A understand my current condition and have read and understand these discharge instructions. I have received a written copy of the plan/instructions. If I have questions, I am aware that I should contact my doctor. 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 01-14-2024 Note ORIGINAL EXAMINATION: CT OF THE ABDOMEN AND PELVIS WITH CONTRAST05/25/2023 9:42 am TECHNIQUE: CT of the abdomen and pelvis was performed with the administration of intravenous contrast. Multiplanar reformatted images are provided for review. Automated exposure control, iterative reconstruction, and/or weight based adjustment of the mA/kV was utilized to reduce the radiation dose to as low as reasonably achievable. COMPARISON: None HISTORY: ORDERING SYSTEM PROVIDED HISTORY: Reason for Exam: pain FINDINGS: Mild scarring/fibrosis seen in the lower lungs. The heart size is normal. Coronary artery calcifications seen. A small cyst measuring approximately 1 cm is seen in the left hepatic lobe. A similar subcentimeter cysts seen in the posterior right hepatic lobe, unchanged. The pancreas and adrenal glands appear unremarkable. No splenic lesions seen. The gallbladder is absent. The kidneys enhance symmetrically. No hydronephrosis. A cyst noted in the anterior right kidney measuring 1 Hounsfield unit on image 67. The large and small bowel demonstrate no obstruction. The appendix is normal. No free intraperitoneal fluid or gas is identified. The aorta is normal in caliber. There is mild atherosclerosis of the larger arteries. There is no lymphadenopathy. Small fat containing inguinal hernias noted. Prostate gland is borderline in size. No filling defects seen in the urinary bladder. There is no fracture or aggressive osseous lesion. Degenerative changes are present in the spine. Mild anterolisthesis seen of L4 on L5. Chronic deformity seen of the anterior left 8th rib. Surgical changes noted in the abdominal wall. IMPRESSION: No inflammatory changes. Incidental findings, as above Interpreted by: Lan Waggoner MD Preliminary Report By: Lan Waggoner MD Electronically signed By Lan Waggoner MD Dictated Date: 05/25/2023 9:47:40 AM Prelim Date: 05/25/2023 9:53:33 AM Sign Date: 05/25/2023 9:53:33 AM Ordering Provider: [facility] 04-22-2023 Hospital Discharg e instructions Patient Education 04/22/2023 21:41:20 Back Pain (Acute or Chronic) Back Pain (Acute or Chronic) Back pain is one of the most common problems. The good news is that most people feel better in 1 to 2 weeks, and most of the rest in 1 to 2 months. Most people can remain active. People who have pain describe it differently not everyone is the same. The pain can be sharp, stabbing, shooting, aching, cramping or burning. Movement, standing, bending, lifting, sitting, or walking may worsen pain. It can be localized to one spot or area, or it can be more generalized. It can spread or radiate upwards, to the front, or go down your arms or legs (sciatica). It can cause muscle spasm. Most of the time, mechanical problems with the muscles or spine cause the pain. Mechanical problems are usually caused by an injury to the muscles or ligaments. While illness can cause back pain, it is usually not caused by a serious illness. Mechanical problems include: Physical activity such as sports, exercise, work, or normal activity Overexertion, lifting, pushing, pulling incorrectly or too aggressively Sudden twisting, bending, or stretching from an accident, or accidental movement Poor posture Stretching or moving wrong, without noticing pain at the time Poor coordination, lack of regular exercise (check with your doctor about this) Spinal disc disease or arthritis Stress Pain can also be related to , or illness like appendicitis, bladder or kidney infections, pelvic infections, and many other things. Acute back pain usually gets better in 1 to 2 weeks. Back pain related to disk disease, arthritis in the spinal joints or spinal stenosis (narrowing of the spinal canal) can become chronic and last for months or years. Unless you had a physical injury (for example, a car accident or fall) X-rays are usually not needed for the initial evaluation of back pain. If pain continues and does not respond to medical treatment, X-rays and other tests may be needed. Home care Try these home care recommendations: When in bed, try to find a position of comfort. A firm mattress is best. Try lying flat on your back with pillows under your knees. You can also try lying on your side with your knees bent up towards your chest and a pillow between your knees. At first, do not try to stretch out the sore spots. If there is a strain, it is not like the good soreness you get after exercising without an injury. In this case, stretching may make it worse. Don't sit for long periods, as in a long car ride or during other travel. This puts more stress on the lower back than standing or walking. During the first 24 to 72 hours after an acute injury or flare up of chronic back pain, apply an ice pack to the painful area for 20 minutes and then remove it for 20 minutes. Do this over a period of 60 to 90 minutes or several times a day. This will reduce swelling and pain. Wrap the ice pack in a thin towel or plastic to protect your skin. You can start with ice, then switch to heat. Heat (hot shower, hot bath, or heating pad) reduces pain and works well for muscle spasms. Heat can be applied to the painful area for 20 minutes then remove it for 20 minutes. Do this over a period of 60 to 90 minutes or several times a day. Do not sleep on a heating pad. It can lead to skin alvarenga or tissue damage. You can alternate ice and heat therapy. Talk with your doctor about the best treatment for your back pain. Therapeutic massage can help relax the back muscles without stretching them. Be aware of safe lifting methods and do not lift anything without stretching first. Medicines Talk to your doctor before using medicine, especially if you have other medical problems or are taking other medicines. You may use kfsg-yky-bkholrw medicine as directed on the bottle to control pain, unless another pain medicine was prescribed. If you have chronic conditions like diabetes, liver or kidney disease, stomach ulcers, or gastrointestinal bleeding, or are taking blood thinners, talk to your doctor before taking any medicine. Be careful if you are given a prescription medicines, narcotics, or medicine for muscle spasms. They can cause drowsiness, affect your coordination, reflexes, and judgement. Do not drive or operate heavy machinery. Follow-up care Follow up with your healthcare provider, or as advised. A radiologist will review any X-rays that were taken. Your provide will notify you of any new findings that may affect your care. Call 911 Call 911 if any of the following occur: Trouble breathing Confusion Very drowsy or trouble awakening Fainting or loss of consciousness Rapid or very slow heart rate Loss of bowel or bladder control When to seek medical advice Call your healthcare provider right away if any of these occur: Pain becomes worse or spreads to your legs Weakness or numbness in one or both legs Numbness in the groin or genital area [id number] [employer] [address] [place] [address], [place] [address]. All rights reserved. This information is not intended as a substitute for professional medical care. Always follow your healthcare professional's instructions. Follow Up Care 04/22/2023 20:12:12 With:RIVAS VU MD Address: [address] [place] [address] [phone] When:2-4 days [facility] 04-22-2023 Note Discharge Instructions Thank you for allowing [facility] to assist you with your healthcare needs. The following is important discharge information regarding your hospital visit. Diagnosis from Today's Visit Back pain Back pain Flank pain What to Do Next Instructions from Your Care Team No qualifying data available. Post Acute Orders No qualifying data available. You Need to Schedule the Following Appointments Follow Up with RIVAS VU MD When Within 2-4 days Where: [facility] [place] [address] [phone] Allergies NKA Medications Please ask your primary doctor or pharmacist before taking any other medication not listed, including over the counter drugs, herbal medications, vitamins and or supplements as they may interact with your home medications. What How Much When Instructions Last Dose Unchanged amLODIPine (amLODIPine 10 mg oral tablet) 1 tab(s) by mouth Once a day Unchanged carvedilol (carvedilol 6.25 mg oral tablet) 1.5 tab(s) by mouth Two (2) times a day Unchanged hydrochlorothiazide-valsartan (hydrochlorothiazide-valsartan 12.5 mg-160 mg oral tablet) 1 tab(s) by mouth Two (2) times a day Unchanged insulin glargine (Lantus) Subcutaneous Once a day Unchanged insulin glargine (Semglee (Prefilled Pen) 100 units/ mL subcutaneous solution) Unchanged insulin lispro (HumaLOG) (HumaLOG 100 units/ mL injectable solution VIAL) Subcutaneous Unchanged metFORMIN (MetFORMIN (Eqv-Glucophage XR) 500 mg oral tablet, EXTENDED RELEASE) 1 tab(s) by mouth Once a day Unchanged rosuvastatin (rosuvastatin 10 mg oral capsule) 1 cap by mouth Once a day Please take this list to your next doctor s visit. Bring all medications you take, including over the counter medications, herbals and other supplements with you to your doctor s visit. Patients and families are reminded to discard old lists and to update any records with all medication providers or retail pharmacies. Education Materials Back Pain (Acute or Chronic) Back pain is one of the most common problems. The good news is that most people feel better in 1 to 2 weeks, and most of the rest in 1 to 2 months. Most people can remain active. People who have pain describe it differently not everyone is the same. The pain can be sharp, stabbing, shooting, aching, cramping or burning. Movement, standing, bending, lifting, sitting, or walking may worsen pain. It can be localized to one spot or area, or it can be more generalized. It can spread or radiate upwards, to the front, or go down your arms or legs (sciatica). It can cause muscle spasm. Most of the time, mechanical problems with the muscles or spine cause the pain. Mechanical problems are usually caused by an injury to the muscles or ligaments. While illness can cause back pain, it is usually not caused by a serious illness. Mechanical problems include: Physical activity such as sports, exercise, work, or normal activity Overexertion, lifting, pushing, pulling incorrectly or too aggressively Sudden twisting, bending, or stretching from an accident, or accidental movement Poor posture Stretching or moving wrong, without noticing pain at the time Poor coordination, lack of regular exercise (check with your doctor about this) Spinal disc disease or arthritis Stress Pain can also be related to , or illness like appendicitis, bladder or kidney infections, pelvic infections, and many other things. Acute back pain usually gets better in 1 to 2 weeks. Back pain related to disk disease, arthritis in the spinal joints or spinal stenosis (narrowing of the spinal canal) can become chronic and last for months or years. Unless you had a physical injury (for example, a car accident or fall) X-rays are usually not needed for the initial evaluation of back pain. If pain continues and does not respond to medical treatment, X-rays and other tests may be needed. Home care Try these home care recommendations: When in bed, try to find a position of comfort. A firm mattress is best. Try lying flat on your back with pillows under your knees. You can also try lying on your side with your knees bent up towards your chest and a pillow between your knees. At first, do not try to stretch out the sore spots. If there is a strain, it is not like the good soreness you get after exercising without an injury. In this case, stretching may make it worse. Don't sit for long periods, as in a long car ride or during other travel. This puts more stress on the lower back than standing or walking. During the first 24 to 72 hours after an acute injury or flare up of chronic back pain, apply an ice pack to the painful area for 20 minutes and then remove it for 20 minutes. Do this over a period of 60 to 90 minutes or several times a day. This will reduce swelling and pain. Wrap the ice pack in a thin towel or plastic to protect your skin. You can start with ice, then switch to heat. Heat (hot shower, hot bath, or heating pad) reduces pain and works well for muscle spasms. Heat can be applied to the painful area for 20 minutes then remove it for 20 minutes. Do this over a period of 60 to 90 minutes or several times a day. Do not sleep on a heating pad. It can lead to skin alvarenga or tissue damage. You can alternate ice and heat therapy. Talk with your doctor about the best treatment for your back pain. Therapeutic massage can help relax the back muscles without stretching them. Be aware of safe lifting methods and do not lift anything without stretching first. Medicines Talk to your doctor before using medicine, especially if you have other medical problems or are taking other medicines. You may use pazh-ege-whuqkzf medicine as directed on the bottle to control pain, unless another pain medicine was prescribed. If you have chronic conditions like diabetes, liver or kidney disease, stomach ulcers, or gastrointestinal bleeding, or are taking blood thinners, talk to your doctor before taking any medicine. Be careful if you are given a prescription medicines, narcotics, or medicine for muscle spasms. They can cause drowsiness, affect your coordination, reflexes, and judgement. Do not drive or operate heavy machinery. Follow-up care Follow up with your healthcare provider, or as advised. A radiologist will review any X-rays that were taken. Your provide will notify you of any new findings that may affect your care. Call 911 Call 911 if any of the following occur: Trouble breathing Confusion Very drowsy or trouble awakening Fainting or loss of consciousness Rapid or very slow heart rate Loss of bowel or bladder control When to seek medical advice Call your healthcare provider right away if any of these occur: Pain becomes worse or spreads to your legs Weakness or numbness in one or both legs Numbness in the groin or genital area [id number] [employer] [address] [place] [address], [place] [address]. All rights reserved. This information is not intended as a substitute for professional medical care. Always follow your healthcare professional's instructions. Additional Information VACCINATE! IT SAVES LIVES! Members of the community who have not yet received the COVID-19 vaccine and would like to receive it can visit one of [facility] vaccine clinics. There are many vaccine clinic locations within the [facility]. For locations and available times, please visit [email or web address] It is important to note that some COVID mobile vaccine clinics are held outdoors and may be canceled in rainy or stormy conditions. To learn more about pediatric vaccinations (ages 5-11), we invite you to visit the [facility] webpage. [email or web address] [email or web address] To learn more about the COVID-19 vaccine, we invite you to visit the CDC website for a list of frequently asked questions. https://www.cdc.gov/coronavirus/ 2019-ncov/vaccines/faq.html [facility] Patient Portal Access Instructions: Stay connected with your healthcare team and access your personal medical information anytime with the [facility] Patient Portal. If you would like a full copy of your medical records please contact the [facility] Medical Records Department Friday through Friday between 8a.m. and 4:30p.m. Please follow the directions below to access the portal: 1.Access the email account you provided upon registration to the hospital.2.Look for an invitation email from [facility].3.Open the email and access the invitation link: Accept Invitation to [facility].Fill in the required lee to create your account. Sign into [email or web address] with your username and password that you created in the above steps to stay up to date. You can then view a summary of results, a summary of your visits, and the ability to download your summaries to your computer or send the information securely to a physician. Remember that your healthcare information is confidential, so carefully consider who you will allow to register on the [employer] Patient Portal for access to your information. You can also access the [facility] Patient Portal on the [employer]. Simply click on Health Records under Health Data and then click on the [employer] logo. HOW TO SAFELY DISPOSE OF PRESCRIPTION MEDICATIONS Please use one of the following methods to safely dispose of your unused medications. 1.Use a drug disposal kit: the drug disposal pouch allows you to safely discard your old and unused drugs. Ask your nurse to give you one when you are discharged.2.Visit a local take-back location: Many local pharmacies and police departments have programs that collect old and unwanted prescription drugs. Call your local pharmacy or go to http://Kiwi [employer]rate.FreeCharge/8O3Kc3v to find one close to you.3.Make use of household items: Use cat litter or old coffee grounds to dispose medications if other options are not available. Mix your drugs with these household products, seal them in an airtight container and throw it into the garbage. Call [facility]: [phone] to be sure your drugs can be disposed of in this way. Some medicines may require a different approach.4.Never flush your medications down the toilet. IF YOU HAVE BEEN PRESCRIBED AN OPIOIDS FOR PAIN If you have been prescribed an opioid (such as hydrocodone, oxycodone or morphine), it is critical to understand the possible side effects and risks of opioid pain medications. Even when taken as directed, opioids can have several side effects including: Tolerance, meaning you might need to take more of a medication for the same pain relief. Nausea, vomiting and/or constipation. Sleepiness, dizziness, dry mouth, confusion, depression or itching. Physical dependence, meaning you have withdrawal symptoms when a medication is stopped ? this can develop within a few days. KNOW YOUR RESPONSIBILITIES It is important to know exactly how much and how often to take the opioid pain medications you are prescribed. Never take opioids in higher amounts or more often than prescribed. Do not combine opioids with alcohol or other drugs that cause drowsiness, such as benzodiazepines, also known as benzos, including diazepam and alprazolam, muscle relaxants or sleep aids. Never sell or share prescription opioids. This is illegal. Store opioids in a secure place and out of reach of others (including children, family, friends and visitors). The last page(s) of this document has been signed and retained as a CHART COPY Signatures Patient Education Materials Back Pain (Acute or Chronic) Medication Leaflets My discharge plan and instructions have been reviewed and explained to me and I,WILFREDO XIE understand my current condition and have read and understand these discharge instructions. I have received a written copy of the plan/instructions. If I have questions, I am aware that I should contact my doctor. 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 04-03-2023 Hospital Discharg e instructions Patient Education 04/03/2023 11:03:56 Back Pain (Acute or Chronic) Back Pain (Acute or Chronic) Back pain is one of the most common problems. The good news is that most people feel better in 1 to 2 weeks, and most of the rest in 1 to 2 months. Most people can remain active. People who have pain describe it differently not everyone is the same. The pain can be sharp, stabbing, shooting, aching, cramping or burning. Movement, standing, bending, lifting, sitting, or walking may worsen pain. It can be localized to one spot or area, or it can be more generalized. It can spread or radiate upwards, to the front, or go down your arms or legs (sciatica). It can cause muscle spasm. Most of the time, mechanical problems with the muscles or spine cause the pain. Mechanical problems are usually caused by an injury to the muscles or ligaments. While illness can cause back pain, it is usually not caused by a serious illness. Mechanical problems include: Physical activity such as sports, exercise, work, or normal activity Overexertion, lifting, pushing, pulling incorrectly or too aggressively Sudden twisting, bending, or stretching from an accident, or accidental movement Poor posture Stretching or moving wrong, without noticing pain at the time Poor coordination, lack of regular exercise (check with your doctor about this) Spinal disc disease or arthritis Stress Pain can also be related to , or illness like appendicitis, bladder or kidney infections, pelvic infections, and many other things. Acute back pain usually gets better in 1 to 2 weeks. Back pain related to disk disease, arthritis in the spinal joints or spinal stenosis (narrowing of the spinal canal) can become chronic and last for months or years. Unless you had a physical injury (for example, a car accident or fall) X-rays are usually not needed for the initial evaluation of back pain. If pain continues and does not respond to medical treatment, X-rays and other tests may be needed. Home care Try these home care recommendations: When in bed, try to find a position of comfort. A firm mattress is best. Try lying flat on your back with pillows under your knees. You can also try lying on your side with your knees bent up towards your chest and a pillow between your knees. At first, do not try to stretch out the sore spots. If there is a strain, it is not like the good soreness you get after exercising without an injury. In this case, stretching may make it worse. Don't sit for long periods, as in a long car ride or during other travel. This puts more stress on the lower back than standing or walking. During the first 24 to 72 hours after an acute injury or flare up of chronic back pain, apply an ice pack to the painful area for 20 minutes and then remove it for 20 minutes. Do this over a period of 60 to 90 minutes or several times a day. This will reduce swelling and pain. Wrap the ice pack in a thin towel or plastic to protect your skin. You can start with ice, then switch to heat. Heat (hot shower, hot bath, or heating pad) reduces pain and works well for muscle spasms. Heat can be applied to the painful area for 20 minutes then remove it for 20 minutes. Do this over a period of 60 to 90 minutes or several times a day. Do not sleep on a heating pad. It can lead to skin alvarenga or tissue damage. You can alternate ice and heat therapy. Talk with your doctor about the best treatment for your back pain. Therapeutic massage can help relax the back muscles without stretching them. Be aware of safe lifting methods and do not lift anything without stretching first. Medicines Talk to your doctor before using medicine, especially if you have other medical problems or are taking other medicines. You may use lgtm-oaz-xxpqiqn medicine as directed on the bottle to control pain, unless another pain medicine was prescribed. If you have chronic conditions like diabetes, liver or kidney disease, stomach ulcers, or gastrointestinal bleeding, or are taking blood thinners, talk to your doctor before taking any medicine. Be careful if you are given a prescription medicines, narcotics, or medicine for muscle spasms. They can cause drowsiness, affect your coordination, reflexes, and judgement. Do not drive or operate heavy machinery. Follow-up care Follow up with your healthcare provider, or as advised. A radiologist will review any X-rays that were taken. Your provide will notify you of any new findings that may affect your care. Call 911 Call 911 if any of the following occur: Trouble breathing Confusion Very drowsy or trouble awakening Fainting or loss of consciousness Rapid or very slow heart rate Loss of bowel or bladder control When to seek medical advice Call your healthcare provider right away if any of these occur: Pain becomes worse or spreads to your legs Weakness or numbness in one or both legs Numbness in the groin or genital area [id number] [employer] [address] [place] [address]. All rights reserved. This information is not intended as a substitute for professional medical care. Always follow your healthcare professional's instructions. Follow Up Care 04/03/2023 10:04:42 With:RIVAS VU MD Address: [address] [facility] [address] [place] [id number] [phone] When:2-[address] [facility] 04-03-2023 Note Discharge Instructions Thank you for allowing [facility] to assist you with your healthcare needs. The following is important discharge information regarding your hospital visit. Diagnosis from Today's Visit Flank pain Pain in left lumbar region of back What to Do Next Instructions from Your Care Team No qualifying data available. Post Acute Orders No qualifying data available. You Need to Schedule the Following Appointments Follow Up with RIVAS VU MD When Within 2-4 days Where: [address] [facility] [address] [place] [id number] Allergies NKA Medications Please ask your primary doctor or pharmacist before taking any other medication not listed, including over the counter drugs, herbal medications, vitamins and or supplements as they may interact with your home medications. What How Much When Instructions Last Dose New cyclobenzaprine (cyclobenzaprine 10 mg oral tablet) 1 tab(s) by mouth Three (3) times a day Duration: 7 Days Printed Prescription Unchanged amLODIPine (amLODIPine 10 mg oral tablet) 1 tab(s) by mouth Once a day Unchanged carvedilol (carvedilol 6.25 mg oral tablet) 1.5 tab(s) by mouth Two (2) times a day Unchanged hydrochlorothiazide-valsartan (hydrochlorothiazide-valsartan 12.5 mg-160 mg oral tablet) 1 tab(s) by mouth Two (2) times a day Unchanged insulin glargine (Lantus) Subcutaneous Once a day Unchanged insulin glargine (Semglee (Prefilled Pen) 100 units/ mL subcutaneous solution) Unchanged insulin lispro (HumaLOG) (HumaLOG 100 units/ mL injectable solution VIAL) Subcutaneous Unchanged metFORMIN (MetFORMIN (Eqv-Glucophage XR) 500 mg oral tablet, EXTENDED RELEASE) 1 tab(s) by mouth Once a day Unchanged rosuvastatin (rosuvastatin 10 mg oral capsule) 1 cap by mouth Once a day Please take this list to your next doctor s visit. Bring all medications you take, including over the counter medications, herbals and other supplements with you to your doctor s visit. Patients and families are reminded to discard old lists and to update any records with all medication providers or retail pharmacies. Medication Leaflets cyclobenzaprine (ever schmidt) Mariana, Fexmid What is the most important information I should know about cyclobenzaprine? You should not use cyclobenzaprine if you have a thyroid disorder, heart block, congestive heart failure, a heart rhythm disorder, or you have recently had a heart attack. Do not use cyclobenzaprine if you have taken an MAO inhibitor in the past 14 days, such as isocarboxazid, linezolid, phenelzine, rasagiline, selegiline, or tranylcypromine. What is cyclobenzaprine? Cyclobenzaprine is a muscle relaxant. It works by blocking nerve impulses (or pain sensations) that are sent to your brain. Cyclobenzaprine is used together with rest and physical therapy to relieve muscle spasms caused by painful conditions such as an injury. Cyclobenzaprine may also be used for purposes not listed in this medication guide. What should I discuss with my healthcare provider before taking cyclobenzaprine? You should not use cyclobenzaprine if you are allergic to it, or if you have: a thyroid disorder; heart block, heart rhythm disorder, congestive heart failure; or if you have recently had a heart attack. Cyclobenzaprine is not approved for use by anyone younger than 15 years old. Do not use cyclobenzaprine if you have taken an MAO inhibitor in the past 14 days. A dangerous drug interaction could occur. MAO inhibitors include isocarboxazid, linezolid, phenelzine, rasagiline, selegiline, and tranylcypromine. Some medicines can interact with cyclobenzaprine and cause a serious condition called serotonin syndrome. Be sure your doctor knows if you also take stimulant medicine, opioid medicine, herbal products, or medicine for depression, mental illness, Parkinson's disease, migraine headaches, serious infections, or prevention of nausea and vomiting. Ask your doctor before making any changes in how or when you take your medications. Tell your doctor if you have ever had: liver disease; glaucoma; enlarged prostate; or problems with urination. It is not known whether this medicine will harm an unborn baby. Tell your doctor if you are or plan to become . It may not be safe to breast-feed while using this medicine. Ask your doctor about any risk. Older adults may be more sensitive to the effects of this medicine. How should I take cyclobenzaprine? Follow all directions on your prescription label and read all medication guides or instruction sheets. Your doctor may occasionally change your dose. Use the medicine exactly as directed. Cyclobenzaprine is usually taken once daily for only 2 or 3 weeks. Follow your doctor's dosing instructions very carefully. Swallow the capsule whole and do not crush, chew, break, or open it. Take the medicine at the same time each day. Call your doctor if your symptoms do not improve after 3 weeks, or if they get worse. Store at room temperature away from moisture, heat, and light. What happens if I miss a dose? Take the medicine as soon as you can, but skip the missed dose if it is almost time for your next dose. Do not take two doses at one time. What happens if I overdose? Seek emergency medical attention or call the Poison Help line at . An overdose of cyclobenzaprine can be fatal. Overdose symptoms may include severe drowsiness, vomiting, fast heartbeats, tremors, agitation, or hallucinations. What should I avoid while taking cyclobenzaprine? Avoid driving or hazardous activity until you know how this medicine will affect you. Your reactions could be impaired. Avoid drinking alcohol. Dangerous side effects could occur. What are the possible side effects of cyclobenzaprine? Get emergency medical help if you have signs of an allergic reaction: hives; difficult breathing; swelling of your face, lips, tongue, or throat. Stop using cyclobenzaprine and call your doctor at once if you have: fast or irregular heartbeats; chest pain or pressure, pain spreading to your jaw or shoulder; or sudden numbness or weakness (especially on one side of the body), slurred speech, balance problems. Seek medical attention right away if you have symptoms of serotonin syndrome, such as: agitation, hallucinations, fever, sweating, shivering, fast heart rate, muscle stiffness, twitching, loss of coordination, nausea, vomiting, or diarrhea. Serious side effects may be more likely in older adults. Common side effects may include: drowsiness, tiredness; headache, dizziness; dry mouth; or upset stomach, nausea, constipation. This is not a complete list of side effects and others may occur. Call your doctor for medical advice about side effects. You may report side effects to FDA at 6-991-YFN-9241. What other drugs will affect cyclobenzaprine? Using cyclobenzaprine with other drugs that make you drowsy can worsen this effect. Ask your doctor before using opioid medication, a sleeping pill, a muscle relaxer, or medicine for anxiety or seizures. Tell your doctor about all your other medicines, especially: bupropion (Zyban, for smoking cessation); meperidine; tramadol; verapamil; cold or allergy medicine that contains an antihistamine (Benadryl and others); medicine to treat Parkinson's disease; medicine to treat excess stomach acid, stomach ulcer, motion sickness, or irritable bowel syndrome; medicine to treat overactive bladder; or bronchodilator asthma medication. This list is not complete. Other drugs may affect cyclobenzaprine, including prescription and yfdl-ajd-[id number] medicines, vitamins, and herbal products. Not all possible drug interactions are listed here. Where can I get more information? Your pharmacist can provide more information about cyclobenzaprine. Remember, keep this and all other medicines out of the reach of children, never share your medicines with others, and use this medication only for the indication prescribed. Every effort has been made to ensure that the information provided by [employer]. ('[employer]') is accurate, up-to-date, and complete, but no guarantee is made to that effect. Drug information contained herein may be time sensitive. [employer] information has been compiled for use by healthcare practitioners and consumers in the [place] and therefore [employer] does not warrant that uses outside of the [place] are appropriate, unless specifically indicated otherwise. [employer] drug information does not endorse drugs, diagnose patients or recommend therapy. [employer] drug information is an informational resource designed to assist licensed healthcare practitioners in caring for their patients and/or to serve consumers viewing this service as a supplement to, and not a substitute for, the expertise, skill, knowledge and judgment of healthcare practitioners. The absence of a warning for a given drug or drug combination in no way should be construed to indicate that the drug or drug combination is safe, effective or appropriate for any given patient. [employer] does not assume any responsibility for any aspect of healthcare administered with the aid of information [employer] provides. The information contained herein is not intended to cover all possible uses, directions, precautions, warnings, drug interactions, allergic reactions, or adverse effects. If you have questions about the drugs you are taking, check with your doctor, nurse or pharmacist. Copyright 1010-9423 [employer]. Version: 7.01. Revision Date: 12/13/2022. Education Materials Back Pain (Acute or Chronic) Back pain is one of the most common problems. The good news is that most people feel better in 1 to 2 weeks, and most of the rest in 1 to 2 months. Most people can remain active. People who have pain describe it differently not everyone is the same. The pain can be sharp, stabbing, shooting, aching, cramping or burning. Movement, standing, bending, lifting, sitting, or walking may worsen pain. It can be localized to one spot or area, or it can be more generalized. It can spread or radiate upwards, to the front, or go down your arms or legs (sciatica). It can cause muscle spasm. Most of the time, mechanical problems with the muscles or spine cause the pain. Mechanical problems are usually caused by an injury to the muscles or ligaments. While illness can cause back pain, it is usually not caused by a serious illness. Mechanical problems include: Physical activity such as sports, exercise, work, or normal activity Overexertion, lifting, pushing, pulling incorrectly or too aggressively Sudden twisting, bending, or stretching from an accident, or accidental movement Poor posture Stretching or moving wrong, without noticing pain at the time Poor coordination, lack of regular exercise (check with your doctor about this) Spinal disc disease or arthritis Stress Pain can also be related to , or illness like appendicitis, bladder or kidney infections, pelvic infections, and many other things. Acute back pain usually gets better in 1 to 2 weeks. Back pain related to disk disease, arthritis in the spinal joints or spinal stenosis (narrowing of the spinal canal) can become chronic and last for months or years. Unless you had a physical injury (for example, a car accident or fall) X-rays are usually not needed for the initial evaluation of back pain. If pain continues and does not respond to medical treatment, X-rays and other tests may be needed. Home care Try these home care recommendations: When in bed, try to find a position of comfort. A firm mattress is best. Try lying flat on your back with pillows under your knees. You can also try lying on your side with your knees bent up towards your chest and a pillow between your knees. At first, do not try to stretch out the sore spots. If there is a strain, it is not like the good soreness you get after exercising without an injury. In this case, stretching may make it worse. Don't sit for long periods, as in a long car ride or during other travel. This puts more stress on the lower back than standing or walking. During the first 24 to 72 hours after an acute injury or flare up of chronic back pain, apply an ice pack to the painful area for 20 minutes and then remove it for 20 minutes. Do this over a period of 60 to 90 minutes or several times a day. This will reduce swelling and pain. Wrap the ice pack in a thin towel or plastic to protect your skin. You can start with ice, then switch to heat. Heat (hot shower, hot bath, or heating pad) reduces pain and works well for muscle spasms. Heat can be applied to the painful area for 20 minutes then remove it for 20 minutes. Do this over a period of 60 to 90 minutes or several times a day. Do not sleep on a heating pad. It can lead to skin alvarenga or tissue damage. You can alternate ice and heat therapy. Talk with your doctor about the best treatment for your back pain. Therapeutic massage can help relax the back muscles without stretching them. Be aware of safe lifting methods and do not lift anything without stretching first. Medicines Talk to your doctor before using medicine, especially if you have other medical problems or are taking other medicines. You may use wwcb-fti-wqqlonf medicine as directed on the bottle to control pain, unless another pain medicine was prescribed. If you have chronic conditions like diabetes, liver or kidney disease, stomach ulcers, or gastrointestinal bleeding, or are taking blood thinners, talk to your doctor before taking any medicine. Be careful if you are given a prescription medicines, narcotics, or medicine for muscle spasms. They can cause drowsiness, affect your coordination, reflexes, and judgement. Do not drive or operate heavy machinery. Follow-up care Follow up with your healthcare provider, or as advised. A radiologist will review any X-rays that were taken. Your provide will notify you of any new findings that may affect your care. Call 911 Call 911 if any of the following occur: Trouble breathing Confusion Very drowsy or trouble awakening Fainting or loss of consciousness Rapid or very slow heart rate Loss of bowel or bladder control When to seek medical advice Call your healthcare provider right away if any of these occur: Pain becomes worse or spreads to your legs Weakness or numbness in one or both legs Numbness in the groin or genital area [id number] [employer] [address] [place] [address], [place] [address]. All rights reserved. This information is not intended as a substitute for professional medical care. Always follow your healthcare professional's instructions. Additional Information VACCINATE! IT SAVES LIVES! Members of the community who have not yet received the COVID-19 vaccine and would like to receive it can visit one of [facility] vaccine clinics. There are many vaccine clinic locations within the [facility]. For locations and available times, please visit [email or web address] It is important to note that some COVID mobile vaccine clinics are held outdoors and may be canceled in rainy or stormy conditions. To learn more about pediatric vaccinations (ages 5-11), we invite you to visit the [facility] webpage. [email or web address] To learn more about the COVID-19 vaccine, we invite you to visit the CDC website for a list of frequently asked questions. https://www.cdc.gov/coronavirus/ 2019-ncov/vaccines/faq.html [facility] Patient Portal Access Instructions: Stay connected with your healthcare team and access your personal medical information anytime with the [facility] Patient Portal. If you would like a full copy of your medical records please contact the [facility] Medical Records Department Friday through Friday between 8a.m. and 4:30p.m. Please follow the directions below to access the portal: 1.Access the email account you provided upon registration to the hospital.2.Look for an invitation email from [facility].3.Open the email and access the invitation link: Accept Invitation to [facility]4.Fill in the required lee to create your account. Sign into [email or web address] with your username and password that you created in the above steps to stay up to date. You can then view a summary of results, a summary of your visits, and the ability to download your summaries to your computer or send the information securely to a physician. Remember that your healthcare information is confidential, so carefully consider who you will allow to register on the [facility] Patient Portal for access to your information. You can also access the [employer] Patient Portal on the [employer]. Simply click on Health Records under Health Data and then click on the [employer] logo. HOW TO SAFELY DISPOSE OF PRESCRIPTION MEDICATIONS Please use one of the following methods to safely dispose of your unused medications. 1.Use a drug disposal kit: the drug disposal pouch allows you to safely discard your old and unused drugs. Ask your nurse to give you one when you are discharged.2.Visit a local take-back location: Many local pharmacies and police departments have programs that collect old and unwanted prescription drugs. Call your local pharmacy or go to http://Kiwi [employer].FreeCharge/6R6Kk9i to find one close to you.3.Make use of household items: Use cat litter or old coffee grounds to dispose medications if other options are not available. Mix your drugs with these household products, seal them in an airtight container and throw it into the garbage. Call [facility]: [phone] to be sure your drugs can be disposed of in this way. Some medicines may require a different approach.4.Never flush your medications down the toilet. IF YOU HAVE BEEN PRESCRIBED AN OPIOIDS FOR PAIN If you have been prescribed an opioid (such as hydrocodone, oxycodone or morphine), it is critical to understand the possible side effects and risks of opioid pain medications. Even when taken as directed, opioids can have several side effects including: Tolerance, meaning you might need to take more of a medication for the same pain relief. Nausea, vomiting and/or constipation. Sleepiness, dizziness, dry mouth, confusion, depression or itching. Physical dependence, meaning you have withdrawal symptoms when a medication is stopped ? this can develop within a few days. KNOW YOUR RESPONSIBILITIES It is important to know exactly how much and how often to take the opioid pain medications you are prescribed. Never take opioids in higher amounts or more often than prescribed. Do not combine opioids with alcohol or other drugs that cause drowsiness, such as benzodiazepines, also known as benzos, including diazepam and alprazolam, muscle relaxants or sleep aids. Never sell or share prescription opioids. This is illegal. Store opioids in a secure place and out of reach of others (including children, family, friends and visitors). The last page(s) of this document has been signed and retained as a CHART COPY Signatures Patient Education Materials Back Pain (Acute or Chronic) Medication Leaflets cyclobenzaprine My discharge plan and instructions have been reviewed and explained to me and I,WILFREDO XIE understand my current condition and have read and understand these discharge instructions. I have received a written copy of the plan/instructions. If I have questions, I am aware that I should contact my doctor. 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 04-03-2023 Note ORIGINAL EXAMINATION: CT OF THE ABDOMEN AND PELVIS WITHOUT CTMORADV05/23/2023 10:51 am TECHNIQUE: CT of the abdomen and pelvis was performed without the administration of intravenous contrast. Multiplanar reformatted images are provided for review. Automated exposure control, iterative reconstruction, and/or weight based adjustment of the mA/kV was utilized to reduce the radiation dose to as low as reasonably achievable. COMPARISON: January 06, 2015 HISTORY: ORDERING SYSTEM PROVIDED HISTORY: Reason for Exam: left flank pain abdominal pain FINDINGS: Provided images of the lower thorax are unremarkable. The liver is unremarkable in size and contour. A few scattered hepatic hypodensities are too small to characterize but statistically represent cysts. The pancreas, spleen, bilateral adrenal glands are unremarkable. The gallbladder is contracted. The nonenhanced kidneys are symmetric in size, without evidence of hydronephrosis. There is no evidence of urolithiasis. The urinary bladder is incompletely distended, limiting evaluation. Prostate is borderline enlarged. The small bowel demonstrates no acute abnormalities. The colon is of normal course and caliber. The appendix is normal. There is no free intraperitoneal air or fluid. The aorta is nonaneurysmal. No pathologically enlarged lymph nodes are demonstrated. Ventral abdominal wall hernia repair is demonstrated. Small fat containing left inguinal hernia. No suspicious osseous lesions are identified. Multilevel degenerative changes of the spine. IMPRESSION: No acute process within the abdomen or pelvis. Interpreted by: Amor Whitehead DO Preliminary Report By: Amor Whitehead DO Electronically signed By Amor Whitehead DO Dictated Date: 04/03/2023 10:54:03 AM Prelim Date: 04/03/2023 10:58:46 AM Sign Date: 04/03/2023 10:58:46 AM Ordering Provider: SOHAN GUAJARDO [facility] ADMISSION HISTORY AN D PHYSICIAL CHIEF COMPLAINT: HISTORY OF PRESENT ILLNESS: REVIEW OF SYSTEMS: ACTIVE PROBLEMS: (5) Diabetes ([id number]) History of repair of umbilical hernia ([id number]) HTN (hypertension) ([id number]) Hyperlipemia, mixed ([id number]) NOAH (obstructive sleep apnea) ([id number]) MEDICATIONS: Active Inpt Meds: None Active PRN Meds: None One Time Meds: None Active IV Meds: Lactated Ringers Infusion 1,000 mL (LR 1,000 mL) Start: 07/22/22 8:23:00 EDT, Rate: 50 mL/hr, 07/22/22 8:23:00 EDT ALLERGIES: (1) NKA FAMILY HISTORY: SOCIAL HISTORY: PHYSICAL EXAM: VITALS: ZoadolZozyDNRgaicHDViV4BNC7KzwoZw(kg) 07/22 08:10----[id number] 24 Hr Tmax: No Data Available 36 Hr Tmax: No Data Available Vital Signs are the last 5 in the past 48 hours. Weights display the last 5 within 7 days. Initial Wt: 07/22 127.3 kg 280 lb Current Wt: 07/22 127.3 kg 280 lb GENERAL: HEENT: CARDIOVASCULAR: RESPIRATORY: ABDOMEN: EXREMETIES: NEUROLOGICAL: PSYCHIATRIC: LABS: 36hr Labs 07/22 0810 Blood Glucose, [id number] Blood Glucose, [id number] DIAGNOSTICS: IMPRESSION: PLAN: History and Physical Update I have examined the patient; reviewed the H&P and there are no changes to the H&P unless noted below. [facility] 03-13-2023 Hospital Discharge instructions Patient Education 07/22/2022 10:36:42 Monitored Anesthesia Care, Care After Monitored Anesthesia Care, Care After These instructions provide you with information about caring for yourself after your procedure. Your health care provider may also give you more specific instructions. Your treatment has been plannedaccording to current medical practices, but problems sometimes occur. Call your health care provider if you have any problems or questions after your procedure. What can I expect after the procedure? After your procedure, you may: Feel sleepy for several hours. Feel clumsy and have poor balance for several hours. Feel forgetful about what happened after the procedure. Have poor judgment for several hours. Feel nauseous or vomit. Have a sore throat if you had a breathing tube during the procedure. Follow these instructions at home: For at least 24 hours after the procedure: Have a responsible adult stay with you. It is important to have someone help care for you until youare awake and alert. Rest as needed. Do not: ?Participate in activities in which you could fall or become injured. ?Drive. ?Use heavy machinery. ?Drink alcohol. ?Take sleeping pills or medicines that cause drowsiness. ?Make important decisions or sign legal documents. ?Take care of children on your own. Eating and drinking Follow the diet that is recommended by your health care provider. If you vomit, drink water, juice, or soup when you can drink without vomiting. Make sure you have little or no nausea before eating solid foods. General instructions Take qatg-hyq-ikknqhy and prescription medicines only as told by your health care provider. If you have sleep apnea, surgery and certain medicines can increase your risk for breathing problems. Follow instructions from your health care provider about wearing your sleep device: ?Anytime you are sleeping, including during daytime naps. ?While taking prescription pain medicines, sleeping medicines, or medicines that make you drowsy. If you smoke, do not smoke without supervision. Keep all follow-up visits as told by your health care provider. This is important. Contact a health care provider if: You keep feeling nauseous or you keep vomiting. You feel light-headed. You develop a rash. You have a fever. Get help right away if: You have trouble breathing. Summary For several hours after your procedure, you may feel sleepy and have poor judgment. Have a responsible adult stay with you for at least 24 hours or until you are awake and alert. This information is not intended to replace advice given to you by your health care provider. Make sure you discuss any questions you have with your health care provider. Document Released: 08/18/2016 Document Revised: 07/27/2018 Document Reviewed: 08/18/2016 [employer] Patient Education 2020 [employer]. 07/22/2022 10:36:37 Colonoscopy, Adult, Care After, Mqpf-yd-Tvrc Colonoscopy, Adult, Care After This sheet gives you information about how to care for yourself after your procedure. Your doctor may also give you more specific instructions. If you have problems or questions, call your doctor. What can I expect after the procedure? After the procedure, it is common to have: A small amount of blood in your poop for 24 hours. Some gas. Mild cramping or bloating in your belly. Follow these instructions at home: General instructions For the first 24 hours after the procedure: ?Do not drive or use machinery. ?Do not sign important documents. ?Do not drink alcohol. ?Do your daily activities more slowly than normal. ?Eat foods that are soft and easy to digest. Take wiyg-aui-wxmrgng or prescription medicines only as told by your doctor. To help cramping and bloating: Try walking around. Put heat on your belly (abdomen) as told by your doctor. Use a heat source that your doctor recommends, such as a moist heat pack or a heating pad. ?Put a towel between your skin and the heat source. ?Leave the heat on for 20 30 minutes. ?Remove the heat if your skin turns bright red. This is especially important if you cannot feel pain, heat, or cold. You can get burned. Eating and drinking Drink enough fluid to keep your pee (urine) clear or pale yellow. Return to your normal diet as told by your doctor. Avoid heavy or fried foods that are hard to digest. Avoid drinking alcohol for as long as told by your doctor. Contact a doctor if: You have blood in your poop (stool) 2 3 days after the procedure. Get help right away if: You have more than a small amount of blood in your poop. You see large clumps of tissue (blood clots) in your poop. Your belly is swollen. You feel sick to your stomach (nauseous). You throw up (vomit). You have a fever. You have belly pain that gets worse, and medicine does not help your pain. Summary After the procedure, it is common to have a small amount of blood in your poop. You may also have mild cramping and bloating in your belly. For the first 24 hours after the procedure, do not drive or use machinery, do not sign important documents, and do not drink alcohol. Get help right away if you have a lot of blood in your poop, feel sick to your stomach, have a fever, or have more belly pain. This information is not intended to replace advice given to you by your health care provider. Make sure you discuss any questions you have with your health care provider. Document Released: 05/31/2011 Document Revised: 02/26/2018 Document Reviewed: 01/20/2017 [employer] Patient Education 2020 [employer]. 07/22/2022 10:36:36 Colon Polyps Colon Polyps Polyps are tissue growths inside the body. Polyps can grow in many places, including the large intestine (colon). A polyp may be a round bump or a mushroom-shaped growth. You could have one polyp or several. Most colon polyps are noncancerous (benign). However, some colon polyps can become cancerous over time. Finding and removing the polyps early can help prevent this. What are the causes? The exact cause of colon polyps is not known. What increases the risk? You are more likely to develop this condition if you: Have a family history of colon cancer or colon polyps. Are older than 50 or older than 45 if you are . Have inflammatory bowel disease, such as ulcerative colitis or Crohn's disease. Have certain hereditary conditions, such as: ?Familial adenomatous polyposis. ?Quiles syndrome. ?Turcot syndrome. ?Peutz Jeghers syndrome. Are overweight. Smoke cigarettes. Do not get enough exercise. Drink too much alcohol. Eat a diet that is high in fat and red meat and low in fiber. Had childhood cancer that was treated with abdominal radiation. What are the signs or symptoms? Most polyps do not cause symptoms. If you have symptoms, they may include: Blood coming from your rectum when having a bowel movement. Blood in your stool. The stool may look dark red or black. Abdominal pain. A change in bowel habits, such as constipation or diarrhea. How is this diagnosed? This condition is diagnosed with a colonoscopy. This is a procedure in which a lighted, flexible scope is inserted into the anus and then passed into the colon to examine the area. Polyps are sometimes found when a colonoscopy is done as part of routine cancer screening tests. How is this treated? Treatment for this condition involves removing any polyps that are found. Most polyps can be removed during a colonoscopy. Those polyps will then be tested for cancer. Additional treatment may be needed depending on the results of testing. Follow these instructions at home: Lifestyle Maintain a healthy weight, or lose weight if recommended by your health care provider. Exercise every day or as told by your health care provider. Do not use any products that contain nicotine or tobacco, such as cigarettes and e-cigarettes. If you need help quitting, ask your health care provider. If you drink alcohol, limit how much you have: ?0 1 drink a day for women. ? 0 2 drinks a day for men. Be aware of how much alcohol is in your drink. In the [place] one drink equals one 12 oz bottle of beer (355 mL), one 5 oz glass of wine (148 mL), or one 1 oz shot of hard liquor (44 mL). Eating and drinking Eat foods that are high in fiber, such as fruits, vegetables, and whole grains. Eat foods that are high in calcium and vitamin D, such as milk, cheese, yogurt, eggs, liver, fish, and broccoli. Limit foods that are high in fat, such as fried foods and desserts. Limit the amount of red meat and processed meat you eat, such as hot dogs, sausage, mcintosh, and lunch meats. General instructions Keep all follow-up visits as told by your health care provider. This is important. ?This includes having regularly scheduled colonoscopies. ?Talk to your health care provider about when you need a colonoscopy. Contact a health care provider if: You have new or worsening bleeding during a bowel movement. You have new or increased blood in your stool. You have a change in bowel habits. You lose weight for no known reason. Summary Polyps are tissue growths inside the body. Polyps can grow in many places, including the colon. Most colon polyps are noncancerous (benign), but some can become cancerous over time. This condition is diagnosed with a colonoscopy. Treatment for this condition involves removing any polyps that are found. Most polyps can be removed during a colonoscopy. This information is not intended to replace advice given to you by your health care provider. Make sure you discuss any questions you have with your health care provider. Document Released: 01/22/2005 Document Revised: 08/13/2018 Document Reviewed: 08/13/2018 [employer] Patient Education 2020 [employer]. Follow Up Care 07/11/2022 14:57:11 With:SNOW QIU MD Address[address] [facility] [address] [place] [address] [phone] When: Unknown Comments:ONE POLYP WAS REMOVED AND SENT TO THE LAB. THE OFFICE WILL CALL YOU WITH THE RESULTS IN 7-[address] QIU'S OFFICE WT ANY CONCERNS. GO TO THE EMERGENCY ROOM WITH ANY URGENT CONCERNS. [facility] 03-13-2023 Anesthesiology Consult note Patient: WILFREDO XIE Age: 62 years Sex: Male : 1960 Associated Diagnoses: None Author: TAY CULLEN Assessment Postanesthesia assessment Mental status: alert & oriented x 4. Respiratory function: lungs are clear to auscultation. Respiratory support: none. CV function: Normal rate. Cardiovascular support: none. Pain. Nausea status: denies nausea. Postoperative hydration status: within normal limits. Digitally Signed by TAY CULLEN on 07/22/2022 10:[address] [facility]03-13-2023 Summary of episode note Discharge Instructions Thank you for allowing [facility] to assist you with your healthcare needs. The following is importantdischarge information regarding your hospital visit. Your Care Team RIVAS VU MD, DR. Your Diagnosis COLONOSCOPY WITH POLYPECTOMY What to do next Follow Up Appointments Follow Up with SNOW QIU MD When Why: ONE POLYP WAS REMOVED AND SENT TO THE LAB. THE OFFICE WILL CALL YOU WITH THE RESULTS IN 7-[address] QIU'S OFFICE WT ANY CONCERNS. GO TO THE EMERGENCY ROOM WITH ANY URGENT CONCERNS. Where: [address] [facility] [address] [place] [address] [phone] The Following Activity and Diet Have Been Ordered for You Discharge Activity - Ordered -- NO activity restrictions, 07/22/22 10:30:00 EDT Discharge Diet - Ordered -- Follow the post-operative/post-procedure diet instructions provided by your physician's office.,07/22/22 10:30:00 EDT The Following Equipment Has Been Ordered for You Discharge Home Equipment Discharge Wound Care - Ordered -- Follow the post-operative/post-procedure wound care instructions provided by your physician's office., 07/22/22 10:30:00 EDT Allergies NKA Medications Please ask your primary doctor or pharmacist before taking any other medication not listed, including over the counter drugs, herbal medications, vitamins and or supplements as they may interact withyour home medications. What How Much When Instructions Last Dose Unchanged amLODIPine (amLODIPine 10 mg oral tablet) 1 tab(s) by mouth Once a day Unchanged carvedilol (carvedilol 6.25 mg oral tablet) 1 tab(s) by mouth Two (2) times a day Unchanged hydrochlorothiazide-valsartan (hydrochlorothiazide-valsartan 12.5 mg- 160 mg oral tablet) 1 tab(s) by mouth Two (2) times a day Unchanged insulin glargine (Lantus) Subcutaneous Once a day Unchanged insulin glargine (Semglee (Prefilled Pen) 100 units/ mL subcutaneous solution) Unchanged insulin lispro (HumaLOG) (HumaLOG 100 units/ mL injectable solution VIAL) Subcutaneous Unchanged metFORMIN (metFORMIN 1000 mg oral tablet) 1 tab(s) by mouth Two (2) times a day Unchanged rosuvastatin (rosuvastatin 10 mg oral capsule) 1 cap by mouth Once a day Please take this list to your next doctor s visit. Bring all medications you take, including over the counter medications, herbals and other supplements with you to your doctor s visit. Patients and families are reminded to discard old lists and to update any records with all medication providers or retail pharmacies. Education Materials Monitored Anesthesia Care, Care After These instructions provide you with information about caring for yourself after your procedure. Your health care provider may also give you more specific instructions. Your treatment has been plannedaccording to current medical practices, but problems sometimes occur. Call your health care provider if you have any problems or questions after your procedure. What can I expect after the procedure? After your procedure, you may: Feel sleepy for several hours. Feel clumsy and have poor balance for several hours. Feel forgetful about what happened after the procedure. Have poor judgment for several hours. Feel nauseous or vomit. Have a sore throat if you had a breathing tube during the procedure. Follow these instructions at home: For at least 24 hours after the procedure: Have a responsible adult stay with you. It is important to have someone help care for you until youare awake and alert. Rest as needed. Do not: ? Participate in activities in which you could fall or become injured. ? Drive. ? Use heavy machinery. ? Drink alcohol. ? Take sleeping pills or medicines that cause drowsiness. ? Make important decisions or sign legal documents. ? Take care of children on your own. Eating and drinking Follow the diet that is recommended by your health care provider. If you vomit, drink water, juice, or soup when you can drink without vomiting. Make sure you have little or no nausea before eating solid foods. General instructions Take vtna-zjw-gegmxax and prescription medicines only as told by your health care provider. If you have sleep apnea, surgery and certain medicines can increase your risk for breathing problems. Follow instructions from your health care provider about wearing your sleep device: ? Anytime you are sleeping, including during daytime naps. ? While taking prescription pain medicines, sleeping medicines, or medicines that make you drowsy. If you smoke, do not smoke without supervision. Keep all follow-up visits as told by your health care provider. This is important. Contact a health care provider if: You keep feeling nauseous or you keep vomiting. You feel light-headed. You develop a rash. You have a fever. Get help right away if: You have trouble breathing. Summary For several hours after your procedure, you may feel sleepy and have poor judgment. Have a responsible adult stay with you for at least 24 hours or until you are awake and alert. This information is not intended to replace advice given to you by your health care provider. Make sure you discuss any questions you have with your health care provider. Document Released: 08/18/2016 Document Revised: 07/27/2018 Document Reviewed: 08/18/2016 [employer] Patient Education 2020 [employer] Colonoscopy, Adult, Care After This sheet gives you information about how to care for yourself after your procedure. Your doctor may also give you more specific instructions. If you have problems or questions, call your doctor. What can I expect after the procedure? After the procedure, it is common to have: A small amount of blood in your poop for 24 hours. Some gas. Mild cramping or bloating in your belly. Follow these instructions at home: General instructions For the first 24 hours after the procedure: ? Do not drive or use machinery. ? Do not sign important documents. ? Do not drink alcohol. ? Do your daily activities more slowly than normal. ? Eat foods that are soft and easy to digest. Take sakl-rdo-wkokthp or prescription medicines only as told by your doctor. To help cramping and bloating: Try walking around. Put heat on your belly (abdomen) as told by your doctor. Use a heat source that your doctor recommends, such as a moist heat pack or a heating pad. ? Put a towel between your skin and the heat source. ? Leave the heat on for 20 30 minutes. ? Remove the heat if your skin turns bright red. This is especially important if you cannot feel pain, heat, or cold. You can get burned. Eating and drinking Drink enough fluid to keep your pee (urine) clear or pale yellow. Return to your normal diet as told by your doctor. Avoid heavy or fried foods that are hard to digest. Avoid drinking alcohol for as long as told by your doctor. Contact a doctor if: You have blood in your poop (stool) 2 3 days after the procedure. Get help right away if: You have more than a small amount of blood in your poop. You see large clumps of tissue (blood clots) in your poop. Your belly is swollen. You feel sick to your stomach (nauseous). You throw up (vomit). You have a fever. You have belly pain that gets worse, and medicine does not help your pain. Summary After the procedure, it is common to have a small amount of blood in your poop. You may also have mild cramping and bloating in your belly. For the first 24 hours after the procedure, do not drive or use machinery, do not sign important documents, and do not drink alcohol. Get help right away if you have a lot of blood in your poop, feel sick to your stomach, have a fever, or have more belly pain. This information is not intended to replace advice given to you by your health care provider. Make sure you discuss any questions you have with your health care provider. Document Released: 05/31/2011 Document Revised: 02/26/2018 Document Reviewed: 01/20/2017 [employer] Patient Education 2020 [employer]. Colon Polyps Polyps are tissue growths inside the body. Polyps can grow in many places, including the large intestine (colon). A polyp may be a round bump or a mushroom-shaped growth. You could have one polyp or several. Most colon polyps are noncancerous (benign). However, some colon polyps can become cancerous over time. Finding and removing the polyps early can help prevent this. What are the causes? The exact cause of colon polyps is not known. What increases the risk? You are more likely to develop this condition if you: Have a family history of colon cancer or colon polyps. Are older than 50 or older than 45 if you are . Have inflammatory bowel disease, such as ulcerative colitis or Crohn's disease. Have certain hereditary conditions, such as: ? Familial adenomatous polyposis. ? Quiles syndrome. ? Turcot syndrome. ? Peutz Jeghers syndrome. Are overweight. Smoke cigarettes. Do not get enough exercise. Drink too much alcohol. Eat a diet that is high in fat and red meat and low in fiber. Had childhood cancer that was treated with abdominal radiation. What are the signs or symptoms? Most polyps do not cause symptoms. If you have symptoms, they may include: Blood coming from your rectum when having a bowel movement. Blood in your stool. The stool may look dark red or black. Abdominal pain. A change in bowel habits, such as constipation or diarrhea. How is this diagnosed? This condition is diagnosed with a colonoscopy. This is a procedure in which a lighted, flexible scope is inserted into the anus and then passed into the colon to examine the area. Polyps are sometimes found when a colonoscopy is done as part of routine cancer screening tests. How is this treated? Treatment for this condition involves removing any polyps that are found. Most polyps can be removed during a colonoscopy. Those polyps will then be tested for cancer. Additional treatment may be needed depending on the results of testing. Follow these instructions at home: Lifestyle Maintain a healthy weight, or lose weight if recommended by your health care provider. Exercise every day or as told by your health care provider. Do not use any products that contain nicotine or tobacco, such as cigarettes and e-cigarettes. If you need help quitting, ask your health care provider. If you drink alcohol, limit how much you have: ? 0 1 drink a day for women. ? 0 2 drinks a day for men. Be aware of how much alcohol is in your drink. In the [place] one drink equals one 12 oz bottle of beer (355 mL), one 5 oz glass of wine (148 mL), or one 1 oz shot of hard liquor (44 mL). Eating and drinking Eat foods that are high in fiber, such as fruits, vegetables, and whole grains. Eat foods that are high in calcium and vitamin D, such as milk, cheese, yogurt, eggs, liver, fish, and broccoli. Limit foods that are high in fat, such as fried foods and desserts. Limit the amount of red meat and processed meat you eat, such as hot dogs, sausage, mcintosh, and lunch meats. General instructions Keep all follow-up visits as told by your health care provider. This is important. ? This includes having regularly scheduled colonoscopies. ? Talk to your health care provider about when you need a colonoscopy. Contact a health care provider if: You have new or worsening bleeding during a bowel movement. You have new or increased blood in your stool. You have a change in bowel habits. You lose weight for no known reason. Summary Polyps are tissue growths inside the body. Polyps can grow in many places, including the colon. Most colon polyps are noncancerous (benign), but some can become cancerous over time. This condition is diagnosed with a colonoscopy. Treatment for this condition involves removing any polyps that are found. Most polyps can be removed during a colonoscopy. This information is not intended to replace advice given to you by your health care provider. Make sure you discuss any questions you have with your health care provider. Document Released: 01/22/2005 Document Revised: 08/13/2018 Document Reviewed: 08/13/2018 [employer] Patient Education 2020 [employer] Additional Information VACCINATE! IT SAVES LIVES! Members of the community who have not yet received the COVID-19 vaccine and would like to receive it can visit one of [facility] vaccine clinics. There are many vaccine clinic locations within the [facility]. For locations and available times, please visit [email or web address] It is important to note that some COVID mobile vaccine clinics are held outdoors and may be canceled in rainy or stormy conditions. To learn more about pediatric vaccinations (ages 5-11), we invite you to visit the [facility] webpage. [email or web address].[email or web address].org/pages/[email or web address]-Nhozwyzscuh-Khmsfhtcbh-Znnzc-[email or web address] stions.htmlTo learn more about the COVID-19 vaccine, we invite you to visit the CDC website for a list of frequently asked questions. https://www.cdc.gov/coronavirus/2019-ncov/vaccines/faq.html [employer] Patient Portal Access Instructions: Stay connected with your healthcare team and access your personal medical information anytime with the [facility] Patient Portal.If you would like a full copy of your medical records, please contact the [facility] Medical Records Department, Friday through Friday between 8a.m. and 4:30p.m. Please follow the directions below to access the portal: 1.Access the email account you provided upon registration to the [facility].2.Look for an invitation email from [facility].3.Open the email and access the invitation link: Accept Invitation to [facility]4.Fill in the required lee to create your account. Sign into [email or web address] with your username and password that you created in the above steps to stay up to date. You can then view a summary of results, a summary of your visits, and the ability to download your summaries to your computer or send the information securely to a physician. Remember that your healthcare information is confidential, so carefully consider who you will allow to register on the [facility] Patient Portal for access to your information. You can also access the [facility] Patient Portal on the KeyMe. Simply click on Health Records under [employer] and then click on the [facility] logo. HOW TO SAFELY DISPOSE OF PRESCRIPTION MEDICATIONS Please use one of the following methods to safely dispose of your unused medications. 1.Use a drug disposal kit: the drug disposal pouch allows you to safely discard your old and unuseddrugs. Ask your nurse to give you one when you are discharged.2.Visit a local take-back location: Many local pharmacies and police departments have programs that collect old and unwanted prescriptiondrugs. Call your local pharmacy or go to http://Kiwi Crate.FreeCharge/8S1Xu4j to find one close to you.3.Make use of household items: Use cat litter or old coffee grounds to dispose medications if other options arenot available. Mix your drugs with these household products, seal them in an airtight container andthrow it into the garbage. Call [facility]: [phone] to be sure your drugs can be disposed of in this way. Some medicines may require a different approach.4.Never flush your medications down the toilet. IF YOU HAVE BEEN PRESCRIBED AN OPIOID FOR PAIN If you have been prescribed an opioid (such as hydrocodone, oxycodone or morphine), it is critical to understand the possible side effects and risks of opioid pain medications. Even when taken as directed, opioids can have several side effects including: Tolerance, meaning you might need to take more of a medication for the same pain relief. Nausea, vomiting and/or constipation. Sleepiness, dizziness, dry mouth, confusion, depression or itching. Physical dependence, meaning you have withdrawal symptoms when a medication is stopped, can develop within a few days. KNOW YOUR RESPONSIBILITIES It is important to know exactly how much and how often to take the opioid pain medications you are prescribed. Never take opioids in higher amounts or more often than prescribed. Do not combine opioids with alcohol or other drugs that cause drowsiness, such as benzodiazepines, also known as benzos, including diazepam and alprazolam, muscle relaxants or sleep aids. Never sell or share prescription opioids. This is illegal. Store opioids in a secure place and out of reach of others (including children, family, friends and visitors). The last page of this document has been signed and retained as a CHART COPY. Signatures Patient Education Materials Monitored Anesthesia Care, Care After Colonoscopy, Adult, Care After, Tfjk-ff-Ozrn Colon Polyps Medication Leaflets My discharge plan and instructions have been reviewed and explained to me and I,KAREN XIE understand my current condition and have read and understand these discharge instructions. I havereceived a written copy of the plan/instructions. If I have questions, I am aware that I should contact my doctor. 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03-13-2023 Note ELLOREE ADMISSION HISTORY AND PHYSICIAL CHIEF COMPLAINT: HISTORY OF PRESENT ILLNESS: REVIEW OF SYSTEMS: ACTIVE PROBLEMS: (5) Diabetes ([id number]) History of repair of umbilical hernia (2348604774) HTN (hypertension) ([id number]) Hyperlipemia, mixed (055463244) NOAH (obstructive sleep apnea) (714426676) MEDICATIONS: Active Inpt Meds: None Active PRN Meds: None One Time Meds: None Active IV Meds: Lactated Ringers Infusion 1,000 mL (LR 1,000 mL) Start: 07/22/22 8:23:00 EDT, Rate: 50 mL/hr, 07/22/22 8:23:00 EDT ALLERGIES: (1) NKA FAMILY HISTORY: SOCIAL HISTORY: PHYSICAL EXAM: VITALS: JbzcujLfjvQKBntpwHIGwU0ZRU6YvdnPr(kg) 07/22 08:10----[id number]/81790.3 24 Hr Tmax: No Data Available 36 Hr Tmax: No Data Available Vital Signs are the last 5 in the past 48 hours. Weights display the last 5 within 7 days. Initial Wt: 07/22 127.3 kg 280 lb Current Wt: 07/22 127.3 kg 280 lb GENERAL: HEENT: CARDIOVASCULAR: RESPIRATORY: ABDOMEN: EXREMETIES: NEUROLOGICAL: PSYCHIATRIC: LABS: 36hr Labs 07/22 0810 Blood Glucose, [id number] Blood Glucose, Wynasihnt612T DIAGNOSTICS: IMPRESSION: PLAN: History and Physical Update I have examined the patient; reviewed the H&P and there are no changes to the H&P unless noted below. Digitally Signed by SNOW QIU MD on 07/22/2022 09:[address] [facility]03-13-2023 Anesthesiology Consult note Patient: WILFREDO XIE Age: 62 years Sex: Male : 1960 Associated Diagnoses: None Author: TAY CULLEN RECRUITER MANAGER-TELLER HEAD Preoperative Information Time of last food or liquid consumption: 07/22/2022 07:00:00 Anesthesia history Patient's history: negative. Family's history: negative. Review of Systems Ear/Nose/Mouth/Throat: Negative. Respiratory: Sleep apnea. Cardiovascular: htn. Gastrointestinal: mo. Genitourinary: Negative. Endocrine: Negative. Musculoskeletal: Negative. Integumentary: Negative. Neurologic: Negative. Health Status Allergies: Allergic Reactions (Selected) NKA, Allergies (1) ActiveReaction NKANone Documented Current medications: (Selected) Inpatient Medications Ordered LR 1,000 mL: 50 mL/hr, Intravenous Prescriptions Prescribed carvedilol 6.25 mg oral tablet: 6.25 mg, 1 tab(s), Oral, BID, 180 tab(s), 3 Refill(s) hydrochlorothiazide-valsartan 12.5 mg-160 mg oral tablet: 1 tab(s), Oral, BID, 60 tab(s), 0 Refill(s) Documented Medications Documented HumaLOG 100 units/mL injectable solution VIAL: unit(s), Subcutaneous, 0 Refill(s) Lantus: Subcutaneous, qDay, 0 Refill(s) Semglee (Prefilled Pen) 100 units/mL subcutaneous solution: 0 Refill(s) amLODIPine 10 mg oral tablet: 10 mg, 1 tab(s), Oral, qDay, 0 Refill(s) metFORMIN 1000 mg oral tablet: 1,000 mg, 1 tab(s), Oral, BID rosuvastatin 10 mg oral capsule: 10 mg, 1 cap(s), Oral, qDay, 0 Refill(s), Medications (1) Active Scheduled: (0) Continuous: (1) Lactated Ringers 1,000 mL 1,000 mL, Intravenous, 50 mL/hr PRN: (0) Problem list: Medical Diabetes / SNOMED CT [id number] / Confirmed History of repair of umbilical hernia / SNOMED CT 7215436338 / Confirmed HTN (hypertension) / SNOMED CT [id number] / Confirmed Hyperlipemia, mixed / SNOMED CT 890525485 / Confirmed NOAH (obstructive sleep apnea) / SNOMED CT 815110365 / Confirmed, Active Problems (5) Diabetes History of repair of umbilical hernia HTN (hypertension) Hyperlipemia, mixed NOAH (obstructive sleep apnea) Histories Past Medical History: Active Diabetes ([id number]) HTN (hypertension) ([id number]) History of repair of umbilical hernia (1314582677) Resolved Abnormal EKG (2698934363): Resolved. Family History: Breast cancer Grandparent Hypertension Father Hepatitis Mother Alzheimer's disease Grandparent Procedure history: Hernia (101183896). Nose - repair or plastic operation (963794812). Colonoscopy (572169750). Cholecystectomy (20735164). Social History Social & Psychosocial Habits Alcohol 03/21/2019 Use: Past Substance Abuse 03/21/2019 Use: Never Tobacco 03/21/2019 Tobacco Use: Never (less than 100 in l Nutrition/Health 03/26/2022 Caffeine intake amount: 2-3 bottles of diet pepsi a day . Physical Examination Vital Signs 07/22/2022 8:10 EDT Peripheral Pulse Rate 73 bpm Respiratory Rate 16 br/min Systolic Blood Pressure Non-Invasive 118 mmHg Diastolic Blood Pressure Non-Invasive 71 mmHg Vital Signs(last 24 hrs) Last Charted Resp Rate 16 br/min (JUL 22 08:10) WOT010 mmHg (JUL 22 08:10) DBP71 mmHg (JUL 22 08:10) Measurements from flowsheet : Measurements 07/22/2022 8:10 EDT Height 175.3 cm Admission Weight 127.3 kg Weight Method Stated [place] Body Weight 70.74 kg Admission Body Mass Index 41.43 m2 Pain assessment: Pain Assessment 07/22/2022 8:10 EDT Primary Pain Intensity 0 Pain Scale Type 0-10 Pain scale . General: Alert and oriented. Airway: Normal temporomandibular joint mobility. Mallampati classification: III (soft palate, base of uvula visible). Head: Normocephalic. Dentition Evaluation: Own teeth. Neck: Supple. Respiratory: Lungs are clear to auscultation. Cardiovascular: Normal rate. Heart Sounds: Normal. Gastrointestinal: Soft. Musculoskeletal Normal range of motion. Integumentary: Intact. Neurologic: Alert, Oriented. Review / Management Results review: No qualifying data available , Lab results 07/22/2022 8:29 EDT Lactated Ringers Injection Begin Bag 1,000 mL mL 07/22/2022 8:15 EDT SN - Proc - Anesthesia Type MAC SN - Proc - EBL 0 mL SN - Proc - Actual Procedure COLONOSCOPY 07/22/2022 8:14 EDT SN - PP - Body Position Lateral Right Side-up Standard Intra-op 07/22/2022 8:13 EDT SN - GCD - Post-operative Diagnosis HISTORY OF MULTIPLE COLON POLYPS SN - GCD - Case Level OPD Level 3 07/22/2022 8:12 EDT SN - Cul - Kind Specimen 07/22/2022 8:12 EDT SN - CAt - Case Attendee SN - CAt - Case Attendee SN - CAt - Case Attendee SN - CAt - Case Attendee SN - CAt - Case Attendee SN - CAt - Case Attendee SN - CAt - Case Attendee SN - CAt - Case Attendee SN - CAt - Role Performed Primary Surgeon SN - CAt - Role Performed Cuff Knitter 1 SN - CAt - Role Performed TELLER HEAD SN - CAt - Role Performed Mill Manager 07/22/2022 8:10 EDT Blood Glucose, Capillary 194 mg/dL [place] Designated Person #1 [facility] [phone] Designated Person #1 Relationship Spouse Privacy Restrictions Requested None Height 175.3 cm Admission Weight 127.3 kg Weight Method Stated [place] Body Weight 70.74 kg Admission Body Mass Index 41.43 m2 Peripheral Pulse Rate 73 bpm Respiratory Rate 16 br/min Systolic Blood Pressure Non-Invasive 118 mmHg Diastolic Blood Pressure Non-Invasive 71 mmHg Primary Pain Intensity 0 Pain Scale Type 0-10 Pain scale Heart Sounds ICU S1S2 Heart Rhythm Regular Oxygen Therapy Room air Oxygen Saturation 96 % Abdomen Description Rounded Swallowing Disorder None Bowel Sounds All Quadrants Present Urinary Elimination Voiding, no difficulties Status N/A Skin Temperature Warm Skin Description [place], Normal for ethnicity, Dry Skin Moisture General Dry IV Present Present Hand Right 07/22/2022 22 gauge Peripheral IV Activity: Insert new site Peripheral IV Site Condition: No complications Peripheral IV Number of Attempts: 1 Characteristics of Speech Clear Level of Consciousness Alert Strength All Extremities Strong Affect/Behavior Appropriate Orientation Oriented x 4 Sensory Deficits None Sleep Apnea Age Yes Sleep Apnea Gender Yes Diagnosed With Sleep Apnea Yes Advanced Directives Unable to obtain Infectious Disease Symptoms Patient states no symptoms Infectious Disease Recent Exposure No Alcohol and Drug Use No Employee of Institutional Living No Health Care Employee No History of Exposure to TB No History of Positive Chest X-Ray for TB No History of Positive TB Skin Test No Homeless No Known Immunosuppression No Recent Immigrant No Resident of Institutional Living No Bloody Sputum No Fatigue No Fever No Loss of Appetite No Night Sweats No Persistent Cough > 3 Weeks No Weight Loss No Vice President Digital Strategist On Yes Colon Prep Results Excellent Consent Form Signed Yes Patient Dressed In Hospital gown History & Physical Update On Chart Yes History & Physical On Chart Yes Bowel Prep Completed Yes Obstructive Sleep Apnea Assess Completed Yes Orientation Assessment Oriented x 4 Safety Brochure Information Reviewed Unable to complete [facility] Video Viewed No Barriers to Learning None evident Teaching Method Explanation Teaching Evaluation No further teaching needed Preferred Written Language South African Preferred Spoken Language South African Pre Procedure/Surgery Education Appropriate expectations Information Given by Patient Patient's Current Physicians Dr. Waddell- PCP Discharge To, Anticipated Home with family care Activity Status ADL Ambulating in allred, Ambulating in room, Awake Assistive Device None NPO Status Maintained Standard Safety ID band on, Call device within reach, Bed in low position, Wheels locked, Safety level maintained Prev Test Positive/Diagnosis w/COVID-19 No Current Quarantine/Isolated any Illness No Any Contact with Sick Animals/Birds No Traveled Anywhere in Last 30 Days No Patient ID Band on and Verified Yes Implants Verified Yes Pacemaker/AICD Verified Yes Last Fluid Intake 07/22/2022 8:27 Last Food Intake 07/21/2022 8:00 Last Void 07/22/2022 8:27 Lost Weight Unintentionally Recently No Eat Poorly Due to Decreased Appetite No Total MST Score 0 N/A Personal Devices, Patient Valuables None Anesthesia/Transfusions Prior anesthesia Admission Note-Nursing Same Day Patient History . Assessment and Plan [place] [employer] Anesthesiologists (ASA) physical status classification: Class III. Anesthetic Preoperative Plan Anesthetic technique: MAC. Postoperative pain management: Per surgeon. Informed consent: signed by patient. Digitally Signed by ALYSE TAYHITESH JJ on 07/22/2022 09:[address] [facility]01-11-2023 NoteHNO ID: [id number] Author: Vijaya Hartley MD Service: ? Author Type: Physician Type: Progress Notes Filed: 05/22/2022 11:20 AM Note Text: Assessment and Plan 1. Type 2 diabetes mellitus without retinopathy (HCC) -no diabetic retinopathy both eyes 2. Primary open angle glaucoma (POAG) of both eyes, moderate stage -history of Selected laser trabeculoplasty (SLT) left eye -followed by Dr. Allen 3. Meibomian gland dysfunction (MGD) of upper and lower lids of both eyes -may be contributing to fluctuating vision 4. Combined form of age-related cataract, both eyes -not visually significant both eyes -mild Posterior subcapsular cataract (PSC) left eye 5. Choroidal nevus, left eye -with orange pigment -followed by Dr. Allen Plan: -Continue blood sugar and blood pressure control Continue -timolol twice a day right eye -latanoprost at bedtime both eyes -continue follow-up Dr. Allen -nm as needed I have confirmed and edited as necessary the relevant ophthalmic history, ROS, and the neuro exam findings as obtained by others. I have seen and examined Wilfredo A Fina. I have discussed the case and the management of this patient's care with the Resident/Fellow, if applicable. I also have reviewed and agree with the assessment and plan as stated above and agree with all of its relevant components. Vijaya Hartley MD May 22, 2022 11:14 [facility]ments Appointment Date:03/06/2022 09:30:00 AM Scheduled Provider:JOVON MITCHELL Location:[facility] Appointment Type:[facility] Evaluation + Plan note Future Appointments Appointment Date:02/26/2024 01:00:00 PM Scheduled Provider: Location:[facility] Appointment Type:[facility] Hospital course Narrative No data available for this section [facility] Hospital Discharge instructions No data available for this section [facility] Note* MICHAELA CANAS MD: SIGN, VERIFY Event Display: Echocardiogram, Adult w Bubble St ([facility]) Authored Date: [id number] [facility] Progress note No data available for this section [facility] Summary Purpose Family History No Family History Records FoundNo Family History Records Found No data available for this section No data available for this section No Family History Records Found No data available for this section Advance Directives No Advanced Directives Records FoundNo Advanced Directives Records FoundNo Advanced Directives Records Found Additional Source Comments (unrecognized sect ion and content) No Status Records FoundNo Status Records FoundNo Status Records Found INFORMATION SOURCE (unrecogn ized section and content) DATE CREATED AUTHOR AUTHOR'S ORGANIZ ATION 05/23/2022 [facility] DATE CREATED AUTHOR AUTHOR'S ORGANIZ ATION 05/25/2023 [facility] ([place]) Care Team (unrecognized sect ion and content) Care Team Personnel Name: RIVAS VU MD Member Role: Primary Care Physician Address: Address: [address] [place] [address] [address] [place] [address] [place] Care Team Related Persons Name: CASSANDRA XIE Address: Home [address] [place] [phone] [place] Care Team Personnel Name: RIVAS VU MD Member Role: Primary Care Physician Address: Address: [address] [place] [address] [address] [place] [address] [place] Care Team Related Persons Name: CASSANDRA XIE Address: Home [address] [place], [place] [phone] [place] Care Team Personnel Name: RIVAS VU MD Member Role: Primary Care Physician Address: Address: [address] [place] [address] [address] [place] [address] [place] Care Team Related Persons Name: CASSANDRA XIE Address: Home [address] [place] [phone] Patient Care team informatio n (unrecognized section and content) Care Team Personnel Name: RIVAS VU MD Member Role: Primary Care Physician Address: Address: [address] [place] [address] Name: LIZZY Hamilton Position: AO RN Member Role: ED RN Name: SOHAN GUAJARDO MD Position: ED Physician Member Role: Attending Physician Address: Address: [facility] [address] [place], [place] [id number] Care Team Related Persons Name: CASSANDRA XIE Address: Home [address] [place] [phone] Care Team Personnel Name: RIVAS VU MD Member Role: Primary Care Physician Address: Address: [address] [place] [address] Name: Micaela Dorsey RN Position: AO RN Member Role: ED RN Name: CHESTER SANTANA MD Position: ED Physician Member Role: ED Physician Address: Address: [facility] [address] [place] [address] Care Team Related Persons Name: CASSANDRA XIE Address: Home [address] [place] [phone] Care Team Personnel Name: RIVAS VU MD Member Role: Primary Care Physician Address: Address: [address] [place] [address] Name: LAUREL BARKLEY MD Position: ED Physician Member Role: Attending Physician Address: Address: [facility] Care Team Related Persons Name: CASSANDRA XIE Address: Home [address] [place] [phone] FOR RECORDS PERTAINING TO PATIENTS WHO ARE OR HAVE BEEN ENROLLED IN A CHEMICAL DEPENDENCY/SUBSTANCEABUSE PROGRAM, SOME INFORMATION MAY BE OMITTED. This clinical summary was aggregated from multiple sources. Caution should be exercised in using it in the provision of clinical care. This summary normalizes information from multiple sources, and as a consequence, information in this document may materially change the coding, format and clinical context of patient data. In addition, data may be omitted in some cases. CLINICAL DECISIONS SHOULD BE BASED ON THE PRIMARY CLINICAL RECORDS. [facility]. provides no warranty or guarantee of the accuracy or completeness of information in this document.
[2023-05-30 10:46] LABS: Anion Gap 5 (5-15); BUN 14 mg/dL (7-18); BUN/Creat Ratio 16.7 RATIO (10-20); Chloride 104 mmol/L (98-107); Cholesterol 112 mg/dL (200); Creatinine, Serum 0.84 mg/dL (0.70-1.30); EST Glomerular Filtration Rate 99 mL/min (>60); Est Glom Filt Rate - Afr Amer 119 mL/min (>60); Glucose 195 mg/dL (74-106); High Density Lipoprotein 38 mg/dL; Microalbumin:Creatinine Ratio 642.4 mg/g CRE (<30 mg/g CRE); PSA,Total- Diagnostic 1.49 ng/mL (0.0-4.0); Sodium Level 137 mmol/L (136-145); Thyroid Stim Hormone (TSH) 1.72 uIU/mL (0.358-3.74); Triglycerides 147 mg/dL; Very Low Density Lipoprotein 29 mg/dL (5-40)
[2023-05-30 11:09] LABS: Hemoglobin A1c 8.4 % (3.8-5.6)
== END | disposition home or self-care (01) ==
LOC: MTLAB 08:14
PROVIDERS: PCP Family Medicine; Referring Provider Family Medicine; Visit Provider Family Medicine
DX: E29.1 Testicular hypofunction (principal); E11.9 Type 2 diabetes mellitus without complications; E66.9 Obesity, unspecified
CPT/HCPCS: 36415; 80048; 80061; 82043; 82570; 83036; 84153; 84403; 84443

== ENCOUNTER 2023-10-01 10:00 | Outpatient (RCR) | payer OTHER, SELFPAY ==
--- NOTE | 2023-09-10 12:16 | HP.PTEVAL ---
Patient's Visit Information Visit Information Visit Information: ADRIENNE XIE is a 63 year old M referred to Physical Therapy by Dr. Yaw Hardy DO with a diagnosis of LBP and thoracic spine pain. Date of Evaluation: 09/10/23 Physical Therapist: Aravind Johnson, PT, ATC Visit Plan Frequency: 2x /Week Duration: 4 Weeks Plan: core strengthening in neutral spine (no flexion or extension per order), B LE strengthening, gait training, transfer training, nustep, and HEP Subjective Subjective: Pt reports he fell about 6 months ago and notes he has had LBP since. Pt reports he has had xrays which revealed older compression fractures in the thoracic spine. Pt notes he has been to pain management for 2 injections which helped for the thoracic spine pain, but he continues to experience significant L/S pain. Pt reports he experiences pain that wraps around to the front of his stomach. Pt denies any tingling or or numbness in LE's. Pt reports if therapy fails, nerve ablation is his next step. Pt denies sleep difficulty at this time. Pt reports he is mostly limited with prolonged standing and ambulation. Pt reports he is very limited with yard work and house duties at this time. 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 4/10 pain at rest, 9/10 at worst (when he performs a twisting motion) Pain LBP: Pain Intensity (Out of 10): 3 Pain Intensity Range: 9 Objective Objective: Neuro: B LE sensation is WNL to light touch. Gait: Pt is able to ambulate 340 feet until needing to rest secondary to LBP sit to stands: 7 reps in 30 sec core strength: Pt is able to lye down, needs help with sitting up. Pt also demonstrates a Trendelenburg gait pattern. Balance/Special Test Scores Oswestry Low Back Score: 19 Goals Goal 1:: Pt will be able to ambulate 1000 feet to aid with community ambulation Goal Time Frame: 4-6 Weeks Goal 2:: Pt will perform 10 sit to stands in 30 seconds to aid with improving ease with transfers Goal Time Frame: 4-6 Weeks Goal 3:: Improve core strength overall to aid with eliminating Trendelenburg gait pattern Goal Time Frame: 4-6 Weeks Goal 4:: I with HEP Goal Time Frame: 4-6 Weeks Rehabilitation Potential Physical Therapy Diagnosis: Pt has LBP, limited ambulation, and work difficulties secondary to degenerative changes of the L/S Anticipated Interventions Patient/Client Instruction: Educate patient on: Condition and Plan of Care For the Purpose of:: To improve self management Therapeutic Exercise to Include: Strength training, Endurance training, Balance training, Gait and locomotor training and Dynamic Lumbar Stabilization For the Purpose of:: To decrease pain, To improve muscle performance and motor function, To improve ability to perform ADL's and To increase tolerance to activity/condition/position Text: Thank you for the opportunity to evaluate your patient. For Medicare and Medicare HMO plans, please review the plan of care and approve it. It will need to be FAXED BACK to us at [phone] for Medicare purposes. For Medicare only, by signing this I certify the plan of care. Please let me know if there are questions or concerns regarding this plan of care. Physician Signature: Date:
--- NOTE | 2024-02-03 10:07 | HP.PT.NRP ---
Patient Information Patient Information: ADRIENNE XIE was seen in my office for initial evaluation on 09/10/23. The following Plan of Care was established for this patient: POC Established Initial Frequency: 2x /Week Initial Duration: 4 Weeks Anticipated Interventions Patient/Client Instruction: Educate patient on: Condition and Plan of Care For the Purpose of:: To improve self management Therapeutic Exercise to Include: Strength training, Endurance training, Balance training, Gait and locomotor training and Dynamic Lumbar Stabilization For the Purpose of:: To decrease pain, To improve muscle performance and motor function, To improve ability to perform ADL's and To increase tolerance to activity/condition/position Last Seen Last Seen: This patient was last seen in our office . Pertinent comments regarding their Physical therapy will appear below: Pt was treated for low back pain for 6 PT visits through the date of 10/01/23. Pt has not returned through todays date and is discontinued at this time. At this point I will be discontinuing this patient from physical therapy. I would be happy to see this patient again in the future if found appropriate by the physician. Thank you! Aravind Johnson, PT, ATC Balance/Gait/Functional tests Balance/Special Test Scores Oswestry Low Back Score: 19
== END 2023-10-01 19:00 | disposition home or self-care (01) ==
LOC: PT 10:00
PROVIDERS: PCP Family Medicine; Referring Provider Orthopaedic Surgery; Visit Provider Orthopaedic Surgery
DX: M51.36 Other intervertebral disc degeneration, lumbar region (principal)
CPT/HCPCS: 97014; 97110; 97161; G0283

== ENCOUNTER → 2023-12-05 | Outpatient (CLI) | payer OTHER, SELFPAY ==
[2023-12-05 10:08] LABS: Absolute Lymphocyte Count 1.49 X10^3/uL (0.83-4.51); Absolute Neutrophil Count 4.7 X10^3/uL (2.0-7.7); Basophil# 0.04 X10^3/uL; Basophil% 0.5 % (0-1); Eosinophil# 1.87 X10^3/uL; Eosinophils% 21.2 % (0-5); Hematocrit 41.6 % (40-54); Hemoglobin 13.8 g/dL (13.0-16.5); Lymphocyte # 1.49 X10^3/ul (0.83-4.51); Lymphocyte % 16.9 % (19-41); Mean Corp Hgb Conc 33.2 g/dL (32-36); Mean Corpuscular Hgb 28.4 pg (27.0-32.0); Mean Corpuscular Volume 85.6 fL (80-94); Monocyte# 0.72 X10^3/uL; Monocyte% 8.2 % (0-10); NRBC Flagged by Analyzer 0 % (0-5); Neutrophil # 4.68 X10^3/uL (2.7-7.7); POSITIVE MORPHOLOGY YES; Platelet Count 267 K/mm3 (150-450); RBC Distribution Width CV 13.1 % (11.6-14.6); RBC Distribution Width SD 40.3 fl (35.1-43.9); Red Blood Count 4.86 M/mm3 (4.6-6.2); White Blood Count 8.8 K/mm3 (4.4-11.0)
[2023-12-05 10:11] LABS: Differential Indicated SCAN CRITERIA MET
[2023-12-05 10:28] LABS: Hemoglobin A1c 7.3 % (3.8-5.6)
[2023-12-05 10:40] LABS: Differential Comment SCANNED
[2023-12-05 10:42] LABS: Anion Gap 6 (5-15); BUN 19 mg/dL (7-18); BUN/Creat Ratio 20.6 RATIO (10-20); Calcium,Total 9.8 mg/dL (8.5-10.1); Chloride 108 mmol/L (98-107); Cholesterol 86 mg/dL (200); Creatinine, Serum 0.92 mg/dL (0.70-1.30); EST Glomerular Filtration Rate 88 mL/min (>60); Est Glom Filt Rate - Afr Amer 107 mL/min (>60); Glucose 176 mg/dL (74-106); High Density Lipoprotein 31 mg/dL; Potassium 3.8 mmol/L (3.5-5.1); Sodium Level 139 mmol/L (136-145); Triglycerides 216 mg/dL; Very Low Density Lipoprotein 43 mg/dL (5-40)
== END | disposition home or self-care (01) ==
LOC: MTLAB 07:02
PROVIDERS: PCP Family Medicine; Referring Provider Family Medicine; Visit Provider Family Medicine
DX: E11.9 Type 2 diabetes mellitus without complications (principal); I10 Essential (primary) hypertension; R79.89 Other specified abnormal findings of blood chemistry
CPT/HCPCS: 36415; 80048; 80061; 83036; 84403; 85025

== ENCOUNTER → 2024-05-11 | Outpatient (CLI) | payer OTHER, SELFPAY ==
[2024-05-11 10:35] LABS: ALB/GLOB Ratio 0.9 RATIO (0.9-2.4); AST(SGOT) 19 U/L (15-37); Alanine Aminotransfer ALT/SGPT 43 U/L (16-61); Albumin, Serum 3.5 g/dL (3.2-5.0); Alkaline Phosphatase 90 U/L (45-117); Anion Gap 5 (5-15); BUN 20 mg/dL (7-18); BUN/Creat Ratio 24.3 RATIO (10-20); Calcium,Total 9.2 mg/dL (8.5-10.1); Chloride 104 mmol/L (98-107); Cholesterol 101 mg/dL (200); Creatinine, Serum 0.82 mg/dL (0.70-1.30); EST Glomerular Filtration Rate 101 mL/min (>60); Est Glom Filt Rate - Afr Amer 122 mL/min (>60); Globulin 3.8 g/dL (2.2-4.2); Glucose 195 mg/dL (74-106); High Density Lipoprotein 34 mg/dL; Potassium 3.7 mmol/L (3.5-5.1); Protein, Total 7.3 g/dL (6.4-8.2); Sodium Level 136 mmol/L (136-145); Triglycerides 151 mg/dL; Very Low Density Lipoprotein 30 mg/dL (5-40)
== END | disposition home or self-care (01) ==
LOC: MTLAB 07:36
PROVIDERS: PCP Family Medicine; Referring Provider Family Medicine; Visit Provider Family Medicine
DX: E11.9 Type 2 diabetes mellitus without complications (principal)
CPT/HCPCS: 36415; 80053; 80061

== ENCOUNTER → 2024-05-13 | Outpatient (CLI) | payer OTHER, SELFPAY ==
[2024-05-13 10:34] LABS: Microalbumin:Creatinine Ratio 173.3 mg/g CRE (<30 mg/g CRE)
== END | disposition home or self-care (01) ==
PROVIDERS: PCP Family Medicine; Referring Provider Family Medicine; Visit Provider Family Medicine
DX: E11.9 Type 2 diabetes mellitus without complications (principal)
CPT/HCPCS: 82043; 82570

== ENCOUNTER → 2024-07-14 | Outpatient (CLI) | payer OTHER, SELFPAY ==
[2024-07-17 18:08] LABS: QNTFERON TB Mitogen Value > 10.00 IU/mL (.); QNTFERON TB Nil Value 0.07 IU/mL (.); QNTFERON TB1+ Ag Value 0.05 IU/mL (.); QNTFERON TB2+ Ag Value 0.05 IU/mL (.); QNTIFERON TB Positive Criteria Negative (Negative)
== END | disposition home or self-care (01) ==
LOC: MTLAB 07:20
PROVIDERS: PCP Family Medicine; Referring Provider Physician Assistant Medical; Visit Provider Physician Assistant Medical
DX: L40.0 Psoriasis vulgaris (principal); Z79.899 Other long term (current) drug therapy
CPT/HCPCS: 36415; 86480

== ENCOUNTER → 2024-09-03 | Outpatient (CLI) | payer OTHER, SELFPAY ==
[2024-09-03 11:18] LABS: Hemoglobin A1c 7.2 % (<=5.6)
[2024-09-03 11:26] LABS: ALB/GLOB Ratio 1.4 RATIO (0.9-2.4); AST(SGOT) 22 U/L (<=37); Alanine Aminotransfer ALT/SGPT 32 U/L (<=46); Albumin, Serum 4.1 g/dL (3.4-4.8); Alkaline Phosphatase 83 U/L (40-129); Anion Gap 13 (5-15); BUN 17 mg/dL (4-19); BUN/Creat Ratio 22.5 RATIO (10-20); Calcium,Total 9.8 mg/dL (7.6-11.0); Carbon Dioxide 23.1 mmol/L (21.0-32.0); Chloride 103 mmol/L (98-108); Creatinine, Serum 0.74 mg/dL (0.70-1.20); EST Glomerular Filtration Rate 102 (>60); Globulin 2.9 g/dL (2.2-4.2); Glucose 147 mg/dL (70-99); Potassium 3.8 mmol/L (3.3-5.1); Protein, Total 6.9 g/dL (5.9-8.4); Sodium Level 139 mmol/L (133-145); Total Bilirubin 0.31 mg/dL (0.00-1.30)
== END | disposition home or self-care (01) ==
LOC: MTLAB 07:04
PROVIDERS: PCP Family Medicine; Referring Provider Family Medicine; Visit Provider Family Medicine
DX: I10 Essential (primary) hypertension (principal); E11.9 Type 2 diabetes mellitus without complications
CPT/HCPCS: 36415; 80053; 82043; 83036

== ENCOUNTER → 2024-09-06 | Outpatient (CLI) | payer OTHER, SELFPAY ==
[2024-09-06 15:48] LABS: Absolute Lymphocyte Count 1.47 X10^3/uL (0.83-4.51); Absolute Neutrophil Count 5.7 X10^3/uL (2.0-7.7); Basophil# 0.03 X10^3/uL; Basophil% 0.4 % (0-1); Eosinophil# 0.02 X10^3/uL; Eosinophils% 0.3 % (0-5); Hematocrit 39.8 % (40-54); Hemoglobin 13.5 g/dL (13.0-16.5); Lymphocyte # 1.47 X10^3/ul (0.83-4.51); Lymphocyte % 18.5 % (19-41); Mean Corp Hgb Conc 33.9 g/dL (32-36); Mean Corpuscular Hgb 29.2 pg (27.0-32.0); Mean Platelet Vol. 10.1 fl (6.2-12.0); Monocyte# 0.66 X10^3/uL; Monocyte% 8.3 % (0-10); NRBC Flagged by Analyzer 0 % (0-5); Neutrophil # 5.72 X10^3/uL (2.7-7.7); Neutrophil % 72.1 % (47-70); Platelet Count 233 K/mm3 (150-450); RBC Distribution Width CV 13.2 % (11.6-14.6); RBC Distribution Width SD 40.9 fl (35.1-43.9); Red Blood Count 4.63 M/mm3 (4.6-6.2); White Blood Count 7.9 K/mm3 (4.4-11.0)
== END | disposition home or self-care (01) ==
LOC: MTLAB 11:30
PROVIDERS: PCP Family Medicine; Referring Provider Family Medicine; Visit Provider Family Medicine
DX: R79.89 Other specified abnormal findings of blood chemistry (principal)
CPT/HCPCS: 36415; 84403; 85025

== ENCOUNTER → 2025-02-21 | Outpatient (CLI) | payer OTHER, SELFPAY ==
[2025-02-21 10:46] LABS: Hematocrit 39.0 % (40-54); Hemoglobin 13.5 g/dL (13.0-16.5); Immature Granulocytes Count 0.070 X10^3/uL (0.0-0.0); Mean Corp Hgb Conc 34.6 g/dL (32-36); Mean Corpuscular Volume 85.3 fL (80-94); Mean Platelet Vol. 10.3 fl (6.2-12.0); NRBC Flagged by Analyzer 0 % (0-5); Platelet Count 211 K/mm3 (150-450); RBC Distribution Width CV 13.3 % (11.6-14.6); RBC Distribution Width SD 41.1 fl (35.1-43.9); Red Blood Count 4.57 M/mm3 (4.6-6.2); White Blood Count 7.7 K/mm3 (4.4-11.0)
[2025-02-21 12:14] LABS: AST(SGOT) 21 U/L (<=37); Alanine Aminotransfer ALT/SGPT 32 U/L (<=46); Albumin, Serum 4.1 g/dL (3.4-4.8); Alkaline Phosphatase 77 U/L (40-129); Anion Gap 12 (5-15); BUN 14 mg/dL (4-19); BUN/Creat Ratio 17.4 RATIO (10-20); Calcium,Total 9.7 mg/dL (7.6-11.0); Carbon Dioxide 24.5 mmol/L (21.0-32.0); Chloride 101 mmol/L (98-108); Cholesterol 95 mg/dL (<=200); Globulin 2.8 g/dL (2.2-4.2); Glucose 184 mg/dL (70-99); Low Density Lipoprotein Calc. 31 mg/dL; PSA,Total - Annual Screen 1.86 ng/mL (0.02-4.00); Potassium 4.0 mmol/L (3.3-5.1); Triglycerides 158 mg/dL; Very Low Density Lipoprotein 32 mg/dL (5-40); cholesterol:hdl ratio screen 2.89
== END | disposition home or self-care (01) ==
LOC: MTLAB 07:02
PROVIDERS: PCP Family Medicine; Referring Provider Family Medicine; Visit Provider Family Medicine
DX: R79.89 Other specified abnormal findings of blood chemistry (principal); E11.65 Type 2 diabetes mellitus with hyperglycemia
CPT/HCPCS: 36415; 80053; 80061; 83036; 84153; 84403; 85025; G0103

== ENCOUNTER → 2025-03-03 | Outpatient (CLI) | payer OTHER, SELFPAY ==
--- NOTE | 2025-03-03 12:35 | RAD_ITS ---
EXAM: XR Lumbosacral Spine, 2 or 3 Views CLINICAL INDICATION: BACK PAIN, SCIATICA TECHNIQUE: Frontal and lateral views of the lumbar spine and sacrum. COMPARISON: No relevant prior studies available. FINDINGS: VERTEBRAE: Moderate facet arthropathy of L4-S1. Multilevel endplate degenerative change of the visualized spine. No acute fracture. Normal alignment. SACRUM/COCCYX: Unremarkable as visualized. No acute fracture. DISC SPACES: See above. SOFT TISSUES: Unremarkable. RAD/Lumbar Spine 2 or 3 Views IMPRESSION: 1. Degenerative changes as above. 2. If symptoms persist, further evaluation with MRI is recommended. Reading Location: [id number]
== END | disposition home or self-care (01) ==
LOC: MTRAD 12:35
PROVIDERS: PCP Family Medicine; Referring Provider Family Medicine; Visit Provider Family Medicine
DX: M54.30 Sciatica, unspecified side (principal)
CPT/HCPCS: 72100